=== PATIENT | male | born 1960 | race Caucasian/White ===

== ENCOUNTER → 2021-04-07 03:12 | Outpatient (CLI) | payer MEDICARE, MEDICAID, SELFPAY ==
[2021-04-07 20:44] LABS: SARS-CoV-2 RNA PCR Negative
== END ==
PROVIDERS: PCP Nurse Practitioner Adult Health; Visit Provider Nurse Practitioner Adult Health
DX: R09.81 Nasal congestion (principal); Z20.822 Contact with and (suspected) exposure to COVID-19
CPT/HCPCS: C9803; U0003; U0005

== ENCOUNTER 2021-04-13 15:54 | Emergency (ER) | payer MEDICARE, MEDICAID, SELFPAY ==
--- NOTE | ~2021-04-13 | XR_ITS ---
EXAMINATION: XR tibia fibula LT 2V INDICATION: Left leg pain TECHNIQUE: Two views of the left tibia and fibula are obtained. COMPARISON: None available FINDINGS: There is anterior soft tissue swelling overlying the proximal leg. No radiographic foreign body is identified. There is no fracture. Mild osteoarthritis is noted in the knee. IMPRESSION: 1. Soft tissue swelling without acute osseous abnormality. Reviewed, dictated and finalized at location A.
[2021-04-13 16:01] VITALS: BP 127/78; PULSE 101; RESP 18; TEMP 36.9; O2SAT 99
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
[2021-04-13] MEDS: TETANUS,DIPHTHERIA,AC PERTUSSIS ADULT (0.5 ML) BOOSTRIX IM (16:45)
== END 2021-04-13 17:50 | disposition home or self-care (01) ==
PROVIDERS: Emergency Provider Nurse Practitioner
DX: L03.116 Cellulitis of left lower limb (principal); J44.9 Chronic obstructive pulmonary disease, unspecified; I10 Essential (primary) hypertension; E11.9 Type 2 diabetes mellitus without complications; F17.210 Nicotine dependence, cigarettes, uncomplicated; Z79.82 Long term (current) use of aspirin; Z79.84 Long term (current) use of oral hypoglycemic drugs; Z23 Encounter for immunization; V18.0XXA Pedal cycle driver injured in noncollision transport accident in nontraffic accident, initial encounter
CPT/HCPCS: 73590; 90471; 90715; 99213; G0463

== ENCOUNTER 2021-04-16 11:40 | Inpatient (IN) | payer MEDICARE, MEDICAID, SELFPAY ==
[2021-04-16 11:41] VITALS: BP 134/88; PULSE 87; RESP 16; TEMP 36.6; O2SAT 97
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
[2021-04-16 12:28] LABS: Basophils Percent Auto 0.2 % (0.2-1.2); Eosinophils Absolute Auto 0.3 K/mm3 (0-0.3); Eosinophils Percent Auto 3.1 % (0-4.4); Hematocrit 42.2 % (42.0-52.0); Hemoglobin 14.5 g/dL (14.0-18.0); Immature Granulocyte Absolute 0.03 K/mm3 (0.00-0.031); Immature Granulocyte Percent A 0.4 % (0-0.5); Lymphocytes Absolute Auto 1.49 K/mm3 (0.9-3.2); Lymphocytes Percent Auto 18.5 % (18.3-44.2); Mean Corpuscular HGB Conc 34.4 g/dl (32-36); Mean Corpuscular Hemoglobin 34.9 pg (26-34); Mean Corpuscular Volume 101.7 fl (80-100); Mean Platelet Volume 9.1 fl (7.4-10.4); Neutrophils Absolute Auto 5.3 K/mm3 (1.3-6.7); Neutrophils Percent Auto 65.8 % (45.5-73.1); Platelet Count Result 157 k/mm3 (150-375); Red Blood Count 4.15 M/mm3 (4.6-6.20); Red Cell Distribution Width 12.2 % (11.5-14.5); White Blood Count 8.1 K/mm3 (4.5-10.0)
[2021-04-16 12:40] LABS: Anion Gap 11 mmol/L (8-16); Blood Urea Nitrogen 8 mg/dL (9-20); CRP 1.4 mg/dL (<1.0); Calcium 9.2 mg/dL (8.4-10.2); Carbon Dioxide 23 mmol/L (22-30); Chloride 104 mmol/L (98-107); Estimated CRCL calculation 92 ml/min; Estimated Glomerular Filt Rate > 60; Glucose 121 mg/dL (65-110); Potassium 4.2 mmol/L (3.4-5.0); Sodium 138 mmol/L (137-145)
[2021-04-16 13:22] LABS: Erythrocyte Sedimentation Rate 23 mm/hr (0-20)
[2021-04-16 13:40] VITALS: BP 129/78; PULSE 80; RESP 16; O2SAT 97
[2021-04-16 15:29] VITALS: BP 132/84; PULSE 88; RESP 16; O2SAT 99
[2021-04-16 15:50] VITALS: BP 142/80; PULSE 84; RESP 18; O2SAT 99
--- NOTE | 2021-04-16 16:23 | ADMGEN ---
This patient, Juwan Harris, was admitted to Medical Room 245-. Patient/family oriented to hospital policies and general routines including ID bracelet, bed and alarms, visiting hours, pain management, procedures, bathroom and other care routines, personal items, smoking policy, room service/diet, and visiting hours. Information on how to activate the Rapid Response Team has been discussed. Patient/Family are encouraged to report perceived risks to care and to ask questions if they do not understand what they are told or what they should do.
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
[2021-04-16 16:32] VITALS: BMI 26.2
[2021-04-16 18:21] LABS: Glucose Point of Care 137 mg/dl (65-105)
[2021-04-16 21:30] LABS: Glucose Point of Care 128 mg/dl (65-105)
[2021-04-16 22:00] VITALS: BP 129/78; PULSE 72; RESP 20; TEMP 36.9; O2SAT 98
[2021-04-17] MEDS: NICOTINE (*PBKC) 4 MG GUM PO ×4 (00:29→19:58)
[2021-04-17 05:19] LABS: Basophils Percent Auto 0.3 % (0.2-1.2); Eosinophils Absolute Auto 0.3 K/mm3 (0-0.3); Eosinophils Percent Auto 4.2 % (0-4.4); Hematocrit 41.2 % (42.0-52.0); Hemoglobin 14.3 g/dL (14.0-18.0); Immature Granulocyte Absolute 0.02 K/mm3 (0.00-0.031); Immature Granulocyte Percent A 0.3 % (0-0.5); Lymphocytes Absolute Auto 1.84 K/mm3 (0.9-3.2); Lymphocytes Percent Auto 24.4 % (18.3-44.2); Mean Corpuscular HGB Conc 34.7 g/dl (32-36); Mean Corpuscular Volume 98.1 fl (80-100); Mean Platelet Volume 9.2 fl (7.4-10.4); Monocytes Absolute Auto 1.2 K/mm3 (0.1-0.6); Monocytes Percent Auto 15.9 % (2.6-8.5); Neutrophils Absolute Auto 4.1 K/mm3 (1.3-6.7); Neutrophils Percent Auto 54.9 % (45.5-73.1); Platelet Count Result 179 k/mm3 (150-375); Red Cell Distribution Width 11.8 % (11.5-14.5); White Blood Count 7.5 K/mm3 (4.5-10.0)
[2021-04-17 05:27] LABS: Hemoglobin A1C 6.1 % (<5.7)
[2021-04-17 05:30] LABS: Alanine Aminotransferase 19 U/L (4-50); Albumin Level 4.1 g/dL (3.5-5.1); Alkaline Phosphatase 57 U/L (38-126); Anion Gap 8 mmol/L (8-16); Aspartate Amino Transferase 31 U/L (17-59); Bilirubin,Total 0.4 mg/dL (0.2-1.3); Blood Urea Nitrogen 12 mg/dL (9-20); Calcium 9.2 mg/dL (8.4-10.2); Carbon Dioxide 24 mmol/L (22-30); Chloride 106 mmol/L (98-107); Estimated CRCL calculation 82 ml/min; Estimated Glomerular Filt Rate > 60; Glucose 122 mg/dL (65-110); Magnesium 2.1 mg/dL (1.6-2.3); Potassium 4.3 mmol/L (3.4-5.0); Sodium 138 mmol/L (137-145)
[2021-04-17 06:00] VITALS: BP 114/85; PULSE 70; RESP 18; TEMP 36.8; O2SAT 97
[2021-04-17 06:36] LABS: Folic Acid 12.5 ng/mL (2.76->20)
[2021-04-17] MEDS: OLMESARTAN MEDOXOMIL 20 MG TABLET 40 MG PO (07:59)
[2021-04-17] MEDS: SIMVASTATIN 20 MG TABLET 40 MG PO (07:59)
[2021-04-17] MEDS: OMEGA 3 POLYUNSAT FATTY ACIDS 1 GM CAP PO (07:59)
[2021-04-17] MEDS: TRIHEXYPHENIDYL HCL 2 MG TABLET PO (08:00)
[2021-04-17] MEDS: buPROPion HCL XL (24 HR) 150 MG TABCR PO (08:00)
[2021-04-17] MEDS: OXcarbazepine 300 MG TABLET PO ×2 (08:00→16:44)
[2021-04-17 08:51] LABS: Glucose Point of Care 112 mg/dl (65-105)
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
[2021-04-17] MEDS: ASPIRIN 81 MG ENTERIC TABLET PO (11:16)
[2021-04-17] MEDS: CYANOCOBALAMIN 1,000 MCG TABLET 1000 MCG PO (11:16)
[2021-04-17 12:19] LABS: Glucose Point of Care 150 mg/dl (65-105)
[2021-04-17 14:00] VITALS: BP 126/77; PULSE 65; RESP 18; TEMP 36.8; O2SAT 99
[2021-04-17 17:01] LABS: Glucose Point of Care 153 mg/dl (65-105)
[2021-04-17 21:00] LABS: Glucose Point of Care 127 mg/dl (65-105)
[2021-04-17 22:00] VITALS: BP 127/82; PULSE 65; RESP 20; TEMP 36.5; O2SAT 98
[2021-04-18] MEDS: ACETAMINOPHEN 325 MG TABLET 650 MG PO ×2 (00:27→06:07)
[2021-04-18 02:17] LABS: Estimated CRCL calculation 82 ml/min; Estimated Glomerular Filt Rate > 60
[2021-04-18 02:46] LABS: Vancomycin Trough 13.1 ug/mL (10.0-20.0)
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
--- NOTE | 2021-04-18 05:16 | PC.NURSE ---
0500 CALLED INTO ROOM IV EDEMATOUS, DC'D eVra GILMORE RN ATTEMPTED RESTART WITHOUT SUCCESS, PT REFUSES TO BE STUCK AGAIN
[2021-04-18 06:00] VITALS: BP 122/84; PULSE 66; RESP 21; TEMP 36.7; O2SAT 100
[2021-04-18 07:14] LABS: Glucose Point of Care 130 mg/dl (65-105)
[2021-04-18] MEDS: OLMESARTAN MEDOXOMIL 20 MG TABLET 40 MG PO (08:11)
[2021-04-18] MEDS: SIMVASTATIN 20 MG TABLET 40 MG PO (08:11)
[2021-04-18] MEDS: TRIHEXYPHENIDYL HCL 2 MG TABLET PO (08:12)
[2021-04-18] MEDS: ASPIRIN 81 MG ENTERIC TABLET PO (08:12)
[2021-04-18] MEDS: buPROPion HCL XL (24 HR) 150 MG TABCR PO (08:12)
[2021-04-18] MEDS: OXcarbazepine 300 MG TABLET PO (08:12)
[2021-04-18 08:13] VITALS: RESP 20; O2SAT 100
[2021-04-18] MEDS: CYANOCOBALAMIN 1,000 MCG TABLET 1000 MCG PO (08:13)
[2021-04-18] MEDS: OMEGA 3 POLYUNSAT FATTY ACIDS 1 GM CAP PO (08:13)
[2021-04-18] MEDS: CEPHALEXIN 500 MG CAPSULE PO ×2 (09:29→12:12)
[2021-04-18] MEDS: SACCHAROMYCES BOULARDII 250 MG CAPSULE PO (09:29)
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
[2021-04-18 11:57] LABS: Glucose Point of Care 116 mg/dl (65-105)
== END 2021-04-18 12:35 | disposition home or self-care (01) | DRG 603 ==
LOC: ANHED 13:52 → ANH2MED 15:31
PROVIDERS: Physician Assistant; Admitting Provider Internal Medicine; Emergency Provider Emergency Medicine; PCP Nurse Practitioner Adult Health; Visit Provider Internal Medicine
DX: L03.116 Cellulitis of left lower limb (principal); F20.0 Paranoid schizophrenia; S81.802A Unspecified open wound, left lower leg, initial encounter; V19.88XA Pedal cyclist (driver) (passenger) injured in other specified transport accidents, initial encounter; E11.9 Type 2 diabetes mellitus without complications; I10 Essential (primary) hypertension; J44.9 Chronic obstructive pulmonary disease, unspecified; F17.210 Nicotine dependence, cigarettes, uncomplicated; F31.9 Bipolar disorder, unspecified; E78.5 Hyperlipidemia, unspecified
CPT/HCPCS: 36415; 80048; 80053; 80202; 82565; 82607; 82746; 82948; 83036; 83735; 85025; 85652; 86140; 96365; 96366; 96367; 99285; A9270; G0378; J0743; J3370

== ENCOUNTER 2021-04-20 10:50 | Observation (INO) | payer MEDICARE, MEDICAID, SELFPAY ==
--- NOTE | ~2021-04-20 | US_ITS ---
EXAMINATION: US renal BI DATE: 04/20/2021 18:08 INDICATION: Elevated creatinine TECHNIQUE: Multiple ultrasound grayscale images of the kidneys were obtained. COMPARISON: None. FINDINGS: The right kidney measures 10.5 x 5.5 x 4.7 cm. The left kidney measures 10.6 x 4.9 x 4.9 cm. The kidn eys demonstrate normal echogenicity. There is no hydronephrosis in either kidney. No stones identifi ed. The bladder is normal. IMPRESSION: 1. Normal kidneys without hydronephrosis. Reviewed, dictated and finalized at location A.
[2021-04-20 10:52] VITALS: BP 144/117; PULSE 127; RESP 16; TEMP 36.1; O2SAT 97
[2021-04-20 11:20] VITALS: TEMP 36.8
--- NOTE | 2021-04-20 11:36 | ECG_ITS ---
Measurements Intervals [place] Rate: 101 P: 71 PA: 121 QRS: 15 QRSD: 105 T: 45 QT: 358 QTc: 465 Interpretive Statements SINUS TACHYCARDIA VENTRICULAR PREMATURE COMPLEXES POSSIBLE LEFT ATRIAL ENLARGEMENT MINIMAL Q WAVES- HIGH LATERAL LEADS ABNORMAL ECG Electronically Signed On 04-20-2021 16:04:26 CDT by Jose Hess D.O.
[2021-04-20] MEDS: LACTATED RINGERS 1,000 ML 999 ML IV CONT ×2 (11:54→15:36)
[2021-04-20 12:38] LABS: Basophils Percent Auto 0.2 % (0.2-1.2); Eosinophils Percent Auto 0.2 % (0-4.4); Hematocrit 43.7 % (42.0-52.0); Hemoglobin 14.8 g/dL (14.0-18.0); Immature Granulocyte Absolute 0.03 K/mm3 (0.00-0.031); Immature Granulocyte Percent A 0.3 % (0-0.5); Lymphocytes Absolute Auto 0.81 K/mm3 (0.9-3.2); Lymphocytes Percent Auto 9.3 % (18.3-44.2); Mean Corpuscular HGB Conc 33.9 g/dl (32-36); Mean Corpuscular Hemoglobin 34.8 pg (26-34); Mean Corpuscular Volume 102.8 fl (80-100); Neutrophils Absolute Auto 6.8 K/mm3 (1.3-6.7); Platelet Count Result 159 k/mm3 (150-375); Red Blood Count 4.25 M/mm3 (4.6-6.20); Red Cell Distribution Width 12.6 % (11.5-14.5); White Blood Count 8.7 K/mm3 (4.5-10.0)
[2021-04-20 12:59] LABS: Alanine Aminotransferase 19 U/L (4-50); Albumin Level 4.2 g/dL (3.5-5.1); Alkaline Phosphatase 62 U/L (38-126); Anion Gap 15 mmol/L (8-16); Aspartate Amino Transferase 32 U/L (17-59); Bilirubin,Total 0.3 mg/dL (0.2-1.3); Blood Urea Nitrogen 16 mg/dL (9-20); CRP 1.5 mg/dL (<1.0); Calcium 8.5 mg/dL (8.4-10.2); Carbon Dioxide 18 mmol/L (22-30); Chloride 103 mmol/L (98-107); Creatine Kinase 92 U/L (55-170); Estimated CRCL calculation 33 ml/min; Estimated Glomerular Filt Rate 32; Glucose 135 mg/dL (65-110); Potassium 4.8 mmol/L (3.4-5.0); Sodium 136 mmol/L (137-145)
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
[2021-04-20 13:05] LABS: Lactic Acid Reflex 2.3 mmol/L (0.7-2.1)
[2021-04-20 13:09] LABS: Troponin I < 0.012 ng/mL (0.000-0.034)
[2021-04-20 13:20] LABS: Erythrocyte Sedimentation Rate 14 mm/hr (0-20)
[2021-04-20 14:15] LABS: Thyroid Stimulating Hormone Reflex 0.337 uIU/mL (0.465-4.68)
[2021-04-20 15:33] LABS: Reflex Lactic Acid Yes or No Add Lactic
[2021-04-20 15:34] VITALS: BP 125/65; PULSE 97; RESP 16; O2SAT 100
--- NOTE | 2021-04-20 15:45 | PM.IMHP ---
H&P: HPI History of Present Illness Date/Time: 04/20/21 15:45 Chief Complaint: Possible allergic reaction to antibiotics. Narrative: This is a 61-year-old male with diabetes, hypertension, dyslipidemia, bipolar disorder, schizophrenia, and COPD presented to the emergency department earlier today with concerns for possible allergic reaction to antibiotics. The patient is known to myself and the hospitalist service with an admission on 04/16/2021 at which time he was admitted for left lower leg cellulitis after failing outpatient treatment with clindamycin. He was started on vancomycin and imipenem and received 2 days of IV antibiotics with improvement. On the morning of discharge (04/18/2021) his IV went bad and the patient refused to have another placed and requested to be started on oral medications instead. He was discharged on Keflex and Bactrim DS for 12 more days. He has been taking his antibiotics at home and did drink several beers last night though he was told not to with his antibiotics. When he woke this morning he was feeling shaky any thought perhaps he was having an allergic reaction and thus he came in for evaluation. He was afebrile but tachycardic on arrival to the ER. He had a normal white blood cell count however his lactic acid level was mildly elevated at 2.3 and he was found to have an acute kidney injury with a creatinine of 2.10, up from 0.80 on day of discharge. He reports normal oral intake, drinking quite a bit of water and he admits to having for 5 beers last night. He has had some loose stools as well. He does not necessarily feel dehydrated but he has been getting lightheaded when standing up. He has not noticed a decrease in urine output or change in urine color. He has not had any fever, chills, or sweats. Reports that his cellulitis continues to improve. Review of Systems Review of Systems: Twelve systems were reviewed with pertinent positives and negatives as per HPI. No fever, chills, or sweats. He has chronic sinus issues since moving back to the area that he thinks is may be related to environmental allergies. No exposure to COVID. Denies cough and shortness of breath. No history of alcohol withdrawal signs or symptoms. Except as documented, all other systems were reviewed and are negative. [facility] Past Medical History Medical History Bipolar 1 disorder Chronic obstructive pulmonary disease Depression Essential hypertension Schizophrenia, paranoid Seizures Tobacco abuse Type 2 diabetes mellitus Hemoglobin A1c was 6.1% on 04/17/2021. Surgical History Surgical History Status post left foot surgery Due to a laceration on the top of his foot as a child with repair of tendons. Family History Family History Other Diabetes mellitus Multiple family members with diabetes Social History Social History (Updated 04/21/21 @ 00:34 by Nichole Grijalva PA-C) Social History: The patient lives with his mother in [place]. He has smoked a pack of cigarettes a day for about 41 years and drinks 4 beers most nights of the week. Denies illicit substance abuse. Surrogate decision maker: Jennifer Mckenzie, mother. Code status: Full code. Meds Home Medications and Allergies Home Medications Medication Instructions Recorded Confirmed Type Januvia 100 mg PO DAILY 07/11/19 04/20/21 History metformin 1,000 mg PO DAILY 07/11/19 04/20/21 History olmesartan 40 mg PO DAILY 07/11/19 04/20/21 History simvastatin 40 mg PO DAILY 07/11/19 04/20/21 History Caplyta 42 mg PO DAILY 04/13/21 04/20/21 History Fish Oil 1 cap PO DAILY 04/13/21 04/20/21 History bupropion HCl 150 mg PO DAILY 04/13/21 04/20/21 History oxcarbazepine 300 mg PO BID 04/13/21 04/20/21 History trihexyphenidyl 2 mg PO DAILY 04/16/21 04/20/21 History Saccharomyces boulardii [Florast
[2021-04-20 15:52] LABS: Free T4 Free Thyroxine Reflex 0.88 ng/dL (0.78-2.19)
[2021-04-20 16:07] VITALS: BP 133/79; PULSE 107; RESP 18; O2SAT 100
[2021-04-20 16:30] VITALS: BP 123/65; PULSE 91; RESP 18; TEMP 37.3; O2SAT 97; BMI 26.6
--- NOTE | 2021-04-20 16:41 | ADMGEN ---
This patient, Juwan Harris, was admitted to [facility] Room 304-02. Patient/family oriented to hospital policies and general routines including ID bracelet, bed and alarms, visiting hours, pain management, procedures, bathroom and other care routines, personal items, smoking policy, room service/diet, and visiting hours. Information on how to activate the Rapid Response Team has been discussed. Patient/Family are encouraged to report perceived risks to care and to ask questions if they do not understand what they are told or what they should do.
[2021-04-20 17:08] LABS: Glucose Point of Care 93 mg/dl (65-105)
--- NOTE | 2021-04-20 17:19 | PM.CNNEP ---
Assessment and Plan Assessment and plan (1) Acute kidney injury: Code(s): N17.9 - Acute kidney failure, unspecified Status: Acute Assessment and Plan: Galina has an elevated creatinine. It was normal before. He has been drinking water and also drinking beer since he left the last hospital. He did have some diarrhea. So he may have some dehydration. The patient also was on Bactrim and the trimethoprim can interfere with creatinine secretion and so raise the creatinine without a real change in renal function. He could have worsened infection and which could lead to ATN; however, patient does not have a fever, his wound looks better according to him, and he does not have leukocytosis. So I think this is less likely. This would be too quick for interstitial nephritis. Also the patient does not have a rash or eosinophilia. At this point will get urine electrolytes and a renal sonogram. I agree with hydration. (2) Essential hypertension: Code(s): I10 - Essential (primary) hypertension Status: Chronic (3) Tobacco abuse: Code(s): Z72.0 - Tobacco use Status: Acute Assessment and Plan: I advised patient to stop. Consider patches or Chantix or seeing his primary care doctor to help. (4) Left leg cellulitis: Code(s): L03.116 - Cellulitis of left lower limb Status: Acute Assessment and Plan: The patient has cellulitis. White count is good and he has no fever. He will continue antibiotics but please not Bactrim. (5) Chronic obstructive pulmonary disease: Code(s): J44.9 - Chronic obstructive pulmonary disease, unspecified Status: Acute Assessment and Plan: The patient should stop smoking (6) Type 2 diabetes mellitus: Code(s): E11.9 - Type 2 diabetes mellitus without complications Status: Acute Assessment and Plan: He is on metformin. This is being held. He did have a high lactic acid level but repeat was normal. History of Present Illness Reason for Consult Consult date: 04/20/21 Chief Complaint Chief complaint: bry,cellulitis History of Present Illness Narrative: Juwan is a very pleasant 61-year-old gentleman who has multiple medical problems including vitamin-D deficiency, diabetes hypertension, hyperlipidemia, bipolar type 1 disorder, COPD, current smoking, schizophrenia, seizures, and depression. The patient was admitted to the hospital earlier this week with cellulitis related to a a scab/wound on his left mo. The patient received IV antibiotics for 3 days. On the day of discharge his IV went bad and another 1 was unable to be placed. Then he refused to have further tabs an asked to be switched to pills. This was done and since he was on pills he was discharged. Yesterday afternoon the patient decided to have 4 beers. He did meat pickler the oral antibiotics that he was supposed to take at home and took them. This morning he was shaky. He was worried about recurrent infection so came to the emergency room. He says that he has been shaky often on for the last year. He says that it is often after he has been drinking the night before but not always. In the ER he was evaluated found to have a creatinine of above 2 and so renal consultation was requested. The patient denies any bloody urine foamy urine kidney stones or bladder infections. No pain with urination. He does have a good flow. If he drinks a lot he does get up at night to urinate but otherwise does not. He has not been taken any nonsteroidal anti-inflammatory agents. Review of Systems Constitutional: Constitutional: Reports no additional constitutional complaints Eyes: Eyes: Reports no additional eye complaints ENT: Reports system reviewed and no additional complaints, except as documented Cardiovascular: Cardiovascular: Reports no additional cardiovascular complaints Respiratory: Respiratory: Reports no additional respiratory complaints Gastroin
[2021-04-20 17:21] LABS: Lactic Acid Reflex 1.1 mmol/L (0.7-2.1)
[2021-04-20 18:09] LABS: Total Triiodothyronine (T3) 0.99 NG/ML (0.97-1.69)
[2021-04-20] MEDS: LACTATED RINGERS 1,000 ML 125 ML IV CONT (19:35)
[2021-04-20 19:38] LABS: Creatine Kinase 115 U/L (55-170)
[2021-04-20 20:17] LABS: Add Urine Microscopic? NO; Appearance Urine Clear (Clear); Bilirubin Urine Negative (Negative); Blood Urine Negative (Negative); Color Urine Straw (Yellow); Glucose Urine UA Negative (Negative); Ketones Urine Negative (Negative); Leukocyte Esterase Ur Negative LEU/UL (Negative); Nitrate Urine Negative (Negative); Protein Urine Negative (Negative); Specific Grav Ur 1.008 (1.001-1.035); Urobilinogen Urine Negative mg/dL (<2.0)
[2021-04-20 20:22] LABS: Creatinine Urine 63.1 mg/dL; Total Protein Urine Random 15 mg/dL; Ur Ttl Prot Creatinine Ratio 0.24 mg/mg (0-0.20)
[2021-04-20 20:26] LABS: Sodium Urine Random 29 meq/L
[2021-04-20 21:59] LABS: Vancomycin Random < 5.0 ug/mL (10-20)
[2021-04-20 22:00] VITALS: BP 133/64; PULSE 88; RESP 18; TEMP 37.2; O2SAT 99
[2021-04-20] MEDS: NICOTINE (*PBKC) 4 MG GUM PO (23:08)
[2021-04-21] MEDS: LACTATED RINGERS 1,000 ML 125 ML IV CONT (03:00)
[2021-04-21 03:27] LABS: Glucose Point of Care 109 mg/dl (65-105)
[2021-04-21 06:00] VITALS: BP 131/72; PULSE 73; RESP 18; TEMP 36.2; O2SAT 97
[2021-04-21 06:46] LABS: Hematocrit 41.1 % (42.0-52.0); Hemoglobin 14.1 g/dL (14.0-18.0); Mean Corpuscular HGB Conc 34.3 g/dl (32-36); Mean Corpuscular Hemoglobin 34.8 pg (26-34); Mean Corpuscular Volume 101.5 fl (80-100); Mean Platelet Volume 9.2 fl (7.4-10.4); Platelet Count Result 144 k/mm3 (150-375); Red Blood Count 4.05 M/mm3 (4.6-6.20); Red Cell Distribution Width 12.2 % (11.5-14.5); White Blood Count 5.9 K/mm3 (4.5-10.0)
[2021-04-21 06:58] LABS: Albumin Level 3.8 g/dL (3.5-5.1); Anion Gap 6 mmol/L (8-16); Blood Urea Nitrogen 15 mg/dL (9-20); Calcium 9.2 mg/dL (8.4-10.2); Carbon Dioxide 25 mmol/L (22-30); Chloride 107 mmol/L (98-107); Estimated CRCL calculation 61 ml/min; Estimated Glomerular Filt Rate > 60; Glucose 127 mg/dL (65-110); Phosphorus 2.7 mg/dL (2.5-4.5); Potassium 4.6 mmol/L (3.4-5.0); Sodium 138 mmol/L (137-145)
[2021-04-21 07:54] LABS: Atypical Lymphocytes Present; Band Neutrophils Percent 5 % (0-6); Eosinophils Absolute Manual 0.41 K/mm3 (0.02-0.5); Eosinophils Percent Manual 7 % (0-4); Lymphocytes Absolute Manual 1.53 K/mm3 (1.1-4.5); Metamyelocytes Percent 1 %; Monocytes Percent Manual 12 % (3-9); Neutrophils Absolute Manual 3.18 K/mm3 (1.3-6.7); Neutrophils Percent Manual 49 % (46-73); Platelet Estimate Adequate (Adequate); Total Cells Counted 100
[2021-04-21 08:00] VITALS: PULSE 73; RESP 18; O2SAT 97
[2021-04-21 08:18] LABS: Glucose Point of Care 129 mg/dl (65-105)
[2021-04-21] MEDS: CEPHALEXIN 500 MG CAPSULE PO ×2 (08:20→15:21)
[2021-04-21] MEDS: ENOXAPARIN 40 MG/0.4 ML SYRINGE SUB-Q (08:21)
[2021-04-21] MEDS: TRIHEXYPHENIDYL HCL 2 MG TABLET PO (08:22)
[2021-04-21] MEDS: OXcarbazepine 300 MG TABLET PO (08:22)
[2021-04-21] MEDS: buPROPion HCL XL (24 HR) 150 MG TABCR PO (08:22)
[2021-04-21] MEDS: SACCHAROMYCES BOULARDII 250 MG CAPSULE PO (08:22)
[2021-04-21] MEDS: ASPIRIN 81 MG ENTERIC TABLET PO (08:22)
[2021-04-21] MEDS: SIMVASTATIN 20 MG TABLET 40 MG PO (08:22)
[2021-04-21] MEDS: CYANOCOBALAMIN 1,000 MCG TABLET 1000 MCG PO (08:22)
[2021-04-21] MEDS: lamoTRIgine 100 MG TABLET 200 MG PO (08:22)
[2021-04-21] MEDS: NICOTINE (*PBKC) 4 MG GUM PO (08:23)
--- NOTE | 2021-04-21 10:13 | PM.PNNEP ---
Progress Note: A&P Assessment and Plan (1) Acute kidney injury: Code(s): N17.9 - Acute kidney failure, unspecified Status: Acute Assessment and Plan: Galina has an elevated creatinine. It was normal before. Renal ultrasound is unremarkable. Urine electrolytes are non pre renal. Urinalysis is bland. CPK is normal. Most likely his elevated creatinine is due to a combination of dehydration and the Trimethoprim. He has been getting IV fluids. I will reduce the rate to 75. If he eats okay we could probably just stop this. (2) Essential hypertension: Code(s): I10 - Essential (primary) hypertension Status: Chronic Assessment and Plan: Blood pressure is under good control (3) Tobacco abuse: Code(s): Z72.0 - Tobacco use Status: Acute Assessment and Plan: I advised patient to stop. Consider patches or Chantix or seeing his primary care doctor to help. (4) Left leg cellulitis: Code(s): L03.116 - Cellulitis of left lower limb Status: Acute Assessment and Plan: The patient has cellulitis. on oral antibiotics (5) Chronic obstructive pulmonary disease: Code(s): J44.9 - Chronic obstructive pulmonary disease, unspecified Status: Acute Assessment and Plan: The patient should stop smoking (6) Type 2 diabetes mellitus: Code(s): E11.9 - Type 2 diabetes mellitus without complications Status: Acute Assessment and Plan: He is on metformin. This is being held. He did have a high lactic acid level but repeat was normal. Subjective Date/time seen: 04/21/21 10:13 Interval history: Juwan is feeling better today. He did have more diarrhea last night. We discussed his diarrhea. He says that it happens every time he drinks much beer. He has decided not to drink any more beer. Review of Systems Cardiovascular: Cardiovascular: Reports no additional cardiovascular complaints Respiratory: Respiratory: Reports no additional respiratory complaints Gastrointestinal: Gastrointestinal: Reports no additional gastrointestinal complaints Genitourinary: Genitourinary: Reports no additional male genitourinary complaints Exam Narrative: WDWN in NAD skin no rash head ncat lungs clear cor reg no rub abd BS+ nontender and soft ext no edema. Objective Data Vital Signs Vital Signs: Vital Signs - 24 hr 04/20/21 10:52 04/20/21 11:20 04/20/21 15:34 Temperature 36.1 C L 36.8 C Pulse Rate 127 H 97 Respiratory Rate 16 16 Blood Pressure 144/117 H 125/65 Pulse Oximetry 97 100 04/20/21 16:07 04/20/21 16:30 04/20/21 22:00 Temperature 37.3 C 37.2 C Pulse Rate 107 H 91 88 Respiratory Rate 18 18 18 Blood Pressure 133/79 123/65 133/64 Pulse Oximetry 100 97 99 04/21/21 06:00 Temperature 36.2 C L Pulse Rate 73 Respiratory Rate 18 Blood Pressure 131/72 Pulse Oximetry 97 Intake/Output Intake/Output: Intake & Output 04/18/21 04/19/21 04/20/21 04/21/21 23:59 23:59 23:59 23:59 Intake Total 1490 2160 Balance 1490 2160 Meds/Results Medications: Active Medications Generic Name Dose Route Start Last Admin Trade Name Freq PRN Reason Stop Dose Admin Acetaminophen 650 mg 04/20/21 13:57 Acetaminophen 325 Mg Tablet PO Q4H PRN Mild Pain (1-3) or Fever Aspirin 81 mg 04/21/21 09:00 04/21/21 08:22 Aspirin 81 Mg Enteric Tablet PO 81 mg DAILY ADELSO Administration Bupropion HCl 150 mg 04/21/21 09:00 04/21/21 08:22 Bupropion Hcl Xl (24 Hr) 150 Mg Tabcr PO 150 mg DAILY ADELSO Administration Cephalexin HCl 500 mg 04/21/21 09:00 04/21/21 08:20 Cephalexin 500 Mg Capsule PO 500 mg QID ADELSO Administration Cyanocobalamin 1,000 mcg 04/21/21 09:00 04/21/21 08:22 Cyanocobalamin 1,000 Mcg Tablet PO 1,000 mcg QAM ADELSO Administration Dextrose 12.5 gm 04/21/21 00:42 Dextrose 50% 25 Gm/50 Ml Syringe IV PUSH PRN PRN Hyp
[2021-04-21 11:16] VITALS: BMI 27.1
[2021-04-21 11:55] LABS: Glucose Point of Care 212 mg/dl (65-105)
[2021-04-21 14:58] VITALS: BP 131/79; PULSE 74; RESP 14; TEMP 37.2; O2SAT 100
[2021-04-21] MEDS: INSULIN ASPART (*BKC) 100 UNITS/ML SUB-Q (15:21)
--- NOTE | 2021-04-21 16:00 | PM.DS ---
DS: Admitting Diagnosis Discharge Date 04/21/21 Admitting Diagnosis MARLA DS: Discharge Diagnosis Discharge Diagnosis (1) Acute kidney injury: Code(s): N17.9 - Acute kidney failure, unspecified Status: Acute (2) Left leg cellulitis: Code(s): L03.116 - Cellulitis of left lower limb Status: Acute (3) Wound of left leg: Code(s): S81.802A - Unspecified open wound, left lower leg, initial encounter Status: Acute (4) Type 2 diabetes mellitus: Code(s): E11.9 - Type 2 diabetes mellitus without complications Status: Acute (5) Essential hypertension: Code(s): I10 - Essential (primary) hypertension Status: Chronic (6) Tobacco abuse: Code(s): Z72.0 - Tobacco use Status: Acute (7) Chronic obstructive pulmonary disease: Code(s): J44.9 - Chronic obstructive pulmonary disease, unspecified Status: Acute (8) Schizophrenia, paranoid: Code(s): F20.0 - Paranoid schizophrenia Status: Acute DS: Summary Hospital Course Hospital Course: DOS 04/21/21 Patient is a 61-year-old male who presented emergency room on 04/20/2021 (after being hospitalized for cellulitis and discharged 04/18/21) for shakiness and concern for allergic reaction to his antibiotics. Patient was discharged on Keflex and Bactrim a few days prior and had been taking that. The night before admission he drinks several beers and woke up not feeling well. Vitals in the ER were temperature 36.1? C, pulse 127, respiratory rate 16, blood pressure 144/117, pulse ox 97 on room air. CBC within normal limits. BMP showed MARLA with a creatinine at 2.1 and a CO2 of 18. Lactic acid mildly elevated 2.3. His wound on his right leg looked like it was healing well and had improved since his last hospitalization. Patient was started on IV fluids and admitted to the hospitalist service for MARLA. He underwent a renal ultrasound which showed normal kidneys and UA had no indication of infection. The next day his creatinine improved to 1.1 and he was feeling much better. It is unclear the etiology of his slight MARLA but it could have been due to antibiotics or alcohol use. The patient was educated about decreasing his alcohol use and eventually stopping. He also mentioned he had had diarrhea for about 6 months that he said was unchanged. He could not produce a stool sample while hospitalized. There was no concern for C diff since his white blood cell count was normal, his abdomen was nontender, and he looked nontoxic. I did recommend fiber and following up with his primary care physician for stool sample there. He agreed. As for his infection, it was healing well and I recommended he follow-up with his primary care physician to ensure that it heals okay and he was discharged on doxycycline. Overall, the patient was feeling much better the day of discharge. He was educated about the worrisome signs and symptoms to come back to emergency room for and was discharged in stable condition. Time Spent with Patient Time attestation: Total time spent providing and/or coordinating discharge services: 40 minutes Exam Narrative: General: Well developed well nourished patient in NAD HEENT: normocephalic Neck: supple Neuro: Alert and oriented x4 CV:RRR Resp:CTA Abd: Soft, non distended. No pain to palpation. Positive bowel sounds Extremities: Large scab on the right wound with mild surrounding erythema. No discharge or warmth to the area. Pulses and sensation intact Discharge Plan Discharge Attending physician on discharge: Dionicio Tang Consulting providers: Apollo Calix ; Nichole Grijalva ; Jose Hess ; Med Wood Discharging Clinician: Linh Arana Patient Disposition: Home, Self-Care Activity: as tolerated Diet: regular Discharge Instructions: -as discussed, if you continue to have diarrhea you should follow up with your primary care physician or a GI doctor for t
--- NOTE | 2021-04-21 16:53 | PC.NURSE ---
Pt unable to have a bowel movement. Nurse called and talked to the HERACLIO Melton at 1650. Linh informed nurse that is was ok for pt to discharge without having bowel movement.
[2021-04-21 17:09] LABS: Glucose Point of Care 118 mg/dl (65-105)
--- NOTE | 2021-05-03 11:05 | PC.NURSE ---
MRSA is negative
== END 2021-04-21 17:35 | disposition home or self-care (01) ==
LOC: ANHED 11:27 → ANH3MEDSUR 15:08
PROVIDERS: Internal Medicine Nephrology; Physician Assistant; Admitting Provider Internal Medicine; Emergency Provider Emergency Medicine; PCP Nurse Practitioner Adult Health; Visit Provider Internal Medicine
DX: N17.9 Acute kidney failure, unspecified (principal); L03.116 Cellulitis of left lower limb; E11.9 Type 2 diabetes mellitus without complications; I10 Essential (primary) hypertension; E78.5 Hyperlipidemia, unspecified; F20.0 Paranoid schizophrenia; F31.9 Bipolar disorder, unspecified; J44.9 Chronic obstructive pulmonary disease, unspecified; F17.290 Nicotine dependence, other tobacco product, uncomplicated; Z79.84 Long term (current) use of oral hypoglycemic drugs
CPT/HCPCS: 36415; 76775; 80053; 80069; 80202; 81003; 82550; 82570; 82948; 83605; 84156; 84300; 84439; 84443; 84480; 84484; 85025; 85652; 86140; 87040; 87045; 87081; 87427; 89055; 93005; 96360; 96361; 96372; 99285; A9270; G0378; J1650; J1815; J7120

== ENCOUNTER 2021-04-28 08:28 | Outpatient (CLI) | payer MEDICARE, MEDICAID, SELFPAY ==
[2021-04-28 09:13] LABS: Anion Gap 10 mmol/L (8-16); Blood Urea Nitrogen 11 mg/dL (9-20); Calcium 9.4 mg/dL (8.4-10.2); Carbon Dioxide 25 mmol/L (22-30); Chloride 104 mmol/L (98-107); Estimated Glomerular Filt Rate > 60; Glucose 140 mg/dL (65-110); Potassium 4.3 mmol/L (3.4-5.0); Sodium 139 mmol/L (137-145)
== END 2021-04-28 08:29 | disposition home or self-care (01) ==
LOC: ANHLAB 08:32
PROVIDERS: PCP Nurse Practitioner Adult Health; Visit Provider Physician Assistant
DX: N17.9 Acute kidney failure, unspecified (principal)
CPT/HCPCS: 36415; 80048

== ENCOUNTER 2023-09-01 12:04 | Emergency (ER) | payer MEDICARE, MEDICAID, SELFPAY ==
--- NOTE | ~2023-09-01 | XR_ITS ---
EXAMINATION: XR chest 2V DATE: 09/01/2023 13:06 INDICATION: Cough TECHNIQUE: Frontal and lateral views of the chest are obtained COMPARISON: 07/10/2019 FINDINGS: There are minimal airspace opacities of the right lung base. No pleural effusion or pneumot horax. The cardiomediastinal silhouette is normal. There is moderate thoracic spondylosis. IMPRESSION: 1. Right basilar airspace opacity, consistent with atelectasis versus pneumonia. Reviewed, dictated and finalized at location F. HYSICAL COMPUTER IMPRESSION: 1. Right basilar airspace opacity, consistent with atelectasis versus pneumonia .
--- NOTE | 2023-09-01 12:08 | ED.GENADULT ---
HPI - General Adult General Chief complaint: Upper Respiratory Infection Stated complaint: Sinus Time Seen by Provider: 09/01/23 12:07 Source: patient Mode of arrival: ambulatory Limitations: no limitations History of Present Illness HPI narrative: 63-year-old male patient presents to the [facility] with complaints of shortness of breath. Patient does have a history of COPD emphysema and is a current smoker. Patient states he has been having a cough and shortness of breath that is been ongoing for about 2-3 weeks. Patient states he was put on 2 antibiotics and some steroids and still has symptoms. Denies any fevers, body aches or chills. Denies any nausea, vomiting or diarrhea. Denies any abdominal pain. Patient states he is more short of breath on exertion. Patient states he no longer takes Advair are any of his COPD/emphysema maintenance medication. Patient states he does have a rescue albuterol inhaler at home but he has not used it since the symptoms have started. Patient Related Data Home Medications Medication Instructions Recorded Confirmed metformin 1,000 mg tablet 1,000 mg PO DAILY 07/11/19 09/01/23 olmesartan 40 mg tablet 40 mg PO DAILY 07/11/19 09/01/23 simvastatin 40 mg tablet 40 mg PO DAILY 07/11/19 09/01/23 sitagliptin phosphate 100 mg 100 mg PO DAILY 07/11/19 09/01/23 tablet (Januvia) Fish Oil 1 cap PO DAILY 04/13/21 09/01/23 bupropion HCl 150 mg 24 hr tablet, 150 mg PO DAILY 04/13/21 09/01/23 extended release lamotrigine 100 mg tablet 100 mg PO HS 04/20/21 09/01/23 lamotrigine 100 mg tablet 200 mg PO QAM 04/20/21 09/01/23 Allergies Allergy/AdvReac Type Severity Reaction Status Date / Time No Known Allergies Allergy Unknown Verified 09/01/23 12:11 Review of Systems Review of Systems: CONSTITUTIONAL: Denies fever, chills, or sweats. EYES: Denies visual changes, redness, or discharge. ENT: Denies rhinorrhea, congestion, sore throat, or otalgia. CARDIOVASCULAR: Denies chest pain, palpitations, or edema. RESPIRATORY: Positive cough, positive dyspnea. GASTROINTESTINAL: Denies abdominal pain, nausea, vomiting, or diarrhea. GENITOURINARY: Denies dysuria or hematuria. SKIN: Denies rash or itching. MUSCULOSKELETAL: Denies back pain, joint pain, or myalgia. NEUROLOGIC: Denies headache, numbness, or weakness. PSYCHIATRIC: Denies anxiety or depression. [facility] Past Medical History Medical History (Updated 09/01/23 @ 13:24 by SUNIL Jones) Bipolar 1 disorder Chronic obstructive pulmonary disease COPD (chronic obstructive pulmonary disease) Depression DM (diabetes mellitus) Essential hypertension Schizophrenia, paranoid Seizures Tobacco abuse Type 2 diabetes mellitus Hemoglobin A1c was 6.1% on 04/17/2021. Surgical History Surgical History Status post left foot surgery Due to a laceration on the top of his foot as a child with repair of tendons. Family History Family History Other Diabetes mellitus Multiple family members with diabetes Social History Social History (Updated 09/01/23 @ 12:44 by SUNIL Jones) Social History: The patient lives with his mother in [place]. He has smoked a pack of cigarettes a day for about 41 years and drinks 4 beers most nights of the week. Denies illicit substance abuse. Surrogate decision maker: Jennifer Mckenzie, mother. Code status: Full code. Smoking status: Current every day smoker Tobacco type: cigarettes Spiritual care concerns: No Comments At the time of my signature I agree with nursing past medical history, surgical, social, and family history. There is no relevant family history pertinent to the presenting complaint. Exam Narrative: GENERAL: Well-appearing, well-nourished, and in no acute distress. HEAD: Normocephalic, atraumatic. EYES: PERRLA and EOMI. ENT: Nares clear, no rhinorrhea or epis
[2023-09-01 12:21] VITALS: BP 123/84; PULSE 106; RESP 18; TEMP 36.6; O2SAT 100
--- NOTE | 2023-09-01 12:41 | ECG_ITS ---
Measurements Intervals [place] Rate: 81 P: 69 CT: 134 QRS: 22 QRSD: 119 T: 52 QT: 372 QTc: 432 Interpretive Statements SINUS RHYTHM POSSIBLE LATERAL MYOCARDIAL INFARCTION PROBABLY OLD COMPARED TO ECG 04/20/2021 11:51:35 SINUS RHYTHM NOW PRESENT Electronically Signed On 09-02-2023 11:32:32 CHEMIST WATER PURIFICATION by Rai Crews M.D.
== END 2023-09-01 13:30 | disposition home or self-care (01) ==
PROVIDERS: Emergency Provider Nurse Practitioner Family; PCP Nurse Practitioner Adult Health
DX: J44.9 Chronic obstructive pulmonary disease, unspecified (principal); J18.9 Pneumonia, unspecified organism; F17.210 Nicotine dependence, cigarettes, uncomplicated; E11.9 Type 2 diabetes mellitus without complications; Z79.84 Long term (current) use of oral hypoglycemic drugs; I10 Essential (primary) hypertension; G40.909 Epilepsy, unspecified, not intractable, without status epilepticus
CPT/HCPCS: 71046; 93005; 99213; G0463

== ENCOUNTER 2024-01-10 11:16 | Emergency (ER) | payer MEDICARE, MEDICAID, SELFPAY ==
[2024-01-10] VITALS (14 sets, daily range): BP systolic 115–166; BP diastolic 70–147; PULSE 82–108; RESP 15–29; TEMP 36.6–36.9; O2SAT 96–100
--- NOTE | ~2024-01-10 | US_ITS ---
EXAMINATION:US venous doppler LE BI INDICATION:Bilateral leg pain TECHNIQUE: Multiple grayscale, color flow and Doppler images of the right and left lower extremity de ep venous systems were obtained and reviewed. COMPARISON:No prior studies for comparison. FINDINGS: The common femoral, superficial femoral and popliteal veins demonstrate normal respiratory variation, augmentation and compressibility. Color flow is also seen within the posterior tibial, pe roneal, greater saphenous and profunda veins. IMPRESSION: 1: No lower extremity deep venous thrombosis. Reviewed, dictated and finalized at location B.
--- NOTE | ~2024-01-10 | CT_ITS ---
Non-contrast Head CT History: Mental status change Technique: Axial non-contrast imaging of the brain was performed. Dose reduction technique was used on this scan by utilizing automated exposure control and iterative reconstruction technique. The dose -length product (DLP) was 681.00 mGy-cm. Findings: There is no evidence of intracranial hemorrhage, mass lesion, or acute infarct. Brain par enchyma appears normal. The ventricles and subarachnoid spaces are normal in size. The calvarium ap pears normal. The visualized paranasal sinuses and mastoid air cells are clear. Impression: No significant abnormality seen. Reviewed, dictated and finalized at location . Impression: No significant abnormality seen.
--- NOTE | ~2024-01-10 | XR_ITS ---
Clinical Indication: Shortness of breath PA and lateral views of the chest: Comparison: 09/01/2023 Findings: Questionable minimal interstitial prominence. No focal consolidation or pleural effusion. Cardiomediastinal silhouette is within normal limits. Bones and soft tissues are unremarkable. Impression: Question of minimal interstitial prominence or groundglass opacities lung bases. Consider chronic int erstitial disease or atypical infection. Consider chest CT to further evaluate, as indicated. Reviewed, dictated and finalized at location . Impression: Question of minimal interstitial prominence or groundglass opacities lung bases . Consider chronic interstitial disease or atypical infection. Consider chest C T to further evaluate, as indicated.
--- NOTE | ~2024-01-10 | CT_ITS ---
EXAMINATION: CTA chest PE protocol DATE: 01/10/2024 14:41 INDICATION: Pulmonary embolism with lower limb pain and shortness of breath TECHNIQUE: Computed tomography (CT) pulmonary angiogram of the chest was performed with 100 mL Omnipa que-350 intravenous contrast. Additional 3D reconstructions utilizing coronal maximum intensity proje ction (MIP) were performed. Automated exposure control and iterative reconstruction technique were em ployed. The dose-length product was 325.84 mGy-cm. COMPARISON: None FINDINGS: Excellent contrast opacification of the pulmonary arteries which demonstrates no pulmonary embolism. Moderate upper lung predominant emphysema. Mild dependent atelectasis in bilateral lower lobes, right greater than left. There are couple tiny calcified nodules in the right lower lobe consistent with o ld granulomatous disease. Heart size is normal. No pericardial or pleural effusion. The vasculature i s normal in caliber with no dissection. No pathologically enlarged thoracic lymphadenopathy. Diffuse hepatic steatosis. Mild thoracic spondylosis with bridging osteophytes at multiple levels consistent with diffuse idiopathic skeletal hyperostosis (DISH). IMPRESSION: 1. No pulmonary embolism. 2. Moderate emphysema. Reviewed, dictated and finalized at location A.
--- NOTE | 2024-01-10 12:06 | ED.DIZZY ---
HPI - Dizziness General Chief Complaint: Dizziness Stated Complaint: balance issues Time Seen by Provider: 01/10/24 12:00 History of Present Illness HPI Narrative: patient is the 63-year-old male with history of diabetes, hypertension, bipolar, COPD here with dizziness. Patient states that the dizziness began on 01/07 and were present when he woke up in the morning. He states he feels unsteady on his feet and tends to fall in both directions when he tries to ambulate without assistance. He does describe a fall in the yard approximately 3 days ago while he was trying to push a wheelbarrow full of buckets of water, denies head injury. He notes that it has been very hot out he has been trying to work in the [place] and does not believe he has not been keeping up with his fluid intake. He endorses bilateral lower extremity cramping pains which are currently present now. He denies history of prior PE or DVT. He notes a chronic shortness of breath which he attributes to his COPD. He does not believe it is worse than it typically is. He denies any associated numbness or weakness in his arms or legs. Denies any chest pain, nausea, vomiting. No prior history of stroke. He does note he has had some loose stools recently, denies sick contacts, denies fever or chills. Related Data Home Medications Medication Instructions Recorded Confirmed metformin 1,000 mg tablet 1,000 mg PO DAILY 07/11/19 09/01/23 olmesartan 40 mg tablet 40 mg PO DAILY 07/11/19 09/01/23 simvastatin 40 mg tablet 40 mg PO DAILY 07/11/19 09/01/23 sitagliptin phosphate 100 mg 100 mg PO DAILY 07/11/19 09/01/23 tablet (Januvia) Fish Oil 1 cap PO DAILY 04/13/21 09/01/23 bupropion HCl 150 mg 24 hr tablet, 150 mg PO DAILY 04/13/21 09/01/23 extended release lamotrigine 100 mg tablet 100 mg PO HS 04/20/21 09/01/23 lamotrigine 100 mg tablet 200 mg PO QAM 04/20/21 09/01/23 Allergies Allergy/AdvReac Type Severity Reaction Status Date / Time No Known Allergies Allergy Unknown Verified 01/10/24 11:25 Review of Systems Review of Systems: All systems reviewed & are unremarkable except as noted in HPI and below PMFSH Past Medical History Medical History (Updated 01/10/24 @ 17:01 by Ana M Lynch MD) Bipolar 1 disorder Chronic obstructive pulmonary disease COPD (chronic obstructive pulmonary disease) Depression DM (diabetes mellitus) Essential hypertension Schizophrenia, paranoid Seizures Tobacco abuse Type 2 diabetes mellitus Hemoglobin A1c was 6.1% on 04/17/2021. Surgical History Surgical History Status post left foot surgery Due to a laceration on the top of his foot as a child with repair of tendons. Family History Family History Other Diabetes mellitus Multiple family members with diabetes Social History Social History (Updated 09/01/23 @ 12:44 by SUNIL Jones) Social History: The patient lives with his mother in [place]. He has smoked a pack of cigarettes a day for about 41 years and drinks 4 beers most nights of the week. Denies illicit substance abuse. Surrogate decision maker: Jenniferitzel Mckenzie, mother. Code status: Full code. Smoking status: Current every day smoker Tobacco type: cigarettes Spiritual care concerns: No Exam Narrative: GENERAL: Well-appearing, well-nourished, and in no acute distress. HEAD: Normocephalic, atraumatic. EYES: PERRLA and EOMI. Bilateral horizontal nystagmus present, fatigable. No rotary or vertical nystagmus present. ENT: Nares clear. Mucous membranes moist. NECK: Supple. CHEST: Clear to auscultation. No respiratory distress. HEART: Regular rate and rhythm. Normal peripheral pulses. ABDOMEN: Soft, nontender, nondistended. EXTREMITIES: Normal range of motion. No edema. SKIN: Warm, dry, no rash. NEURO: No focal deficits. Normal finger to nose. No upper or lower extremi
[2024-01-10 12:26] LABS: Influenza A QL RT-PCR Negative (Negative); Influenza B QL RT-PCR Negative (Negative); RSV RNA, RT-PCR Negative (Negative); SARS-CoV-2 RNA PCR Negative (Negative)
[2024-01-10 12:39] LABS: Basophils Percent Auto 0.1 % (0.2-1.2); Eosinophils Absolute Auto 0.1 K/mm3 (0-0.3); Eosinophils Percent Auto 1.2 % (0-4.4); Hematocrit 47.8 % (42.0-52.0); Hemoglobin 16.5 g/dL (14.0-18.0); Immature Granulocyte Absolute 0.01 K/mm3 (0.00-0.031); Immature Granulocyte Percent A 0.1 % (0-0.5); Immature Platelet Fraction Pct 4.7 % (0.9-11.2); Lymphocytes Absolute Auto 1.01 K/mm3 (0.9-3.2); Lymphocytes Percent Auto 14.7 % (18.3-44.2); Mean Corpuscular HGB Conc 34.5 g/dl (32-36); Mean Corpuscular Hemoglobin 35.3 pg (26-34); Mean Corpuscular Volume 102.4 fl (80-100); Mean Platelet Volume 9.7 fl (7.4-10.4); Monocytes Absolute Auto 0.8 K/mm3 (0.1-0.6); Monocytes Percent Auto 11.2 % (2.6-8.5); Neutrophils Percent Auto 72.7 % (45.5-73.1); Platelet Count Result 110 k/mm3 (150-375); Red Blood Count 4.67 M/mm3 (4.6-6.20); Red Cell Distribution Width 12.4 % (11.5-14.5); White Blood Count 6.9 K/mm3 (4.5-10.0)
[2024-01-10 12:51] LABS: Alanine Aminotransferase 64 U/L (6-50); Albumin Level 4.9 g/dL (3.5-5.1); Alkaline Phosphatase 56 U/L (38-126); Anion Gap 18 mmol/L (4-12); Aspartate Amino Transferase 94 U/L (17-59); Bilirubin,Total 1.3 mg/dL (0.2-1.3); Blood Urea Nitrogen 21 mg/dL (9-20); Calcium 9.7 mg/dL (8.4-10.2); Carbon Dioxide 16 mmol/L (22-30); Chloride 103 mmol/L (98-107); Estimated CRCL calculation 59 ml/min; Estimated Glomerular Filt Rate > 60; Glucose 150 mg/dL (65-110); Potassium 4.4 mmol/L (3.4-5.0); Sodium 137 mmol/L (137-145)
[2024-01-10] MEDS: MECLIZINE HCL 25 MG TABLET PO (12:56)
[2024-01-10] MEDS: LACTATED RINGERS 1,000 ML 999 ML IV CONT ×2 (12:56→14:23)
[2024-01-10 12:59] LABS: NT Pro B Type Natriuretic Pept 69 pg/mL (19.9-100); Troponin I < 0.012 ng/mL (0.000-0.034)
[2024-01-10 13:01] LABS: Prothrombin Time 13.5 Seconds (11.1-14.7)
[2024-01-10 13:02] LABS: Partial Thromboplastin Time 25.8 Seconds (22.3-36.8)
[2024-01-10 13:40] LABS: D Dimer 1.85 ug/mL (<0.48)
[2024-01-10 14:35] LABS: Ethanol < 10 mg/dL (<10)
[2024-01-10 14:37] LABS: Appearance Urine Clear (Clear); Bacteria Urine None Seen /hpf; Bilirubin Urine Negative (Negative); Blood Urine Negative (Negative); Color Urine Yellow (Yellow); Glucose Urine UA 3+ mg/dL (Negative); Ketones Urine 4+ mg/dL (Negative); Leukocyte Esterase Ur Negative LEU/UL (Negative); Nitrate Urine Negative (Negative); Non Pathogenic Casts 0-2; Protein Urine 1+ mg/dL (Negative); RBC Urine 0-2 /hpf (0-2); Squamous Epithelial Cell Urine None Seen /hpf (Few); WBC Urine 0-5 /hpf (0-3); pH Urine 5.5 (5.0-9.0)
[2024-01-10 15:09] LABS: Add Urine Microscopic? YES; Specific Grav Ur 1.036 (1.001-1.035)
--- NOTE | 2024-01-10 15:20 | ECG_ITS ---
Test Date: 2024-01-10 15:30:14 Measurements Intervals [place] Rate: 84 P: 68 MT: 136 QRS: 2 QRSD: 106 T: 44 QT: 367 QTc: 435 Interpretive Statements SINUS RHYTHM NORMAL ELECTROCARDIOGRAM No previous ECG available for comparison Electronically Signed On 01-11-2024 07:01:25 CDT by Reynaldo Montero M.D.
[2024-01-10 16:00] LABS: Troponin I < 0.012 ng/mL (0.000-0.034)
== END 2024-01-10 17:33 | disposition home or self-care (01) ==
PROVIDERS: Family Medicine; Emergency Provider Student in an Organized Health Care Education/Training Program
DX: R42 Dizziness and giddiness (principal); E86.0 Dehydration; Z20.822 Contact with and (suspected) exposure to COVID-19; E11.9 Type 2 diabetes mellitus without complications; I10 Essential (primary) hypertension; J44.9 Chronic obstructive pulmonary disease, unspecified; F31.9 Bipolar disorder, unspecified; F20.0 Paranoid schizophrenia; F17.210 Nicotine dependence, cigarettes, uncomplicated; R25.2 Cramp and spasm; R06.02 Shortness of breath; Z79.84 Long term (current) use of oral hypoglycemic drugs; Z79.899 Other long term (current) drug therapy
CPT/HCPCS: 36415; 70450; 71046; 71275; 80053; 80307; 81001; 83880; 84484; 85025; 85055; 85380; 85610; 85730; 87637; 93005; 93970; 96360; 96361; 99284; A9270; J7120; Q9967

== ENCOUNTER 2024-05-27 08:55 | Inpatient (IN) | payer MEDICARE, MEDICAID, SELFPAY ==
[2024-05-27] VITALS (10 sets, daily range): BP systolic 99–146; BP diastolic 52–91; PULSE 76–104; RESP 16–20; TEMP 36.4–36.9; O2SAT 95–98; BMI 24.7
--- NOTE | ~2024-05-27 | CT_ITS ---
EXAMINATION: CT chest abdomen pelvis w con DATE: 05/27/2024 11:28 INDICATION: Shortness of breath. Abnormal liver function tests. TECHNIQUE: Computed tomography (CT) of the chest, abdomen, and pelvis was performed without intraveno us contrast. Automated exposure control and iterative reconstruction technique were employed. The dos e-length product was 948.86 mGy-cm. COMPARISON: Chest CT 01/10/2024 FINDINGS: CHEST CT: There is mild scarring at the lung apices. There is moderate emphysema. There is chronic peripheral s eptal thickening in the lungs. There is mild atelectasis bilaterally. No pleural effusion. The heart size is normal. There are coronary artery calcifications. No pericardial effusion. There are bridging endplate osteophytes at multiple levels in the spine, consistent with diffuse idiopathic skeletal hy perostosis (DISH). There is mild thoracic spondylosis. ABDOMEN/PELVIS CT: There is diffuse hepatic steatosis. The gallbladder, spleen, pancreas, adrenal glands, and left kidne y are normal. There is a 3 mm cyst in right kidney. The prostate is mildly enlarged. There is diverti culosis of the colon without evidence of diverticulitis. The appendix is normal. There are no patholo gically enlarged lymph nodes. There is no free intraperitoneal fluid. There is calcified atherosclero sis of the aorta and many of the other arteries. There is moderate lumbar spondylosis. IMPRESSION: 1. Moderate emphysema. 2. Diffuse hepatic steatosis. Reviewed, dictated and finalized at location B.
--- NOTE | ~2024-05-27 | CT_ITS ---
EXAMINATION: CT brain wo con DATE: 05/27/2024 11:27 INDICATION: Fall. TECHNIQUE: Computed tomography (CT) of the head was performed without intravenous contrast. The mA wa s adjusted according to patient size. Iterative reconstruction technique was employed. The dose-lengt h product was 1210.67 mGy-cm. COMPARISON: Head CT 01/10/2024 FINDINGS: There is no intracranial hemorrhage, acute infarction, or abnormal intracranial mass lesion . The ventricles are normal in size. There are likely changes of ocular lens replacement surgeries. T here is mild mucosal thickening in the paranasal sinuses. The mastoid air cells are normal. IMPRESSION: 1. Normal brain. Reviewed, dictated and finalized at location B. IMPRESSION: 1. Normal brain.
--- NOTE | 2024-05-27 09:06 | ED.FALL ---
HPI - Fall General Chief Complaint: Fall Stated Complaint: glf Time Seen by Provider: 05/27/24 09:00 Focused HPI: Patient is a 64-year-old male who presents to the ER after a fall at home. He reports on Sunday he fell while walking and today he fell off the bed. Patient reports he had no loss of consciousness either time but does endorse using alcohol every day. Upon arrival to the ER patient has no complaints of pain. In February patient had a fall with positive loss consciousness. He reports he has no appetite will and is drinking a lot. GENERAL: Well-appearing, well-nourished, and in no acute distress. HEAD: Normocephalic, atraumatic. CHEST: Clear to auscultation. ?No respiratory distress. HEART: Regular rate and rhythm.? NEURO: ?Alert and oriented x3. Pt has tremors during examination. Patient screened in triage and initial orders placed.? ?Additional care and disposition to be based upon?diagnostic testing and treatment. History of Present Illness HPI Narrative: see above Related Data Home Medications Medication Instructions Recorded Confirmed olmesartan 40 mg tablet 40 mg PO DAILY 07/11/19 05/27/24 simvastatin 40 mg tablet 40 mg PO DAILY 07/11/19 05/27/24 bupropion HCl 150 mg 24 hr tablet, 150 mg PO DAILY 04/13/21 05/27/24 extended release lamotrigine 100 mg tablet 100 mg PO HS 04/20/21 09/01/23 lamotrigine 100 mg tablet 200 mg PO QAM 04/20/21 09/01/23 empagliflozin 25 mg tablet 25 mg PO DAILY 05/27/24 05/27/24 (Jardiance) metformin 500 mg tablet,extended 500 mg PO BID 05/27/24 05/27/24 release 24 hr oxcarbazepine 150 mg tablet 150 mg PO BID 05/27/24 05/27/24 semaglutide 0.25 mg or 0.5 mg (2 0.5 mg subcut WEEKLY 05/27/24 05/27/24 mg/3 mL) subcutaneous pen injector (Ozempic) Allergies Allergy/AdvReac Type Severity Reaction Status Date / Time No Known Allergies Allergy Unknown Verified 01/10/24 11:25 Review of Systems Review of Systems: All systems reviewed & are unremarkable except as noted in HPI and below PMFSH Past Medical History Medical History (Updated 05/27/24 @ 15:10 by Lance Schwartz MD) Bipolar 1 disorder Chronic obstructive pulmonary disease Depression Essential hypertension Schizophrenia, paranoid Seizures Tobacco abuse Type 2 diabetes mellitus Hemoglobin A1c was 6.1% on 04/17/2021. Surgical History Surgical History Status post left foot surgery Due to a laceration on the top of his foot as a child with repair of tendons. Family History Family History Other Diabetes mellitus Multiple family members with diabetes Social History Social History (Updated 05/27/24 @ 12:55 by Nichole Grijalva PA-C) Social History: Surrogate medical decision maker: Code status: Full code. Smoking packs per day: 1 Smoking cigarettes per day: 20.0 Years smoked: 44 Smoking pack-years: 44.00 Smoking status: Current every day smoker Tobacco type: cigarettes Alcohol intake: current Drinks per week: 112 Substance use: never Other substance usage details: a pint of liquor daily x approx 4 months Do You Feel Safe in your Home?: Yes Lack of Transportation: No Lack of Food: Never True Current Housing: I Have Housing Concerned About Future Housing: No Difficulty Paying Gas/Electric Bills: No Difficulty Paying for Meds: No Currently Unemployed: No Education: Decline to Answer Difficulty w/ Childcare or Family Care: No Spiritual care concerns: No Exam Narrative: GENERAL: Ill-appearing, well-nourished, non-toxic, in no acute distress. HEAD: Normocephalic, atraumatic. +Nystagmus. NECK: Supple. No adenopathy, no masses. RESPIRATORY: Airway patent, respirations nonlabored. Clear to auscultation bilaterally, no rales, rhonchi, wheezing. CARDIOVASCULAR: Regular rate and rhythm without murmurs, rubs, or gallops. Peripheral pulses 2+ and equal bilaterally. ABDOMINAL: Soft, nontender, nondistended, no hepatosplenomegaly. Normoactive BS. MUSCULOSKELETAL: Moves all extremities. Strength/ROM intact without gross deformities. SKIN: Warm, dry, normal color. No rashes. NEURO: A&O X3. Speech clear. Cranial nerves II-XII grossly intact. PSYCHIATRIC: Appropriate mood and affect. Normal interaction. Course Vital Signs Vital signs: Vital Signs Temperature 36.4 C 05/27/24 08:56 Pulse Rate 91 05/27/24 08:56 Respiratory Rate 16 05/27/24 08:56 Blood Pressure 139/81 05/27/24 08:56 Pulse Oximetry 98 05/27/24 08:56 Oxygen Delivery Room Air 05/27/24 08:56 Temperature 36.4 C 05/27/24 08:56 Pulse Rate 84 05/27/24 13:31 Respiratory Rate 19 05/27/24 13:31 Blood Pressure 123/84 05/27/24 13:31 Pulse Oximetry 98 05/27/24 13:31 Oxygen Delivery Room Air 05/27/24 08:56 MDM - Fall MDM Narrative Medical decision making narrative: Patient is a 64-year-old male who presents to the ER after a fall at home. He reports on Sunday he fell while walking and today he fell off the bed. Patient reports he had no loss of consciousness either time but does endorse using alcohol every day. Upon arrival to the ER patient has no complaints of pain. In February patient had a fall with positive loss consciousness. He reports he has no appetite will and is drinking a lot. Patient's magnesium is 1.4 so will replace that through the banana bag. His creatinine kinase is 243 so will give patient 1 L normal saline IV bolus. Patient's platelet counts are 78 so will continue to monitor. As hemoglobin is 13.4, hematocrit 38.3. Patient CO2 is 20, his anion gap 17 and his BUN is 21. His bilirubin is 1.7, AST 173, ALT 67. Patient's CT scan indicates Moderate emphysema and Diffuse hepatic steatosis. Will plan to admit patient due to multiple recent falls. Patient verbalizes agreement and understanding with plan. Spoke with [facility] HERACLIO, who agrees to admit patient to the IMU. Differential Diagnosis Differential diagnosis: Likely concussion without loss of consciousness and other (fall without injuries, alcohol intoxication, delirium tremens) Lab Data Attestation: I reviewed the patient's lab results. 05/27/24 09:55 05/27/24 09:55 Labs: Lab Results 05/27/24 05/27/24 Range/Units 09:48 09:55 WBC 4.5 (4.5-10.0) K/mm3 RBC 3.67 L (4.6-6.20) M/mm3 Hgb 13.4 L D (14.0-18.0) g/dL Hct 38.3 L (42.0-52.0) % MCV 104.4 H (80-100) fl MCH 36.5 H (26-34) pg MCHC 35.0 (32-36) g/dl RDW 14.2 (11.5-14.5) % Plt Count 78 L (150-375) k/mm3 MPV 10.0 (7.4-10.4) fl Immature Gran % (Auto) Not Reportable Neut % (Auto) Not Reportable Lymph % (Auto) Not Reportable Citrus % (Auto) Not Reportable Eos % (Auto) Not Reportable Baso % (Auto) Not Reportable Lymph # (Auto) Not Reportable [place] # (Auto) Not Reportable Eos # (Auto) Not Reportable Baso # (Auto) Not Reportable Abs Immat Gran (auto) Not Reportable Absolute Neuts (auto) Not Reportable Absolute Nucleated RBC Not Reportable Nucleated RBC % Not Reportable Platelet Estimate Decreased (Adequate) % Immature Plt Fraction 4.0 (0.9-11.2) % Macrocytosis 1+ (NORMAL) Schistocytes None seen PT 13.2 (11.1-14.7) Seconds INR 1.0 APTT 34.5 (22.3-36.8) Seconds Sodium 140 (137-145) mmol/L Potassium 4.1 (3.4-5.0) mmol/L Chloride 103 (98-107) mmol/L Carbon Dioxide 20 L (22-30) mmol/L Anion Gap 17 H (4-12) mmol/L BUN 21 H (9-20) mg/dL Creatinine 0.70 (0.7-1.3) mg/dL Estim Creat Clear Calc 90 ml/min Estimated GFR > 60 (59 - ) Glucose 159 H (65-110) mg/dL Calcium 9.1 (8.4-10.2) mg/dL Magnesium 1.4 L (1.6-2.3) mg/dL Total Bilirubin 1.7 H (0.2-1.3) mg/dL AST 173 H (17-59) U/L ALT 67 H (6-50) U/L Alkaline Phosphatase 79 (38-126) U/L Total Creatine Kinase 243 H (55-170) U/L Troponin I < 0.012 (0.000-0.034) ng/mL Total Protein 8.0 (6.3-8.2) g/dL Albumin 4.5 (3.5-5.1) g/dL TSH 1.180 (0.465-4.680) uIU/mL Urine Color Dark yellow (Yellow) Urine Appearance Clear (Clear) Urine pH 6.0 (5.0-9.0) Ur Specific [place] 1.020 (1.001-1.035) Urine Protein 1+ H (Negative) mg/dL Urine Glucose (UA) Trace H (Negative) mg/dL Urine Ketones 2+ H (Negative) mg/dL Ur Blood (Man) Negative (Negative) Urine Nitrate Negative (Negative) Urine Bilirubin 2+ H (Negative) Urine Urobilinogen 1.0 (<2.0) mg/dL Leukocyte Esterase Rfl Trace H (Negative) HYUN/UL Urine RBC 0-2 (0-2) /hpf Urine WBC 0-5 (0-3) /hpf Ur Squamous Epith Cells None seen (Few) /hpf Urine Bacteria None seen /hpf Urine Casts 3-5 Urine Opiates Screen Negative (Negative) Urine Methadone Screen Negative (Negative) Ur Barbiturates Screen Negative (Negative) Ur Phencyclidine Scrn Negative (Negative) Ur Amphetamine Screen Negative (Negative) U Benzodiazepines Scrn Negative (Negative) Urine Cocaine Screen Negative (Negative) U Cannabinoids Screen Negative (Negative) Ethyl Alcohol < 10 (<10) mg/dL Imaging Data Attestation: I personally reviewed and interpreted this imaging study as follows: Radiologist's impression: Impressions Head CT 05/27/24 11:28 IMPRESSION: 1. Normal brain. Chest/Abdomen/Pelvis CT 05/27/24 11:29 IMPRESSION: 1. Moderate emphysema. 2. Diffuse hepatic steatosis. Discharge Plan Discharge Clinical Impression: Frequent falls Alcohol withdrawal Qualifiers: Complication of substance-induced condition: uncomplicated Qualified Code(s): F10.930 - Alcohol use, unspecified with withdrawal, uncomplicated Patient Disposition: Still a Patient Condition: Stable
--- NOTE | 2024-05-27 09:13 | ECG_ITS ---
Test Date: 2024-05-27 09:43:15 Measurements Intervals [place] Rate: 80 P: 72 VA: 124 QRS: -2 QRSD: 116 T: 53 QT: 410 QTc: 473 Interpretive Statements SINUS RHYTHM INCOMPLETE RIGHT BUNDLE BRANCH BLOCK [90+ ms QRS DURATION, TERMINAL R IN V1/V2, 40+ ms S IN I/aVL/V4/V5/V6] Compared to ECG 01/10/2024 15:30:14 Incomplete right bundle-branch block now present Electronically Signed On 05-27-2024 09:46:32 CDT by Sierra George M.D.
[2024-05-27 10:04] LABS: Add Urine Microscopic? YES; Appearance Urine Clear (Clear); Bacteria Urine None Seen /hpf; Bilirubin Urine 2+ (Negative); Blood Urine Negative (Negative); Color Urine Dark Yellow (Yellow); Glucose Urine UA Trace mg/dL (Negative); Ketones Urine 2+ mg/dL (Negative); Leukocyte Esterase Ur Trace LEU/UL (Negative); Nitrate Urine Negative (Negative); Protein Urine 1+ mg/dL (Negative); RBC Urine 0-2 /hpf (0-2); Squamous Epithelial Cell Urine None Seen /hpf (Few); WBC Urine 0-5 /hpf (0-3)
--- NOTE | 2024-05-27 10:06 | PC.NURSE ---
Pt reports drinks daily 1/2 fifth of rum. Last drink yesterday. Family reports experience frequent falls, increasing drinking, unable to care for himself. Staff noted pt clothes soiled with feces. Family voices concerns of pt living alone, not taking meds as directed. Currently pt RX for bipolar meds.
[2024-05-27 10:10] LABS: Hematocrit 38.3 % (42.0-52.0); Hemoglobin 13.4 g/dL (14.0-18.0); Mean Corpuscular Hemoglobin 36.5 pg (26-34); Mean Corpuscular Volume 104.4 fl (80-100); Platelet Count Result 78 k/mm3 (150-375); Red Blood Count 3.67 M/mm3 (4.6-6.20); Red Cell Distribution Width 14.2 % (11.5-14.5); White Blood Count 4.5 K/mm3 (4.5-10.0)
[2024-05-27 10:17] LABS: Amphetamine Screen Urine Negative (Negative); Barbiturate Screen Urine Negative (Negative); Benzodiazepines Screen Urine Negative (Negative); Cannabinoid Screen Urine Negative (Negative); Cocaine Screen Urine Negative (Negative); Methadone Screen Urine Negative (Negative); Opiate Screen Urine Negative (Negative); Phencyclidine Screen Urine Negative (Negative)
[2024-05-27 10:18] LABS: Alanine Aminotransferase 67 U/L (6-50); Albumin Level 4.5 g/dL (3.5-5.1); Alkaline Phosphatase 79 U/L (38-126); Anion Gap 17 mmol/L (4-12); Aspartate Amino Transferase 173 U/L (17-59); Bilirubin,Total 1.7 mg/dL (0.2-1.3); Blood Urea Nitrogen 21 mg/dL (9-20); Calcium 9.1 mg/dL (8.4-10.2); Carbon Dioxide 20 mmol/L (22-30); Chloride 103 mmol/L (98-107); Creatine Kinase 243 U/L (55-170); Estimated CRCL calculation 90 ml/min; Estimated Glomerular Filt Rate > 60; Glucose 159 mg/dL (65-110); Potassium 4.1 mmol/L (3.4-5.0); Prothrombin Time 13.2 Seconds (11.1-14.7); Sodium 140 mmol/L (137-145)
[2024-05-27 10:19] LABS: Partial Thromboplastin Time 34.5 Seconds (22.3-36.8)
[2024-05-27 10:22] LABS: Magnesium 1.4 mg/dL (1.6-2.3)
[2024-05-27 10:30] LABS: Troponin I < 0.012 ng/mL (0.000-0.034)
[2024-05-27 10:36] LABS: Macrocytosis 1+ (NORMAL); Platelet Estimate Decreased (Adequate); Schistocytes None Seen
[2024-05-27] MEDS: ONDANSETRON INJ 4 MG/2 ML VIAL IV PUSH (10:37)
[2024-05-27] MEDS: LORazepam INJ (*CRX) 2 MG/ML VIAL IV PUSH ×2 (10:40→12:38)
[2024-05-27] MEDS: THIAMINE HCL INJ 100 MG, FOLIC ACID INJ 1 MG, MAGNESIUM SULFATE INJ 1 GM, MULTIVITAMINS... 125 MG IV CONT (10:54)
[2024-05-27 11:29] LABS: Ethanol < 10 mg/dL (<10)
[2024-05-27] MEDS: SODIUM CHLORIDE 0.9% IV 1,000 ML 999 ML IV CONT (11:39)
--- NOTE | 2024-05-27 12:27 | PC.NURSE ---
Magnesium ordered discontinues. Pt receiving Margnesium in Banana bag.
--- NOTE | 2024-05-27 12:50 | P.HP_ITS ---
H&P: HPI History of Present Illness Date/Time: 05/27/24 12:50 Chief Complaint: Fall. Narrative: This is a 64-year-old male with type 2 diabetes mellitus, hypertension, dyslipidemia, bipolar disorder, schizophrenia, and COPD who presented to the emergency department via EMS from home for evaluation after a fall. The patient provides the following history. This morning he slid to the ground while trying to get out of bed and was too weak to get himself up so he called 911. He goes on to say that he falls frequently, even when he uses his cane. He says that his legs have become weak over time and that his balance is very poor. Luckily he has not sustained any significant injuries in these falls. Additionally he is asking for help to try and curb his alcohol intake. He typically drinks a pt of rum a day with his last drink being sometime last evening. He currently has some anxiety and mild tremors. He denies syncope, near syncope, visual changes, focal weakness, paresthesias, hallucinations, chest pain, palpitations, shortness of breath, cough, nausea, vomiting, diarrhea, and dysuria. Of note, it does not seem as though the patient is taking his home medications consistently however he goes on to say that he has between doctors and some medications have not yet been refilled. In the ED: Vital signs were stable on arrival. Labs were significant for a hemoglobin of 13.4, MCV 104.4, platelets 76, anion gap 17, BUN 21, creatinine 0.70, magnesium 1.4, total bili I 0.7, AST 173, ALT 67, total CK 243, total protein 8.0, albumin 4.5. urinalysis was positive for 1+ protein, trace glucose, 2+ ketones, 2+ bilirubin, and trace leukocyte esterase. Urine drug screen was negative. Ethyl alcohol level was less than 10. No acute findings were noted on imaging. The patient is exhibiting signs of alcohol withdrawal and does not feel comfortable going home given frequent falls and he is being admitted in this setting. He has received lorazepam, chlordiazepoxide, and a banana bag. Review of Systems Review of Systems: 12 systems were reviewed and are negativ e except for as per HPI. [facility] Past Medical History Medical History Bipolar 1 disorder Chronic obstructive pulmonary disease Depression Essential hypertension Schizophrenia, paranoid Seizures Tobacco abuse Type 2 diabetes mellitus Hemoglobin A1c was 6.1% on 04/17/2021. Surgical History Surgical History Status post left foot surgery Due to a laceration on the top of his foot as a child with repair of tendons. Family History Family History Other Diabetes mellitus Multiple family members with diabetes Social History Social History (Updated 05/27/24 @ 22:23 by Nichole Grijalva PA-C) Social History: Surrogate medical decision maker: Esa Severino ([phone]). Code status: Full code. Smoking packs per day: 1 Smoking cigarettes per day: 20.0 Years smoked: 44 Smoking pack-years: 44.00 Smoking status: Current every day smoker Tobacco type: cigarettes Alcohol intake: current Drinks per week: 112 Substance use: never Other substance usage details: a pint of liquor daily x approx 4 months Do You Feel Safe in your Home?: Yes Lack of Transportation: No Lack of Food: Never True Current Housing: I Have Housing Concerned About Future Housing: No Difficulty Paying Gas/Electric Bills: No Difficulty Paying for Meds: No Currently Unemployed: No Education: Decline to Answer Difficulty w/ Childcare or Family Care: No Additional living arrangements comments: The patient lives in his own home. Spiritual care concerns: No Meds Home Medications and Allergies Home Medications Medication Instructions Recorded Confirmed Type olmesartan 40 mg tablet 40 mg PO DAILY 07/11/19 05/27/24 History simvastatin 40 mg tablet 40 mg PO DAILY 07/11/19 05/27/24 History bupropion HCl 150 mg 24 hr tablet, 150 mg PO DAILY 04/13/21 05/27/24 History extended release lamotrigine 100 mg tablet 100 mg PO HS 04/20/21 09/01/23 History lamotrigine 100 mg tablet 200 mg PO QAM 04/20/21 09/01/23 History albuterol sulfate 90 mcg/actuation 2 puff inhalation .Q4 hours PRN 09/01/23 05/27/24 Rx aerosol inhaler (Ventolin HFA) cough #18 grams empagliflozin 25 mg tablet 25 mg PO DAILY 05/27/24 05/27/24 History (Jardiance) metformin 500 mg tablet,extended 500 mg PO BID 05/27/24 05/27/24 History release 24 hr oxcarbazepine 150 mg tablet 150 mg PO BID 05/27/24 05/27/24 History semaglutide 0.25 mg or 0.5 mg (2 0.5 mg subcut WEEKLY 05/27/24 05/27/24 History mg/3 mL) subcutaneous pen injector (Ozempic) Allergies Allergy/AdvReac Type Severity Reaction Status Date / Time No Known Allergies Allergy Unknown Verified 01/10/24 11:25 Vital Signs Vital Signs - 24 hr 05/27/24 08:56 05/27/24 11:42 Temperature 97.6 F Pulse Rate 91 85 Respiratory Rate 16 16 Blood Pressure 139/81 120/88 Pulse Oximetry 98 95 Oxygen Delivery Room Air Exam Narrative: General: Well-developed, nontoxic-appearing male sitting up in bed. Weight: 73.9 kg. BMI: 24.8. HEENT: Normocephalic, atraumatic. PERRL, EOMI. Sclera anicteric. Moist mucous membranes. Neck: Supple. No midline vertebral tenderness. Respiratory: Lungs are clear to auscultation bilaterally. Cardiovascular: Regular rate and rhythm with S1-S2. Gastrointestinal: Abdomen is soft, nontender, and nondistended with positive bowel sounds. Skin: Warm and dry. Extremities: No cyanosis, clubbing, or edema. Radial and pedal pulses intact. Neurological: Alert and oriented. Cranial nerves 2-12 are grossly intact. Faint tremors of the hands. Decreased strength in the hips bilaterally. Mild atrophy of the thighs. No gross focal deficits to casual conversation. Psychiatric: Pleasant and cooperative with appropriate mood. Good eye contact. H&P: Results Labs Labs: Short CBC 05/27/24 Range/Units 09:55 WBC 4.5 (4.5-10.0) K/mm3 Hgb 13.4 L D (14.0-18.0) g/dL Hct 38.3 L (42.0-52.0) % Plt Count 78 L (150-375) k/mm3 BMP 05/27/24 09:55 Sodium 140 Potassium 4.1 Chloride 103 Carbon Dioxide 20 L BUN 21 H Creatinine 0.70 Glucose 159 H Calcium 9.1 Cardiac Enzymes 05/27/24 Range/Units 09:55 Total Creatine Kinase 243 H (55-170) U/L Troponin I < 0.012 (0.000-0.034) ng/mL Liver Function 05/27/24 Range/Units 09:55 Total Bilirubin 1.7 H (0.2-1.3) mg/dL AST 173 H (17-59) U/L ALT 67 H (6-50) U/L Alkaline Phosphatase 79 (38-126) U/L Albumin 4.5 (3.5-5.1) g/dL Urine 05/27/24 Range/Units 09:48 Urine Color Dark yellow (Yellow) Urine Appearance Clear (Clear) Urine pH 6.0 (5.0-9.0) Ur Specific [place] 1.020 (1.001-1.035) Urine Protein 1+ H (Negative) mg/dL Urine Glucose (UA) Trace H (Negative) mg/dL Imaging Head CT 05/27/24 11:28 IMPRESSION: 1. Normal brain. Chest/Abdomen/Pelvis CT 05/27/24 11:29 IMPRESSION: 1. Moderate emphysema. 2. Diffuse hepatic steatosis. Assessment and Plan Assessment and plan (1) Alcohol withdrawal: Code(s): F10.939 - Alcohol use, unspecified with withdrawal, unspecified Status: Acute (2) Frequent falls: Code(s): R29.6 - Repeated falls Status: Acute (3) Elevated LFTs: Code(s): R79.89 - Other specified abnormal findings of blood chemistry Status: Acute (4) Thrombocytopenia: Code(s): D69.6 - Thrombocytopenia, unspecified Status: Acute (5) Macrocytosis: Code(s): D75.89 - Other specified diseases of blood and blood-forming organs Status: Acute (6) Essential hypertension: Code(s): I10 - Essential (primary) hypertension Status: Chronic (7) Type 2 diabetes mellitus: Code(s): E11.9 - Type 2 diabetes mellitus without complications Status: Acute (8) Chronic obstructive pulmonary disease: Qualifiers: COPD type: unspecified COPD Qualified Code(s): J44.9 - Chronic obstructive pulmonary disease, unspecified Code(s): J44.9 - Chronic obstructive pulmonary disease, unspecified Status: Acute (9) Tobacco abuse: Code(s): Z72.0 - Tobacco use Status: Acute (10) Variable compliance with medication therapy: Code(s): Z91.148 - Patient's other noncompliance with medication regimen for other reason Status: Acute Plan The patient presented to the emergency department for evaluation of frequent falls as detailed in HPI. Labs, imaging, EKG, and all reports were personally reviewed. Imaging was without acute findings and he has no complaints of injury. He has not had a drink of alcohol since yesterday and is exhibiting signs of alcohol withdrawal. He is being admitted in this setting for close monitoring. Initiate CIWA protocol. Once his symptoms improved he will need PT/OT and may need rehab depending. Vital signs were reviewed and they are stable. LFTs are elevated due to ongoing alcohol use; his abdominal exam is benign. Chronic thrombocytopenia is also likely due to his alcohol abuse. Check B12 and folate given macrocytosis. Glucose is reasonable. Initiate sliding scale insulin, Accu- Cheks, and hypoglycemic protocol. No acute issues with regards to COPD. It does not seem as though he is always compliant with his home medications and we are still trying to verify what medications he is supposed to be taking. Findings and treatment plan were discussed with the patient. Questions were solicited and answered to satisfaction. The patient's medical management will be taken over by the hospitalist team in a.m. Quality VTE Prophylaxis VTE prophylaxis: mechanical ordered If No VTE Prophylaxis Answer both mechanical and pharmacologic: Reason no pharmacologic proph: medical contraindication thrombocytopenia The patient has been admitted under observation status. Hospitalist [facility] Advance Care Plan I have confirmed that the patient's Advanced Care Plan is present, code status is documented, or surrogate decision maker is listed in patient medical record.: Yes Medication Reconciliation I have utilized all available resources to obtain, update and review the patients current medications (includes all prescriptions, OTC, herbals, cannabis, and nutritional supplements).: Yes
--- NOTE | 2024-05-27 13:45 | ADMGEN ---
This patient, Juwan Harris, was admitted to IMU Room 205-02. Patient/family oriented to hospital policies and general routines including ID bracelet, bed and alarms, visiting hours, pain management, procedures, bathroom and other care routines, personal items, smoking policy, room service/diet, and visiting hours. Information on how to activate the Rapid Response Team has been discussed. Patient/Family are encouraged to report perceived risks to care and to ask questions if they do not understand what they are told or what they should do.
[2024-05-27] MEDS: chlordiazePOXIDE (*CRX) 25 MG CAPSULE PO ×2 (13:48→20:56)
[2024-05-27 17:55] LABS: Glucose Point of Care 298 mg/dl (65-105)
[2024-05-27] MEDS: INSULIN ASPART (*BKC) 100 UNITS/ML SUB-Q (18:20)
[2024-05-27 20:42] LABS: Anion Gap 7 mmol/L (4-12); Blood Urea Nitrogen 21 mg/dL (9-20); Calcium 8.5 mg/dL (8.4-10.2); Carbon Dioxide 25 mmol/L (22-30); Chloride 105 mmol/L (98-107); Estimated CRCL calculation 79 ml/min; Estimated Glomerular Filt Rate > 60; Glucose 120 mg/dL (65-110); Magnesium 1.5 mg/dL (1.6-2.3); Sodium 137 mmol/L (137-145)
[2024-05-27] MEDS: LORazepam INJ (*CRX) 2 MG/ML VIAL 1 MG IV PUSH (23:22)
[2024-05-28] VITALS (17 sets, daily range): BP systolic 106–123; BP diastolic 67–88; PULSE 73–104; RESP 20–24; TEMP 36.4–37.2; O2SAT 97–99
[2024-05-28] MEDS: MAGNESIUM SULF 2 GM/WATER 50ML 2 GM/50 ML BAG IVPB (00:55)
[2024-05-28 05:31] LABS: Hematocrit 33.5 % (42.0-52.0); Hemoglobin 11.5 g/dL (14.0-18.0); Immature Platelet Fraction Pct 6.7 % (0.9-11.2); Mean Corpuscular HGB Conc 34.3 g/dl (32-36); Mean Corpuscular Hemoglobin 35.9 pg (26-34); Mean Corpuscular Volume 104.7 fl (80-100); Mean Platelet Volume 10.7 fl (7.4-10.4); Platelet Count Result 59 k/mm3 (150-375); Red Cell Distribution Width 13.6 % (11.5-14.5); White Blood Count 3.9 K/mm3 (4.5-10.0)
[2024-05-28 05:51] LABS: Alanine Aminotransferase 65 U/L (6-50); Albumin Level 3.6 g/dL (3.5-5.1); Alkaline Phosphatase 70 U/L (38-126); Anion Gap 7 mmol/L (4-12); Aspartate Amino Transferase 173 U/L (17-59); Bilirubin,Total 1.4 mg/dL (0.2-1.3); Blood Urea Nitrogen 19 mg/dL (9-20); Calcium 8.4 mg/dL (8.4-10.2); Carbon Dioxide 26 mmol/L (22-30); Chloride 104 mmol/L (98-107); Creatine Kinase 151 U/L (55-170); Estimated CRCL calculation 102 ml/min; Estimated Glomerular Filt Rate > 60; Glucose 166 mg/dL (65-110); Magnesium 1.9 mg/dL (1.6-2.3); Potassium 3.6 mmol/L (3.4-5.0); Sodium 137 mmol/L (137-145)
[2024-05-28 05:57] LABS: Iron 108 ug/dL (49-181)
[2024-05-28 06:07] LABS: Percent Iron Saturation 47 % (20-50)
[2024-05-28 06:49] LABS: Folic Acid 10.7 ng/mL (2.76->20)
[2024-05-28 08:15] LABS: Glucose Point of Care 190 mg/dl (65-105)
[2024-05-28] MEDS: FOLIC ACID 1 MG TABLET PO (08:51)
[2024-05-28] MEDS: chlordiazePOXIDE (*CRX) 25 MG CAPSULE PO ×3 (08:51→21:20)
[2024-05-28] MEDS: THIAMINE HCL 100 MG TABLET PO (08:51)
[2024-05-28] MEDS: buPROPion HCL XL (24 HR) 150 MG TABCR PO (08:51)
[2024-05-28] MEDS: SIMVASTATIN 20 MG TABLET 40 MG PO (08:51)
[2024-05-28] MEDS: EMPAGLIFLOZIN 25 MG TABLET PO (08:51)
[2024-05-28] MEDS: OLMESARTAN MEDOXOMIL 20 MG TABLET 40 MG PO (08:52)
[2024-05-28] MEDS: OXcarbazepine 150 MG TABLET PO ×2 (08:52→17:13)
--- NOTE | 2024-05-28 10:37 | P.PNIM_ITS ---
Progress Note: A&P Assessment and Plan (1) Alcohol withdrawal: Qualifiers: Complication of substance-induced condition: uncomplicated Qualified Code(s): F10.930 - Alcohol use, unspecified with withdrawal, uncomplicated Code(s): F10.939 - Alcohol use, unspecified with withdrawal, unspecified Status: Acute Assessment and Plan: * Continue CIWA protocol * Admits to drinking about a pt of rum a day with his last drink being yesterday evening. He presented with anxiety and tremors. * Increased time in to 300 mg daily * Continue folic acid and Librium * CT of the abdomen/chest/pelvis show diffuse hepatic steatosis, moderate emphysema * Continue sitter * Keep in IMU for one more day * Continue cardiac monitoring (2) Frequent falls: Code(s): R29.6 - Repeated falls Status: Acute Assessment and Plan: * Continue fall precautions * Head CT negative * PT and OT ordered (3) Pancytopenia: Code(s): D61.818 - Other pancytopenia Status: Acute Assessment and Plan: * White blood cell count 3.9, RBC 3.20, platelet count 59 * Likely secondary to alcoholism and alcoholic cirrhosis * Continue to trend * Consider heme/Onc consult * Continue fall precautions * Sitter at bedside (4) Elevated LFTs: Code(s): R79.89 - Other specified abnormal findings of blood chemistry Status: Acute Assessment and Plan: * Likely secondary to alcoholism * AST 173, ALT 65, total bilirubin 1.4 * Will check hepatitis panel * Chest/abdomen/pelvis CT showed diffuse hepatic steatosis, moderate emphysema (5) Type 2 diabetes mellitus: Code(s): E11.9 - Type 2 diabetes mellitus without complications Status: Acute Assessment and Plan: * Blood sugars ranging 166-190 * Hgb A1C 6.1 * Accu checks AC/HS * Low-dose SSI ordered * hypoglycemic protocol in place * Diabetic diet ordered * Hold metformin and Ozempic (6) Chronic obstructive pulmonary disease: Qualifiers: COPD type: unspecified COPD Qualified Code(s): J44.9 - Chronic obstructive pulmonary disease, unspecified Code(s): J44.9 - Chronic obstructive pulmonary disease, unspecified Status: Acute Assessment and Plan: * Continue albuterol rescue inhaler as needed (7) Variable compliance with medication therapy: Code(s): Z91.148 - Patient's other noncompliance with medication regimen for other reason Status: Acute Assessment and Plan: Of note Time Spent With Patient Time with patient: Greater than 35 minutes Subjective Date/time seen: 05/28/24 10:37 Interval history: Interval history: This is a 64-year-old male who presented to the hospital on 05/27/2024 after sustaining a ground level fall. Workup in the hospital included a head CT which was negative for any acute findings. CT of the chest/abdomen/pelvis shown emphysema a and diffuse hepatic steatosis. Initial labs showed a white blood cell count of 4.5, RBC 3.67, platelet count 78, hemoglobin 13.4, magnesium 1.5, AST 173, ALT 65. Patient was given 1 g of Mag, thiamin, Ativan, IV fluids, Librium while in the ED. Subjective: Patient denies any fever, chills, headache, nausea, vomiting, diarrhea, abdominal pain,chest pain, or shortness of breath. Patient endorses dizziness and tremors. Sitter at bedside. Review of Systems Review of Systems: 12 systems were reviewed and are negativ e except for as per HPI. All systems reviewed & are unremarkable except as noted in HPI and below Constitutional: Constitutional: Reports as per HPI and Reports no additional constitutional complaints Eyes: Eyes: Reports as per HPI and Reports no additional eye complaints ENT: Reports system reviewed and no additional complaints, except as documented and Reports as per HPI Cardiovascular: Cardiovascular: Reports as per HPI and Reports no additional cardiovascular complaints Respiratory: Respiratory: Reports as per HPI and Reports no additional respiratory complaints Gastrointestinal: Gastrointestinal: Reports as per HPI and Reports no additional gastrointestinal complaints Genitourinary: Genitourinary: Reports no additional male genitourinary complaints and Reports as per HPI Musculoskeletal: Musculoskeletal: Reports no additional musculoskeletal complaints and Reports as per HPI Integumentary/Breasts: Skin/Breast: Reports system reviewed and no additional complaints, except as docu and Reports as per HPI Neurologic: Reports system reviewed and no additional complaints, except as documented and Reports as per HPI Psychiatric: Psychiatric: Reports no additional psychiatric complaints and Reports as per HPI Exam Narrative: General: In no acute distress Head: atraumatic, no encephalopathy Eyes: PERRLA, sclera clear ENT: moist mucous membranes, nasal passages clear Neck: supple, no JVD, no adenopathy, trachea midline Cardiac: Normal S1 and S2. No murmur, gallops or friction rubs, peripheral pulses intact. Respiratory: Lungs clear to auscultation, no adventitious lung sounds, currently on room air Gastrointestinal: soft, non-distended, non-tender, normoactive bowel sounds. : voiding without difficulty. Extremities: moves all extremities well, no edema Skin: clean, dry, intact. No wounds or lesions. Neuro: Alert and oriented x4, cranial nerves intact, no neuro deficits. Psych: normal mood, normal affect, interactive Objective Data Vital Signs Vital Signs: Vital Signs - 24 hr 05/27/24 11:42 05/27/24 13:31 05/27/24 13:44 Temperature Pulse Rate 85 84 Pulse Rate [Monitor] 79 Respiratory Rate 16 19 Blood Pressure 120/88 123/84 Pulse Oximetry 95 98 Oxygen Delivery 05/27/24 14:00 05/27/24 16:00 05/27/24 16:00 Temperature 98.2 F Pulse Rate 76 90 94 Pulse Rate [Monitor] Respiratory Rate 20 Blood Pressure 146/91 H Pulse Oximetry 97 Oxygen Delivery 05/27/24 18:00 05/27/24 16:00 05/27/24 19:57 Temperature 98.4 F Pulse Rate 91 102 H Pulse Rate [Monitor] 91 Respiratory Rate 20 Blood Pressure 124/74 Pulse Oximetry 96 Oxygen Delivery 05/27/24 20:00 05/27/24 20:00 05/27/24 20:00 Temperature Pulse Rate 100 Pulse Rate [Monitor] 104 H Respiratory Rate Blood Pressure Pulse Oximetry Oxygen Delivery Room Air 05/27/24 23:47 05/28/24 00:00 05/28/24 00:00 Temperature 98.2 F Pulse Rate 80 Pulse Rate [Monitor] 104 H Respiratory Rate 20 Blood Pressure 99/52 L Pulse Oximetry 97 Oxygen Delivery Room Air 05/28/24 00:00 05/28/24 03:30 05/28/24 03:30 Temperature Pulse Rate 88 Pulse Rate [Monitor] 81 Respiratory Rate Blood Pressure Pulse Oximetry Oxygen Delivery Room Air 05/28/24 04:17 05/28/24 04:00 05/28/24 07:28 Temperature 99.0 F 98.4 F Pulse Rate 73 88 75 Pulse Rate [Monitor] Respiratory Rate 20 20 Blood Pressure 123/74 107/67 Pulse Oximetry 97 97 Oxygen Delivery Intake/Output Intake/Output: Intake & Output 05/25/24 05/26/24 05/27/24 05/28/24 23:59 23:59 23:59 23:59 Intake Total 2453.2 1062 Output Total 300 200 Balance 2153.2 862 Meds/Results Medications: Active Medications Generic Name Dose Route Start Last Admin Trade Name Freq PRN Reason Stop Dose Admin Acetaminophen 650 mg 05/27/24 14:01 Acetaminophen 325 Mg Tablet PO Q6H PRN Mild Pain (1-3) or Fever Albuterol 2 puff 05/27/24 22:26 Albuterol Sulfate (*Sp) Aerosol 1 Puff INHALATION Q4HRT PRN cough Bupropion HCl 150 mg 05/28/24 09:00 05/28/24 08:51 Bupropion Hcl Xl (24 Hr) 150 Mg Tabcr PO 150 mg DAILY ADELSO Administration Chlordiazepoxide HCl 25 mg 05/27/24 14:05 05/28/24 08:51 Chlordiazepoxide (*Crx) 25 Mg Capsule PO 25 mg Q8HR ADELSO Administration Dextrose 12.5 gm 05/27/24 14:01 Dextrose 50% 25 Gm/50 Ml Syringe IV PUSH PRN PRN Hypoglycemia Protocol Empagliflozin 25 mg 05/28/24 09:00 05/28/24 08:51 Empagliflozin 25 Mg Tablet PO 25 mg DAILY ADELSO Administration Folic Acid 1 mg 05/28/24 09:00 05/28/24 08:51 Folic Acid 1 Mg Tablet PO 1 mg DAILY ADELSO Administration Glucagon 1 mg 05/27/24 14:01 Glucagon For Inj 1 Mg Vial IM PRN PRN Hypoglycemia Protocol Glucose 15 gm 05/27/24 14:01 Glucose Oral Gel 15 Gm Of Glucse In 37.5 Gm Tube PO PRN PRN Hypoglycemia Protocol Dextrose 1,000 mls @ 100 mls/hr 05/27/24 14:01 Dextrose 5% 1,000 Ml IVPB PRN PRN Hypoglycemia Protocol Insulin Aspart 2 - 5 units 05/27/24 17:00 05/28/24 08:52 Insulin Aspart (*Bkc) 100 Units/Ml SUB-Q Not Given TIDWM ADELSO Protocol Insulin Aspart 1 - 2 units 05/27/24 21:00 05/27/24 20:55 Insulin Aspart (*Bkc) 100 Units/Ml SUB-Q Not Given HS ADELSO Protocol Lorazepam 2 mg 05/27/24 14:01 Lorazepam Inj (*Crx) 2 Mg/Ml Vial IV PUSH Q2H PRN CIWA > 15 Lorazepam 1 mg 05/27/24 14:01 05/27/24 23:22 Lorazepam Inj (*Crx) 2 Mg/Ml Vial IV PUSH 1 mg Q2H PRN Administration CIWA 8-15 Olmesartan 40 mg 05/28/24 09:00 05/28/24 08:52 Olmesartan Medoxomil 20 Mg Tablet PO 40 mg QAM ADELSO Administration Ondansetron HCl 4 mg 05/27/24 10:06 05/27/24 10:37 Ondansetron Inj 4 Mg/2 Ml Vial IV PUSH 4 mg Q6H PRN Administration Nausea And Vomiting Oxcarbazepine 150 mg 05/28/24 09:00 05/28/24 08:52 Oxcarbazepine 150 Mg Tablet PO 150 mg BID ADELSO Administration Simvastatin 40 mg 05/28/24 09:00 05/28/24 08:51 Simvastatin 20 Mg Tablet PO 40 mg DAILY ADELSO Administration Thiamine HCl 100 mg 05/28/24 09:00 05/28/24 08:51 Thiamine Hcl 100 Mg Tablet PO 100 mg QAM ADELSO Administration Radiology Results: ITS Impressions Head CT 05/27/24 11:28 IMPRESSION: 1. Normal brain. Chest/Abdomen/Pelvis CT 05/27/24 11:29 IMPRESSION: 1. Moderate emphysema. 2. Diffuse hepatic steatosis. Labs Labs: Laboratory Results - last 24 hr 05/27/24 05/27/24 05/27/24 09:55 17:52 20:21 WBC RBC Hgb Hct MCV MCH MCHC RDW Plt Count MPV % Immature Plt Fraction Sodium 137 Potassium 4.0 Chloride 105 Carbon Dioxide 25 Anion Gap 7 BUN 21 H Creatinine 0.80 Estim Creat Clear Calc 79 Estimated GFR > 60 Glucose 120 H POC Capillary Glucose 298 H Calcium 8.5 Magnesium 1.5 L Iron TIBC % Saturation Ferritin Total Bilirubin AST ALT Alkaline Phosphatase Total Creatine Kinase Total Protein Albumin Vitamin B12 Folate TSH 1.180 Ethyl Alcohol < 10 05/28/24 05/28/24 04:53 07:34 WBC 3.9 L RBC 3.20 L Hgb 11.5 L Hct 33.5 L MCV 104.7 H MCH 35.9 H MCHC 34.3 RDW 13.6 Plt Count 59 L MPV 10.7 H % Immature Plt Fraction 6.7 Sodium 137 Potassium 3.6 Chloride 104 Carbon Dioxide 26 Anion Gap 7 BUN 19 Creatinine 0.60 L Estim Creat Clear Calc 102 Estimated GFR > 60 Glucose 166 H POC Capillary Glucose 190 H Calcium 8.4 Magnesium 1.9 Iron 108 TIBC 229 L % Saturation 47 Ferritin 1790.00 H Total Bilirubin 1.4 H AST 173 H ALT 65 H Alkaline Phosphatase 70 Total Creatine Kinase 151 Total Protein 7.0 Albumin 3.6 Vitamin B12 928.0 Folate 10.7 TSH Ethyl Alcohol Quality VTE Prophylaxis VTE prophylaxis: mechanical ordered
[2024-05-28 11:37] LABS: Glucose Point of Care 157 mg/dl (65-105)
[2024-05-28 12:00] LABS: Hepatitis B Surface Antigen Negative (Negative)
[2024-05-28 12:05] LABS: HAV RESULT Negative (Negative); Hepatitis B Core IgM Result Negative (Negative)
[2024-05-28 12:17] LABS: Hepatitis C Virus Antibody Negative (Negative)
[2024-05-28] MEDS: LORazepam INJ (*CRX) 2 MG/ML VIAL 1 MG IV PUSH ×3 (14:29→21:20)
[2024-05-28] MEDS: NICOTINE (*PBKC) 21 MG PATCH 1 PATCH TRANSDERM (14:30)
--- NOTE | 2024-05-28 14:54 | PCOTNOTE ---
Received OT evaluation orders. Pt just received IV ativan and is currently sleeping per RN. Unable to participate in eval this afternoon. Will continue to follow.
--- NOTE | 2024-05-28 15:50 | PC.NURSE ---
Spoke with nurse at Dr. Partha Lutz at [phone] to confirm medication list. List updated.
[2024-05-28 15:51] LABS: Glucose Point of Care 148 mg/dl (65-105)
[2024-05-28 20:11] LABS: Glucose Point of Care 179 mg/dl (65-105)
[2024-05-29] VITALS (15 sets, daily range): BP systolic 100–137; BP diastolic 67–88; PULSE 55–114; RESP 16–28; TEMP 36.6–36.8; O2SAT 98–99
[2024-05-29] MEDS: LORazepam INJ (*CRX) 2 MG/ML VIAL IV PUSH ×2 (00:14→03:58)
[2024-05-29] MEDS: chlordiazePOXIDE (*CRX) 25 MG CAPSULE PO ×3 (06:58→17:42)
[2024-05-29 07:40] LABS: Glucose Point of Care 183 mg/dl (65-105)
[2024-05-29] MEDS: EMPAGLIFLOZIN 25 MG TABLET PO (09:51)
[2024-05-29] MEDS: FOLIC ACID 1 MG TABLET PO (09:51)
[2024-05-29] MEDS: THIAMINE HCL 100 MG TABLET 300 MG PO (09:51)
[2024-05-29] MEDS: SIMVASTATIN 20 MG TABLET 40 MG PO (09:52)
[2024-05-29] MEDS: NICOTINE (*PBKC) 21 MG PATCH 1 PATCH TRANSDERM (09:52)
[2024-05-29] MEDS: OXcarbazepine 150 MG TABLET PO ×2 (09:52→17:33)
[2024-05-29] MEDS: OLMESARTAN MEDOXOMIL 20 MG TABLET 40 MG PO (09:52)
[2024-05-29] MEDS: buPROPion HCL XL (24 HR) 150 MG TABCR PO (09:52)
--- NOTE | 2024-05-29 11:33 | P.PNIM_ITS ---
Progress Note: A&P Assessment and Plan (1) Alcohol withdrawal: Qualifiers: Complication of substance-induced condition: uncomplicated Qualified Code(s): F10.930 - Alcohol use, unspecified with withdrawal, uncomplicated Code(s): F10.939 - Alcohol use, unspecified with withdrawal, unspecified Status: Acute Assessment and Plan: Admits to drinking about a pt of rum a day with his last drink being evening prior to admission. He presented with anxiety and tremors. Currently more confused * Continue CIWA protocol * Continue folic acid and Librium, change librium to q6 * CT of the abdomen/chest/pelvis show diffuse hepatic steatosis, moderate emphysema * Continue sitter * Transfer from IMU to [facility] * Continue cardiac monitoring. Sinus tachy (2) Frequent falls: Code(s): R29.6 - Repeated falls Status: Acute Assessment and Plan: * Continue fall precautions * Head CT negative * PT and OT ordered (3) Pancytopenia: Code(s): D61.818 - Other pancytopenia Status: Acute Assessment and Plan: White blood cell count 3.9, RBC 3.20, platelet count 59 * Likely secondary to alcoholism and alcoholic cirrhosis * Continue to trend * Continue fall precautions * Sitter at bedside (4) Elevated LFTs: Code(s): R79.89 - Other specified abnormal findings of blood chemistry Status: Acute Assessment and Plan: Likely secondary to alcoholism * AST 173, ALT 65, total bilirubin 1.4 * hepatitis panel * Chest/abdomen/pelvis CT showed diffuse hepatic steatosis, moderate emphysema (5) Type 2 diabetes mellitus: Code(s): E11.9 - Type 2 diabetes mellitus without complications Status: Acute Assessment and Plan: Blood sugars ranging 148-190. Hgb A1C 6.1 Home meds: metformin, Ozempic * Accu checks AC/HS * Low-dose SSI ordered * hypoglycemic protocol in place * Diabetic diet ordered * Holding home meds (6) Chronic obstructive pulmonary disease: Qualifiers: COPD type: unspecified COPD Qualified Code(s): J44.9 - Chronic obstructive pulmonary disease, unspecified Code(s): J44.9 - Chronic obstructive pulmonary disease, unspecified Status: Acute Assessment and Plan: * Continue albuterol rescue inhaler as needed (7) Variable compliance with medication therapy: Code(s): Z91.148 - Patient's other noncompliance with medication regimen for other reason Status: Acute Assessment and Plan: Likely 2/2 alcohol abuse Time Spent With Patient Time: 48 minutes Subjective Date/time seen: 05/29/24 11:33 Interval history: Tachycardic on the monitor, 1 dose of librium this morning worked with therapy with a walker, reported dizziness. More confusion today, mild Patient open to rehab after discharge Review of Systems Review of Systems: All systems reviewed & are unremarkable except as noted in HPI and below Exam Narrative: General: In no acute distress Head: atraumatic, no encephalopathy Eyes: PERRLA, sclera clear ENT: moist mucous membranes, nasal passages clear Neck: supple, no JVD, no adenopathy, trachea midline Cardiac: Normal S1 and S2. No murmur, gallops or friction rubs, peripheral pulses intact. Respiratory: Lungs clear to auscultation, no adventitious lung sounds, currently on room air Gastrointestinal: soft, non-distended, non-tender, normoactive bowel sounds. : voiding without difficulty. Extremities: moves all extremities well, no edema Skin: clean, dry, intact. No wounds or lesions. Neuro: Alert and oriented x2, cranial nerves intact, no neuro deficits. Psych: normal mood, normal affect, interactive Objective Data Vital Signs Vital Signs: Vital Signs - 24 hr 05/28/24 12:00 05/28/24 15:26 05/28/24 16:00 Temperature 98.2 F Pulse Rate 73 Pulse Rate [Monitor] 88 95 Respiratory Rate 24 H Blood Pressure 123/88 Pulse Oximetry 98 Oxygen Delivery 05/28/24 12:00 05/28/24 14:00 05/28/24 16:00 Temperature Pulse Rate 84 76 91 Pulse Rate [Monitor] Respiratory Rate Blood Pressure Pulse Oximetry Oxygen Delivery 05/28/24 18:00 05/28/24 12:00 05/28/24 16:00 Temperature Pulse Rate 80 Pulse Rate [Monitor] Respiratory Rate Blood Pressure Pulse Oximetry Oxygen Delivery Room Air Room Air 05/28/24 19:55 05/28/24 19:55 05/28/24 19:59 Temperature 97.6 F Pulse Rate 103 H 84 Pulse Rate [Monitor] 103 H Respiratory Rate Blood Pressure 123/88 106/72 Pulse Oximetry 99 Oxygen Delivery 05/28/24 20:00 05/28/24 22:00 05/29/24 00:00 Temperature Pulse Rate 84 84 71 Pulse Rate [Monitor] Respiratory Rate 24 H Blood Pressure Pulse Oximetry 99 Oxygen Delivery Room Air 05/29/24 00:00 05/29/24 00:00 05/29/24 00:00 Temperature 98.2 F Pulse Rate 71 82 Pulse Rate [Monitor] 71 Respiratory Rate 24 H 16 Blood Pressure 106/72 126/87 Pulse Oximetry 99 99 Oxygen Delivery Room Air 05/29/24 02:00 05/29/24 04:00 05/29/24 04:00 Temperature Pulse Rate 71 73 Pulse Rate [Monitor] 71 Respiratory Rate Blood Pressure 126/87 Pulse Oximetry Oxygen Delivery 05/29/24 04:00 05/29/24 04:00 05/29/24 06:00 Temperature 98 F Pulse Rate 73 71 63 Pulse Rate [Monitor] Respiratory Rate 16 18 Blood Pressure 130/80 Pulse Oximetry 99 98 Oxygen Delivery Room Air 05/29/24 07:29 05/29/24 08:00 05/29/24 10:20 Temperature 98.0 F Pulse Rate 95 Pulse Rate [Monitor] 94 Respiratory Rate 20 Blood Pressure 137/88 Pulse Oximetry 98 Oxygen Delivery Room Air 05/29/24 10:48 05/29/24 11:31 Temperature 97.8 F Pulse Rate 97 Pulse Rate [Monitor] Respiratory Rate 28 H Blood Pressure 100/73 Pulse Oximetry 99 Oxygen Delivery Room Air Intake/Output Intake/Output: Intake & Output 05/26/24 05/27/24 05/28/24 05/29/24 23:59 23:59 23:59 23:59 Intake Total 2453.2 1542 890 Output Total 901 642 8407 Balance 2153.2 1242 -1110 Meds/Results Medications: Active Medications Generic Name Dose Route Start Last Admin Trade Name Freq PRN Reason Stop Dose Admin Acetaminophen 650 mg 05/27/24 14:01 Acetaminophen 325 Mg Tablet PO Q6H PRN Mild Pain (1-3) or Fever Albuterol 2 puff 05/27/24 22:26 Albuterol Sulfate (*Sp) Aerosol 1 Puff INHALATION Q4HRT PRN cough Bupropion HCl 150 mg 05/28/24 09:00 05/29/24 09:52 Bupropion Hcl Xl (24 Hr) 150 Mg Tabcr PO 150 mg DAILY ADELSO Administration Chlordiazepoxide HCl 25 mg 05/27/24 14:05 05/29/24 06:58 Chlordiazepoxide (*Crx) 25 Mg Capsule PO 25 mg Q8HR ADELSO Administration Dextrose 12.5 gm 05/27/24 14:01 Dextrose 50% 25 Gm/50 Ml Syringe IV PUSH PRN PRN Hypoglycemia Protocol Empagliflozin 25 mg 05/28/24 09:00 05/29/24 09:51 Empagliflozin 25 Mg Tablet PO 25 mg DAILY ADELSO Administration Folic Acid 1 mg 05/28/24 09:00 05/29/24 09:51 Folic Acid 1 Mg Tablet PO 1 mg DAILY ADELSO Administration Glucagon 1 mg 05/27/24 14:01 Glucagon For Inj 1 Mg Vial IM PRN PRN Hypoglycemia Protocol Glucose 15 gm 05/27/24 14:01 Glucose Oral Gel 15 Gm Of Glucse In 37.5 Gm Tube PO PRN PRN Hypoglycemia Protocol Dextrose 1,000 mls @ 100 mls/hr 05/27/24 14:01 Dextrose 5% 1,000 Ml IVPB PRN PRN Hypoglycemia Protocol Insulin Aspart 2 - 5 units 05/27/24 17:00 05/29/24 09:45 Insulin Aspart (*Bkc) 100 Units/Ml SUB-Q Not Given TIDWM [facility] Protocol Insulin Aspart 1 - 2 units 05/27/24 21:00 05/28/24 20:59 Insulin Aspart (*Bkc) 100 Units/Ml SUB-Q Not Given HS [facility] Protocol Lorazepam 2 mg 05/27/24 14:01 05/29/24 03:58 Lorazepam Inj (*Crx) 2 Mg/Ml Vial IV PUSH 2 mg Q2H PRN Administration CIWA > 15 Lorazepam 1 mg 05/27/24 14:01 05/28/24 21:20 Lorazepam Inj (*Crx) 2 Mg/Ml Vial IV PUSH 1 mg Q2H PRN Administration CIWA 8-15 Nicotine 1 patch 05/28/24 13:45 05/29/24 09:52 Nicotine (*Pbkc) 21 Mg Patch TRANSDERM 1 patch DAILY ADELSO Administration Olmesartan 40 mg 05/28/24 09:00 05/29/24 09:52 Olmesartan Medoxomil 20 Mg Tablet PO 40 mg QAM ADELSO Administration Ondansetron HCl 4 mg 05/27/24 10:06 05/27/24 10:37 Ondansetron Inj 4 Mg/2 Ml Vial IV PUSH 4 mg Q6H PRN Administration Nausea And Vomiting Oxcarbazepine 150 mg 05/28/24 09:00 05/29/24 09:52 Oxcarbazepine 150 Mg Tablet PO 150 mg BID ADELSO Administration Simvastatin 40 mg 05/28/24 09:00 05/29/24 09:52 Simvastatin 20 Mg Tablet PO 40 mg DAILY ADELSO Administration Thiamine HCl 300 mg 05/29/24 09:00 05/29/24 09:51 Thiamine Hcl 100 Mg Tablet PO 300 mg QAM ADELSO Administration Radiology Results: ITS Impressions Head CT 05/27/24 11:28 IMPRESSION: 1. Normal brain. Chest/Abdomen/Pelvis CT 05/27/24 11:29 IMPRESSION: 1. Moderate emphysema. 2. Diffuse hepatic steatosis. Labs Labs: Laboratory Results - last 24 hr 05/28/24 05/28/24 05/28/24 04:48 11:28 15:36 POC Capillary Glucose 157 H 148 H Hepatitis A IgM Ab Negative Hep Bs Antigen Negative Hep B Core IgM Ab Negative Hepatitis C Ab Screen Negative 05/28/24 05/29/24 20:03 07:35 POC Capillary Glucose 179 H 183 H Hepatitis A IgM Ab Hep Bs Antigen Hep B Core IgM Ab Hepatitis C Ab Screen Quality VTE Prophylaxis VTE prophylaxis: mechanical ordered Hospitalist MIPS Advance Care Plan I have confirmed that the patient's Advanced Care Plan is present, code status is documented, or surrogate decision maker is listed in patient medical record.: Yes Medication Reconciliation I have utilized all available resources to obtain, update and review the patients current medications (includes all prescriptions, OTC, herbals, cannabis, and nutritional supplements).: Yes
[2024-05-29 11:44] LABS: Glucose Point of Care 165 mg/dl (65-105)
[2024-05-29 15:49] LABS: Glucose Point of Care 245 mg/dl (65-105)
[2024-05-29] MEDS: INSULIN ASPART (*BKC) 100 UNITS/ML SUB-Q (17:35)
--- NOTE | 2024-05-29 18:29 | PC.NURSE ---
Provider discontinued sitter order at the bedside at 1824. Bed alarm went off and patient out of bed by 1827. Notified Deepali and received order for sitter. Order placed.
[2024-05-29 20:41] LABS: Glucose Point of Care 132 mg/dl (65-105)
[2024-05-30] VITALS (8 sets, daily range): BP systolic 104–128; BP diastolic 72–93; PULSE 76–107; RESP 14–18; TEMP 36.1–36.5; O2SAT 94–100
[2024-05-30] MEDS: ACETAMINOPHEN 325 MG TABLET 650 MG PO (00:32)
[2024-05-30] MEDS: chlordiazePOXIDE (*CRX) 25 MG CAPSULE PO ×5 (00:32→23:52)
[2024-05-30 05:18] LABS: Basophils Percent Auto 0.7 % (0.2-1.2); Eosinophils Absolute Auto 0.2 K/mm3 (0-0.3); Eosinophils Percent Auto 4.6 % (0-4.4); Hematocrit 35.1 % (42.0-52.0); Hemoglobin 12.4 g/dL (14.0-18.0); Immature Granulocyte Absolute 0.03 K/mm3 (0.00-0.031); Immature Granulocyte Percent A 0.7 % (0-0.5); Immature Platelet Fraction Pct 9.7 % (0.9-11.2); Lymphocytes Absolute Auto 1.07 K/mm3 (0.9-3.2); Lymphocytes Percent Auto 24.4 % (18.3-44.2); Mean Corpuscular HGB Conc 35.3 g/dl (32-36); Mean Corpuscular Hemoglobin 36.9 pg (26-34); Mean Corpuscular Volume 104.5 fl (80-100); Mean Platelet Volume 11.1 fl (7.4-10.4); Monocytes Absolute Auto 0.6 K/mm3 (0.1-0.6); Monocytes Percent Auto 13.9 % (2.6-8.5); Neutrophils Absolute Auto 2.5 K/mm3 (1.3-6.7); Neutrophils Percent Auto 55.7 % (45.5-73.1); Platelet Count Result 68 k/mm3 (150-375); Red Blood Count 3.36 M/mm3 (4.6-6.20); Red Cell Distribution Width 13.5 % (11.5-14.5); White Blood Count 4.4 K/mm3 (4.5-10.0)
[2024-05-30 05:32] LABS: Alanine Aminotransferase 87 U/L (6-50); Albumin Level 3.9 g/dL (3.5-5.1); Alkaline Phosphatase 88 U/L (38-126); Anion Gap 10 mmol/L (4-12); Aspartate Amino Transferase 162 U/L (17-59); Bilirubin,Total 0.9 mg/dL (0.2-1.3); Blood Urea Nitrogen 19 mg/dL (9-20); Calcium 9.9 mg/dL (8.4-10.2); Carbon Dioxide 27 mmol/L (22-30); Chloride 99 mmol/L (98-107); Estimated CRCL calculation 102 ml/min; Estimated Glomerular Filt Rate > 60; Glucose 189 mg/dL (65-110); Potassium 3.5 mmol/L (3.4-5.0); Sodium 136 mmol/L (137-145)
[2024-05-30 08:00] LABS: Glucose Point of Care 177 mg/dl (65-105)
[2024-05-30] MEDS: EMPAGLIFLOZIN 25 MG TABLET PO (08:27)
[2024-05-30] MEDS: FOLIC ACID 1 MG TABLET PO (08:27)
[2024-05-30] MEDS: OXcarbazepine 150 MG TABLET PO ×2 (08:27→17:17)
[2024-05-30] MEDS: THIAMINE HCL 100 MG TABLET 300 MG PO (08:27)
[2024-05-30] MEDS: buPROPion HCL XL (24 HR) 150 MG TABCR PO (08:27)
[2024-05-30] MEDS: SIMVASTATIN 20 MG TABLET 40 MG PO (08:27)
[2024-05-30] MEDS: NICOTINE (*PBKC) 21 MG PATCH 1 PATCH TRANSDERM (08:27)
[2024-05-30] MEDS: OLMESARTAN MEDOXOMIL 20 MG TABLET 40 MG PO (08:27)
[2024-05-30 11:58] LABS: Glucose Point of Care 153 mg/dl (65-105)
--- NOTE | 2024-05-30 14:50 | P.PNIM_ITS ---
Progress Note: A&P Assessment and Plan (1) Alcohol withdrawal: Qualifiers: Complication of substance-induced condition: uncomplicated Qualified Code(s): F10.930 - Alcohol use, unspecified with withdrawal, uncomplicated Code(s): F10.939 - Alcohol use, unspecified with withdrawal, unspecified Status: Acute Assessment and Plan: - Admits to drinking about a pt of rum a day with his last drink being evening prior to admission. - He presented with anxiety and tremors. - Appears fairly well oriented. * Continue CIWA protocol * Continue folic acid and Librium, Librium q6 * CT of the abdomen/chest/pelvis show diffuse hepatic steatosis, moderate emphysema * Continue sitter * Transfer from IMU to [facility] * Continue cardiac monitoring. Sinus Rhythm with episodes of tachy, low 100's. (2) Frequent falls: Code(s): R29.6 - Repeated falls Status: Acute Assessment and Plan: * Likely related to above. * Continue fall precautions * Head CT negative * Continue PT and OT. (3) Pancytopenia: Code(s): D61.818 - Other pancytopenia Status: Acute Assessment and Plan: White blood cell count 3.9, RBC 3.20, platelet count 59 * Likely secondary to alcoholism and alcoholic cirrhosis * Continue to trend * Continue fall precautions * Sitter at bedside (4) Elevated LFTs: Code(s): R79.89 - Other specified abnormal findings of blood chemistry Status: Acute Assessment and Plan: Likely secondary to alcoholism * Levels appear to be baseline and slowly improving. * Acute hepatitis panel negative. * Chest/abdomen/pelvis CT showed diffuse hepatic steatosis, moderate emphysema (5) Type 2 diabetes mellitus: Code(s): E11.9 - Type 2 diabetes mellitus without complications Status: Acute Assessment and Plan: Blood sugars ranging 148-190. Hgb A1C 6.1 Home meds: metformin, Ozempic * Accu checks AC/HS * Low-dose SSI ordered * hypoglycemic protocol in place * Diabetic diet ordered * Continue to hold home meds (6) Chronic obstructive pulmonary disease: Qualifiers: COPD type: unspecified COPD Qualified Code(s): J44.9 - Chronic obstructive pulmonary disease, unspecified Code(s): J44.9 - Chronic obstructive pulmonary disease, unspecified Status: Acute Assessment and Plan: * Continue albuterol rescue inhaler as needed (7) Variable compliance with medication therapy: Code(s): Z91.148 - Patient's other noncompliance with medication regimen for other reason Status: Acute Assessment and Plan: - Appears compensated. - Bronchodilators PRN. Time Spent With Patient Time with patient: 25 - 35 minutes Subjective Date/time seen: 05/30/24 14:50 Patient working with PT in room and denies any acute distress. Interval history: Patient admitted for alcohol withdrawal symptoms and frequent falls likely related to alcohol abuse. Pt still with generalized muscle weakness and high risk for falls. We'll continue PT for now and consider Rehab placement if pt not safe for home discharge. Review of Systems Review of Systems: 12 systems were reviewed and are negativ e except for as per HPI. All systems reviewed & are unremarkable except as noted in HPI and below Exam Narrative: General: In no acute distress, working with PT. Head: atraumatic, no encephalopathy Eyes: PERRLA, sclera clear ENT: moist mucous membranes, nasal passages clear Neck: supple, no JVD, no adenopathy, trachea midline Cardiac: Normal S1 and S2. No murmur, peripheral pulses intact. Respiratory: Lungs clear to auscultation, currently on room air Gastrointestinal: soft, non-distended, non-tender, normoactive bowel sounds. : voiding without difficulty. Extremities: moves all extremities well, no edema Skin: clean, dry, intact. No wounds or lesions. Neuro: Alert and oriented x3, cranial nerves II-XII grossly intact, no neuro deficits. Psych: normal mood, normal affect, interactive Objective Data Vital Signs Vital Signs: Vital Signs - 24 hr 05/29/24 15:33 05/29/24 16:00 05/29/24 16:00 Temperature 98.1 F Pulse Rate 114 H 107 H Pulse Rate [Monitor] 109 H Respiratory Rate 16 Blood Pressure 104/67 Pulse Oximetry 99 Oxygen Delivery 05/29/24 19:46 05/29/24 19:46 05/29/24 19:48 Temperature Pulse Rate 90 90 Pulse Rate [Monitor] 87 Respiratory Rate 16 Blood Pressure 104/67 Pulse Oximetry 99 Oxygen Delivery Room Air 05/29/24 20:09 05/30/24 00:00 05/30/24 00:00 Temperature 97.8 F Pulse Rate 87 76 Pulse Rate [Monitor] 76 Respiratory Rate 16 Blood Pressure 114/80 114/80 Pulse Oximetry 98 Oxygen Delivery 05/30/24 00:46 05/30/24 04:00 05/30/24 04:00 Temperature 97.7 F Pulse Rate 82 77 Pulse Rate [Monitor] 76 Respiratory Rate 16 Blood Pressure 124/84 124/84 Pulse Oximetry 99 Oxygen Delivery 05/30/24 04:50 05/30/24 08:00 05/30/24 08:00 Temperature 97.7 F 97.4 F L Pulse Rate 81 79 Pulse Rate [Monitor] Respiratory Rate 16 16 Blood Pressure 121/78 104/72 Pulse Oximetry 94 98 Oxygen Delivery Room Air 05/30/24 08:00 05/30/24 12:00 Temperature Pulse Rate 100 107 H Pulse Rate [Monitor] Respiratory Rate Blood Pressure Pulse Oximetry Oxygen Delivery Intake/Output Intake/Output: Intake & Output 05/27/24 05/28/24 05/29/24 05/30/24 23:59 23:59 23:59 23:59 Intake Total 2453.2 1542 2164 1422 Output Total 065 177 5781 400 Balance 2153.2 1242 -1836 1022 Meds/Results Medications: Active Medications Generic Name Dose Route Start Last Admin Trade Name Freq PRN Reason Stop Dose Admin Acetaminophen 650 mg 05/27/24 14:01 05/30/24 00:32 Acetaminophen 325 Mg Tablet PO 650 mg Q6H PRN Administration Mild Pain (1-3) or Fever Albuterol 2 puff 05/27/24 22:26 Albuterol Sulfate (*Sp) Aerosol 1 Puff INHALATION Q4HRT PRN cough Bupropion HCl 150 mg 05/28/24 09:00 05/30/24 08:27 Bupropion Hcl Xl (24 Hr) 150 Mg Tabcr PO 150 mg DAILY ADELSO Administration Chlordiazepoxide HCl 25 mg 05/29/24 12:05 05/30/24 12:13 Chlordiazepoxide (*Crx) 25 Mg Capsule PO 25 mg Q6HR ADELSO Administration Dextrose 12.5 gm 05/27/24 14:01 Dextrose 50% 25 Gm/50 Ml Syringe IV PUSH PRN PRN Hypoglycemia Protocol Empagliflozin 25 mg 05/28/24 09:00 05/30/24 08:27 Empagliflozin 25 Mg Tablet PO 25 mg DAILY ADELSO Administration Folic Acid 1 mg 05/28/24 09:00 05/30/24 08:27 Folic Acid 1 Mg Tablet PO 1 mg DAILY ADELSO Administration Glucagon 1 mg 05/27/24 14:01 Glucagon For Inj 1 Mg Vial IM PRN PRN Hypoglycemia Protocol Glucose 15 gm 05/27/24 14:01 Glucose Oral Gel 15 Gm Of Glucse In 37.5 Gm Tube PO PRN PRN Hypoglycemia Protocol Dextrose 1,000 mls @ 100 mls/hr 05/27/24 14:01 Dextrose 5% 1,000 Ml IVPB PRN PRN Hypoglycemia Protocol Insulin Aspart 2 - 5 units 05/27/24 17:00 05/30/24 12:13 Insulin Aspart (*Bkc) 100 Units/Ml SUB-Q Not Given TIDWM ADELSO Protocol Insulin Aspart 1 - 2 units 05/27/24 21:00 05/29/24 21:04 Insulin Aspart (*Bkc) 100 Units/Ml SUB-Q Not Given HS ADELSO Protocol Lorazepam 2 mg 05/27/24 14:01 05/29/24 03:58 Lorazepam Inj (*Crx) 2 Mg/Ml Vial IV PUSH 2 mg Q2H PRN Administration CIWA > 15 Lorazepam 1 mg 05/27/24 14:01 05/28/24 21:20 Lorazepam Inj (*Crx) 2 Mg/Ml Vial IV PUSH 1 mg Q2H PRN Administration CIWA 8-15 Nicotine 1 patch 05/28/24 13:45 05/30/24 08:27 Nicotine (*Pbkc) 21 Mg Patch TRANSDERM 1 patch DAILY ADELSO Administration Olmesartan 40 mg 05/28/24 09:00 05/30/24 08:27 Olmesartan Medoxomil 20 Mg Tablet PO 40 mg QAM ADELSO Administration Ondansetron HCl 4 mg 05/27/24 10:06 05/27/24 10:37 Ondansetron Inj 4 Mg/2 Ml Vial IV PUSH 4 mg Q6H PRN Administration Nausea And Vomiting Oxcarbazepine 150 mg 05/28/24 09:00 05/30/24 08:27 Oxcarbazepine 150 Mg Tablet PO 150 mg BID ADELSO Administration Simvastatin 40 mg 05/28/24 09:00 05/30/24 08:27 Simvastatin 20 Mg Tablet PO 40 mg DAILY ADELSO Administration Thiamine HCl 300 mg 05/29/24 09:00 05/30/24 08:27 Thiamine Hcl 100 Mg Tablet PO 300 mg QAM ADELSO Administration Radiology Results: ITS Impressions Head CT 05/27/24 11:28 IMPRESSION: 1. Normal brain. Chest/Abdomen/Pelvis CT 05/27/24 11:29 IMPRESSION: 1. Moderate emphysema. 2. Diffuse hepatic steatosis. Labs Labs: Laboratory Results - last 24 hr 05/29/24 05/29/24 05/30/24 15:38 20:37 04:49 WBC 4.4 L RBC 3.36 L Hgb 12.4 L Hct 35.1 L MCV 104.5 H MCH 36.9 H MCHC 35.3 RDW 13.5 Plt Count 68 L MPV 11.1 H Immature Gran % (Auto) 0.7 H Neut % (Auto) 55.7 Lymph % (Auto) 24.4 Giles % (Auto) 13.9 H Eos % (Auto) 4.6 H Baso % (Auto) 0.7 Lymph # (Auto) 1.07 Giles # (Auto) 0.6 Eos # (Auto) 0.2 Baso # (Auto) 0.0 Abs Immat Gran (auto) 0.03 Absolute Neuts (auto) 2.5 Absolute Nucleated RBC 0.000 Nucleated RBC % 0.0 % Immature Plt Fraction 9.7 Sodium 136 L Potassium 3.5 Chloride 99 Carbon Dioxide 27 Anion Gap 10 BUN 19 Creatinine 0.60 L Estim Creat Clear Calc 102 Estimated GFR > 60 Glucose 189 H POC Capillary Glucose 245 H 132 H Calcium 9.9 Total Bilirubin 0.9 AST 162 H ALT 87 H Alkaline Phosphatase 88 Total Protein 7.0 Albumin 3.9 05/30/24 05/30/24 07:46 11:39 WBC RBC Hgb Hct MCV MCH MCHC RDW Plt Count MPV Immature Gran % (Auto) Neut % (Auto) Lymph % (Auto) Giles % (Auto) Eos % (Auto) Baso % (Auto) Lymph # (Auto) Giles # (Auto) Eos # (Auto) Baso # (Auto) Abs Immat Gran (auto) Absolute Neuts (auto) Absolute Nucleated RBC Nucleated RBC % % Immature Plt Fraction Sodium Potassium Chloride Carbon Dioxide Anion Gap BUN Creatinine Estim Creat Clear Calc Estimated GFR Glucose POC Capillary Glucose 177 H 153 H Calcium Total Bilirubin AST ALT Alkaline Phosphatase Total Protein Albumin Quality VTE Prophylaxis VTE prophylaxis: mechanical ordered Hospitalist MIPS Advance Care Plan I have confirmed that the patient's Advanced Care Plan is present, code status is documented, or surrogate decision maker is listed in patient medical record.: Yes Medication Reconciliation I have utilized all available resources to obtain, update and review the patients current medications (includes all prescriptions, OTC, herbals, cannabis, and nutritional supplements).: Yes
--- NOTE | 2024-05-30 16:49 | PC.NURSE ---
This patient, Juwan Harris, was transferred to [[id number] ] on 05/30/24 at 1620. Personal belongings sent with patient. Report given to [RADHA Guzman @ [phone] ]. Appropriate documentation sent with patient.
[2024-05-30 17:12] LABS: Glucose Point of Care 167 mg/dl (65-105)
--- NOTE | 2024-05-30 18:49 | PC.NURSE ---
This patient, Juwan Harris, was received from imu on 05/30/24 at 1650. Patient/family oriented to unit policies and routines
[2024-05-30 20:31] LABS: Glucose Point of Care 273 mg/dl (65-105)
[2024-05-30] MEDS: INSULIN ASPART (*BKC) 100 UNITS/ML SUB-Q (21:01)
[2024-05-31 05:45] VITALS: BP 125/85; PULSE 83; RESP 16; TEMP 36.4; O2SAT 100
[2024-05-31] MEDS: chlordiazePOXIDE (*CRX) 25 MG CAPSULE PO ×3 (06:16→17:17)
[2024-05-31 06:51] LABS: Basophils Percent Auto 0.5 % (0.2-1.2); Eosinophils Absolute Auto 0.3 K/mm3 (0-0.3); Eosinophils Percent Auto 4.7 % (0-4.4); Hematocrit 35.9 % (42.0-52.0); Hemoglobin 12.4 g/dL (14.0-18.0); Immature Granulocyte Absolute 0.03 K/mm3 (0.00-0.031); Immature Granulocyte Percent A 0.5 % (0-0.5); Immature Platelet Fraction Pct 8.2 % (0.9-11.2); Lymphocytes Percent Auto 25.1 % (18.3-44.2); Mean Corpuscular HGB Conc 34.5 g/dl (32-36); Mean Corpuscular Hemoglobin 36.9 pg (26-34); Mean Corpuscular Volume 106.8 fl (80-100); Mean Platelet Volume 10.9 fl (7.4-10.4); Monocytes Percent Auto 17.8 % (2.6-8.5); Neutrophils Absolute Auto 2.9 K/mm3 (1.3-6.7); Neutrophils Percent Auto 51.4 % (45.5-73.1); Platelet Count Result 99 k/mm3 (150-375); Red Blood Count 3.36 M/mm3 (4.6-6.20); Red Cell Distribution Width 14.2 % (11.5-14.5); White Blood Count 5.6 K/mm3 (4.5-10.0)
[2024-05-31 07:06] LABS: Alanine Aminotransferase 89 U/L (6-50); Albumin Level 3.9 g/dL (3.5-5.1); Alkaline Phosphatase 85 U/L (38-126); Anion Gap 8 mmol/L (4-12); Aspartate Amino Transferase 125 U/L (17-59); Bilirubin,Total 0.8 mg/dL (0.2-1.3); Blood Urea Nitrogen 21 mg/dL (9-20); Calcium 9.9 mg/dL (8.4-10.2); Carbon Dioxide 28 mmol/L (22-30); Chloride 100 mmol/L (98-107); Estimated CRCL calculation 70 ml/min; Estimated Glomerular Filt Rate > 60; Glucose 155 mg/dL (65-110); Potassium 3.8 mmol/L (3.4-5.0); Sodium 136 mmol/L (137-145)
[2024-05-31] MEDS: NICOTINE (*PBKC) 21 MG PATCH 1 PATCH TRANSDERM (07:47)
[2024-05-31] MEDS: EMPAGLIFLOZIN 25 MG TABLET PO (07:48)
[2024-05-31] MEDS: buPROPion HCL XL (24 HR) 150 MG TABCR PO (07:48)
[2024-05-31] MEDS: OXcarbazepine 150 MG TABLET PO ×2 (07:48→16:02)
[2024-05-31] MEDS: FOLIC ACID 1 MG TABLET PO (07:48)
[2024-05-31] MEDS: THIAMINE HCL 100 MG TABLET 300 MG PO (07:48)
[2024-05-31] MEDS: OLMESARTAN MEDOXOMIL 20 MG TABLET 40 MG PO (07:48)
[2024-05-31] MEDS: SIMVASTATIN 20 MG TABLET 40 MG PO (07:48)
[2024-05-31 07:51] LABS: Macrocytosis 1+ (NORMAL); Platelet Estimate Decreased (Adequate); Schistocytes None Seen
[2024-05-31 08:40] LABS: Glucose Point of Care 229 mg/dl (65-105)
[2024-05-31] MEDS: INSULIN ASPART (*BKC) 100 UNITS/ML SUB-Q ×2 (09:00→18:07)
[2024-05-31 12:53] LABS: Glucose Point of Care 167 mg/dl (65-105)
--- NOTE | 2024-05-31 14:28 | P.PNIM_ITS ---
Progress Note: A&P Assessment and Plan (1) Alcohol withdrawal: Qualifiers: Complication of substance-induced condition: uncomplicated Qualified Code(s): F10.930 - Alcohol use, unspecified with withdrawal, uncomplicated Code(s): F10.939 - Alcohol use, unspecified with withdrawal, unspecified Status: Acute Assessment and Plan: - Admits to drinking about a pt of rum a day with his last drink being evening prior to admission. - He presented with anxiety and tremors. - Appears fairly well oriented. * Continue CIWA protocol. * Continue folic acid and Librium, Librium q6. * CT of the abdomen/chest/pelvis show diffuse hepatic steatosis, moderate emphysema * Sitter discontinued. * HR controlled and telemetry discontinued. * Continue PT/OT. (2) Frequent falls: Code(s): R29.6 - Repeated falls Status: Acute Assessment and Plan: * Likely related to above. * Continue fall precautions * Head CT negative * Continue PT and OT as we await for placement. (3) Pancytopenia: Code(s): D61.818 - Other pancytopenia Status: Acute Assessment and Plan: White blood cell count 3.9, RBC 3.20, platelet count 59 * Likely secondary to alcoholism and alcoholic cirrhosis * Continue to trend * Continue fall precautions (4) Elevated LFTs: Code(s): R79.89 - Other specified abnormal findings of blood chemistry Status: Acute Assessment and Plan: Likely secondary to alcoholism * Levels trended down since admission. * Acute hepatitis panel negative. * Chest/abdomen/pelvis CT showed diffuse hepatic steatosis, moderate emphysema (5) Type 2 diabetes mellitus: Code(s): E11.9 - Type 2 diabetes mellitus without complications Status: Acute Assessment and Plan: Blood sugars ranging 148-190. Hgb A1C 6.1 Home meds: metformin, Ozempic * Accu checks AC/HS * Low-dose SSI ordered * hypoglycemic protocol in place * Diabetic diet ordered * Continue to hold home meds (6) Chronic obstructive pulmonary disease: Qualifiers: COPD type: unspecified COPD Qualified Code(s): J44.9 - Chronic obstructive pulmonary disease, unspecified Code(s): J44.9 - Chronic obstructive pulmonary disease, unspecified Status: Acute Assessment and Plan: * Stable. * Continue albuterol rescue inhaler as needed (7) Variable compliance with medication therapy: Code(s): Z91.148 - Patient's other noncompliance with medication regimen for other reason Status: Acute Assessment and Plan: - Admits to meds compliance. - Encouraged with compliance. Time Spent With Patient Time with patient: 15 - 25 minutes Subjective Date/time seen: 05/31/24 14:28 Patient states he feels somewhat unsteady when he ambulates. States not sure about going home alone and we'll await brother in law to help with rehab placement. Interval history: Patient admitted for alcohol withdrawal symptoms and frequent falls likely related to alcohol abuse. Pt still with generalized muscle weakness and high risk for falls. We'll continue PT for now as we await Rehab placement. Review of Systems Review of Systems: All systems reviewed & are unremarkable except as noted in HPI and below Exam Narrative: General: Calm on bedrest and in no acute distress. Head: atraumatic, no encephalopathy Eyes: PERRLA, sclera clear ENT: moist mucous membranes, nasal passages clear Neck: supple, no JVD, no adenopathy, trachea midline Cardiac: Normal S1 and S2. No murmur, peripheral pulses intact. Respiratory: Lungs clear to auscultation, currently on room air Gastrointestinal: soft, non-distended, non-tender, normoactive bowel sounds. : voiding without difficulty. Extremities: moves all extremities well, no edema Skin: clean, dry, intact. No wounds or lesions. Neuro: Alert and oriented x3, cranial nerves II-XII grossly intact, no neuro deficits. Psych: normal mood, normal affect, interactive Objective Data Vital Signs Vital Signs: Vital Signs - 24 hr 05/30/24 16:00 05/30/24 21:08 05/30/24 20:00 Temperature 97.0 F L 97.3 F L Pulse Rate 85 85 Respiratory Rate 14 18 Blood Pressure 128/93 H 121/82 Pulse Oximetry 100 99 Oxygen Delivery Room Air 05/31/24 05:45 05/31/24 08:00 Temperature 97.5 F L Pulse Rate 83 Respiratory Rate 16 Blood Pressure 125/85 Pulse Oximetry 100 Oxygen Delivery Room Air Intake/Output Intake/Output: Intake & Output 05/28/24 05/29/24 05/30/24 05/31/24 23:59 23:59 23:59 23:59 Intake Total 1542 2164 1422 1480 Output Total 300 4000 400 400 Balance 1242 -1836 1022 1080 Meds/Results Medications: Active Medications Generic Name Dose Route Start Last Admin Trade Name Freq PRN Reason Stop Dose Admin Acetaminophen 650 mg 05/27/24 14:01 05/30/24 00:32 Acetaminophen 325 Mg Tablet PO 650 mg Q6H PRN Administration Mild Pain (1-3) or Fever Albuterol 2 puff 05/27/24 22:26 Albuterol Sulfate (*Sp) Aerosol 1 Puff INHALATION Q4HRT PRN cough Bupropion HCl 150 mg 05/28/24 09:00 05/31/24 07:48 Bupropion Hcl Xl (24 Hr) 150 Mg Tabcr PO 150 mg DAILY ADELSO Administration Chlordiazepoxide HCl 25 mg 05/29/24 12:05 05/31/24 12:22 Chlordiazepoxide (*Crx) 25 Mg Capsule PO 25 mg Q6HR ADELSO Administration Dextrose 12.5 gm 05/27/24 14:01 Dextrose 50% 25 Gm/50 Ml Syringe IV PUSH PRN PRN Hypoglycemia Protocol Empagliflozin 25 mg 05/28/24 09:00 05/31/24 07:48 Empagliflozin 25 Mg Tablet PO 25 mg DAILY ADELSO Administration Folic Acid 1 mg 05/28/24 09:00 05/31/24 07:48 Folic Acid 1 Mg Tablet PO 1 mg DAILY ADELSO Administration Glucagon 1 mg 05/27/24 14:01 Glucagon For Inj 1 Mg Vial IM PRN PRN Hypoglycemia Protocol Glucose 15 gm 05/27/24 14:01 Glucose Oral Gel 15 Gm Of Glucse In 37.5 Gm Tube PO PRN PRN Hypoglycemia Protocol Dextrose 1,000 mls @ 100 mls/hr 05/27/24 14:01 Dextrose 5% 1,000 Ml IVPB PRN PRN Hypoglycemia Protocol Insulin Aspart 2 - 5 units 05/27/24 17:00 05/31/24 12:57 Insulin Aspart (*Bkc) 100 Units/Ml SUB-Q Not Given TIDWM ADELSO Protocol Insulin Aspart 1 - 2 units 05/27/24 21:00 05/30/24 21:01 Insulin Aspart (*Bkc) 100 Units/Ml SUB-Q 1 units HS ADELSO Administration Protocol Lorazepam 2 mg 05/27/24 14:01 05/29/24 03:58 Lorazepam Inj (*Crx) 2 Mg/Ml Vial IV PUSH 2 mg Q2H PRN Administration CIWA > 15 Lorazepam 1 mg 05/27/24 14:01 05/28/24 21:20 Lorazepam Inj (*Crx) 2 Mg/Ml Vial IV PUSH 1 mg Q2H PRN Administration CIWA 8-15 Melatonin 5 mg 05/31/24 21:00 Melatonin 5 Mg Tablet PO HS PRN Insomnia Nicotine 1 patch 05/28/24 13:45 05/31/24 07:47 Nicotine (*Pbkc) 21 Mg Patch TRANSDERM 1 patch DAILY ADELSO Administration Olmesartan 40 mg 05/28/24 09:00 05/31/24 07:48 Olmesartan Medoxomil 20 Mg Tablet PO 40 mg QAM ADELSO Administration Ondansetron HCl 4 mg 05/27/24 10:06 05/27/24 10:37 Ondansetron Inj 4 Mg/2 Ml Vial IV PUSH 4 mg Q6H PRN Administration Nausea And Vomiting Oxcarbazepine 150 mg 05/28/24 09:00 05/31/24 07:48 Oxcarbazepine 150 Mg Tablet PO 150 mg BID ADELSO Administration Simvastatin 40 mg 05/28/24 09:00 05/31/24 07:48 Simvastatin 20 Mg Tablet PO 40 mg DAILY ADELSO Administration Thiamine HCl 300 mg 05/29/24 09:00 05/31/24 07:48 Thiamine Hcl 100 Mg Tablet PO 300 mg QAM ADELSO Administration Radiology Results: ITS Impressions Head CT 05/27/24 11:28 IMPRESSION: 1. Normal brain. Chest/Abdomen/Pelvis CT 05/27/24 11:29 IMPRESSION: 1. Moderate emphysema. 2. Diffuse hepatic steatosis. Labs Labs: Laboratory Results - last 24 hr 05/30/24 05/30/24 05/31/24 17:09 20:06 06:03 WBC 5.6 RBC 3.36 L Hgb 12.4 L Hct 35.9 L MCV 106.8 H MCH 36.9 H MCHC 34.5 RDW 14.2 Plt Count 99 L MPV 10.9 H Immature Gran % (Auto) 0.5 Neut % (Auto) 51.4 Lymph % (Auto) 25.1 [place] % (Auto) 17.8 H Eos % (Auto) 4.7 H Baso % (Auto) 0.5 Lymph # (Auto) 1.40 [place] # (Auto) 1.0 H Eos # (Auto) 0.3 Baso # (Auto) 0.0 Abs Immat Gran (auto) 0.03 Absolute Neuts (auto) 2.9 Absolute Nucleated RBC 0.000 Nucleated RBC % 0.0 Platelet Estimate Decreased % Immature Plt Fraction 8.2 Macrocytosis 1+ Schistocytes None seen Sodium 136 L Potassium 3.8 Chloride 100 Carbon Dioxide 28 Anion Gap 8 BUN 21 H Creatinine 0.90 Estim Creat Clear Calc 70 Estimated GFR > 60 Glucose 155 H POC Capillary Glucose 167 H 273 H Calcium 9.9 Total Bilirubin 0.8 AST 125 H ALT 89 H Alkaline Phosphatase 85 Total Protein 7.0 Albumin 3.9 05/31/24 05/31/24 08:37 12:51 WBC RBC Hgb Hct MCV MCH MCHC RDW Plt Count MPV Immature Gran % (Auto) Neut % (Auto) Lymph % (Auto) [place] % (Auto) Eos % (Auto) Baso % (Auto) Lymph # (Auto) [place] # (Auto) Eos # (Auto) Baso # (Auto) Abs Immat Gran (auto) Absolute Neuts (auto) Absolute Nucleated RBC Nucleated RBC % Platelet Estimate % Immature Plt Fraction Macrocytosis Schistocytes Sodium Potassium Chloride Carbon Dioxide Anion Gap BUN Creatinine Estim Creat Clear Calc Estimated GFR Glucose POC Capillary Glucose 229 H 167 H Calcium Total Bilirubin AST ALT Alkaline Phosphatase Total Protein Albumin Quality VTE Prophylaxis VTE prophylaxis: mechanical ordered Hospitalist MIPS Advance Care Plan I have confirmed that the patient's Advanced Care Plan is present, code status is documented, or surrogate decision maker is listed in patient medical record.: Yes Medication Reconciliation I have utilized all available resources to obtain, update and review the patients current medications (includes all prescriptions, OTC, herbals, cannabis, and nutritional supplements).: Yes
[2024-05-31 15:19] VITALS: BP 119/86; PULSE 84; RESP 18; TEMP 36.5; O2SAT 100
[2024-05-31 17:50] LABS: Glucose Point of Care 202 mg/dl (65-105)
[2024-05-31 19:47] LABS: Glucose Point of Care 180 mg/dl (65-105)
[2024-05-31 20:00] VITALS: PULSE 86; RESP 22; O2SAT 98
[2024-05-31 21:44] VITALS: BP 104/71; PULSE 86; RESP 22; TEMP 36.6; O2SAT 98
[2024-06-01] MEDS: chlordiazePOXIDE (*CRX) 25 MG CAPSULE PO ×4 (00:03→17:35)
--- NOTE | 2024-06-01 01:29 | PC.NURSE ---
Daylight Savings Time For Daylight Savings Time Ending in the Fall - Clocks are moved back. For Daylight Savings Time Beginning in the Spring - Clocks are moved ahead. For [facility], the time of change occurs at 0200 hrs. Time is taken from the senior sql server dba. This entry on the patient's chart recognizes the change in time reflected during documentation. Example: 2 entries for vital signs may be charted for 0200 hrs.
[2024-06-01 06:00] VITALS: BP 111/78; PULSE 84; RESP 18; TEMP 36.6; O2SAT 100
[2024-06-01] MEDS: ACETAMINOPHEN 325 MG TABLET 650 MG PO (06:37)
[2024-06-01 07:24] LABS: Basophils Percent Auto 0.4 % (0.2-1.2); Eosinophils Absolute Auto 0.2 K/mm3 (0-0.3); Eosinophils Percent Auto 4.5 % (0-4.4); Hemoglobin 12.5 g/dL (14.0-18.0); Immature Granulocyte Absolute 0.03 K/mm3 (0.00-0.031); Immature Granulocyte Percent A 0.6 % (0-0.5); Immature Platelet Fraction Pct 6.1 % (0.9-11.2); Lymphocytes Absolute Auto 1.13 K/mm3 (0.9-3.2); Mean Corpuscular HGB Conc 33.8 g/dl (32-36); Mean Corpuscular Hemoglobin 36.5 pg (26-34); Mean Corpuscular Volume 108.2 fl (80-100); Mean Platelet Volume 10.4 fl (7.4-10.4); Monocytes Absolute Auto 1.2 K/mm3 (0.1-0.6); Monocytes Percent Auto 23.7 % (2.6-8.5); Neutrophils Absolute Auto 2.5 K/mm3 (1.3-6.7); Neutrophils Percent Auto 48.8 % (45.5-73.1); Platelet Count Result 134 k/mm3 (150-375); Red Blood Count 3.42 M/mm3 (4.6-6.20); Red Cell Distribution Width 14.7 % (11.5-14.5); White Blood Count 5.1 K/mm3 (4.5-10.0)
[2024-06-01 08:17] LABS: Glucose Point of Care 193 mg/dl (65-105)
[2024-06-01 08:24] LABS: Platelet Estimate Slightly Decreased (Adequate)
[2024-06-01 08:25] LABS: Macrocytosis 1+ (NORMAL); Schistocytes None Seen
[2024-06-01 08:32] LABS: Anion Gap 9 mmol/L (4-12); Blood Urea Nitrogen 17 mg/dL (9-20); Calcium 9.5 mg/dL (8.4-10.2); Carbon Dioxide 28 mmol/L (22-30); Chloride 100 mmol/L (98-107); Estimated CRCL calculation 70 ml/min; Estimated Glomerular Filt Rate > 60; Glucose 196 mg/dL (65-110); Potassium 3.7 mmol/L (3.4-5.0); Sodium 137 mmol/L (137-145)
[2024-06-01] MEDS: NICOTINE (*PBKC) 21 MG PATCH 1 PATCH TRANSDERM (08:32)
[2024-06-01] MEDS: THIAMINE HCL 100 MG TABLET 300 MG PO (08:33)
[2024-06-01] MEDS: FOLIC ACID 1 MG TABLET PO (08:33)
[2024-06-01] MEDS: EMPAGLIFLOZIN 25 MG TABLET PO (08:33)
[2024-06-01] MEDS: SIMVASTATIN 20 MG TABLET 40 MG PO (08:33)
[2024-06-01] MEDS: buPROPion HCL XL (24 HR) 150 MG TABCR PO (08:33)
[2024-06-01] MEDS: OLMESARTAN MEDOXOMIL 20 MG TABLET 40 MG PO (08:33)
[2024-06-01] MEDS: OXcarbazepine 150 MG TABLET PO ×2 (08:33→17:35)
[2024-06-01 12:40] LABS: Glucose Point of Care 332 mg/dl (65-105)
[2024-06-01] MEDS: INSULIN ASPART (*BKC) 100 UNITS/ML SUB-Q ×2 (12:43→21:50)
--- NOTE | 2024-06-01 13:09 | P.PNIM_ITS ---
Progress Note: A&P Assessment and Plan (1) Alcohol withdrawal: Qualifiers: Complication of substance-induced condition: uncomplicated Qualified Code(s): F10.930 - Alcohol use, unspecified with withdrawal, uncomplicated Code(s): F10.939 - Alcohol use, unspecified with withdrawal, unspecified Status: Acute Assessment and Plan: - Admits to drinking about a pt of rum a day with his last drink being evening prior to admission. - He presented with anxiety and tremors. - Appears fairly well oriented. * Continue CIWA protocol but may be off the window for withdrawals. * Continue folic acid and Librium, Librium changed to Q8 hrs. * CT of the abdomen/chest/pelvis show diffuse hepatic steatosis, moderate emphysema * Sitter discontinued. * HR controlled and telemetry discontinued. * Continue PT/OT treatment. (2) Frequent falls: Code(s): R29.6 - Repeated falls Status: Acute Assessment and Plan: * Likely related to above. * Continue fall precautions. * Head CT negative. * Continue PT and OT as we await for placement. (3) Pancytopenia: Code(s): D61.818 - Other pancytopenia Status: Acute Assessment and Plan: * Likely secondary to alcoholism and alcoholic cirrhosis * Appear baseline currently. * No further w/u needed. * Trend as needed for significant changes. (4) Elevated LFTs: Code(s): R79.89 - Other specified abnormal findings of blood chemistry Status: Acute Assessment and Plan: Likely secondary to alcoholism * Levels trended down since admission. * Acute hepatitis panel negative. * Chest/abdomen/pelvis CT showed diffuse hepatic steatosis, moderate emphysema * Currently baseline and no further w/u needed. (5) Type 2 diabetes mellitus: Code(s): E11.9 - Type 2 diabetes mellitus without complications Status: Acute Assessment and Plan: Blood sugars ranging 148-190. Hgb A1C 6.1 Home meds: metformin, Ozempic * Accu checks AC/HS * Low-dose SSI ordered * hypoglycemic protocol in place * Continue diabetic diet. * Continue to hold home meds (6) Chronic obstructive pulmonary disease: Qualifiers: COPD type: unspecified COPD Qualified Code(s): J44.9 - Chronic obstructive pulmonary disease, unspecified Code(s): J44.9 - Chronic obstructive pulmonary disease, unspecified Status: Acute Assessment and Plan: * Stable. * Continue albuterol rescue inhaler as needed (7) Variable compliance with medication therapy: Code(s): Z91.148 - Patient's other noncompliance with medication regimen for other reason Status: Acute Assessment and Plan: - Admits to meds compliance. - Encouraged with compliance. Time Spent With Patient Time with patient: 15 - 25 minutes Subjective Date/time seen: 06/01/24 13:09 Patient states he still feels weak on his legs and will have to go to rehab for conditioning before going home. Interval history: Patient admitted for alcohol withdrawal symptoms and frequent falls likely related to alcohol abuse. Pt still with generalized muscle weakness and at high risk for falls. We'll continue PT for now as we await Rehab placement. Review of Systems Review of Systems: 12 systems were reviewed and are negativ e except for as per HPI. All systems reviewed & are unremarkable except as noted in HPI and below Exam 2 Narrative: General: Calm on chair and in no acute distress. Head: atraumatic, Eyes: PERRLA, sclera clear ENT: moist mucous membranes, nasal passages clear Neck: supple, no JVD, no adenopathy, trachea midline Cardiac: Normal S1 and S2. No murmur, peripheral pulses intact. Respiratory: Lungs clear to auscultation, currently on room air Gastrointestinal: soft, non-distended, non-tender, normoactive bowel sounds. : voiding without difficulty. Extremities: moves all extremities well, no edema Skin: clean, dry, intact. No wounds or lesions. Neuro: Alert and oriented x3, cranial nerves II-XII grossly intact, no neuro deficits. Psych: normal mood, normal affect, interactive Objective Data Vital Signs Vital Signs: Vital Signs - 24 hr 05/31/24 15:19 05/31/24 21:44 05/31/24 20:00 Temperature 97.7 F 98 F Pulse Rate 84 86 86 Respiratory Rate 18 22 H 22 H Blood Pressure 119/86 104/71 Pulse Oximetry 100 98 98 Oxygen Delivery Room Air 06/01/24 06:00 06/01/24 08:00 Temperature 97.9 F Pulse Rate 84 Respiratory Rate 18 Blood Pressure 111/78 Pulse Oximetry 100 Oxygen Delivery Room Air Intake/Output Intake/Output: Intake & Output 05/29/24 05/30/24 05/31/24 06/01/24 23:59 23:59 23:59 22:59 Intake Total 2164 1422 3436 1166 Output Total 4000 400 1775 1115 Balance -1836 1022 1661 51 Meds/Results Medications: Active Medications Generic Name Dose Route Start Last Admin Trade Name Freq PRN Reason Stop Dose Admin Acetaminophen 650 mg 05/27/24 14:01 06/01/24 06:37 Acetaminophen 325 Mg Tablet PO 650 mg Q6H PRN Administration Mild Pain (1-3) or Fever Albuterol 2 puff 05/27/24 22:26 Albuterol Sulfate (*Sp) Aerosol 1 Puff INHALATION Q4HRT PRN cough Bupropion HCl 150 mg 05/28/24 09:00 06/01/24 08:33 Bupropion Hcl Xl (24 Hr) 150 Mg Tabcr PO 150 mg DAILY ADELSO Administration Chlordiazepoxide HCl 25 mg 05/29/24 12:05 06/01/24 12:24 Chlordiazepoxide (*Crx) 25 Mg Capsule PO 25 mg Q6HR ADELSO Administration Dextrose 12.5 gm 05/27/24 14:01 Dextrose 50% 25 Gm/50 Ml Syringe IV PUSH PRN PRN Hypoglycemia Protocol Empagliflozin 25 mg 05/28/24 09:00 06/01/24 08:33 Empagliflozin 25 Mg Tablet PO 25 mg DAILY ADELSO Administration Folic Acid 1 mg 05/28/24 09:00 06/01/24 08:33 Folic Acid 1 Mg Tablet PO 1 mg DAILY ADELSO Administration Glucagon 1 mg 05/27/24 14:01 Glucagon For Inj 1 Mg Vial IM PRN PRN Hypoglycemia Protocol Glucose 15 gm 05/27/24 14:01 Glucose Oral Gel 15 Gm Of Glucse In 37.5 Gm Tube PO PRN PRN Hypoglycemia Protocol Dextrose 1,000 mls @ 100 mls/hr 05/27/24 14:01 Dextrose 5% 1,000 Ml IVPB PRN PRN Hypoglycemia Protocol Insulin Aspart 2 - 5 units 05/27/24 17:00 06/01/24 12:43 Insulin Aspart (*Bkc) 100 Units/Ml SUB-Q 4 units TIDWM ADELSO Administration Protocol Insulin Aspart 1 - 2 units 05/27/24 21:00 05/31/24 20:50 Insulin Aspart (*Bkc) 100 Units/Ml SUB-Q Not Given HS ADELSO Protocol Lorazepam 2 mg 05/27/24 14:01 05/29/24 03:58 Lorazepam Inj (*Crx) 2 Mg/Ml Vial IV PUSH 2 mg Q2H PRN Administration CIWA > 15 Lorazepam 1 mg 05/27/24 14:01 05/28/24 21:20 Lorazepam Inj (*Crx) 2 Mg/Ml Vial IV PUSH 1 mg Q2H PRN Administration CIWA 8-15 Melatonin 5 mg 05/31/24 21:00 Melatonin 5 Mg Tablet PO HS PRN Insomnia Nicotine 1 patch 05/28/24 13:45 06/01/24 08:32 Nicotine (*Pbkc) 21 Mg Patch TRANSDERM 1 patch DAILY ADELSO Administration Olmesartan 40 mg 05/28/24 09:00 06/01/24 08:33 Olmesartan Medoxomil 20 Mg Tablet PO 40 mg QAM ADELSO Administration Ondansetron HCl 4 mg 05/27/24 10:06 05/27/24 10:37 Ondansetron Inj 4 Mg/2 Ml Vial IV PUSH 4 mg Q6H PRN Administration Nausea And Vomiting Oxcarbazepine 150 mg 05/28/24 09:00 06/01/24 08:33 Oxcarbazepine 150 Mg Tablet PO 150 mg BID ADELSO Administration Simvastatin 40 mg 05/28/24 09:00 06/01/24 08:33 Simvastatin 20 Mg Tablet PO 40 mg DAILY ADELSO Administration Thiamine HCl 300 mg 05/29/24 09:00 06/01/24 08:33 Thiamine Hcl 100 Mg Tablet PO 300 mg QAM ADELSO Administration Radiology Results: ITS Impressions Head CT 05/27/24 11:28 IMPRESSION: 1. Normal brain. Chest/Abdomen/Pelvis CT 05/27/24 11:29 IMPRESSION: 1. Moderate emphysema. 2. Diffuse hepatic steatosis. Labs Labs: Laboratory Results - last 24 hr 05/31/24 05/31/24 06/01/24 17:47 19:44 06:18 WBC 5.1 RBC 3.42 L Hgb 12.5 L Hct 37.0 L MCV 108.2 H MCH 36.5 H MCHC 33.8 RDW 14.7 H Plt Count 134 L MPV 10.4 Immature Gran % (Auto) 0.6 H Neut % (Auto) 48.8 Lymph % (Auto) 22.0 [place] % (Auto) 23.7 H Eos % (Auto) 4.5 H Baso % (Auto) 0.4 Lymph # (Auto) 1.13 [place] # (Auto) 1.2 H Eos # (Auto) 0.2 Baso # (Auto) 0.0 Abs Immat Gran (auto) 0.03 Absolute Neuts (auto) 2.5 Absolute Nucleated RBC 0.000 Nucleated RBC % 0.0 Platelet Estimate Slightly decreased % Immature Plt Fraction 6.1 Macrocytosis 1+ Schistocytes None seen Sodium 137 Potassium 3.7 Chloride 100 Carbon Dioxide 28 Anion Gap 9 BUN 17 Creatinine 0.90 Estim Creat Clear Calc 70 Estimated GFR > 60 Glucose 196 H POC Capillary Glucose 202 H 180 H Calcium 9.5 06/01/24 06/01/24 08:03 12:37 WBC RBC Hgb Hct MCV MCH MCHC RDW Plt Count MPV Immature Gran % (Auto) Neut % (Auto) Lymph % (Auto) [place] % (Auto) Eos % (Auto) Baso % (Auto) Lymph # (Auto) [place] # (Auto) Eos # (Auto) Baso # (Auto) Abs Immat Gran (auto) Absolute Neuts (auto) Absolute Nucleated RBC Nucleated RBC % Platelet Estimate % Immature Plt Fraction Macrocytosis Schistocytes Sodium Potassium Chloride Carbon Dioxide Anion Gap BUN Creatinine Estim Creat Clear Calc Estimated GFR Glucose POC Capillary Glucose 193 H 332 H Calcium Quality VTE Prophylaxis VTE prophylaxis: mechanical ordered Hospitalist MIPS Advance Care Plan I have confirmed that the patient's Advanced Care Plan is present, code status is documented, or surrogate decision maker is listed in patient medical record.: Yes Medication Reconciliation I have utilized all available resources to obtain, update and review the patien ts current medications (includes all prescriptions, OTC, herbals, cannabis, and nutritional supplements).: Yes
[2024-06-01 17:19] LABS: Glucose Point of Care 168 mg/dl (65-105)
[2024-06-01 17:32] VITALS: BP 104/72
[2024-06-01 21:38] LABS: Glucose Point of Care 299 mg/dl (65-105)
[2024-06-01 22:00] VITALS: BP 149/52; PULSE 83; RESP 20; TEMP 36.8; O2SAT 94
[2024-06-02] MEDS: chlordiazePOXIDE (*CRX) 25 MG CAPSULE PO ×3 (00:42→12:02)
[2024-06-02 06:00] VITALS: BP 91/60; PULSE 77; RESP 18; TEMP 36.5; O2SAT 99
[2024-06-02 06:54] LABS: Basophils Percent Auto 0.8 % (0.2-1.2); Eosinophils Absolute Auto 0.2 K/mm3 (0-0.3); Hematocrit 38.2 % (42.0-52.0); Hemoglobin 12.7 g/dL (14.0-18.0); Immature Granulocyte Absolute 0.02 K/mm3 (0.00-0.031); Immature Granulocyte Percent A 0.4 % (0-0.5); Lymphocytes Absolute Auto 1.28 K/mm3 (0.9-3.2); Lymphocytes Percent Auto 25.5 % (18.3-44.2); Mean Corpuscular HGB Conc 33.2 g/dl (32-36); Mean Corpuscular Hemoglobin 36.3 pg (26-34); Mean Corpuscular Volume 109.1 fl (80-100); Monocytes Absolute Auto 1.3 K/mm3 (0.1-0.6); Monocytes Percent Auto 26.7 % (2.6-8.5); Neutrophils Absolute Auto 2.1 K/mm3 (1.3-6.7); Neutrophils Percent Auto 42.6 % (45.5-73.1); Platelet Count Result 152 k/mm3 (150-375); Red Cell Distribution Width 14.6 % (11.5-14.5)
[2024-06-02 07:03] LABS: Anion Gap 8 mmol/L (4-12); Blood Urea Nitrogen 18 mg/dL (9-20); Calcium 9.6 mg/dL (8.4-10.2); Carbon Dioxide 27 mmol/L (22-30); Chloride 103 mmol/L (98-107); Estimated CRCL calculation 64 ml/min; Estimated Glomerular Filt Rate > 60; Glucose 165 mg/dL (65-110); Potassium 4.1 mmol/L (3.4-5.0); Sodium 138 mmol/L (137-145)
[2024-06-02 07:35] LABS: Macrocytosis 1+ (NORMAL); Platelet Estimate Adequate (Adequate); Schistocytes None Seen
[2024-06-02 07:41] LABS: Glucose Point of Care 166 mg/dl (65-105)
[2024-06-02 08:01] VITALS: BP 99/68
[2024-06-02] MEDS: buPROPion HCL XL (24 HR) 150 MG TABCR PO (08:02)
[2024-06-02] MEDS: THIAMINE HCL 100 MG TABLET 300 MG PO (08:02)
[2024-06-02] MEDS: SIMVASTATIN 20 MG TABLET 40 MG PO (08:02)
[2024-06-02] MEDS: EMPAGLIFLOZIN 25 MG TABLET PO (08:02)
[2024-06-02] MEDS: OXcarbazepine 150 MG TABLET PO ×2 (08:02→16:47)
[2024-06-02] MEDS: FOLIC ACID 1 MG TABLET PO (08:02)
[2024-06-02] MEDS: NICOTINE (*PBKC) 21 MG PATCH 1 PATCH TRANSDERM (08:02)
[2024-06-02 11:42] LABS: Glucose Point of Care 254 mg/dl (65-105)
[2024-06-02] MEDS: INSULIN ASPART (*BKC) 100 UNITS/ML SUB-Q (12:02)
[2024-06-02 14:00] VITALS: BP 101/67; PULSE 84; RESP 18; TEMP 36.4; O2SAT 98
--- NOTE | 2024-06-02 15:41 | P.DS_ITS ---
DS: Admitting Diagnosis Discharge Date 06/02/2024 Admitting Diagnosis Recurrent Falls DS: Discharge Diagnosis Discharge Diagnosis (1) Alcohol withdrawal: Qualifiers: Complication of substance-induced condition: uncomplicated Qualified Code(s): F10.930 - Alcohol use, unspecified with withdrawal, uncomplicated Code(s): F10.939 - Alcohol use, unspecified with withdrawal, unspecified Status: Acute Assessment and Plan: - Admitted to drinking about a pt of rum a day with his last drink being evening prior to admission. - He presented with anxiety and tremors. - Currently well oriented. * Treated with CIWA protocol and currently is off the window for withdrawals. * Continue folic acid, thiamine and MVI. * Librium discontinued prior to discharge. * CT of the abdomen/chest/pelvis showed diffuse hepatic steatosis, moderate emphysema * Given PT/OT treatment inpatient. (2) Frequent falls: Code(s): R29.6 - Repeated falls Status: Acute Assessment and Plan: * Likely related to above. * Maintained on fall precautions. * Head CT negative. * EKG with no ischemic changes. * Continued on PT and OT services inpatient. * Accepted at [facility] and is being transferred there for conditioning. (3) Pancytopenia: Code(s): D61.818 - Other pancytopenia Status: Acute Assessment and Plan: * Likely secondary to alcoholism and alcoholic cirrhosis * Labs appeared baseline prior to discharge. * No further w/u needed. (4) Elevated LFTs: Code(s): R79.89 - Other specified abnormal findings of blood chemistry Status: Acute Assessment and Plan: Likely secondary to alcoholism * Levels trended down since admission. * Acute hepatitis panel negative. * Chest/abdomen/pelvis CT showed diffuse hepatic steatosis, moderate emphysema * Baseline prior to discharge and no further w/u needed. (5) Type 2 diabetes mellitus: Code(s): E11.9 - Type 2 diabetes mellitus without complications Status: Acute Assessment and Plan: Blood sugars ranging 148-190 inpatient. Hgb A1C 6.1 Home meds: metformin, Ozempic * Accu checks AC/HS * Low-dose SSI ordered inpatient. * hypoglycemic protocol in place inpatient. * Maintained on diabetic diet. * Home diabetic meds held inpatient and BGL fairly well controlled. (6) Chronic obstructive pulmonary disease: Qualifiers: COPD type: unspecified COPD Qualified Code(s): J44.9 - Chronic obstructive pulmonary disease, unspecified Code(s): J44.9 - Chronic obstructive pulmonary disease, unspecified Status: Acute Assessment and Plan: * Stable inpatient. * Albuterol rescue inhaler as needed (7) Variable compliance with medication therapy: Code(s): Z91.148 - Patient's other noncompliance with medication regimen for other reason Status: Acute Assessment and Plan: - Encouraged with meds compliance at home. Plan Discharge to SNF. DS: Summary Hospital Course Reason for hospitalization: Recurrent falls Hospital Course: Patient admitted for alcohol withdrawal symptoms and frequent falls at home likely related to alcohol abuse. Pt alcohol withdrawals controlled but he was noted with generalized muscle weakness and continued high risk for falls if he was discharged home. Patient worked with PT/OT inpatient and SNF placement was recommended. Pt has been accepted at SNF and will be discharged for deconditioning. All his other medical conditions remained stable inpatient with no acute distress noted or reported prior to discharge. Time spent discussing smoking cessation with patient: more than 10 minutes Status at Discharge Functional status at discharge: uses cane/walker Overall status at discharge: patient is progressing back to baseline Time Spent with Patient Time attestation: Total time spent providing and/or coordinating discharge services: Time spent: Less than 30 minutes Exam Narrative: General: Calm on chair and in no acute distress. Head: atraumatic, Eyes: PERRLA, sclera clear ENT: moist mucous membranes, nasal passages clear Neck: supple, no JVD, no adenopathy, trachea midline Cardiac: Normal S1 and S2. No murmur, peripheral pulses intact. Respiratory: Lungs clear to auscultation, currently on room air Gastrointestinal: soft, non-distended, non-tender, normoactive bowel sounds. : voiding without difficulty. Extremities: moves all extremities well, no edema Skin: clean, dry, intact. No wounds or lesions. Neuro: Alert and oriented x3, cranial nerves II-XII grossly intact, no neuro deficits. Psych: normal mood, normal affect, interactive DS: Data Data Completed and Pending Labs on day of discharge: Labs from last 24 hours 06/02/24 06/02/24 06/02/24 11:40 07:37 06:37 WBC 5.0 RBC 3.50 L Hgb 12.7 L Hct 38.2 L MCV 109.1 H MCH 36.3 H MCHC 33.2 RDW 14.6 H Plt Count 152 MPV 10.0 Immature Gran % (Auto) 0.4 Neut % (Auto) 42.6 L Lymph % (Auto) 25.5 Camp % (Auto) 26.7 H Eos % (Auto) 4.0 Baso % (Auto) 0.8 Lymph # (Auto) 1.28 Camp # (Auto) 1.3 H Eos # (Auto) 0.2 Baso # (Auto) 0.0 Abs Immat Gran (auto) 0.02 Absolute Neuts (auto) 2.1 Absolute Nucleated RBC 0.000 Nucleated RBC % 0.0 Platelet Estimate Adequate Macrocytosis 1+ Schistocytes None seen Sodium 138 Potassium 4.1 Chloride 103 Carbon Dioxide 27 Anion Gap 8 BUN 18 Creatinine 1.00 Estim Creat Clear Calc 64 Estimated GFR > 60 Glucose 165 H POC Capillary Glucose 254 H 166 H Calcium 9.6 06/01/24 06/01/24 21:34 17:16 WBC RBC Hgb Hct MCV MCH MCHC RDW Plt Count MPV Immature Gran % (Auto) Neut % (Auto) Lymph % (Auto) Camp % (Auto) Eos % (Auto) Baso % (Auto) Lymph # (Auto) Camp # (Auto) Eos # (Auto) Baso # (Auto) Abs Immat Gran (auto) Absolute Neuts (auto) Absolute Nucleated RBC Nucleated RBC % Platelet Estimate Macrocytosis Schistocytes Sodium Potassium Chloride Carbon Dioxide Anion Gap BUN Creatinine Estim Creat Clear Calc Estimated GFR Glucose POC Capillary Glucose 299 H 168 H Calcium Discharge Plan Discharge Attending physician on discharge: Freedom Vargas Consulting providers: Catherine Landers Discharging Clinician: Shari Berg Anticipated Discharge Date/Time: 06/02/24 15:55 Patient Disposition: SNF Activity: as tolerated Diet: heart healthy and diabetic Patient Instructions: How to Stop Smoking (GEN) Patient Language: Belarusian Stand Alone Forms: General Discharge Information Follow-up/Referrals: Srinivasan Estrada DO [Primary Care Provider] - 3 Weeks Discharge Medications: New thiamine HCl (vitamin B1) [Vitamin B-1] 100 mg Tablet 300 mg PO QAM Qty: 7 0RF melatonin 5 mg Tablet 5 mg PO HS PRN (Reason: Insomnia) Qty: 10 0RF folic acid 1 mg Tablet 1 mg PO DAILY Qty: 14 0RF nicotine [Nicoderm CQ] 21 mg/24 hr Patch 24 Hour 1 patch transdermal DAILY Qty: 7 0RF multivitamin Tablet 1 tablet PO DAILY Qty: 7 0RF Continued albuterol sulfate [Ventolin HFA] 90 mcg/actuation HFA aerosol inhaler 2 puff INHALATION .Q4 hours PRN (Reason: cough) Qty: 18 0RF bupropion HCl 150 mg tablet extended release 24 hr 150 mg PO DAILY simvastatin 40 mg Tablet 40 mg PO DAILY olmesartan 40 mg Tablet 40 mg PO DAILY oxcarbazepine 150 mg tablet 150 mg PO BID metformin 500 mg tablet extended release 24 hr 500 mg PO BID Jardiance 25 mg tablet 25 mg PO DAILY Ozempic 0.25 mg or 0.5 mg (2 mg/3 mL) pen injector 0.5 mg SUBCUT WEEKLY Date of admission: 05/28/24 13:10 Primary Care Provider: Srinivasan Estrada Admitting Provider: Monet Hernandez Attending physician on admission: Gena Hodges Condition: Stable Quality VTE Prophylaxis VTE prophylaxis: mechanical ordered If No VTE Prophylaxis Answer both mechanical and pharmacologic: Reason no mechanical VTE proph: low risk/not indicated Reason no pharmacologic proph: low risk/not indicated Hospitalist MIPS Heart Failure (Exclusion) Patient has history of Heart Transplant or Left Ventricular Assistive Device?: No IF YES, STOP HERE Heart Failure (Qualifier) Patient has current or prior documentation of LVEF less than or equal to 40%, or mod/servere depressed LVSF?: No IF NO, STOP HERE If Yes, Heart Failure (Qualifier) Patient was prescribed or already taking an Angiotensin-Converting Enzyme (KATHY) Inhibitor, or Antiotensin Receptor Binta (ARB): Yes If Medications not prescribed/taking Reason patient not prescribed/taking bisoprolol, carvedilol, or sustained realease metoprolol succinate: Patient reasons: pt declined or other pt reason (No Hx of CHF or CAD)
[2024-06-02 16:50] LABS: Glucose Point of Care 171 mg/dl (65-105)
== END 2024-06-02 17:10 | DRG 897 ==
LOC: ANHED 12:46 → ANHIMU 14:30 → ANH3MEDSUR 06-02 15:57 → ANHIMU 06-04 13:07
PROVIDERS: Nurse Practitioner Acute Care; Physician Assistant; Admitting Provider Internal Medicine; Emergency Provider Registered Nurse; PCP Family Medicine; Visit Provider Nurse Practitioner Adult Health
DX: F10.239 Alcohol dependence with withdrawal, unspecified (principal); D61.818 Other pancytopenia; F20.0 Paranoid schizophrenia; F41.9 Anxiety disorder, unspecified; G25.2 Other specified forms of tremor; E11.9 Type 2 diabetes mellitus without complications; J44.9 Chronic obstructive pulmonary disease, unspecified; F31.9 Bipolar disorder, unspecified; I10 Essential (primary) hypertension; K70.30 Alcoholic cirrhosis of liver without ascites; E78.5 Hyperlipidemia, unspecified; D69.6 Thrombocytopenia, unspecified; R29.6 Repeated falls; F17.210 Nicotine dependence, cigarettes, uncomplicated; Z91.148 Patient's other noncompliance with medication regimen for other reason
CPT/HCPCS: 36415; 70450; 71260; 74177; 80048; 80053; 80074; 80307; 81001; 82077; 82550; 82607; 82728; 82746; 82948; 83540; 83550; 83735; 84443; 84484; 85025; 85027; 85055; 85610; 85730; 93005; 96361; 96365; 96366; 96367; 96375; 96376; 97110; 97116; 97161; 97165; 97530; 97535; 99285; A9270; G0378; J1815; J2060; J2405; J3411; J3475; J7030; Q9967

== ENCOUNTER 2024-06-02 18:15 | Inpatient (IN) | payer MEDICARE, MEDICAID, SELFPAY ==
--- OUTSIDE RECORDS SUMMARY | 2024-06-02 18:22 | XMS_ITS ---
Author Name Unknown Organization [facility] As [employer] Address [address] [facility] [address] [place] [address] Care Team Providers Care Elevator Constructor Name Role Phone BelenNicole Unavailable [phone] Migration, Provider Unavailable Unavailable REASON FOR VISIT EMR-Adarsh Social History Sex Assigned At : Social History Observation Description Sex Assigned At Male Encounters Encounter Location Date Provider Diagnosis [facility] [employer] [facility] [address] [facility] [address] [address] 12/15/2023 Provider Migration Plan Of Treatment Next Appt Details Provider Name:Nicole Glover, 06/16/2024 01:45:00 PM, [address], [facility] [address], [place], [address], Progress Notes * KATERIN TIWARIDOB: 0 (64 yo M)Acc No.[id number]:12/15/2023 Subjective: * Chief Complaints: * ???EMR-Adarsh * Medical History:? * Surgical History:? * Hospitalization/Major Diagno stic Procedure:? * Medications:? Objective: * Vitals:? * Physical Examination:? Assessment: Plan: * Treatment: * Procedure Codes:? * true * Date:? Generated for Marino huffman/Evon/eTransmitting on:?06/02/2024 06:22 PM DIGESTER
--- OUTSIDE RECORDS SUMMARY | 2024-06-02 18:23 | XMS_ITS | Patient Health Record ---
Author Name Unknown Organization [facility] As [employer] Address [address] [place] [address] Care Team Providers Care Marketing Liaison Name Role Phone Nicole Glover Unavailable [phone] CharelsLisseth villalobos Unavailable [phone] Migration, Provider Unavailable Unavailable Reason For Referral No Information Medications Medication SIG (Take, Route, Frequency, Duration) Notes Start Date End Date Status ARIPiprazole 10 MG TAKE 1 TABLET BY MOUTH EVERY DAY for 90 NEED TO SCHEDULE APPT FOR FURTHER REFILLS Active OXcarbazepine 150 MG 1 tablet Oral Twice a day for 90 days please schedule appt Active ProAir HFA 108 (90 Base) MCG/ACT Inhalation 07/13/2023 Active OneTouch Delica Plus [id number] 07/13/2023 Active Jardiance 25 MG Oral 07/13/2023 Act thao Multi Vitamin *Pick strength-form from [facility] for eRX* 07/13/2023 Active methylPREDNISolone 4 MG Oral 07/13/2023 Active OneTouch Verio In Vitro 07/13/2023 Acti ve Olmesartan Medoxomil 40 MG Oral 07/13/2023 Active VARENICLINE 0.5 MG (11)-1 MG (42) TABLETS IN A DOSE PACK *Reorder from [facility] for eRx and Interaction Alerts* 07/13/2023 Active Simvastatin 40 MG Oral 07/13/2023 A ctive Amoxicillin-Pot Clavulanate 875-125 MG Oral 07/13/2023 Activ e ONETOUCH VERIO FLEX MISCELLANEOUS *Reorder fro [facility] for eRx and Interaction Alerts* 07/13/2023 Active metFORMIN HCl ER 500 MG Oral 07/13/2023 Active Azithromycin 250 MG Oral 07/13/2023 Active Doxycycline Hyclate 100 MG Oral 07/13/2023 Active Ozempic (0.25 or 0.5 MG/DOSE) 2 MG/3ML Subcutaneous *Pick strength-form from [employer] for eRX* 07/13/2023 Active Ozempic (1 MG/DOSE) 4 MG/3ML Subcutaneous *[facility]* 07/13/2023 Active buPROPion HCl ER (XL) 150 MG Oral 07/13/2023 Active Immunizations Vaccine Route Administration Date Status Comme nts Influenza virus vaccine, quadrivalent (IIV4), split virus, 0.25 mL dosage Unknown 04/27/2015 Administered Influenza virus vaccine, quadrivalent (IIV4), split virus, 0.25 mL dosage Unknown 04/29/2017 Administered Influenza virus vaccine, quadrivalent (IIV4), split virus, 0.25 mL dosage Unknown 05/12/2019 Administered Influenza virus vaccine, quadrivalent (IIV4), split virus, 0.25 mL dosage Unknown 05/18/2019 Administered Influenza, injectable, MDCK, preservative free Unknown 05/09/2019 Administered Influenza, seasonal, injecta ble, preservative free, 3 yrs and above Unknown 05/20/2012 Administered Influenza, seasonal, injecta ble, preservative free, 3 yrs and above Unknown 04/24/2014 Administered Influenza, seasonal, injecta ble, preservative free, 3 yrs and above Unknown 04/16/2017 Administered Danny Covid-19 Vaccine Unknown 10/04/2020 Administere d Moderna Covid-19 Vaccine 1st dose Unknown 06/02/2021 Ad ministered Moderna Covid-19 Vaccine 1st dose Unknown 11/17/2021 Ad ministered Novel [id number], preservative free Unknown 04/24/2016 Administered Novel [id number], preservative free Unknown 04/18/2018 Administered Novel [id number], preservative free Unknown 04/17/2020 Administered Pneumococcal polysaccharide PPV23 Unknown 05/20/2012 Ad ministered Pneumococcal polysaccharide PPV23 Unknown 11/18/2018 Ad ministered Social History Sex Assigned At : Social History Observation Description Sex Assigned At Male Vital Signs Height-cm 172.72 cm 07/13/2023 Height 68.00 in 07/13/2023 Encounters Encounter Location Date Provider Diagnosis [facility] [address] [place] [address] 07/02/2023 Lisseth Gonzales [facility], [facility] [address] [place] [address] 07/13/2023 Lisseth Gonzales Primary insomnia F51 .01 ; Schizoaffective disorder, bipolar type F25.0 ; Generalized anxiety disorder F41.1 and Type 2 diabetes mellitus without complications E11.9 [facility], [facility] [address] [place] [address] 10/05/2023 [facility] [address] [place] [address] 10/12/2023 [facility] [address] [place] [address] 10/15/2023 [facility], [facility] [address] [place] [address] 07/12/2023 Provider Migration [facility], [facility] [address] [place] [address] 08/24/2023 Provider Migration [facility], [facility] [address] [place] [address] 08/26/2023 Provider Migration [facility], [facility] [address] [place] [address] 08/27/2023 Provider Migration [facility], [facility] [address] [place] [address] 08/29/2023 Provider Migration [facility], [facility] [address] [place] [address] 10/31/2023 Provider Migration [facility], [facility] [address] [place] [address] 12/15/2023 Provider Migration [facility], [facility] [address] [place] [address] 12/16/2023 Provider Migration Assessments Encounter Date Diagnosis (ICD Code) Assessment Notes Treat ment Notes Treatment Clinical Notes 07/13/2023 Type 2 diabetes mellitus without complications (ICD-10 - E11.9) 07/13/2023 Schizoaffective disorder, bipolar type (ICD-10 - F25.0) 07/13/2023 Generalized anxiety disorder (ICD-10 - F41.1) 07/13/2023 Primary insomnia (ICD-10 - F51.01) Plan Of Treatment Next Appt Details Provider Name:Nicole Glover, 06/16/2024 01:45:00 PM, [facility] [facility] [address], [facility] [address], [place], [address], Insurance Providers Payer Name Payer Address Payer Phone Subscriber Number Group Number Insured Name Patient Relationship to Insured Coverage Start Date Coverage End Date Medicare-I l Medicare [address] [place] [address] [id number] KATERIN TIWARI Self - patient is the insured Medicaid-I l Medicaid [address] [address] [place] [address] [id number] KATERIN TIWARI Self - patient is the insured Medical (General) History Surgical History Surgery Date(Month/Year) Xcapsl ctrc rmvl cplx wo ecp (22003) 09/2020
--- OUTSIDE RECORDS SUMMARY | 2024-06-02 18:23 | XMS_ITS ---
Author Name Unknown Organization [facility] As [employer] Address [address] [facility] [address] [facility] [email or web address] [address] [place] [address] Care Team Providers Care Latex Spooler Name Role Phone BelenNicole Unavailable [phone] Migration, Provider Unavailable Unavailable REASON FOR VISIT TelEnc Social History Sex Assigned At : Social History Observation Description Sex Assigned At Male Encounters Encounter Location Date Provider Diagnosis [facility] [employer] [facility] [address] [facility] [address] [address] 10/31/2023 Provider Migration Plan Of Treatment Next Appt Details Provider Name:Nicole Glover, 06/16/2024 01:45:00 PM, [address], [facility] [[email or web address] [address], [place], [address], Progress Notes * TE KATERINDOB: 0 (64 yo M)Acc No.[id number]:10/31/2023 Subjective: * Chief Complaints: * ???TelEnc * Medical History:? * Surgical History:? * Hospitalization/Major Diagno stic Procedure:? * Medications:? Objective: * Vitals:? * Physical Examination:? Assessment: Plan: * Treatment: * Procedure Codes:? * true * Date:? Generated for Marino huffman/Evon/eTransmsadny on:?06/02/2024 06:22 PM STEERER
[2024-06-02 19:04] VITALS: BMI 25.4
--- NOTE | 2024-06-02 19:09 | ADMGEN ---
This patient, Juwan Harris, was admitted to 2nd Floor Room 210-1. Patient/family oriented to hospital policies and general routines including ID bracelet, bed and alarms, visiting hours, pain management, procedures, bathroom and other care routines, personal items, smoking policy, room service/diet, and visiting hours. Information on how to activate the Rapid Response Team has been discussed. Patient/Family are encouraged to report perceived risks to care and to ask questions if they do not understand what they are told or what they should do.
[2024-06-02 20:00] VITALS: O2SAT 98
[2024-06-02] MEDS: MELATONIN 5 MG TABLET PO (20:32)
[2024-06-02] MEDS: ACETAMINOPHEN 325 MG TABLET 650 MG PO (20:33)
[2024-06-02] MEDS: OXcarbazepine 150 MG TABLET PO (20:34)
[2024-06-02 20:38] LABS: Glucose Point of Care 311 mg/dl (65-105)
[2024-06-03] VITALS: BP 110/63; PULSE 86; RESP 17; TEMP 36.4; O2SAT 98
[2024-06-03 07:51] LABS: Glucose Point of Care 156 mg/dl (65-105)
[2024-06-03 08:00] VITALS: BP 119/60; PULSE 80; RESP 18; TEMP 36.4; O2SAT 96
[2024-06-03] MEDS: SIMVASTATIN 10 MG TABLET 40 MG PO (08:23)
[2024-06-03] MEDS: OLMESARTAN MEDOXOMIL 20 MG TABLET 40 MG PO (08:23)
[2024-06-03] MEDS: OXcarbazepine 150 MG TABLET PO ×2 (08:24→20:25)
[2024-06-03] MEDS: THIAMINE HCL 100 MG TABLET 300 MG PO (08:24)
[2024-06-03] MEDS: buPROPion HCL XL (24 HR) 150 MG TABCR PO (08:25)
[2024-06-03] MEDS: FOLIC ACID 1 MG TABLET PO (08:25)
[2024-06-03] MEDS: EMPAGLIFLOZIN 25 MG TABLET PO (08:25)
[2024-06-03] MEDS: NICOTINE (*PBKC) 21 MG PATCH 1 PATCH TRANSDERM (08:26)
[2024-06-03 11:36] LABS: Glucose Point of Care 212 mg/dl (65-105)
[2024-06-03] MEDS: INSULIN HUMAN LISPRO (*BKC) 1,000 UNITS/10 ML VIAL SUB-Q (11:46)
--- NOTE | 2024-06-03 11:52 | P.HP_ITS ---
H&P: HPI History of Present Illness Date/Time: 06/03/24 11:52 Chief Complaint: Weakness, Rehab PMFSH Past Medical History Medical History Bipolar 1 disorder Chronic obstructive pulmonary disease Depression Essential hypertension Schizophrenia, paranoid Seizures Tobacco abuse Type 2 diabetes mellitus Hemoglobin A1c was 6.1% on 04/17/2021. Surgical History Surgical History Status post left foot surgery Due to a laceration on the top of his foot as a child with repair of tendons. Family History Family History Other Diabetes mellitus Multiple family members with diabetes Social History Social History Social History: Surrogate medical decision maker: Esa Severino ([phone]). Code status: Full code. Smoking packs per day: 1 Smoking cigarettes per day: 20.0 Years smoked: 20 Smoking pack-years: 20.00 Smoking status: Former smoker Tobacco type: cigarettes Second hand tobacco smoke exposure: Yes Smoking end date: 05/27/24 Alcohol intake: former Drinks per week: 112 Substance use: never Substance use type: does not use Other substance usage details: a pint of liquor daily x approx 4 months Do You Feel Safe in your Home?: Yes Lack of Transportation: No Lack of Food: Never True Current Housing: I Have Housing Concerned About Future Housing: No Difficulty Paying Gas/Electric Bills: No Difficulty Paying for Meds: No Currently Unemployed: No Education: High School Diploma/GED Difficulty w/ Childcare or Family Care: No Additional living arrangements comments: The patient lives in his own home. Spiritual care concerns: No Meds Home Medications and Allergies Home Medications Medication Instructions Recorded Confirmed Type olmesartan 40 mg tablet 40 mg PO DAILY 07/11/19 06/02/24 History simvastatin 40 mg tablet 40 mg PO DAILY 07/11/19 06/02/24 History bupropion HCl 150 mg 24 hr tablet, 150 mg PO DAILY 04/13/21 06/02/24 History extended release albuterol sulfate 90 mcg/actuation 2 puff inhalation .Q4 hours PRN 09/01/23 06/02/24 Rx aerosol inhaler (Ventolin HFA) cough #18 grams empagliflozin 25 mg tablet 25 mg PO DAILY 05/27/24 06/02/24 History (Jardiance) metformin 500 mg tablet,extended 500 mg PO BID 05/27/24 06/02/24 History release 24 hr oxcarbazepine 150 mg tablet 150 mg PO BID 05/27/24 06/02/24 History semaglutide 0.25 mg or 0.5 mg (2 0.5 mg subcut WEEKLY 05/27/24 06/02/24 History mg/3 mL) subcutaneous pen injector (Ozempic) folic acid 1 mg tablet 1 mg PO DAILY #14 tabs 06/02/24 06/02/24 Rx melatonin 5 mg tablet 5 mg PO HS PRN Insomnia #10 tabs 06/02/24 06/02/24 Rx multivitamin 1 tablet PO DAILY #7 tabs 06/02/24 06/02/24 Rx nicotine 21 mg/24 hr daily 1 patch transdermal DAILY #7 ea 06/02/24 06/02/24 Rx transdermal patch (Nicoderm CQ) thiamine HCl (vitamin B1) 100 mg 300 mg PO QAM #7 tabs 06/02/24 06/02/24 Rx tablet (Vitamin B-1) Allergies Allergy/AdvReac Type Severity Reaction Status Date / Time No Known Allergies Allergy Unknown Verified 01/10/24 11:25 Vital Signs Vital Signs - 24 hr 06/02/24 20:00 06/03/24 00:00 06/03/24 08:00 Temperature 97.5 F L 97.5 F L Pulse Rate 86 80 Respiratory Rate 17 18 Blood Pressure 110/63 119/60 Pulse Oximetry 98 98 96 Oxygen Delivery Room Air Room Air Room Air Exam Narrative: General: Calm on chair and in no acute distress. Head: atraumatic, Eyes: PERRLA, sclera clear ENT: moist mucous membranes, nasal passages clear Neck: supple, no JVD, no adenopathy, trachea midline Cardiac: Normal S1 and S2. No murmur, peripheral pulses intact. Respiratory: Lungs clear to auscultation, currently on room air Gastrointestinal: soft, non-distended, non-tender, normoactive bowel sounds. : voiding without difficulty. Extremities: moves all extremities well, no edema Skin: clean, dry, intact. No wounds or lesions. Neuro: Alert and oriented x3, cranial nerves II-XII grossly intact, no neuro deficits. Psych: normal mood, normal affect, interactive Assessment and Plan Assessment and plan (1) Alcohol withdrawal: Qualifiers: Complication of substance-induced condition: uncomplicated Qualified Code(s): F10.930 - Alcohol use, unspecified with withdrawal, uncomplicated Code(s): F10.939 - Alcohol use, unspecified with withdrawal, unspecified Status: Acute Assessment and Plan: - Admitted to drinking about a pint of rum a day with his last drink being 05/26 - He presented with anxiety and tremors. since somewhat resolved - Currently well oriented. * Continue folic acid, thiamine and MVI. * CT of the abdomen/chest/pelvis showed diffuse hepatic steatosis, moderate emphysema * Given PT/OT treatm (2) DM (diabetes mellitus): Code(s): E11.9 - Type 2 diabetes mellitus without complications Status: Acute Assessment and Plan: * Monitor blood sugars * treat sliding scale (3) COPD (chronic obstructive pulmonary disease): Code(s): J44.9 - Chronic obstructive pulmonary disease, unspecified Status: Acute Assessment and Plan: * Stable * Albuterol PRN (4) Cellulitis and abscess of leg: Code(s): L03.119 - Cellulitis of unspecified part of limb; L02.419 - Cutaneous abscess of limb, unspecified Status: Acute Assessment and Plan: * monitor no s/s resolved montior skin (5) Essential hypertension: Code(s): I10 - Essential (primary) hypertension Status: Chronic Assessment and Plan: * Stable * continue home medication * adjust as needed (6) Schizophrenia, paranoid: Code(s): F20.0 - Paranoid schizophrenia Status: Acute Assessment and Plan: * continue home medication Plan : R29.6 - Repeated falls Status: Acute Assessment and Plan: * Likely related to above. * Maintained on fall precautions. * Head CT negative. * EKG with no ischemic changes. * Continued on PT and OT services inpatient.
[2024-06-03 16:00] VITALS: BP 102/75; PULSE 81; RESP 18; TEMP 36.7; O2SAT 99
[2024-06-03 16:57] LABS: Glucose Point of Care 200 mg/dl (65-105)
[2024-06-03 20:00] VITALS: PULSE 81; RESP 18; O2SAT 99
[2024-06-03] MEDS: ACETAMINOPHEN 325 MG TABLET 650 MG PO (20:25)
[2024-06-03] MEDS: MELATONIN 5 MG TABLET PO (20:25)
--- NOTE | 2024-06-03 20:29 | PC.NURSE ---
Ambulated patient 2x around hallway, gait steady, slight limp noted to RLE.
[2024-06-03 20:31] LABS: Glucose Point of Care 254 mg/dl (65-105)
[2024-06-04] VITALS: BP 114/77; PULSE 90; RESP 18; TEMP 36.8; O2SAT 99
[2024-06-04 07:53] LABS: Glucose Point of Care 252 mg/dl (65-105)
[2024-06-04 08:00] VITALS: BP 120/78; PULSE 85; RESP 14; TEMP 36.8; O2SAT 99
[2024-06-04] MEDS: NICOTINE (*PBKC) 21 MG PATCH 1 PATCH TRANSDERM (09:18)
[2024-06-04] MEDS: OXcarbazepine 150 MG TABLET PO ×2 (09:19→20:02)
[2024-06-04] MEDS: OLMESARTAN MEDOXOMIL 20 MG TABLET 40 MG PO (09:21)
[2024-06-04] MEDS: FOLIC ACID 1 MG TABLET PO (09:21)
[2024-06-04] MEDS: THIAMINE HCL 100 MG TABLET 300 MG PO (09:22)
[2024-06-04] MEDS: SIMVASTATIN 10 MG TABLET 40 MG PO (09:23)
[2024-06-04] MEDS: EMPAGLIFLOZIN 25 MG TABLET PO (09:23)
[2024-06-04] MEDS: buPROPion HCL XL (24 HR) 150 MG TABCR PO (09:23)
[2024-06-04] MEDS: INSULIN HUMAN LISPRO (*BKC) 1,000 UNITS/10 ML VIAL SUB-Q (09:28)
[2024-06-04 12:13] LABS: Glucose Point of Care 145 mg/dl (65-105)
[2024-06-04 15:53] LABS: Glucose Point of Care 157 mg/dl (65-105)
[2024-06-04 16:00] VITALS: BP 114/73; PULSE 79; RESP 18; TEMP 36.7; O2SAT 100
[2024-06-04] MEDS: ACETAMINOPHEN 325 MG TABLET 650 MG PO (16:27)
[2024-06-04 20:01] LABS: Glucose Point of Care 250 mg/dl (65-105)
[2024-06-05] VITALS: BP 105/60; PULSE 86; RESP 17; TEMP 36.5; O2SAT 99
[2024-06-05 08:00] VITALS: BP 90/64; PULSE 93; RESP 14; TEMP 36.6; O2SAT 99
[2024-06-05 08:12] LABS: Glucose Point of Care 185 mg/dl (65-105)
[2024-06-05] MEDS: NICOTINE (*PBKC) 21 MG PATCH 1 PATCH TRANSDERM (09:05)
[2024-06-05] MEDS: THIAMINE HCL 100 MG TABLET 300 MG PO (09:06)
[2024-06-05] MEDS: FOLIC ACID 1 MG TABLET PO (09:07)
[2024-06-05] MEDS: EMPAGLIFLOZIN 25 MG TABLET PO (09:07)
[2024-06-05] MEDS: SIMVASTATIN 10 MG TABLET 40 MG PO (09:07)
[2024-06-05] MEDS: buPROPion HCL XL (24 HR) 150 MG TABCR PO (09:07)
[2024-06-05] MEDS: OXcarbazepine 150 MG TABLET PO ×2 (09:08→20:53)
[2024-06-05 12:02] LABS: Glucose Point of Care 265 mg/dl (65-105)
[2024-06-05] MEDS: INSULIN HUMAN LISPRO (*BKC) 1,000 UNITS/10 ML VIAL SUB-Q (13:30)
[2024-06-05 16:00] VITALS: BP 102/72; PULSE 99; RESP 17; TEMP 36.2; O2SAT 100
[2024-06-05 17:12] LABS: Glucose Point of Care 179 mg/dl (65-105)
[2024-06-05] MEDS: MELATONIN 5 MG TABLET PO (20:53)
[2024-06-05] MEDS: ACETAMINOPHEN 325 MG TABLET 650 MG PO (20:53)
[2024-06-06] VITALS: BP 118/74; PULSE 88; RESP 16; TEMP 36.6; O2SAT 97
[2024-06-06 02:16] LABS: Glucose Point of Care 299 mg/dl (65-105)
[2024-06-06 08:00] VITALS: BP 95/65; PULSE 87; RESP 16; TEMP 36.6; O2SAT 97
[2024-06-06] MEDS: SIMVASTATIN 10 MG TABLET 40 MG PO (09:59)
[2024-06-06] MEDS: NICOTINE (*PBKC) 21 MG PATCH 1 PATCH TRANSDERM (09:59)
[2024-06-06] MEDS: OXcarbazepine 150 MG TABLET PO ×2 (09:59→20:40)
[2024-06-06] MEDS: MULTIVITAMINS THERAPEUTIC TAB (*BKC) 1 TABLET PO (09:59)
[2024-06-06] MEDS: THIAMINE HCL 100 MG TABLET 300 MG PO (10:00)
[2024-06-06] MEDS: EMPAGLIFLOZIN 25 MG TABLET PO (10:00)
[2024-06-06] MEDS: buPROPion HCL XL (24 HR) 150 MG TABCR PO (10:00)
[2024-06-06] MEDS: FOLIC ACID 1 MG TABLET PO (10:00)
[2024-06-06] MEDS: INSULIN HUMAN LISPRO (*BKC) 1,000 UNITS/10 ML VIAL SUB-Q ×2 (12:01→16:46)
[2024-06-06 12:06] LABS: Glucose Point of Care 200 mg/dl (65-105)
[2024-06-06 12:06] LABS: Glucose Point of Care 365 mg/dl (65-105)
[2024-06-06 16:00] VITALS: BP 108/78; PULSE 86; RESP 17; TEMP 36.9; O2SAT 98
[2024-06-06 16:46] LABS: Glucose Point of Care 265 mg/dl (65-105)
[2024-06-06 20:00] VITALS: PULSE 100; RESP 18; O2SAT 99
[2024-06-06 20:25] LABS: Glucose Point of Care 306 mg/dl (65-105)
[2024-06-06 23:31] VITALS: BP 116/81; PULSE 100; RESP 18; TEMP 36.6; O2SAT 99
[2024-06-07] MEDS: MELATONIN 5 MG TABLET PO ×2 (00:34→20:30)
--- NOTE | 2024-06-07 00:35 | PC.NURSE ---
Pt restless and wanting another glass of water. Pt informed this is the last glass of water tonight because this is the 3rd glass he has drank tonight. Pt had BS reading of 309 at HS and has continued to eat food he has from home at his bedside and snacks throughout evening. Pt informed no more diet pepsi tonight and this is the last glass of water until morning. Pt educated on Blood sugars being high and foods that he is eating causing worsening issues. Pt states he is unable to sleep and wanting something for sleep. Pt given Melatonin as per HS order.
[2024-06-07 08:00] VITALS: BP 107/75; PULSE 84; RESP 20; TEMP 36.8; O2SAT 97
[2024-06-07 08:05] LABS: Glucose Point of Care 280 mg/dl (65-105)
[2024-06-07] MEDS: INSULIN HUMAN LISPRO (*BKC) 1,000 UNITS/10 ML VIAL SUB-Q ×2 (08:38→12:13)
[2024-06-07] MEDS: NICOTINE (*PBKC) 21 MG PATCH 1 PATCH TRANSDERM (08:47)
[2024-06-07] MEDS: SIMVASTATIN 10 MG TABLET 40 MG PO (08:50)
[2024-06-07] MEDS: THIAMINE HCL 100 MG TABLET 300 MG PO (08:51)
[2024-06-07] MEDS: FOLIC ACID 1 MG TABLET PO (08:52)
[2024-06-07] MEDS: EMPAGLIFLOZIN 25 MG TABLET PO (08:53)
[2024-06-07] MEDS: MULTIVITAMINS THERAPEUTIC TAB (*BKC) 1 TABLET PO (08:53)
[2024-06-07] MEDS: OXcarbazepine 150 MG TABLET PO ×2 (08:53→20:30)
[2024-06-07] MEDS: buPROPion HCL XL (24 HR) 150 MG TABCR PO (08:54)
[2024-06-07 11:39] LABS: Glucose Point of Care 240 mg/dl (65-105)
[2024-06-07 15:55] VITALS: BP 134/60; PULSE 97; RESP 18; TEMP 36.1; O2SAT 94
[2024-06-07 17:02] LABS: Glucose Point of Care 166 mg/dl (65-105)
[2024-06-07] MEDS: ACETAMINOPHEN 325 MG TABLET 650 MG PO (20:30)
[2024-06-07 20:31] LABS: Glucose Point of Care 283 mg/dl (65-105)
[2024-06-08] VITALS: BP 135/80; PULSE 89; RESP 16; TEMP 36.6; O2SAT 97
[2024-06-08 07:30] LABS: Glucose Point of Care 175 mg/dl (65-105)
[2024-06-08 07:35] VITALS: BP 120/84; PULSE 84; RESP 20; TEMP 36.4; O2SAT 98
[2024-06-08 08:00] VITALS: PULSE 84; RESP 20; O2SAT 98
[2024-06-08] MEDS: SIMVASTATIN 10 MG TABLET 40 MG PO (08:53)
[2024-06-08] MEDS: THIAMINE HCL 100 MG TABLET 300 MG PO (08:53)
[2024-06-08] MEDS: MULTIVITAMINS THERAPEUTIC TAB (*BKC) 1 TABLET PO (08:53)
[2024-06-08] MEDS: buPROPion HCL XL (24 HR) 150 MG TABCR PO (08:54)
[2024-06-08] MEDS: FOLIC ACID 1 MG TABLET PO (08:54)
[2024-06-08] MEDS: OXcarbazepine 150 MG TABLET PO ×2 (08:54→20:14)
[2024-06-08] MEDS: EMPAGLIFLOZIN 25 MG TABLET PO (08:54)
[2024-06-08] MEDS: NICOTINE (*PBKC) 21 MG PATCH 1 PATCH TRANSDERM (08:55)
[2024-06-08 11:28] LABS: Glucose Point of Care 220 mg/dl (65-105)
[2024-06-08] MEDS: INSULIN HUMAN LISPRO (*BKC) 1,000 UNITS/10 ML VIAL SUB-Q (11:34)
[2024-06-08 15:47] VITALS: BP 124/83; PULSE 80; RESP 18; TEMP 36.6; O2SAT 98
[2024-06-08 16:32] LABS: Glucose Point of Care 177 mg/dl (65-105)
[2024-06-08] MEDS: ACETAMINOPHEN 325 MG TABLET 650 MG PO (20:13)
[2024-06-08] MEDS: MELATONIN 5 MG TABLET PO (20:14)
[2024-06-08 20:18] LABS: Glucose Point of Care 184 mg/dl (65-105)
[2024-06-09] VITALS: BP 129/82; PULSE 83; RESP 16; TEMP 36.7; O2SAT 98
[2024-06-09 08:00] VITALS: BP 122/74; PULSE 78; RESP 20; TEMP 36.8; O2SAT 96
[2024-06-09 08:04] LABS: Glucose Point of Care 183 mg/dl (65-105)
[2024-06-09] MEDS: NICOTINE (*PBKC) 21 MG PATCH 1 PATCH TRANSDERM (09:15)
[2024-06-09] MEDS: OXcarbazepine 150 MG TABLET PO ×2 (09:15→20:54)
[2024-06-09] MEDS: EMPAGLIFLOZIN 25 MG TABLET PO (09:16)
[2024-06-09] MEDS: MULTIVITAMINS THERAPEUTIC TAB (*BKC) 1 TABLET PO (09:16)
[2024-06-09] MEDS: THIAMINE HCL 100 MG TABLET 300 MG PO (09:16)
[2024-06-09] MEDS: buPROPion HCL XL (24 HR) 150 MG TABCR PO (09:16)
[2024-06-09] MEDS: FOLIC ACID 1 MG TABLET PO (09:16)
[2024-06-09] MEDS: SIMVASTATIN 10 MG TABLET 40 MG PO (09:16)
--- NOTE | 2024-06-09 11:13 | P.PNCROSS_ITS ---
Event Note Event Note Event Note: patient continued to have soft blood pressures systolics in the 90s and 80s w ill continue to hold BP medication as well as torsemide and resume as BP tolerates plan to DC his amlodipine due to bilateral lower leg swelling will start losartan if needed
[2024-06-09 12:16] LABS: Glucose Point of Care 196 mg/dl (65-105)
[2024-06-09 16:00] VITALS: BP 113/86; PULSE 106; RESP 20; TEMP 36.6; O2SAT 97
[2024-06-09 17:20] LABS: Glucose Point of Care 150 mg/dl (65-105)
[2024-06-09] MEDS: MELATONIN 5 MG TABLET PO (20:54)
[2024-06-09 21:06] LABS: Glucose Point of Care 199 mg/dl (65-105)
[2024-06-10] VITALS: BP 118/81; PULSE 90; RESP 16; TEMP 36.7; O2SAT 96
[2024-06-10 06:54] LABS: Hematocrit 41.4 % (40.0-54.0); Hemoglobin 14.3 g/dL (14.0-18.0); Mean Corpuscular HGB Conc 34.5 g/dL (32-36); Mean Corpuscular Hemoglobin 36.7 pg (27.0-31.0); Mean Corpuscular Volume 106.2 fL (78.0-102.0); Platelet Count Result 237 K/mm3 (150-420); Red Cell Distribution Width 13.5 % (11.6-14.4); White Blood Count 7.4 K/mm3 (4.8-10.8)
[2024-06-10 07:10] LABS: Alanine Aminotransferase 62 U/L (16-63); Albumin Level 3.2 g/dL (3.4-5.0); Alkaline Phosphatase 81 U/L (46-116); Anion Gap 10 mmol/L (4-12); Aspartate Amino Transferase 46 U/L (15-37); Bilirubin,Total 0.5 mg/dL (0.00-1.00); Blood Urea Nitrogen 18 mg/dL (7-18); Calcium 9.2 mg/dL (8.5-10.1); Carbon Dioxide 28 mmol/L (21-32); Chloride 104 mmol/L (98-108); Estimated CRCL calculation 59 ml/min; Estimated Glomerular Filt Rate > 60; Glucose 170 mg/dL (70-99); Osmolality Calculated 299 mOsm/kg (285-295); Potassium 4.4 mmol/L (3.5-5.1); Sodium 142 mmol/L (136-145); Total Protein 7.1 g/dL (6.4-8.2)
[2024-06-10 07:50] VITALS: BP 124/74; PULSE 97; RESP 16; TEMP 36.6; O2SAT 98
[2024-06-10 08:18] LABS: Glucose Point of Care 296 mg/dl (65-105)
--- NOTE | 2024-06-10 09:05 | P.DS_ITS ---
DS: Admitting Diagnosis Discharge Date 06/10/2024 Admitting Diagnosis Generalized weakness and rehab in secondary to alcohol withdrawal DS: Discharge Diagnosis Discharge Diagnosis (1) Alcohol withdrawal: Qualifiers: Complication of substance-induced condition: uncomplicated Qualified Code(s): F10.930 - Alcohol use, unspecified with withdrawal, uncomplicated Code(s): F10.939 - Alcohol use, unspecified with withdrawal, unspecified Status: Acute (2) DM (diabetes mellitus): Code(s): E11.9 - Type 2 diabetes mellitus without complications Status: Acute (3) COPD (chronic obstructive pulmonary disease): Code(s): J44.9 - Chronic obstructive pulmonary disease, unspecified Status: Acute (4) Cellulitis and abscess of leg: Code(s): L03.119 - Cellulitis of unspecified part of limb; L02.419 - Cutaneous abscess of limb, unspecified Status: Acute (5) Essential hypertension: Code(s): I10 - Essential (primary) hypertension Status: Chronic (6) Schizophrenia, paranoid: Code(s): F20.0 - Paranoid schizophrenia Status: Acute Plan Disposition: Discharged home plans for outpatient rehab DS: Summary Hospital Course Reason for hospitalization: Generalized weakness and rehab secondary to deconditioned state from alcohol withdrawal Hospital Course: Patient had been admitted to statin swing bed for continued rehabilitation after a hospitalization at [facility] secondary to generalized weakness, falls and alcohol withdrawal. Was determined patient was in a deconditioned state and needed further history rehab following detoxification from alcohol at [facility]. Is is is patient had no further symptoms of alcohol withdrawal during admission continue to improve with physical and occupational therapy issues and was ambulating on own as well as perform his own ADLs. Patient reports he have set up outpatient rehab for his alcoholism she was discharged home on assessment day of discharge patient in no acute distress with no complaints. Status at Discharge Functional status at discharge: independent ambulation Overall status at discharge: patient is back to baseline Time Spent with Patient Time attestation: Total time spent providing and/or coordinating discharge services: Exam Narrative: General: Calm on chair and in no acute distress. Head: atraumatic, Eyes: PERRLA, sclera clear ENT: moist mucous membranes, nasal passages clear Neck: supple, no JVD, no adenopathy, trachea midline Cardiac: Normal S1 and S2. No murmur, peripheral pulses intact. Respiratory: Lungs clear to auscultation, currently on room air Gastrointestinal: soft, non-distended, non-tender, normoactive bowel sounds. : voiding without difficulty. Extremities: moves all extremities well, no edema Skin: clean, dry, intact. No wounds or lesions. Neuro: Alert and oriented x3, cranial nerves II-XII grossly intact, no neuro deficits. Psych: normal mood, normal affect, interactive DS: Data Data Completed and Pending Labs on day of discharge: Labs from last 24 hours 06/10/24 06/10/24 06/09/24 08:16 06:51 21:00 WBC 7.4 RBC 3.90 L Hgb 14.3 Hct 41.4 MCV 106.2 H MCH 36.7 H MCHC 34.5 RDW 13.5 Plt Count 237 MPV 9.0 Sodium 142 Potassium 4.4 Chloride 104 Carbon Dioxide 28 Anion Gap 10 BUN 18 Creatinine 1.08 Estim Creat Clear Calc 59 Estimated GFR > 60 Glucose 170 H POC Capillary Glucose 296 H 199 H Calculated Osmolality 299 H Calcium 9.2 Total Bilirubin 0.5 AST 46 H ALT 62 Alkaline Phosphatase 81 Total Protein 7.1 Albumin 3.2 L 06/09/24 06/09/24 17:12 12:08 WBC RBC Hgb Hct MCV MCH MCHC RDW Plt Count MPV Sodium Potassium Chloride Carbon Dioxide Anion Gap BUN Creatinine Estim Creat Clear Calc Estimated GFR Glucose POC Capillary Glucose 150 H 196 H Calculated Osmolality Calcium Total Bilirubin AST ALT Alkaline Phosphatase Total Protein Albumin Discharge Plan Discharge Attending physician on discharge: Dionicio Tang Consulting providers: Nelda,Tripp Discharging Clinician: Kera Maddox Anticipated Discharge Date/Time: 06/10/24 08:06 Patient Disposition: Home, Self-Care Activity: may shower, unlimited and as tolerated Diet: diabetic Discharge Instructions: You are being discharged home after participating in rehab services for a deconditioned state at this time I encourage continued activity as tolerated at home and strength training. I encouraged continued alcohol cessation and seeking AA classes for continue support. I have prescribed a multivitamin, folic acid and Thiamine daily. You do have a history of diabetes and I have resumed your Metformin and Jardiance for blood sugar control continue to monitor blood sugars at home and with a diabetic diet. Information regarding diet has been attached to your discharge instructions. Please follow-up with primary care physician in 2-4 weeks How can you care for yourself at home? ? Keep track of any new symptoms or changes in your symptoms. ? Rest until you feel better. ? Be safe with medicines. Take your medicines exactly as prescribed. Call your doctor if you think you are having a problem with your medicine. ? Do not drive after taking a prescription pain medicine. ? Ensure to follow-up with primary care physician as indicated and provide updated medication list provided to you at discharge. When should you call for help? Call 911 anytime you think you may need emergency care. For example, call if: ? You passed out (lost consciousness). Call your doctor now or seek immediate medical care if: ? You have new symptoms like fever, difficulty breathing, Chest pain, vomiting, or rash. ? You have new or different pain. ? You are confused and are having trouble thinking clearly. ? Your symptoms are getting worse. Watch closely for changes in your health, and be sure to contact your doctor if: ? You do not get better as expected. Patient Instructions: Antibiotic Form, Nicotine (Absorbed through the skin), How to Stop Smoking (DC), Fall Prevention for Older Adults (DC), Type 2 Diabetes in the Older Adult (DC), Diabetes and Exercise (DC) Stand Alone Forms: General Discharge Information Follow-up/Referrals: Nelda,MD Tripp [Primary Care Provider] - 2 weeks Discharge Medications: Continued multivitamin Tablet 1 tablet PO DAILY Qty: 30 0RF oxcarbazepine 150 mg tablet 150 mg PO BID Qty: 60 0RF thiamine HCl (vitamin B1) [Vitamin B-1] 100 mg Tablet 300 mg PO QAM Qty: 30 0RF nicotine [Nicoderm CQ] 21 mg/24 hr Patch 24 Hour 1 patch transdermal DAILY Qty: 30 0RF folic acid 1 mg Tablet 1 mg PO DAILY Qty: 30 0RF metformin 500 mg tablet extended release 24 hr 500 mg PO BID Qty: 60 0RF bupropion HCl 150 mg tablet extended release 24 hr 150 mg PO DAILY Qty: 30 0RF Jardiance 25 mg tablet 25 mg PO DAILY Qty: 30 0RF albuterol sulfate [Ventolin HFA] 90 mcg/actuation HFA aerosol inhaler 2 puff INHALATION .Q4 hours PRN (Reason: cough) Qty: 18 0RF Ozempic 0.25 mg or 0.5 mg (2 mg/3 mL) pen injector 0.5 mg SUBCUT WEEKLY Rx Instructions: On Sundays melatonin 5 mg Tablet 5 mg PO HS PRN (Reason: Insomnia) Qty: 10 0RF simvastatin 40 mg Tablet 40 mg PO DAILY Qty: 30 0RF Discontinued olmesartan 40 mg Tablet 40 mg PO DAILY Date of admission: 06/02/24 18:15 Primary Care Provider: Nelda,Tripp Admitting Provider: Dionicio Tang Attending physician on admission: Kera Maddox Condition: Stable Hospitalist MIPS Heart Failure (Exclusion) Patient has history of Heart Transplant or Left Ventricular Assistive Device?: No IF YES, STOP HERE Heart Failure (Qualifier) Patient has current or prior documentation of LVEF less than or equal to 40%, or mod/servere depressed LVSF?: No IF NO, STOP HERE
[2024-06-10] MEDS: OXcarbazepine 150 MG TABLET PO (09:42)
[2024-06-10] MEDS: INSULIN HUMAN LISPRO (*BKC) 1,000 UNITS/10 ML VIAL SUB-Q (09:42)
[2024-06-10] MEDS: SIMVASTATIN 10 MG TABLET 40 MG PO (09:42)
[2024-06-10] MEDS: MULTIVITAMINS THERAPEUTIC TAB (*BKC) 1 TABLET PO (09:43)
[2024-06-10] MEDS: NICOTINE (*PBKC) 21 MG PATCH 1 PATCH TRANSDERM (09:43)
[2024-06-10] MEDS: buPROPion HCL XL (24 HR) 150 MG TABCR PO (09:43)
[2024-06-10] MEDS: EMPAGLIFLOZIN 25 MG TABLET PO (09:43)
[2024-06-10] MEDS: FOLIC ACID 1 MG TABLET PO (09:43)
[2024-06-10] MEDS: THIAMINE HCL 100 MG TABLET 300 MG PO (09:43)
[2024-06-10 11:47] LABS: Glucose Point of Care 140 mg/dl (65-105)
--- NOTE | 2024-06-10 16:20 | PC.NURSE ---
Patient discharging home. All discharge instructions and education reviewed with patient and his sister. Both parties state understanding. All belongings gathered together and sent home with patient. Patient denies any needs or questions at discharge. Patient left floor ambulatory accompanied by sister. No IV site at time of discharge.
== END 2024-06-10 16:20 | disposition home or self-care (01) | DRG 948 ==
PROVIDERS: Admitting Provider Internal Medicine; PCP Internal Medicine; Visit Provider Nurse Practitioner Family
DX: R53.1 Weakness (principal); F10.939 Alcohol use, unspecified with withdrawal, unspecified; F31.89 Other bipolar disorder; F20.0 Paranoid schizophrenia; I10 Essential (primary) hypertension; J44.9 Chronic obstructive pulmonary disease, unspecified; E11.9 Type 2 diabetes mellitus without complications; Z87.891 Personal history of nicotine dependence
CPT/HCPCS: 36415; 80053; 82948; 85027; 97110; 97161; 97165; 97530; 97535; A9270; J1815

== ENCOUNTER 2024-07-05 04:22 | Emergency (ER) | payer MEDICARE, MEDICAID, SELFPAY ==
[2024-07-05 04:34] VITALS: BP 116/89; PULSE 91; RESP 16; TEMP 36.4; O2SAT 98
[2024-07-05 07:27] VITALS: BP 147/93; PULSE 85; RESP 16; O2SAT 95
--- NOTE | 2024-07-05 07:36 | ED_ITS ---
HPI - Alcohol General Chief Complaint: Alcohol Stated Complaint: shaking- alcohol withdrawal Time Seen by Provider: 07/05/24 07:12 Source: patient Mode of arrival: ambulatory Limitations: no limitations History of Present Illness HPI narrative: Patient (last name keegan Swann ) present with concern for alcohol withdrawal. He is due to start an outpatient alcohol rehab program through [facility] on Sunday 07/08 at 1pm (has a business card with number and extension and details) because he has been drinking heavily recently and wants to stop. He knows he is not supposed to be drinking alcohol when he takes his schizophrenia medications. Denies having any cravings for alcohol, doesn't really know why he drinks. He has been drinking a pint to a pint and a half daily. Last drink was 07/04/24 and his withdrawal symptoms like shakiness/tremors are making it hard for him to eat or sleep and he is tired and hungry. Denies any other drugs. He had a period of sobriety for 1 year previously. Patient complains of some nausea. He is also feeling tremulous and states that he did have some sweating on his head. He feels a little bit anxious/nervous and slightly agitated. He denies any tactile or auditory or visual disturbances. Denies any headache/fullness in his head. He does note he symptoms with some burning in his feet. Related Data Home Medications Medication Instructions Recorded Confirmed semaglutide 0.25 mg or 0.5 mg (2 0.5 mg subcut WEEKLY 05/27/24 06/02/24 mg/3 mL) subcutaneous pen injector (Ozempic) Allergies Allergy/AdvReac Type Severity Reaction Status Date / Time No Known Allergies Allergy Unknown Verified 01/10/24 11:25 [facility] Past Medical History Medical History Bipolar 1 disorder Chronic obstructive pulmonary disease Depression Essential hypertension Schizophrenia, paranoid Seizures Tobacco abuse Type 2 diabetes mellitus Hemoglobin A1c was 6.1% on 04/17/2021. Surgical History Surgical History Status post left foot surgery Due to a laceration on the top of his foot as a child with repair of tendons. Family History Family History Other Diabetes mellitus Multiple family members with diabetes Social History Social History Social History: Surrogate medical decision maker: Esa Severino ([phone]). Code status: Full code. Smoking packs per day: 1 Smoking cigarettes per day: 20.0 Years smoked: 20 Smoking pack-years: 20.00 Smoking status: Former smoker Tobacco type: cigarettes Second hand tobacco smoke exposure: Yes Smoking end date: 05/27/24 Alcohol intake: former Drinks per week: 112 Substance use: never Substance use type: does not use Other substance usage details: a pint to a pint and a half of liquor daily Last use: 07/04/24 Do You Feel Safe in your Home?: Yes Lack of Transportation: No Lack of Food: Never True Current Housing: I Have Housing Concerned About Future Housing: No Difficulty Paying Gas/Electric Bills: No Difficulty Paying for Meds: No Currently Unemployed: No Education: High School Diploma/GED Difficulty w/ Childcare or Family Care: No Additional living arrangements comments: The patient lives in his own home. Spiritual care concerns: No Exam Narrative: GENERAL: Well-appearing, well-nourished, and in no acute distress. HEAD: Normocephalic, atraumatic. EYES: Non injected, non icteric ENT: Nares clear, no rhinorrhea or epistaxis. NECK: Supple. CHEST: Speaking in full sentences. No respiratory distress. HEART: Regular rate and rhythm. . ABDOMEN: Soft, nondistended. EXTREMITIES: Normal range of motion. No lower extremity edema. SKIN: Warm, dry although palms are slightly moist. Brow was not sweaty. He does have a small dry rash with whitish scab overlying left lower extremity but with no surrounding erythema or induration or purulent discharge. NEURO: No focal deficits. Alert and oriented x3; knows the day of the week. Has difficulty doing serial additions, twice gets answer incorrect. Patient is slightly tremulous at rest but more appreciable with his arms extended and finger spread apart. PSYCH: Normal mood and affect. Good eye contact. Does not appear to be responding to internal stimuli. Course Vital Signs Vital signs: Vital Signs Temperature 97.5 F L 07/05/24 04:34 Pulse Rate 91 07/05/24 04:34 Respiratory Rate 16 07/05/24 04:34 Blood Pressure 116/89 07/05/24 04:34 Pulse Oximetry 98 07/05/24 04:34 Oxygen Delivery Room Air 07/05/24 04:34 Temperature 98.2 F 07/05/24 12:16 Pulse Rate 103 H 07/05/24 12:16 Respiratory Rate 22 H 07/05/24 12:16 Blood Pressure 141/88 H 07/05/24 12:16 Pulse Oximetry 99 07/05/24 12:16 Oxygen Delivery Room Air 07/05/24 04:34 MDM - Alcohol MDM Narrative Medical decision making narrative: Patient presents with concern for alcohol withdrawal. Drinks 1 - 1.5 pints daily, last drink 07/04/24. Due to start outpatient rehab on 07/08/24. In the emergency department they are afebrile with vital signs within normal limits. Patient's CIWA score is 12 points (3 for nausea/vomiting, 5 for degree of tremor, 1 for moist palm, 1 for mildly anxious, 1 for somewhat more activity than normal/agitation, 1 for can not do serial additions). Will give patient thiamine, folate, multivitamin and start with 25 mg of chlordiazepoxide. He has hyperglycemia without anion gap or acidosis. His LFTs are elevated. They have previously been elevated although higher today. Partial pseudo hyponatremia as his sodium does correct to 135mEq/L in the setting of hyper glycemia, though still present. Macrocytic anemia and thrombocytopenia. Many of these abnormalities have been previously seen as stated. He has hypomagnesemia at 1.0 and this will be repleted with 2mg. Lipase slightly elevated but otherwise asymptomatic. Patient is reassessed approximately 10:45 a.m.. His symptoms are improving although he does continued appear slightly tremulous. Will give another dose of Librium 25mg. Prescription for alcohol withdrawal tapered dose provided. Attempted to review [place] prescription monitoring program but it does not load x2 attempts. Patient has an appointment to start outpatient alcohol abuse rehabilitation program on 07/08/2024 through [facility]. I had attempted to call them via various extensions/routes but was unable to reach anyone. Patient discharged in stable condition but given ED return precautions. He is also given Rx for mag nesium but , given this can cause diarrhea, also provided a list of magnesium rich foods he can consider eating to help supplement. Differential Diagnosis Differential diagnosis: Likely alcohol withdrawal delirium, hypomagnesemia, alcohol ketoacidosis, alcohol withdrawal syndrome and alcohol withdrawal seizure Lab Data 07/05/24 08:00 07/05/24 08:00 Labs: Lab Results 07/05/24 Range/Units 08:00 WBC 4.6 (4.5-10.0) K/mm3 RBC 3.32 L (4.6-6.20) M/mm3 Hgb 12.1 L (14.0-18.0) g/dL Hct 35.0 L (42.0-52.0) % MCV 105.4 H (80-100) fl MCH 36.4 H (26-34) pg MCHC 34.6 (32-36) g/dl RDW 12.7 (11.5-14.5) % Plt Count 75 L D (150-375) k/mm3 MPV 9.6 (7.4-10.4) fl Immature Gran % (Auto) 0.2 (0-0.5) % Neut % (Auto) 56.7 (45.5-73.1) % Lymph % (Auto) 30.8 (18.3-44.2) % Carlisle % (Auto) 9.7 H (2.6-8.5) % Eos % (Auto) 2.4 (0-4.4) % Baso % (Auto) 0.2 (0.2-1.2) % Lymph # (Auto) 1.43 (0.9-3.2) K/mm3 Carlisle # (Auto) 0.5 (0.1-0.6) K/mm3 Eos # (Auto) 0.1 (0-0.3) K/mm3 Baso # (Auto) 0.0 (0.0-0.1) K/mm3 Abs Immat Gran (auto) 0.01 (0.00-0.031) K/mm3 Absolute Neuts (auto) 2.6 (1.3-6.7) K/mm3 Absolute Nucleated RBC 0.000 (0.0-0.012) K/mm3 Nucleated RBC % 0.0 (0.0-0.2) % Platelet Estimate Decreased (Adequate) % Immature Plt Fraction 7.0 (0.9-11.2) % Schistocytes None seen PT 13.4 (11.1-14.7) Seconds INR 1.0 APTT 26.2 (22.3-36.8) Seconds Sodium 133 L (137-145) mmol/L Potassium 3.8 (3.4-5.0) mmol/L Chloride 100 (98-107) mmol/L Carbon Dioxide 28 (22-30) mmol/L Anion Gap 5 (4-12) mmol/L BUN 13 D (9-20) mg/dL Creatinine 0.60 L (0.7-1.3) mg/dL Estim Creat Clear Calc 102 ml/min Estimated GFR > 60 (59 - ) Glucose 200 H (65-110) mg/dL Calcium 9.1 (8.4-10.2) mg/dL Magnesium 1.0 L (1.6-2.3) mg/dL Total Bilirubin 0.9 (0.2-1.3) mg/dL AST 244 H (17-59) U/L ALT 77 H (6-50) U/L Alkaline Phosphatase 63 (38-126) U/L Total Protein 7.0 (6.3-8.2) g/dL Albumin 4.1 (3.5-5.1) g/dL Lipase 502 H (23-300) U/L Discharge Plan Discharge Clinical Impression: Alcohol withdrawal, Hyperglycemia, Transaminitis, Hyponatremia, Anemia, macrocytic, Thrombocytopenia, Hypomagnesemia, Elevated lipase Patient Disposition: Home, Self-Care Condition: Stable Instructions: Antibiotic Form, Hyponatremia (ED), Alcohol Withdrawal (ED), Hypomagnesemia (ED), Nondiabetic Hyperglycemia (ED), Anemia (ED), Thrombocytopenia (ED), Transaminitis (ED) Additional Instructions: Congratulations on making steps to attempt to quit alcohol. Please keep the already scheduled intake appointment for your 1st day of outpatient treatment/rehab on 07/08/24. In the interim, you can use the prescribed medication to help with withdrawal symptoms. Your magnesium level was low. I am prescribing magnesium supplementation however, Given magnesium supplementation can sometimes cause diarrhea, can consider food sources to replete. Examples include salmon, tofu, luisa seeds, bananas, black beans, spinach, cashews/cashew butter, oats, peanuts, potatoes with skins on, brown rice, soy milk, quinoa, kidney beans, whole wheat bread, avocado, raisins, pumpkin seeds, beet greens, dried prunes, white beans, almonds, chickpeas, etc. Follow-up with her primary care physician. If you do not have one the name of doctors listed below. Return to the emergency department with any new or worsening symptoms. Prescriptions: New chlordiazepoxide HCl 25 mg capsule See Rx Instructions .ROUTE .COMPLEX PRN (Reason: alcohol withdrawal) Qty: 20 0RF Rx Instructions: 50mg of chlordiazepoxide (i.e. 2 tabs) every 8 hours for two days, then decrease to 25mg (1 tablet) every 8 hours for another two days followed by 25mg PRN as needed magnesium 200 mg tablet 200 mg PO DAILY Qty: 5 0RF No Action multivitamin Tablet 1 tablet PO DAILY Qty: 30 0RF oxcarbazepine 150 mg tablet 150 mg PO BID Qty: 60 0RF thiamine HCl (vitamin B1) [Vitamin B-1] 100 mg Tablet 300 mg PO QAM Qty: 30 0RF simvastatin 40 mg Tablet 40 mg PO DAILY Qty: 30 0RF nicotine [Nicoderm CQ] 21 mg/24 hr Patch 24 Hour 1 patch transdermal DAILY Qty: 30 0RF folic acid 1 mg Tablet 1 mg PO DAILY Qty: 30 0RF metformin 500 mg tablet extended release 24 hr 500 mg PO BID Qty: 60 0RF bupropion HCl 150 mg tablet extended release 24 hr 150 mg PO DAILY Qty: 30 0RF Jardiance 25 mg tablet 25 mg PO DAILY Qty: 30 0RF albuterol sulfate [Ventolin HFA] 90 mcg/actuation HFA aerosol inhaler 2 puff INHALATION .Q4 hours PRN (Reason: cough) Qty: 18 0RF Ozempic 0.25 mg or 0.5 mg (2 mg/3 mL) pen injector 0.5 mg SUBCUT WEEKLY Rx Instructions: On Sundays melatonin 5 mg Tablet 5 mg PO HS PRN (Reason: Insomnia) Qty: 10 0RF Follow-up/Referrals: Nelda,MD Tripp [Primary Care Provider] - Srinivasan Estrada DO [Physician] - (Internal medicine) Stand Alone Forms: Work/School Release IP Time of Disposition: 11:21
[2024-07-05 08:07] LABS: Basophils Percent Auto 0.2 % (0.2-1.2); Eosinophils Absolute Auto 0.1 K/mm3 (0-0.3); Eosinophils Percent Auto 2.4 % (0-4.4); Hemoglobin 12.1 g/dL (14.0-18.0); Immature Granulocyte Absolute 0.01 K/mm3 (0.00-0.031); Immature Granulocyte Percent A 0.2 % (0-0.5); Lymphocytes Absolute Auto 1.43 K/mm3 (0.9-3.2); Lymphocytes Percent Auto 30.8 % (18.3-44.2); Mean Corpuscular HGB Conc 34.6 g/dl (32-36); Mean Corpuscular Hemoglobin 36.4 pg (26-34); Mean Corpuscular Volume 105.4 fl (80-100); Mean Platelet Volume 9.6 fl (7.4-10.4); Monocytes Absolute Auto 0.5 K/mm3 (0.1-0.6); Monocytes Percent Auto 9.7 % (2.6-8.5); Neutrophils Absolute Auto 2.6 K/mm3 (1.3-6.7); Neutrophils Percent Auto 56.7 % (45.5-73.1); Platelet Count Result 75 k/mm3 (150-375); Red Blood Count 3.32 M/mm3 (4.6-6.20); Red Cell Distribution Width 12.7 % (11.5-14.5); White Blood Count 4.6 K/mm3 (4.5-10.0)
[2024-07-05 08:15] LABS: Alanine Aminotransferase 77 U/L (6-50); Albumin Level 4.1 g/dL (3.5-5.1); Alkaline Phosphatase 63 U/L (38-126); Anion Gap 5 mmol/L (4-12); Aspartate Amino Transferase 244 U/L (17-59); Bilirubin,Total 0.9 mg/dL (0.2-1.3); Blood Urea Nitrogen 13 mg/dL (9-20); Calcium 9.1 mg/dL (8.4-10.2); Carbon Dioxide 28 mmol/L (22-30); Chloride 100 mmol/L (98-107); Estimated CRCL calculation 102 ml/min; Estimated Glomerular Filt Rate > 60; Glucose 200 mg/dL (65-110); Potassium 3.8 mmol/L (3.4-5.0); Sodium 133 mmol/L (137-145)
[2024-07-05] MEDS: MAGNESIUM SULF 2 GM/WATER 50ML 2 GM/50 ML BAG IVPB (08:29)
[2024-07-05 08:35] LABS: Platelet Estimate Decreased (Adequate); Schistocytes None Seen
[2024-07-05 08:36] LABS: Lipase 502 U/L (23-300)
[2024-07-05 08:39] LABS: Prothrombin Time 13.4 Seconds (11.1-14.7)
[2024-07-05 08:40] LABS: Partial Thromboplastin Time 26.2 Seconds (22.3-36.8)
[2024-07-05] MEDS: THIAMINE HCL 200 MG/2 ML VIAL 100 MG IV PUSH (08:49)
[2024-07-05] MEDS: THERAPEUTIC MULTIVITAMINS/MINERALS TAB (*BKC) 1 TABLET PO (08:49)
[2024-07-05] MEDS: chlordiazePOXIDE (*CRX) 25 MG CAPSULE PO ×2 (08:49→11:09)
[2024-07-05] MEDS: FOLIC ACID 1 MG TABLET PO (08:49)
[2024-07-05 08:53] VITALS: BP 136/85; PULSE 89; RESP 20; O2SAT 98
[2024-07-05 11:12] VITALS: BP 131/99; PULSE 106; RESP 25; O2SAT 99
[2024-07-05 12:16] VITALS: BP 141/88; PULSE 103; RESP 22; TEMP 36.8; O2SAT 99
== END 2024-07-05 12:13 | disposition home or self-care (01) ==
PROVIDERS: Emergency Provider Student in an Organized Health Care Education/Training Program; PCP Internal Medicine
DX: F10.239 Alcohol dependence with withdrawal, unspecified (principal); E11.65 Type 2 diabetes mellitus with hyperglycemia; R74.01 Elevation of levels of liver transaminase levels; E87.1 Hypo-osmolality and hyponatremia; D53.9 Nutritional anemia, unspecified; D69.6 Thrombocytopenia, unspecified; E83.42 Hypomagnesemia; R74.8 Abnormal levels of other serum enzymes; J44.9 Chronic obstructive pulmonary disease, unspecified; I10 Essential (primary) hypertension; F31.9 Bipolar disorder, unspecified; F20.0 Paranoid schizophrenia; Z87.891 Personal history of nicotine dependence; Z79.84 Long term (current) use of oral hypoglycemic drugs; Z79.899 Other long term (current) drug therapy; Z79.85 Long-term (current) use of injectable non-insulin antidiabetic drugs; Y90.0 Blood alcohol level of less than 20 mg/100 ml
CPT/HCPCS: 36415; 80053; 83690; 83735; 85025; 85055; 85610; 85730; 96365; 96366; 96375; 99284; A9270; J3411; J3475

== ENCOUNTER 2024-10-16 09:09 | Emergency (ER) | payer MEDICARE, SELFPAY ==
--- NOTE | ~2024-10-16 | XR_ITS ---
XR chest 2V Ordering provider: Jacy Shah APRN History: 64 years Male with . congestion . Comparison: January 10, 2024 FINDINGS: MEDIASTINUM: The cardiac silhouette is not enlarged. LUNGS: No infiltrates, effusions or pneumothorax. OTHER: No free air under the diaphragm. Degenerative changes of the spine. IMPRESSION: No acute cardiopulmonary pathology. Reviewed, dictated and finalized at location A.
[2024-10-16 09:15] VITALS: BP 146/134; PULSE 95; RESP 20; TEMP 36.2; O2SAT 97
--- NOTE | 2024-10-16 09:20 | ED.SKABFB ---
HPI - Skin/Abscess/Foreign Bdy General Chief complaint: Upper Respiratory Infection Stated complaint: Congestion Time Seen by Provider: 10/16/24 09:20 Source: patient, RN notes reviewed and old records reviewed Mode of arrival: ambulatory Limitations: no limitations History of Present Illness HPI narrative: Patient presents with complaints of intermittent night sweats for 5 months. He reports associated congested cough without any shortness of breath. States that sometimes cough is productive of white sputum. He is currently taking Augmentin for a cat bite to the nose, states he is almost finished. There are no visible carey on the nose. He initially came in today with concerns of flu, but is agreeable to foregoing flu and COVID testing given that his presenting symptoms have been present for 5 months. He is not any obvious distress Related Data Home Medications ?Medication ?Instructions ?Recorded ?Confirmed ?Last Taken ?Type semaglutide 0.25 mg or 0.5 mg (2 0.5 mg subcut WEEKLY 05/27/24 06/02/24 Unknown History mg/3 mL) subcutaneous pen injector (Ozempic) sulfamethoxazole 800 tablet 10/16/24 Unknown History mg-trimethoprim 160 mg tablet Allergies Allergy/AdvReac Type Severity Reaction Status Date / Time No Known Allergies Allergy Unknown Verified 10/16/24 09:33 Review of Systems Review of Systems: All systems reviewed & are unremarkable except as noted in HPI and below Constitutional: Constitutional: Reports no additional constitutional complaints, Reports chills and Reports excessive sweating ENT: Reports system reviewed and no additional complaints, except as documented Cardiovascular: Cardiovascular: Reports no additional cardiovascular complaints Respiratory: Respiratory: Reports no additional respiratory complaints, Reports change in phlegm color, Reports chest congestion and Reports cough Gastrointestinal: Gastrointestinal: Reports no additional gastrointestinal complaints [facility] Past Medical History Medical History Tobacco abuse Chronic obstructive pulmonary disease Type 2 diabetes mellitus Hemoglobin A1c was 6.1% on 04/17/2021. Essential hypertension Depression Seizures Schizophrenia, paranoid Bipolar 1 disorder Surgical History Surgical History Status post left foot surgery Due to a laceration on the top of his foot as a child with repair of tendons. Family History Family History Other Diabetes mellitus Multiple family members with diabetes Social History Social History Social History: Surrogate medical decision maker: Esa Powelllung ([phone]). Code status: Full code. Smoking packs per day: 1 Smoking cigarettes per day: 20.0 Years smoked: 20 Smoking pack-years: 20.00 Smoking status: Former smoker Tobacco type: cigarettes Second hand tobacco smoke exposure: Yes Smoking end date: 05/27/24 Alcohol intake: former Drinks per week: 112 Substance use: never Substance use type: does not use Other substance usage details: a pint to a pint and a half of liquor daily Last use: 07/04/24 Do You Feel Safe in your Home?: Yes Lack of Transportation: No Lack of Food: Never True Current Housing: I Have Housing Concerned About Future Housing: No Difficulty Paying Gas/Electric Bills: No Difficulty Paying for Meds: No Currently Unemployed: No Education: High School Diploma/GED Difficulty w/ Childcare or Family Care: No Additional living arrangements comments: The patient lives in his own home. Spiritual care concerns: No Comments At the time of my signature, I reviewed and agree with the nursing past medical, surgical, social, and family history. There is no relevant family history pertinent to the patient complaint. Exam Const: General: cooperative, no acute distress, alert and awake Orientation/consciousness: oriented to person, oriented to place and oriented to time HENMT: Head: normal to inspection Mouth: Yes moist mucous membranes Resp: Effort & Inspection: normal respiratory effort and able to speak in complete sentences Auscultation: clear to auscultation bilaterally, no crackles, no rales, no rhonchi, no wheezes and diminished lung sounds bilateral Cardio: Palpation: normal PMI Rate: regular rate Rhythm: regular rhythm Heart sounds: S1 normal heart sound present and S2 normal heart sound present Neuro: General: oriented to person, oriented to place and oriented to time Cranial nerves: Yes CN's II-XII intact bilaterally Psych: Appearance: grossly normal Thought process: Normal thought process present Insight: Good insight present (Psych) Judgement: Good judgement present (Psych) Course Course Level of Care: Express Care Visit Vital Signs Vital signs: Vital Signs Temperature 97.2 F L 10/16/24 09:15 Pulse Rate 95 10/16/24 09:15 Respiratory Rate 20 10/16/24 09:15 Blood Pressure 146/134 H 10/16/24 09:15 Pulse Oximetry 97 10/16/24 09:15 Oxygen Delivery Room Air 10/16/24 09:15 Temperature 97.2 F L 10/16/24 09:15 Pulse Rate 95 10/16/24 09:15 Respiratory Rate 20 10/16/24 09:15 Blood Pressure 146/134 H 10/16/24 09:15 Pulse Oximetry 97 10/16/24 09:15 Oxygen Delivery Room Air 10/16/24 09:15 Reviewed MDM - Skin/Abscess/Foreign Bdy MDM Narrative Medical decision making narrative: Chest x-ray without acute findings. Patient not in any obvious distress. He does admit that he continues to smoke and does have COPD. Treat and COPD exacerbation with bronchodilator and steroid burst. Patient has PCP appointment on October 20. He is advised to keep this. Emergency department for new or worse symptoms Differential Diagnosis Differential diagnosis: Likely other (COPD exacerbation, pneumonia) Medical Records Attestation: I reviewed the patient's medical records. Imaging Data Attestation: I personally reviewed and interpreted this imaging study as follows: My impression: no acute findings Radiologist's impression: [place] [id number] [place] [id number] XRay Report Signed Patient: Juwan Harris : 1960 MR#: [id number] Age: 64 Acct:[id number] Loc: [facility] ADM Date: 10/16/24Attending Dr: Ordering Physician: Jacy Shah FNP Date of Service: 10/16/24 Procedure(s): XR chest 2V Accession Number(s): [id number] cc: Jacy Shah FNP; Naren Mcbride MD~ XR chest 2V Ordering provider: Jacy Shah APRN History: 64 years Male with . congestion . Comparison: January 10, 2024 FINDINGS: MEDIASTINUM: The cardiac silhouette is not enlarged. LUNGS: No infiltrates, effusions or pneumothorax. OTHER: No free air under the diaphragm. Degenerative changes of the spine. IMPRESSION: No acute cardiopulmonary pathology. Reviewed, dictated and finalized at location A. Please be advised this is a medical document. It is intended for [id number] communication. It is written in medical language and may contain unfamiliar abbreviations or verbiage. Medical documents are intended to carry relevant information, facts as evident, and the clinical opinion of the practitioner at the time of the encounter. This report may have been done utilizing a voice recognition system. Attempts have been made to correct errors. However, there may be uncorrected grammatical, spelling, and recognition errors present. The file time of this note does not necessarily represent the time of service. Dictated By: Jenaro Hay MD 10/16/24 0949 Signed By: <Electronically signed by Jenaro Hay MD in OV> Discharge Plan Discharge Clinical Impression: COPD (chronic obstructive pulmonary disease) Qualifiers: COPD type: unspecified COPD Qualified Code(s): J44.9 - Chronic obstructive pulmonary disease, unspecified Patient Disposition: Home, Self-Care Condition: Stable Instructions: Antibiotic Form, COPD (Chronic Obstructive Pulmonary Disease) (ED) Additional Instructions: Take medication as prescribed. Follow up with primary care provider as scheduled. Emergency department for new or worse symptoms. Monitor blood glucose levels closely, as prednisone can cause them to elevate. Patient Language: Japanese Prescriptions: New prednisone 50 mg tablet 50 mg PO DAILY Qty: 5 0RF albuterol sulfate [Ventolin HFA] 90 mcg/actuation HFA aerosol inhaler 2 puff inhalation QID PRN (Reason: shortness of breath or wheezing) Qty: 8.5 0RF No Action multivitamin Tablet 1 tablet PO DAILY Qty: 30 0RF oxcarbazepine 150 mg tablet 150 mg PO BID Qty: 60 0RF thiamine HCl (vitamin B1) [Vitamin B-1] 100 mg Tablet 300 mg PO QAM Qty: 30 0RF simvastatin 40 mg Tablet 40 mg PO DAILY Qty: 30 0RF nicotine [Nicoderm CQ] 21 mg/24 hr Patch 24 Hour 1 patch transdermal DAILY Qty: 30 0RF folic acid 1 mg Tablet 1 mg PO DAILY Qty: 30 0RF metformin 500 mg tablet extended release 24 hr 500 mg PO BID Qty: 60 0RF bupropion HCl 150 mg tablet extended release 24 hr 150 mg PO DAILY Qty: 30 0RF Jardiance 25 mg tablet 25 mg PO DAILY Qty: 30 0RF albuterol sulfate [Ventolin HFA] 90 mcg/actuation HFA aerosol inhaler 2 puff INHALATION .Q4 hours PRN (Reason: cough) Qty: 18 0RF sulfamethoxazole-trimethoprim 800-160 mg tablet Ozempic 0.25 mg or 0.5 mg (2 mg/3 mL) pen injector 0.5 mg SUBCUT WEEKLY Rx Instructions: On Sundays melatonin 5 mg Tablet 5 mg PO HS PRN (Reason: Insomnia) Qty: 10 0RF chlordiazepoxide HCl 25 mg capsule See Rx Instructions .ROUTE .COMPLEX PRN (Reason: alcohol withdrawal) Qty: 20 0RF Rx Instructions: 50mg of chlordiazepoxide (i.e. 2 tabs) every 8 hours for two days, then decrease to 25mg (1 tablet) every 8 hours for another two days followed by 25mg PRN as needed magnesium 200 mg tablet 200 mg PO DAILY Qty: 5 0RF Follow-up/Referrals: Naren Mcbride MD [Primary Care Provider] - 3 Days Stand Alone Forms: Work/School Release IP Time of Disposition: 10:03
[2024-10-16 09:40] VITALS: PULSE 95; RESP 20; O2SAT 97
[2024-10-16 10:18] VITALS: BP 100/65
== END 2024-10-16 10:20 | disposition home or self-care (01) ==
PROVIDERS: Emergency Provider Nurse Practitioner Family; PCP Family Medicine Adolescent Medicine
DX: J44.9 Chronic obstructive pulmonary disease, unspecified (principal); E11.9 Type 2 diabetes mellitus without complications; I10 Essential (primary) hypertension; F20.9 Schizophrenia, unspecified; Z87.891 Personal history of nicotine dependence
CPT/HCPCS: 71046; 99213; G0463

== ENCOUNTER 2025-01-20 13:29 | Outpatient (RCR) | payer MEDICARE, MEDICAID, SELFPAY ==
[2025-01-20 13:35] VITALS: BMI 26.7
--- NOTE | 2025-01-20 15:37 | PCDIET ---
MNT Consult completed. See Nurse/Allied health -> Nutrition ([id number])
== END 2025-04-06 12:27 | disposition home or self-care (01) ==
LOC: ANHDMC 13:29
PROVIDERS: PCP Nurse Practitioner Family; Visit Provider Family Medicine
DX: E11.9 Type 2 diabetes mellitus without complications (principal); Z71.3 Dietary counseling and surveillance
CPT/HCPCS: 97802

== ENCOUNTER 2025-04-12 17:32 | Emergency (ER) | payer MEDICARE, MEDICAID, SELFPAY ==
--- NOTE | ~2025-04-12 | XR_ITS ---
EXAMINATION: XR chest 2V, 04/12/2025 17:57 CDT HISTORY: cough, rales lower lung salazar smoker hx emphysema COMPARISON: No comparisons available. Technique: 2 views obtained. Findings: The lungs are clear, no effusion. No pneumothorax. Heart is normal size. Mediastinal and hilar contours are within normal limits. Bony thorax no acute abnormality. Impression: No acute cardiopulmonary abnormality. Reviewed, dictated and finalized at location A. Impression: No acute cardiopulmonary abnormality.
[2025-04-12 17:44] VITALS: BP 103/60; PULSE 91; RESP 18; TEMP 37.1; O2SAT 97
--- NOTE | 2025-04-12 17:49 | ED.URI ---
HPI - URI/Sore Throat General Chief Complaint: Upper Respiratory Infection Stated Complaint: Sinus Time Seen by Provider: 04/12/25 17:50 Source: patient History of Present Illness HPI Narrative: 65 yo M presents with c/o congestion, cough, fatigue clammy, nauseated for 2 to 3 days. Concerned he has covid or pneumonia. No SOB or CP. Not taking any [id number] medications to treat symptoms. No sick contacts. All systems reviewed and negative except as noted. Related Data Home Medications ?Medication ?Instructions ?Recorded ?Confirmed ?Last Taken ?Type folic acid 1 mg tablet 1 mg PO DAILY 10/28/24 03/03/25 Unknown History Held on 01/13/25. Instructions: Home Medication placed on hold at Doctor's office olmesartan 40 mg tablet 40 mg PO DAILY 10/28/24 03/03/25 Unknown History thiamine HCl (vitamin B1) 100 mg 100 mg PO DAILY 10/28/24 03/03/25 Unknown History tablet cholecalciferol (vitamin D3) 25 25 mcg PO DAILY 11/18/24 03/03/25 Unknown History mcg (1,000 unit) tablet (Vitamin D3) omega-3 fatty acids-fish oil 360 1 cap PO DAILY 11/18/24 03/03/25 Unknown History mg-1,200 mg capsule (Fish Oil) ramelteon 8 mg tablet (Rozerem) 8 mg PO QHS 03/03/25 Unknown History semaglutide 0.25 mg or 0.5 mg (2 0.5 mg subcut WEEKLY 03/03/25 Unknown History mg/3 mL) subcutaneous pen injector (Ozempic) atorvastatin 40 mg tablet mg 04/12/25 Unknown History Allergies Allergy/AdvReac Type Severity Reaction Status Date / Time empagliflozin (From AdvReac Intermediate Nausea Verified 04/12/25 17:34 Jardiance) [facility] Past Medical History Medical History Tobacco use disorder Type 2 diabetes mellitus Hemoglobin A1c was 6.1% on 04/17/2021. Essential hypertension Depression Seizures Schizophrenia, paranoid Bipolar 1 disorder Surgical History Surgical History Status post left foot surgery Due to a laceration on the top of his foot as a child with repair of tendons. Family History Family History Other Diabetes mellitus Multiple family members with diabetes Social History Social History Social History: Surrogate medical decision maker: Esa Severino ([phone]). Code status: Full code. Smoking packs per day: 1 Smoking cigarettes per day: 20.0 Years smoked: 20 Smoking pack-years: 20.00 Smoking status: Current every day smoker Tobacco type: cigarettes Second hand tobacco smoke exposure: Yes Alcohol intake: current Drinks per week: 14 Substance use: never Substance use type: does not use Do You Feel Safe in your Home?: Yes Lack of Transportation: No Lack of Food: Never True Current Housing: I Have Housing Concerned About Future Housing: No Difficulty Paying Gas/Electric Bills: No Difficulty Paying for Meds: No Currently Unemployed: No Education: High School Diploma/GED Difficulty w/ Childcare or Family Care: No Living arrangements: alone Additional living arrangements comments: The patient lives in his own home. Spiritual care concerns: No Comments At time of signature, agree with nursing past medical, surgical, social and family history. There is no relevant family history pertinent to the presenting complaint. Exam Narrative: GENERAL: This is a well-nourished, well-developed patient, in no apparent distress. HEAD: normocephalic, atraumatic. EYES: PERRL. Sclera clear/white. Vision is grossly intact. EARS: External ears normal, auditory canals clear and without drainage, TMs normal without perforation. Hearing grossly intact. NOSE: External nose normal with Clear nasal drainage THROAT: Mucous membranes moist, posterior pharynx clear. NECK: Neck supple, non-tender without lymphadenopathy, masses or thyromegaly. CARDIOVASCULAR: Regular rate and rhythm without murmurs, gallops, or rubs. RESPIRATORY: rales And rhonchi to bilateral lower lung salazar. Breath sounds equal bilaterally. No wheezes SKIN: warm, Dry, intact with no suspicious lesions or rash, good texture and turgor. NEURO: awake, alert, and oriented to person, place and time. There were no obvious focal neurologic abnormalities. EXTREMITIES: No joint tenderness, effusion, or edema noted. Course Course Level of Care: Express Care Visit Vital Signs Vital signs: Vital Signs Temperature 37.1 C 04/12/25 17:44 Pulse Rate 91 04/12/25 17:44 Respiratory Rate 18 04/12/25 17:44 Blood Pressure 103/60 04/12/25 17:44 Pulse Oximetry 97 04/12/25 17:44 Oxygen Delivery Room Air 04/12/25 17:44 Temperature 37.1 C 04/12/25 17:44 Pulse Rate 91 04/12/25 17:44 Respiratory Rate 18 04/12/25 17:44 Blood Pressure 103/60 04/12/25 17:44 Pulse Oximetry 97 04/12/25 17:44 Oxygen Delivery Room Air 04/12/25 17:44 reviewed MDM - URI/Sore Throat MDM Narrative Medical decision making narrative: chest x-ray negative for pneumonia. Discussed results with patient. Recommend [id number] medications to treat viral symptoms. Patient is well-appearing, nontoxic. Differential Diagnosis Differential diagnosis: Likely upper respiratory infection, sinusitis, viral infection, bronchitis and influenza Lab Data Labs: Lab Results 04/12/25 Range/Units 17:43 POC Influenza A Ag Negative (Negative) POC Influenza B Ag Negative (Negative) POC SARS CoV-2 Ag Negative (Negative) Discharge Plan Discharge Clinical Impression: Viral upper respiratory tract infection with cough Patient Disposition: Home Condition: Stable Instructions: Upper Respiratory Infection (ED) Additional Instructions: your COVID and influenza test was negative today. Your chest x-ray was negative for pneumonia. Your symptoms are viral and may last 10-14 days. Take prednisone as prescribed. Purchase [id number] Mucinex DM and take as directed on packaging. Drink at least 64 oz water a day. See your primary care physician if symptoms are not improving. Patient Language: Kyrgyz Prescriptions: New prednisone 20 mg tablet 40 mg PO DAILY 5 Days Qty: 10 0RF No Action simvastatin 40 mg Tablet 40 mg PO DAILY Qty: 30 0RF metformin 500 mg tablet extended release 24 hr 500 mg PO BID Qty: 60 0RF atorvastatin 40 mg tablet albuterol sulfate [Ventolin HFA] 90 mcg/actuation HFA aerosol inhaler 2 puff INHALATION .Q4 hours PRN (Reason: cough) Qty: 18 0RF omega-3 fatty acids-fish oil [Fish Oil] 360-1,200 mg capsule 1 cap PO DAILY cholecalciferol (vitamin D3) [Vitamin D3] 25 mcg (1,000 unit) tablet 25 mcg PO DAILY folic acid 1 mg tablet 1 mg PO DAILY thiamine HCl (vitamin B1) 100 mg tablet 100 mg PO DAILY olmesartan 40 mg tablet 40 mg PO DAILY oxcarbazepine 150 mg tablet 150 mg PO BID 90 Days Qty: 180 1RF Ozempic 0.25 mg or 0.5 mg (2 mg/3 mL) pen injector 0.5 mg subcut WEEKLY Rx Instructions: for 4 weeks ramelteon [Rozerem] 8 mg tablet 8 mg PO QHS varenicline tartrate 0.5 mg (11)- 1 mg (42) tablets,dose pack See Rx Instructions PO PER PKG DIR Qty: 53 0RF Rx Instructions: PO PER PKG DIR trazodone 50 mg tablet 50 mg PO QHS PRN (Reason: insomnia) Qty: 90 0RF Follow-up/Referrals: Shannon Montelongo APRN [Primary Care Provider, Family Practice] Time of Disposition: 18:23
[2025-04-12 18:03] LABS: EDCOVIDSCREEN Negative (Negative); EDINFLUASCREEN Negative (Negative); EDINFLUBSCREEN Negative (Negative)
== END 2025-04-12 18:30 | disposition home or self-care (01) ==
PROVIDERS: Emergency Provider Nurse Practitioner Family; PCP Nurse Practitioner Family
DX: J06.9 Acute upper respiratory infection, unspecified (principal); R05.9 Cough, unspecified; Z20.822 Contact with and (suspected) exposure to COVID-19; F17.210 Nicotine dependence, cigarettes, uncomplicated; E11.9 Type 2 diabetes mellitus without complications; Z79.84 Long term (current) use of oral hypoglycemic drugs; Z79.85 Long-term (current) use of injectable non-insulin antidiabetic drugs; I10 Essential (primary) hypertension; G40.909 Epilepsy, unspecified, not intractable, without status epilepticus; F31.9 Bipolar disorder, unspecified
CPT/HCPCS: 71046; 87426; 87804; 99213; G0463

== ENCOUNTER 2025-06-18 08:09 | Observation (INO) | payer MEDICARE, MEDICAID, SELFPAY ==
--- OUTSIDE RECORDS SUMMARY | 2025-02-26 09:20 | XMS_ITS ---
Author Organization [facility] Address [address] [place] [address] Care Team Providers Care Pictures Editor Name Role Phone Karissa Mejia Unavailable [phone] Results Component Value Reference Range Flag Notes CBC + AutoDiff 5 Reviewed date:2025 09:12:23 AM Interpretation: Performing Lab: Notes/Report: WBC 5.10 3.53-9.52 10*3/ul RBC 4.00 4.33-5.72 10*6/ul L HGB 14.26 12.55-16.99 g/dL HCT 44.3 38.3-49.3 % MCV 110.7 78.3-95.5 fL H MCH 35.7 25.9-33.2 pg H MCHC 32.2 33-35.3 g/dL L RDW 14.0 12.9-15.9 % RDW-SD 56.0 38.9-48.3 fL H PLATELETS 96.3 146.5-351.5 10^3/uL L MPV 8.21 7.42-10.65 fL LYMPHOCYTES % 25.98 20.23-43.53 % LYMPHOCYTES # 1.32 1.15-3.13 10^3/uL MONOCYTES % 10.85 5.23-13.22 % MONOCYTES # 0.55 0.25-1.06 10^3/uL EOSINOPHILS % 2.08 0.84-7.67 % EOSINOPHILS # 0.11 0.04-0.42 10^3/uL BASOPHILS % 0.26 0.11-0.53 % BASOPHILS # 0.01 0.01-0.04 10^3/uL NEUTROPHILS % 60.83 40.62-70.51 % NEUTROPHILS # 3.10 1.85-5.94 10^3/uL COMP. METABOLIC Reviewed date:2025 11:58:58 AM Interpretation: Performing Lab: Notes/Report: SODIUM 139 135-146 mmol/L POTASSIUM 3.7 3.5-5.3 mmol/L CHLORIDE 102 98-110 mmol/L CO2 28 20-32 mmol/L BUN 8 7-25 mg/dL CALCIUM 8.8 8.6-10.3 mg/dL CREATININE 0.84 0.70-1.35 mg/dL GLUCOSE 232 65-139 mg/dL H ALK PHOSPHATASE 82 35-144 IU/L ALT 60 9-46 IU/L H AST 77 10-35 IU/L H TOTAL BILIRUBIN 0.8 0.2-1.2 mg/dL ALBUMIN 3.8 3.6-5.1 g/dL TOTAL PROTEIN 6.3 6.1-8.1 g/dL eGFR 96.8 >60 mL/min BUN/CREA RATIO 9.5 9-28 Ratio GLOBULIN 2.50 2.0-5.0 g/dL A/G RATIO 1.5 1.1-2.5 Ratio LIPID PANEL Reviewed date:2025 09:12:12 AM Interpretation: Performing Lab: Notes/Report: CHOLESTEROL 132 0-200 mg/dL LDL Direct 69.0 0-100 mg/dL TRIGLYCERIDES 134 0-150 mg/dL HDL CHOLESTEROL 52 40 mg/dL CHOL/HDL RATIO 2.54 TSH Reviewed date:2025 09:12:05 AM Interpretation: Performing Lab: Notes/Report: TSH 1.407 0.40-4.50 mIU/L A1c% Reviewed date:2025 09:11:58 AM Interpretation: Performing Lab: Notes/Report: HEMOGLOBIN A1c % 7.57 4.5-6.3 % H T4, FREE Reviewed date:2025 09:11:49 AM Interpretation: Performing Lab: Notes/Report: T4, FREE 0.74 0.8-1.8 ng/dL L REASON FOR VISIT LAB DRAW Medications Medication SIG (Take, Route, Frequency, Duration) Notes Start Date End Date Status metFORMIN HCl ER 500 MG Tablet Extended Release 24 Hour 1 tablet with meals Orally twice daily; Duration: 90 days 02/26/2025 Active Ramelteon 8 MG Tablet 1 tablet at bedtim e as needed Orally Once a day; Duration: 30 days 02/26/2025 Active Atorvastatin Calcium 40 MG Tablet 1 tablet Orally Once a day; Duration: 90 days 02/26/2025 Active Ozempic (0.25 or 0.5 MG/DOSE) 2 MG/3ML Solution Pen-injector 0.5 mg Subcutaneous once a week; Duration: 90 days 02/26/2025 Active Olmesartan Medoxomil 20 MG Tablet 1 tablet Orally Once a day at bedtime; Duration: 90 days 02/26/2025 Active Olmesartan Medoxomil 40 MG Tablet 1 tablet Orally Once a day A ctive traZODone HCl 50 MG Tablet 1 tablet at b edtime as needed Orally Once a day Active metFORMIN HCl 500 MG Tablet 1 tablet with a meal Orally twice a day Active Simvastatin 40 MG Tablet 1 tablet in the evening Orally Once a day Active Ozempic (0.25 or 0.5 MG/DOSE) 2 MG/3ML Solution Pen-injector inject 0.25 mg once weekly x 4 weeks then increase to 0.5 mg weekly Subcutaneous once a week; Duration: 90 days 01/16/2025 Active Vitamin D3 Active Forest 3 Fish Oil Act thao Albuterol Sulfate 108 (90 Base) MCG/ACT Aerosol Powder Breath Activated 1 puff as needed Inhalation every 4 hrs Active Vitamin B-1 100 MG Tablet 1 tablet Orally Once a day Active Problems Problem Type SNOMED Code ICD Code Onset Dates Problem Status W/U Status Risk Notes Problem Mixed hyperlipidemia (600045170) Mixed hyperlipidemia (E78.2) Active confirmed Encounters Encounter Location Date Provider Diagnosis Dr. Haresh Hancock [facility] [address] [place] [address] 02/26/2025 Karissa Mejia Mixed hyperlipidemia E78.2 ; Fatigue R53.83 and Abnormal glucose R73.09 Assessments Encounter Date Diagnosis (ICD Code) Assessment Notes Treatment Notes Treatment Clinical Notes Section Notes 02/26/2025 Mixed hyperlipidemia (ICD-10 - E78.2) 02/26/2025 Fatigue (ICD-10 - R53.83) 02/26/2025 Abnormal glucose (ICD-10 - R73.09) Plan Of Treatment Next Appt Details Provider Name:Karissa Mejia, 01:40:00 PM, [id number] [place] [address], [phone], Provider Name:Karissa Mejia, 02:00:00 PM, [address] [facility], [place], [address], Progress Notes * Juwan TIWARIDOB: 0 (65 yo M)Acc No.[id number]:02/26/2025 Patient: Juwan Espinoza Provider: Tim Mejia MD :1960 A ge:64 Y S ex:Male Date:02/26/2025 Address:[address] [place] [address] Subjective: * Chief Complaints: * L AB DRAW * Medications: T akingVitamin D3 Albuterol Sulfate 108 (90 Base) MCG/ACT Aerosol Powder Breath Activated 1 puff as needed Inhalation every 4 hrs Forest 3 Fish Oil Vitamin B-1 100 MG Tablet 1 tablet Orally Once a day Olmesartan Medoxomil 40 MG Tablet 1 tablet Orally Once a day traZODone HCl 50 MG Tablet 1 tablet at bedtime as needed Orally Once a day Simvastatin 40 MG Tablet 1 tablet in the evening Orally Once a day metFORMIN HCl 500 MG Tablet 1 tablet with a meal Orally twice a day Ozempic (0.25 or 0.5 MG/DOSE) 2 MG/3ML Solution Pen-injector inject 0.25 mg once weekly x 4 weeks then increase to 0.5 mg weekly Subcutaneous once a week Olmesartan Medoxomil 20 MG Tablet 1 tablet Orally Once a day at bedtime Ramelteon 8 MG Tablet 1 tablet at bedtime as needed Orally Once a day metFORMIN HCl ER 500 MG Tablet Extended Release 24 Hour 1 tablet with meals Orally twice daily Ozempic (0.25 or 0.5 MG/DOSE) 2 MG/3ML Solution Pen-injector 0.5 mg Subcutaneous once a week Atorvastatin Calcium 40 MG Tablet 1 tablet Orally Once a day Taking Vitamin D3 Taking Albuterol Sulfate 108 (90 Base) MCG/ACT Aerosol Powder Breath Activated 1 puff as needed Inhalation every 4 hrs Taking Forest 3 Fish Oil Taking Vitamin B-1 100 MG Tablet 1 tablet Orally Once a day Taking Olmesartan Medoxomil 40 MG Tablet 1 tablet Orally Once a day Taking traZODone HCl 50 MG Tablet 1 tablet at bedtime as needed Orally Once a day Taking Simvastatin 40 MG Tablet 1 tablet in the evening Orally Once a day Taking metFORMIN HCl 500 MG Tablet 1 tablet with a meal Orally twice a day Taking Ozempic (0.25 or 0.5 MG/DOSE) 2 MG/3ML Solution Pen-injector inject 0.25 mg once weekly x 4 weeks then increase to 0.5 mg weekly Subcutaneous once a week Taking Olmesartan Medoxomil 20 MG Tablet 1 tablet Orally Once a day at bedtime Taking Ramelteon 8 MG Tablet 1 tablet at bedtime as needed Orally Once a day Taking metFORMIN HCl ER 500 MG Tablet Extended Release 24 Hour 1 tablet with meals Orally twice daily Taking Ozempic (0.25 or 0.5 MG/DOSE) 2 MG/3ML Solution Pen-injector 0.5 mg Subcutaneous once a week Taking Atorvastatin Calcium 40 MG Tablet 1 tablet Orally Once a day Assessment: * Assessment: 1. M ixed hyperlipidemia - E78.2 (Primary) 2 . F atigue - R53.83 3 . A bnormal glucose - R73.09 Plan: * Treatment: Value Reference Range C HOLESTEROL 132 0-200 - mg/dL * L DL Direct 69.0 0-100 - mg/dL * T RIGLYCERIDES 134 0-150 - mg/dL * H DL CHOLESTEROL 52 40 - mg/dL * C HOL/HDL RATIO 2.54 - Ratio * RobertoKarissa 02/27/2025 08:16 :11 PM CDT >can we please let patient know his liver enzymes are a little high and his thyroid hormone is low and this is likely from potential underlying liver disease; has he ever had a liver ultrasound or liver imaging? if not please get liver ultrasound and use elevated liver enzymes as the iCD10 code and we will need a repeat CMP, CBC, lipid panel, a1c, TSH, FT4 completed 2 weeks prior to return visit in May and use E11.65, E78.5, E06.3 and R53.8 as codes thank you so much 2.?Fatigue?LAB: CBC + AutoDiff 5 (Collection Date & Time - 02/26/2025 01:58 PM)* Value Reference Range W BC 5.10 3.53-9.52 - 10*3/ul * R BC 4.00 L 4.33-5.72 - 10*6/ul * H GB 14.26 12.55-16.99 - g/dL * H CT 44.3 38.3-49.3 - % * M CV 110.7 H 78.3-95.5 - fL * M CH 35.7 H 25.9-33.2 - pg * M CHC 32.2 L 33-35.3 - g/dL * R DW 14.0 12.9-15.9 - % * R DW-SD 56.0 H 38.9-48.3 - fL * P LATELETS 96.3 L 146.5-351.5 - 10^3/u L * M PV 8.21 7.42-10.65 - fL * L YMPHOCYTES % 25.98 20.23-43.53 - % * L YMPHOCYTES # 1.32 1.15-3.13 - 10^3/uL * M ONOCYTES % 10.85 5.23-13.22 - % * M ONOCYTES # 0.55 0.25-1.06 - 10^3/uL * E OSINOPHILS % 2.08 0.84-7.67 - % * E OSINOPHILS # 0.11 0.04-0.42 - 10^3/uL * B ASOPHILS % 0.26 0.11-0.53 - % * B ASOPHILS # 0.01 0.01-0.04 - 10^3/uL * N EUTROPHILS % 60.83 40.62-70.51 - % * N EUTROPHILS # 3.10 1.85-5.94 - 10^3/uL * Karissa Mejia 02/27/2025 08:16 :11 PM CDT >can we please let patient know his liver enzymes are a little high and his thyroid hormone is low and this is likely from potential underlying liver disease; has he ever had a liver ultrasound or liver imaging? if not please get liver ultrasound and use elevated liver enzymes as the iCD10 code and we will need a repeat CMP, CBC, lipid panel, a1c, TSH, FT4 completed 2 weeks prior to return visit in May and use E11.65, E78.5, E06.3 and R53.8 as codes thank you so much ?LAB: COMP. METABOLIC (Collection Date & Time - 02/26/2025 01:58 PM)* Value Reference Range S ODIUM 139 135-146 - mmol/L * P OTASSIUM 3.7 3.5-5.3 - mmol/L * C HLORIDE 102 98-110 - mmol/L * C O2 28 20-32 - mmol/L * B UN 8 7-25 - mg/dL * C ALCIUM 8.8 8.6-10.3 - mg/dL * C REATININE 0.84 0.70-1.35 - mg/dL * G LUCOSE 232 H 65-139 - mg/dL * A LK PHOSPHATASE 82 35-144 - IU/L * A LT 60 H 9-46 - IU/L * A ST 77 H 10-35 - IU/L * T OTAL BILIRUBIN 0.8 0.2-1.2 - mg/dL * A LBUMIN 3.8 3.6-5.1 - g/dL * T OTAL PROTEIN 6.3 6.1-8.1 - g/dL * Karissa Mejia 02/27/2025 08:16 :11 PM CDT >can we please let patient know his liver enzymes are a little high and his thyroid hormone is low and this is likely from potential underlying liver disease; has he ever had a liver ultrasound or liver imaging? if not please get liver ultrasound and use elevated liver enzymes as the iCD10 code and we will need a repeat CMP, CBC, lipid panel, a1c, TSH, FT4 completed 2 weeks prior to return visit in May and use E11.65, E78.5, E06.3 and R53.8 as codes thank you so muchLarisa Prado 2025 11:50:15 AM CDT >patient will get the liver ultrasound done at [facility]. i will send the order to them. ?LAB: T4, FREE (Collection Date & Time - 02/26/2025 01:58 PM)* Value Reference Range T 4, FREE 0.74 L 0.8-1.8 - ng/dL * Karissa Mejia 02/27/2025 08:16 :11 PM CDT >can we please let patient know his liver enzymes are a little high and his thyroid hormone is low and this is likely from potential underlying liver disease; has he ever had a liver ultrasound or liver imaging? if not please get liver ultrasound and use elevated liver enzymes as the iCD10 code and we will need a repeat CMP, CBC, lipid panel, a1c, TSH, FT4 completed 2 weeks prior to return visit in May and use E11.65, E78.5, E06.3 and R53.8 as codes thank you so much ?LAB: TSH (Collection Date & Time - 02/26/2025 01:58 PM)* Value Reference Range T SH 1.407 0.40-4.50 - mIU/L * Karissa Mejia 02/27/2025 08:16 :11 PM CDT >can we please let patient know his liver enzymes are a little high and his thyroid hormone is low and this is likely from potential underlying liver disease; has he ever had a liver ultrasound or liver imaging? if not please get liver ultrasound and use elevated liver enzymes as the iCD10 code and we will need a repeat CMP, CBC, lipid panel, a1c, TSH, FT4 completed 2 weeks prior to return visit in May and use E11.65, E78.5, E06.3 and R53.8 as codes thank you so much 3.?Abnormal glucose?LAB: A1c% (Collection Date & Time - 02/26/2025 01:58 PM)* Value Reference Range H EMOGLOBIN A1c % 7.57 H 4.5-6.3 - % * Karissa Mejia 02/27/2025 08:16 :11 PM CDT >can we please let patient know his liver enzymes are a little high and his thyroid hormone is low and this is likely from potential underlying liver disease; has he ever had a liver ultrasound or liver imaging? if not please get liver ultrasound and use elevated liver enzymes as the iCD10 code and we will need a repeat CMP, CBC, lipid panel, a1c, TSH, FT4 completed 2 weeks prior to return visit in May and use E11.65, E78.5, E06.3 and R53.8 as codes thank you so much * Procedure Codes: 8 4439 ASSAY OF FREE [id number] ASSAY OF FREE [id number] COMPLETE CBC W/AUTO DIFF [id number] COMPREHEN METABOLIC [id number] LIPID [id number] ASSAY THYROID STIM [id number] GLYCATED HEMOGLOBIN [id number] VENIPUNCT, ROUTINE* Billing Information: * Procedure Codes: 33059 ASSAY OF FREE THYROXINE. 97572 ASSAY OF FREE THYROXINE. 77621 COMPLETE CBC W/AUTO DIFF WBC. 51200 COMPREHEN METABOLIC PANEL. 29024 LIPID PANEL. 20948 ASSAY THYROID STIM HORMONE. 82654 GLYCATED HEMOGLOBIN TEST. 64434 VENIPUNCT, ROUTINE*. * Electronic signature of Jarred Mejia MD on 06/18/2025 at 10:44 AM ASSISTANT FOREMAN Sign off status: Pending * Provider: Tim Mejia MD Date: 0 02/26/2025 Generated for Marino huffman/Evon/eTransmitting on: 1 08/18/2024 10:44 AM ASSISTANT FOREMAN
[2025-06-18] VITALS (26 sets, daily range): BP systolic 88–105; BP diastolic 59–69; PULSE 77–108; RESP 14–28; TEMP 36.2–36.6; O2SAT 92–100; BMI 26.0
--- NOTE | ~2025-06-18 | US_ITS ---
US abdomen limited Indication: abnml lfts, nvd Comparison: None Technique: Lay-scale and color Doppler images were obtained. Findings: LIVER: Moderate increased echogenicity of the liver. . GALLBLADDER/BILIARY: Unremarkable.No cholelithiais, wall thickening or pericholecystic fluid. No biliary dilatation. CBD 2 mm. [place] sign negative. PANCREAS: Pancreas limited by bowel gas. Right Kidney: The right kidney was not imaged. Impression: 1. Moderate hepatic steatosis versus hepatocellular disease Reviewed, dictated and finalized at location P. [facility] Impression: 1. Moderate hepatic steatosis versus hepatocellular disease
--- NOTE | ~2025-06-18 | CT_ITS ---
EXAM/PROCEDURE: CT abdomen pelvis w con HISTORY: n/v, abnl lfts COMPARISON: May [id number] TECHNIQUE: Contrast-enhanced CT of the abdomen and pelvis performed FINDINGS: Fibrosing appearing changes in the lung bases similar to the previous exam. 4 mm pleural-based nodule on the left side image 23 series 4. 7 mm groundglass subpleural nodule similar area image 10 series 4, left lung base. These are not clearly present on the previous exam. Heart size normal. In the abdomen and pelvis, several loops of borderline distended small bowel with mild wall thickening present in the left hemiabdomen. Normal size appendix and aorta. The gallbladder is contracted but no gross CT evidence of acute cholecystitis seen. Pancreas liver spleen stomach and adrenals appear stable. Tiny cysts in the kidneys. No hydroureteronephrosis. No obstructing ureteral stones or urinary bladder stones. Urinary bladder is contracted but no obvious abnormality seen. Scattered diverticular disease with no gross acute diverticulitis. No bulky mesenteric or retroperitoneal lymphadenopathy or masses seen. Degenerative changes throughout the lumbar spine and moderate to severe degenerative changes in the hips right worse than left. IMPRESSION: 1. No acute surgical abnormality identified. Fluid-filled loops of borderline distended small bowel with mild wall thickening suggestive of inflammatory or infectious enteritis. 2. Other chronic findings as above. Note possible new lung nodules in the left lung base. Correlate with follow-up nonemergent chest CT. Reviewed, dictated and finalized at location A. TH MAKER IMPRESSION: 1. No acute surgical abnormality identified. Fluid-filled loops of borderline d istended small bowel with mild wall thickening suggestive of inflammatory or in fectious enteritis. 2. Other chronic findings as above. Note possible new lung nodules in the left lung base. Correlate with follow-up nonemergent chest CT.
--- NOTE | ~2025-06-18 | XR_ITS ---
EXAMINATION: XR chest 2V DATE: 06/18/2025 12:29 INDICATION: COPD TECHNIQUE: Frontal and lateral views of the chest were obtained. COMPARISON: April 12, 2025 FINDINGS: Emphysematous changes throughout the mid and upper lung salazar. No focal consolidation effusion or definite lymphadenopathy. Heart size normal. No pneumothorax or subphrenic free air seen. IMPRESSION: 1. No focal acute process. Advanced emphysematous appearing changes in the upper lungs noted. Reviewed, dictated and finalized at location A. [employer] IMPRESSION: 1. No focal acute process. Advanced emphysematous appearing changes in the uppe r lungs noted.
[2025-06-18 08:32] LABS: Hematocrit 42.6 % (42.0-52.0); Hemoglobin 14.7 g/dL (14.0-18.0); Immature Granulocyte Percent A 0.4 % (0-0.5); Immature Platelet Fraction Pct 7.0 % (0.9-11.2); Lymphocytes Absolute Auto 1.41 K/mm3 (0.9-3.2); Mean Corpuscular HGB Conc 34.5 g/dl (32-36); Mean Corpuscular Hemoglobin 35.6 pg (26-34); Mean Corpuscular Volume 103.1 fl (80-100); Nucleated Red Blood Cells Absolute Auto 0.000 K/mm3 (0.0-0.012); Nucleated Red Blood Cells Perc 0.0 % (0.0-0.2); Platelet Count Result 98 k/mm3 (150-375); Red Blood Count 4.13 M/mm3 (4.6-6.20); White Blood Count 7.9 K/mm3 (4.5-10.0)
[2025-06-18 08:41] LABS: Alanine Aminotransferase 117 U/L (6-50); Albumin Level 3.9 g/dL (3.5-5.1); Alkaline Phosphatase 122 U/L (38-126); Anion Gap 14 mmol/L (4-12); Aspartate Amino Transferase 223 U/L (17-59); Bilirubin,Total 3.8 mg/dL (0.2-1.3); Blood Urea Nitrogen 37 mg/dL (9-20); Calcium 9.2 mg/dL (8.4-10.2); Carbon Dioxide 19 mmol/L (22-30); Chloride 97 mmol/L (98-107); Estimated CRCL calculation 47 ml/min; Estimated Glomerular Filt Rate 53; Glucose 302 mg/dL (65-110); Lipase 457 U/L (23-300); Potassium 4.3 mmol/L (3.4-5.0); Sodium 130 mmol/L (137-145); Total Protein 7.7 g/dL (6.3-8.2)
[2025-06-18 08:51] LABS: Add Urine Microscopic? YES; Appearance Urine Clear (Clear); Need Manual Microscopic Reviewed
[2025-06-18] MEDS: FAMOTIDINE 20 MG/2 ML VIAL IV PUSH (09:38)
[2025-06-18] MEDS: ONDANSETRON INJ 4 MG/2 ML VIAL IV PUSH (09:38)
[2025-06-18] MEDS: SODIUM CHLORIDE 0.9% IV 1,000 ML 999 ML IV CONT ×2 (09:38→09:57)
[2025-06-18 09:40] LABS: Fractional Inspired Oxygen 21 %; HCO3 VBG 20.7 mEq/l (24.0-30.0); PCO2 VBG 33.8 mmHg (42.0-48.0); PO2 VBG 41.0 mmHg (35.0-45.0)
--- NOTE | 2025-06-18 09:40 | PC.NURSE ---
COVID/Flu/RSV swab sent to lab.
[2025-06-18 09:42] LABS: pH VBG 7.404 (7.300-7.400)
--- NOTE | 2025-06-18 09:45 | ED.NAVMDI ---
HPI - Nausea/Vomiting/Diarrhea General Chief complaint: Nausea/Vomiting/Diarrhea Stated complaint: flu like symptoms Time Seen by Provider: 06/18/25 09:02 Source: patient Mode of arrival: ambulatory Limitations: no limitations History of Present Illness HPI Narrative: Patient is a 65 y/o male, with PMH of DM, who presents to the ED with c/o vomiting, diarrhea. Patient reports having intermittent symptoms over the past 1 month. States symptoms have become worse over the past 1 week. He has not been able to keep down any food or drink over the past 4 days. Complains of persistent nausea, vomiting, diarrhea. Denies hematemesis, rectal bleeding, melena. States he has been unable to keep down his metformin and his blood sugar has been elevated. States he feels very weak and dehydrated. Reports having upset stomach, but denies significant abdominal pain. Reports mild cough/congestion. Denies fevers. Denies sick contacts. Related Data Home Medications ?Medication ?Instructions ?Recorded ?Confirmed ?Last Taken ?Type omega-3 fatty acids-fish oil 360 1 cap PO DAILY 11/18/24 06/18/25 06/16/25 08:00 History mg-1,200 mg capsule (Fish Oil) 1 cap semaglutide 0.25 mg or 0.5 mg (2 0.5 mg subcut WEEKLY 03/03/25 06/18/25 06/14/25 08:00 History mg/3 mL) subcutaneous pen injector 0.5 mg (Ozempic) atorvastatin 40 mg tablet 40 mg PO DAILY 06/18/25 06/18/25 06/16/25 08:00 History 40 mg Allergies Allergy/AdvReac Type Severity Reaction Status Date / Time empagliflozin (From AdvReac Intermediate Nausea Verified 06/18/25 13:50 Jardiance) Review of Systems Review of Systems: All systems reviewed & are unremarkable except as noted in HPI. All systems reviewed & are unremarkable except as noted in HPI and below PMFSH Past Medical History Medical History Tobacco use disorder Type 2 diabetes mellitus Hemoglobin A1c was 6.1% on 04/17/2021. Essential hypertension Depression Seizures Schizophrenia, paranoid Bipolar 1 disorder Surgical History Surgical History Status post left foot surgery Due to a laceration on the top of his foot as a child with repair of tendons. Family History Family History Other Diabetes mellitus Multiple family members with diabetes Social History Social History Social History: Surrogate medical decision maker: Esa Severino ([phone]). Code status: Full code. Smoking packs per day: 1 Smoking cigarettes per day: 20.0 Years smoked: 20 Smoking pack-years: 20.00 Smoking status: Current every day smoker Tobacco type: cigarettes Second hand tobacco smoke exposure: Yes Alcohol intake: former Drinks per week: 14 Substance use: never Substance use type: does not use Do You Feel Safe in your Home?: Yes Lack of Transportation: No Lack of Food: Never True Current Housing: I Have Housing Concerned About Future Housing: No Difficulty Paying Gas/Electric Bills: No Difficulty Paying for Meds: No Currently Unemployed: No Education: Grade School Difficulty w/ Childcare or Family Care: No Living arrangements: alone Additional living arrangements comments: The patient lives in his own home. Spiritual care concerns: No Exam Narrative: GENERAL: Mildly ill appearing, well-nourished, non-toxic, in no acute distress. HEAD: Normocephalic, atraumatic. RESPIRATORY: Airway patent, respirations nonlabored. Clear to auscultation bilaterally, no rales, rhonchi, wheezing. CARDIOVASCULAR: Borderline tachycardic with regular rhythm without murmurs, rubs, or gallops. ABDOMINAL: Soft, no significant focal tenderness, nondistended. Normoactive BS. MUSCULOSKELETAL: Moves all extremities. No gross deformities. SKIN: Warm, dry, normal color. NEURO: A&O X3. Speech clear. Cranial nerves II-XII grossly intact. Steady gait. No ataxic movements. PSYCHIATRIC: Appropriate mood and affect. Normal interaction. Course Vital Signs Vital signs: Vital Signs Temperature 36.4 C 06/18/25 08:13 Pulse Rate 108 H 06/18/25 08:13 Respiratory Rate 25 H 06/18/25 08:13 Blood Pressure 105/69 06/18/25 08:13 Pulse Oximetry 97 06/18/25 08:13 Oxygen Delivery Room Air 06/18/25 08:13 Temperature 36.2 C L 06/18/25 14:00 Pulse Rate 105 H 06/18/25 14:00 Respiratory Rate 18 06/18/25 14:00 Blood Pressure 98/63 L 06/18/25 14:00 Pulse Oximetry 97 06/18/25 14:00 Oxygen Delivery Room Air 06/18/25 14:57 MDM - Nausea/Vomiting/Diarrhea MDM Narrative Medical decision making narrative: Patient presented to ED with nausea, vomiting, diarrhea, unable to keep down food or drink for the past 4 days. Also reporting some URI sx's. Patient tachycardic, tachypneic, borderline hypotensive upon arrival. Afebrile here. Cbc without leukocytosis or anemia. Platelets are low at 98. This does appear consistent with previous records. CMP with evidence of dehydration. Fluids initiated. Sodium 130, bicarb 19. Anion gap of 14. Slight MARLA with creatinine of 1.35. Baseline per records around 0.6-0.9. BG 302. I am more suspicious for anion gap being related to acute dehydration versus DKA. VBG was obtained and no evidence of acidosis. Mild abnormalities of liver enzymes are noted. Total bili 3.8. AST 223. ALT 119. Lipase mildly elevated to 457. This appears new per previous records. No significant RUQ tenderness on exam. Patietn denies previous hx of pancreatitis, gallbladder/liver issues. Viral swabs negative. UA orange, unable to be fully analyze, no distinct signs of infection. CT of the abdomen/pelvis was obtained and showing enteritis of likely inflammatory/infectious etiology. No other surgical findings. This does fit with clinical picture. No abnormalities noted of gallbladder pancreas. Right upper quadrant ultrasound obtained and showing hepatitic steatosis vs hepatocellular disease. No cholelithiasis or common bile duct dilation Patient's blood pressure has been somewhat borderline here, has had several readings in the upper 80s, 90s systolic. He does seem to be responding to fluids. Most recent blood pressure 103/69. Given profound dehydration and prolonged nature of symptoms, borderline vital signs, will admit for further evaluation continued IV hydration, GI evaluation. Discussed case with [place] ESPINOZA hospitalist, accepted patient for admission. Patient is in agreement with plan and admission. Maintenance fluids ordered. Discussed case with Dr. Melendrez, GI, will consult and see patient. Medical Records Attestation: I reviewed the patient's medical records. Lab Data Attestation: I reviewed the patient's lab results. 06/18/25 08:25 06/18/25 08:25 Labs: Lab Results 06/18/25 06/18/25 06/18/25 Range/Units 08:25 08:26 09:36 WBC 7.9 (4.5-10.0) K/mm3 RBC 4.13 L (4.6-6.20) M/mm3 Hgb 14.7 (14.0-18.0) g/dL Hct 42.6 (42.0-52.0) % MCV 103.1 H (80-100) fl MCH 35.6 H (26-34) pg MCHC 34.5 (32-36) g/dl RDW 13.9 (11.5-14.5) % Plt Count 98 L (150-375) k/mm3 MPV 11.0 H (7.4-10.4) fl Immature Gran % (Auto) 0.4 (0-0.5) % Neut % (Auto) 66.5 (45.5-73.1) % Lymph % (Auto) 17.8 L (18.3-44.2) % Gonzales % (Auto) 13.9 H (2.6-8.5) % Eos % (Auto) 1.1 (0-4.4) % Baso % (Auto) 0.3 (0.2-1.2) % Lymph # (Auto) 1.41 (0.9-3.2) K/mm3 Gonzales # (Auto) 1.1 H (0.1-0.6) K/mm3 Eos # (Auto) 0.1 (0-0.3) K/mm3 Baso # (Auto) 0.0 (0.0-0.1) K/mm3 Abs Immat Gran (auto) 0.03 (0.00-0.031) K/mm3 Absolute Neuts (auto) 5.3 (1.3-6.7) K/mm3 Absolute Nucleated RBC 0.000 (0.0-0.012) K/mm3 Nucleated RBC % 0.0 (0.0-0.2) % % Immature Plt Fraction 7.0 (0.9-11.2) % Sodium 130 L (137-145) mmol/L Potassium 4.3 (3.4-5.0) mmol/L Chloride 97 L (98-107) mmol/L Carbon Dioxide 19 L (22-30) mmol/L Anion Gap 14 H (4-12) mmol/L BUN 37 H D (9-20) mg/dL Creatinine 1.35 H (0.7-1.3) mg/dL Estim Creat Clear Calc 47 ml/min Estimated GFR 53 L (59 - ) Glucose 302 H (65-110) mg/dL Calcium 9.2 (8.4-10.2) mg/dL Total Bilirubin 3.8 H (0.2-1.3) mg/dL AST 223 H (17-59) U/L ALT 117 H (6-50) U/L Alkaline Phosphatase 122 (38-126) U/L Total Protein 7.7 (6.3-8.2) g/dL Albumin 3.9 (3.5-5.1) g/dL Lipase 457 H (23-300) U/L Urine Color Florence H (Yellow) Urine Appearance Clear (Clear) Urine pH 5.0 (5.0-9.0) Ur Specific Boaz TNP Urine Protein TNP Urine Glucose (UA) TNP Urine Ketones TNP Ur Blood (Man) TNP Urine Nitrate TNP Urine Bilirubin TNP Urine Urobilinogen TNP Add Ur Microanalysis Reviewed Leukocyte Esterase Rfl TNP Urine RBC 0-2 (0-2) /hpf Urine WBC 0-5 (0-3) /hpf Ur Squamous Epith Cells None seen (Few) /hpf Urine Bacteria None seen /hpf Urine Casts 11-20 Hyaline Casts Present (None) /lpf Urine Mucus Present /lpf Influenza A (RT-PCR) Negative (Negative) Influenza B (RT-PCR) Negative (Negative) RSV (RT-PCR) Negative (Negative) SARS-CoV-2 RNA (RT-PCR) Negative (Negative) ABG Data ABG results: 06/18/25 09:36 VBG pH 7.404 H* VBG pCO2 33.8 L VBG pO2 41.0 VBG HCO3 20.7 L O2 Delivery Device Room air O2 Liters/Min Not Reportable FiO2 21 Attestation: I personally reviewed and interpreted this ABG as follows: Imaging Data Attestation: I personally reviewed and interpreted this imaging study as follows: Radiologist's impression: ITS Impressions Abdomen/Pelvis CT 06/18/25 09:35 IMPRESSION: 1. No acute surgical abnormality identified. Fluid-filled loops of borderline distended small bowel with mild wall thickening suggestive of inflammatory or infectious enteritis. 2. Other chronic findings as above. Note possible new lung nodules in the left lung base. Correlate with follow-up nonemergent chest CT. Abdomen Ultrasound 06/18/25 10:41 Impression: 1. Moderate hepatic steatosis versus hepatocellular disease Discharge Plan Discharge Clinical Impression: Enteritis, Dehydration, Transaminitis, Hyperbilirubinemia, MARLA (acute kidney injury) Nausea and vomiting Qualifiers: Vomiting type: unspecified Qualified Code(s): R11.2 - Nausea with vomiting, unspecified Patient Disposition: Still a Patient Condition: Stable
[2025-06-18 10:20] LABS: Influenza A QL RT-PCR Negative (Negative); Influenza B QL RT-PCR Negative (Negative); RSV RNA, RT-PCR Negative (Negative); SARS-CoV-2 RNA PCR Negative (Negative)
--- OUTSIDE RECORDS SUMMARY | 2025-06-18 10:44 | XMS_ITS | Data Portability ---
Author Organization [employer], [facility] Address [address] [address] Assessment No assessment recorded. Plan of Treatment Reminders Order Date Submit Date Provider Last Modified By Organization Details Last Modified Time Details Appointments None record ed. Lab None record ed. Referral None record ed. Procedures None record ed. Surgeries None record ed. Imaging None record ed. Medication Orders None record ed. Patient TargetsNo targets recorded. Patient InstructionsNo instructions recorded. Reason for Referral None Reported. Problems No Known Problems Medical Equipment None Reported. Allergies No known drug allergies Medications Name Sig Start Date Stop Date Status Note LastModified by Organization Details LastModified Time vitamin b-12 1000mcg tablet, s TAKE 1 TABLET BY MOUTH EVERY MORNING 12/21 completed Not Available Not Available Not Available oxcarbazepi ne 150 mg tablet TAKE 1 TABLET BY MOUTH TWICE A DAY active Not Available Not Available No t Available doxycycline hyclate 100 mg capsule TAKE 1 CAPSULE BY MOUTH EVERY 12 HOURS FOR 2 DAYS 12/21 completed Not Available Not Available Not Available clindamycin HCl 300 mg capsule TAKE 1 CAPSULE BY MOUTH EVERY 6 HOURS FOR 10 DAYS 12/21 completed Not Available Not Available Not Available hydrocodone 5 mg-acetamin ophen 325 mg tablet TAKE 1-2 TABLETS BY MOUTH EVERY 4-6 HOURS NEEDED FOR PAIN. MAX OF 8 TABS IN 24 HOURS 12/21 completed Not Available Not Available Not Available oxcarbazepi ne 300 mg tablet TAKE 1 TABLET BY MOUTH TWICE A DAY 12/21 completed Not Available Not Available Not Available sulfamethox azole 800 mg-trimetho prim 160 mg tablet TAKE 1 TABLET BY MOUTH EVERY 12 HOURS FOR 12 DAYS 12/21 completed Not Available Not Available Not Available aspirin 81 mg tablet,quentin yed release TAKE 1 TABLET BY MOUTH EVERY DAY 12/21 completed Not Available Not Available Not Available simvastatin 40 mg tablet TAKE 1 TABLET BY MOUTH EVERYDAY AT BEDTIME active Not Available Not Available No t Available trazodone 100 mg tablet TAKE 2 TABLETS BY MOUTH EVERYDAY AT BEDTIME 12/21 completed Not Available Not Available Not Available doxycycline monohydrate 100 mg capsule TAKE 1 CAPSULE BY MOUTH TWICE A DAY FOR 10 DAYS 12/21 completed Not Available Not Available Not Available cephalexin 500 mg capsule TAKE 1 CAPSULE BY MOUTH FOUR TIMES A DAY FOR 12 DAYS 12/21 completed Not Available Not Available Not Available mirtazapine 30 mg tablet TAKE 1 TABLET BY MOUTH EVERYDAY AT BEDTIME 12/21 completed Not Available Not Available Not Available metformin 1,000 mg tablet TAKE 1 TABLET BY MOUTH EVERY DAY active Not Available Not Available No t Available ibuprofen 600 mg tablet TAKE 1 TABLET BY MOUTH EVERY 6 HOURS NEEDED FOR PAIN 12/21 completed Not Available Not Available Not Available trihexyphen idyl 2 mg tablet TAKE 1 TABLET BY MOUTH EVERY DAY 12/21 completed Not Available Not Available Not Available lamotrigine 100 mg tablet TAKE 2 TABLETS BY MOUTH EVERY DAY IN THE MORNING AND TAKE 1 TABLET AT BEDTIME 12/21 completed Not Available Not Available Not Available olmesartan 40 mg tablet TAKE 1 TABLET BY MOUTH EVERY DAY active Not Available Not Available No t Available aripiprazol e 10 mg tablet TAKE 1 TABLET BY MOUTH EVERY DAY active Not Available Not Available No t Available aripiprazol e 5 mg tablet TAKE 1 TABLET BY MOUTH EVERY DAY IN THE EVENING FOR 30 DAYS active Not Available Not Available No t Available bupropion HCl XL 150 mg 24 hr tablet, extended release TAKE 1 TABLET BY MOUTH EVERY DAY IN THE MORNING active Not Available Not Available No t Available Januvia 100 mg tablet TAKE 1 TABLET BY MOUTH EVERY DAY active Not Available Not Available No t Available FreeStyle Lite Strips USE TO TEST ONCE A DAY DIRECTED active Not Available Not Available No t Available Caplyta 42 mg capsule TAKE 1 CAPSULE BY MOUTH EVERY DAY active Not Available Not Available No t Available Vitals Date Recorded Body height Body mass index (BMI) Body weight Heart rate Systolic And Diastolic Provider Name and Address Organization Details Last Updated DateTime 12/21/2021 172.72 cm 29.6 kg/m2 92001.51 g 92 /min 119/71 mm[Hg] Elieser Rainey [facility] [employer] [facility] [employer] [facility], [facility] 12/21/2021 10:48:14 Social History None recorded. Functional Status None recorded. Mental Status None recorded. Family History Nothing Reported. Medical History Condition Response Coronary Artery Disease N HIV or AIDS N Other Cancer N Gout N Kidney Stones N Hyperthyroidism N Breast Cancer N Head Trauma/Injury N Hernia N Lung Cancer N Hypothyroidism N Lung Disease N Depression N COPD N Blood Clots N Pacemaker N Parkinson's N Anxiety Disorder N Arthritis Y Alcohol / Substance Abuse N Kidney Cancer N Cancer N Stroke N Melanoma N Neck Injury N Leg or Foot Ulcers N High Cholesterol N Skin Cancer N Liver Disease N Rheumatoid Arthritis N Headaches N Fibromyalgia N Concussion N Kidney Disease N Heart Problems N Chronic use of Pain Medication N Prostate Cancer N Migraines N Thyroid Problems N Alzheimers N Autoimmune Disorder N Anemia N Multiple Sclerosis N Tendon Tear N Ulcers N Heart Attack ([place]) N Osteopenia N Diabetes Y Bleeding Disorder N Seizures/Epilepsy N Cardiac Stent N Tuberculosis N A-FIB N Lymphoma N Urinary Tract Infection N Back Problems N Diverticulitis N Asthma N Lupus N Peripheral Vascular Disease N Sleep Disorder N GERD/Reflux N Hepatitis N Aneurysm N Thyroid Cancer N Heart Disease N Pulmonary Embolism N Hypertension Y Osteoporosis N Past Encounters Encounter ID Performer Location Encounter Start Date Encounter Closed Date Diagnosis/Indication Diagnosis SNOMED-CT Code Diagnosis ICD10 Code Diagnosis IMO Codes Diagnosis Note [id number] Jayesh Epps MD [facility] [address] [place] [address] 12/21/2021 10:30:28 12/21/2021 12:47:17 Health Concerns Section Related Observation LastModified by Organization Detai ls LastModified Time None Recorded Concern Status LastModified by Organization Details LastModified Time None Recorded Advance Directives Directive None Recorded Payers Insurance Date Sequence Insurance Name Policy Number Policy Umanzor Covered Member ID Umanzor Member ID Guarantor Name 12/22/2021 1 MEDICARE B-[place]: WPS Juwan Harris [id number] Juwan Harris
--- OUTSIDE RECORDS SUMMARY | 2025-06-18 10:44 | XMS_ITS | Patient Health Record ---
Author Organization [facility] Address [address] [place], [place] [address] Care Team Providers Care Reliner Name Role Phone Karissa Mejia Unavailable [phone] Allergies No Known Allergies Results Component Value Reference Range Flag Notes .COMPREHENSIVE METABOLIC SANDS EL (11638) [facility] Reviewed date:06/08/2025 12:11:18 PM Interpretation: Performing Lab:[place], [facility]-[id number] Junaid Valentine, [id number] NatividadOphelia Tavarez MD Notes/Report: FASTING:UNKNOWN FASTING: UNKNOWN GLUCOSE 351 65-99 mg/dL H Fasting reference interval For someone without known diabetes, a glucose value >125 mg/dL indicates that they may have diabetes and this should be confirmed with a follow-up test. UREA NITROGEN (BUN) 9 7-25 mg/dL N CREATININE 0.91 0.70-1.35 mg/dL N EGFR 94 > OR = 60 mL/min/1.73m2 N BUN/CREATININE RATIO SEE NOTE: 6-22 (calc) reference range. Not Reported: BUN and Creatinine are within SODIUM 132 135-146 mmol/L L POTASSIUM 3.8 3.5-5.3 mmol/L N CHLORIDE 95 98-110 mmol/L L CARBON DIOXIDE 24 20-32 mmol/L N CALCIUM 8.9 8.6-10.3 mg/dL N PROTEIN, TOTAL 6.6 6.1-8.1 g/dL N ALBUMIN 3.7 3.6-5.1 g/dL N GLOBULIN 2.9 1.9-3.7 g/dL (calc) N ALBUMIN/GLOBULIN RATIO 1.3 1.0-2.5 (calc) N BILIRUBIN, TOTAL 1.1 0.2-1.2 mg/dL N ALKALINE PHOSPHATASE 110 35-144 U/L N AST 74 10-35 U/L H ALT 47 9-46 U/L H MAGNESIUM (622) Reviewed date:06/08/2025 08:54:09 AM Interpretation: Performing Lab:[facility]-[id number] Junaid Valentine, [id number] Jasbir Tavarez MD Notes/Report: FASTING:UNKNOWN FASTING: UNKNOWN MAGNESIUM 1.3 1.5-2.5 mg/dL L .LIPID PANEL, STANDARD (7600 ) Reviewed date:06/08/2025 08:54:15 AM Interpretation: Performing Lab:[facility]-[id number] Junaid Valentine, [id number] Jasbir Tavarez MD Notes/Report: FASTING:UNKNOWN FASTING: UNKNOWN CHOLESTEROL, TOTAL 149 <200 mg/dL N HDL CHOLESTEROL 34 > OR = 40 mg/dL L TRIGLYCERIDES 325 <150 mg/dL H If a non-fasting specimen was collected, consider repeat triglyceride testing on a fasting specimen if clinically indicated. Salo et al. J. of Clin. Lipidol. 2015;9:129-169. LDL-CHOLESTEROL 76 N Reference range: <100 Desirable range <100 mg/dL for primary prevention; <70 mg/dL for patients with CHD or diabetic patients better accuracy than the Friedewald equation in the estimation of LDL-C. Jaiden SS et al. SANG. 2013;310(19): 9235-3544 (http://education.[employer]/faq/YFC933) with > or = 2 CHD risk factors. LDL-C is now calculated using the Jaiden-Leyva calculation, which is a validated novel method providing CHOL/HDLC RATIO 4.4 <5.0 (calc) N NON HDL CHOLESTEROL 115 <130 mg/dL (calc) N factor, treating to a non-HDL-C goal of <100 mg/dL (LDL-C of <70 mg/dL) is considered a therapeutic option. For patients with diabetes plus 1 major ASCVD risk .CBC (INCLUDES DIFF/PLT) (63 99) Reviewed date:06/08/2025 08:54:03 AM Interpretation: Performing Lab:[facility]-[id number] Junaid Valentine, [id number] Jasbir Tavarez MD Notes/Report: FASTING:UNKNOWN FASTING: UNKNOWN WHITE BLOOD CELL COUNT 6.6 3.8-10.8 Thousand/uL N RED BLOOD CELL COUNT 3.82 4.20-5.80 Million/uL L HEMOGLOBIN 13.7 13.2-17.1 g/dL N HEMATOCRIT 43.2 38.5-50.0 % N MCV 113.1 80.0-100.0 fL H MCH 35.9 27.0-33.0 pg H MCHC 31.7 32.0-36.0 g/dL L For adults, a slight decrease in the calculated MCHC value (in the range of 30 to 32 g/dL) is most likely not clinically significant; however, it should be interpreted with caution in correlation with other red cell parameters and the patient's clinical condition. RDW 13.4 11.0-15.0 % N PLATELET COUNT 93 140-400 Thousand/uL L MPV 11.0 7.5-12.5 fL N ABSOLUTE NEUTROPHILS 4264 2746-4318 cells/uL N ABSOLUTE LYMPHOCYTES 2336 423-6781 cells/uL N ABSOLUTE MONOCYTES 541 200-950 cells/uL N ABSOLUTE EOSINOPHILS 92 15-500 cells/uL N ABSOLUTE BASOPHILS 20 0-200 cells/uL N NEUTROPHILS 64.6 N LYMPHOCYTES 25.5 N MONOCYTES 8.2 N EOSINOPHILS 1.4 N BASOPHILS 0.3 N .HEMOGLOBIN A1c (496) Reviewed date:06/08/2025 08:53:33 AM Interpretation: Performing Lab:[place], [facility]-[id number] [facility], [id number] Jasbir Tavarez MD Notes/Report: FASTING:UNKNOWN FASTING: UNKNOWN HEMOGLOBIN A1c 8.5 <5.7 % H test. For someone with known diabetes, a value <7% indicates that their diabetes is well controlled and a value greater than or equal to 7% indicates suboptimal control. A1c targets should be individualized based on duration of diabetes, age, comorbid conditions, and other considerations. Currently, no consensus exists regarding use of hemoglobin A1c for diagnosis of diabetes for children. For someone without known diabetes, a hemoglobin A1c value of 6.5% or greater indicates that they may have diabetes and this should be confirmed with a follow-up INSULIN (561) Reviewed date:06/08/2025 08:53:56 AM Interpretation: Performing Lab:[place], [facility]-[id number] Junaid Valentine, [id number] Jasbir Tavarez MD Notes/Report: FASTING:UNKNOWN FASTING: UNKNOWN INSULIN 27.4 H Reference Range < or = 18.4 Risk: Optimal < or = 18.4 Moderate NA High >18.4 Adult cardiovascular event risk category cut points (optimal, moderate, high) are based on Insulin Reference Interval studies performed at [facility] in 2021. T4, FREE (866) Reviewed date:06/08/2025 08:53:50 AM Interpretation: Performing Lab:[facility]-[id number] Valentine, [id number] Jasbir Tavarez MD Notes/Report: FASTING:UNKNOWN FASTING: UNKNOWN T4, FREE 1.2 0.8-1.8 ng/dL N TSH (899) Reviewed date:06/08/2025 08:53:45 AM Interpretation: Performing Lab:[facility] Desiree-Sarthak Valentine, [id number] Jasbir Tavarez MD Notes/Report: FASTING:UNKNOWN FASTING: UNKNOWN TSH 1.09 0.40-4.50 mIU/L N T3, FREE (39972) Reviewed date:06/08/2025 08:53:39 AM Interpretation: Performing Lab:[facility]-[id number] Valentine, [id number] Jasbir Tavarez MD Notes/Report: FASTING:UNKNOWN FASTING: UNKNOWN T3, FREE 2.9 2.3-4.2 pg/mL N CBC + AutoDiff 5 Reviewed date:2025 09:12:23 [...] CHOLESTEROL 52 40 mg/dL CHOL/HDL RATIO 2.54 T4, FREE Reviewed date:2025 09:11:49 AM Interpretation: Performing Lab: Notes/Report: T4, FREE 0.74 0.8-1.8 ng/dL L TSH Reviewed date:2025 09:12:05 AM Interpretation: Performing Lab: Notes/Report: TSH 1.407 0.40-4.50 mIU/L A1c% Reviewed date:2025 09:11:58 AM Interpretation: Performing Lab: Notes/Report: HEMOGLOBIN A1c % 7.57 4.5-6.3 % H CORTISOL, TOTAL (367) Reviewed date:03/11/2025 12:41:38 PM Interpretation: Performing Lab:[facility]-[id number] Junaid Valentine, [id number] Jasbir Tavarez MD Notes/Report: NON-FASTING; NON-FASTING FASTING:YES FASTING: YES CORTISOL, TOTAL 3.4 N Reference Range: For 8 a.m.(7-9 a.m.) Specimen: 4.0-22.0 Reference Range: For 4 p.m.(3-5 p.m.) Specimen: 3.0-17.0 * Please interpret above results accordingly * DEXAMETHASONE (28050) Reviewed date:03/19/2025 08:51:54 PM Interpretation: Performing Lab:[facility],[address] [facility] Mechelle Hernandez MD,PhD,MAYA Notes/Report: NON-FASTING; NON-FASTING FASTING:YES FASTING: YES DEXAMETHASONE 483 Reference Ranges for Dexamethasone: Baseline: Less than 20 ng/dL 1 mg dexamethasone overnight: 180-550 ng/dL (8:00-10:00 AM) This test was developed and its analytical performance characteristics have been determined by [facility]. It has not been cleared or approved by the FDA. This assay has been validated pursuant to the CLIA regulations and is used for clinical purposes. Reason For Referral No Information Medications Medication SIG (Take, Route, Frequency, Duration) Notes Start Date End Date Status Ozempic (0.25 or 0.5 MG/DOSE) 2 MG/3ML Solution Pen-injector inject 0.25 mg once weekly x 4 weeks then increase to 0.5 mg weekly Subcutaneous once a week; Duration: 90 days 01/16/2025 Active traZODone HCl 50 MG Tablet 1 tablet at bedtime as needed Orally Once a day once in a while Active Olmesartan Medoxomil 40 MG Tablet 1 tablet Orally Once a day Active Vitamin B-1 100 MG Tablet 1 tablet Orally Once a day Active Lunesta 1 MG Tablet 1 tablet immediately before bedtime Orally Once a day; Duration: 30 days please send alternatives, I do not know what these are TY 03/01/2025 Active Ozempic (0.25 or 0.5 MG/DOSE) 2 MG/3ML Solution Pen-injector 0.5 mg Subcutaneous once a week; Duration: 90 days 06/01/2025 Active metFORMIN HCl ER 500 MG Tablet Extended Release 24 Hour 1 tablet with meals Orally twice daily; Duration: 90 days 02/26/2025 Active [place] 3 Fish Oil Act thao Albuterol Sulfate 108 (90 Base) MCG/ACT Aerosol Powder Breath Activated 1 puff as needed Inhalation every 4 hrs Active Vitamin D3 Active Social History Section Notes: tobacco: yes, 40 years alcohol: yes, 40 years, 5 days a week, beer caffeine: yes, 1 cup, 2-3 days a week tobacco: yes, 40 years alcohol: yes, 40 years, 5 days a week, beer caffeine: yes, 1 cup, 2-3 days a week Problems Problem Type SNOMED Code ICD Code Onset Dates Problem Status W/U Status Risk Notes Problem Autoimmune thyroiditis (20057156) Autoimmune thyroiditis (E06.3) Active confirmed Problem Mixed hyperlipidemia (852281449) Mixed hyperlipidemia (E78.2) Active confirmed Problem Insomnia (043939811) Insomnia due to medical condition (G47.01) Active confirmed Problem Dyslipidemia (872131288) Dyslipidemia (E78.5) Active confirmed Problem Hyperglycemia due to type 2 diabetes mellitus (010782174287109) Type 2 diabetes mellitus with hyperglycemia, without long-term current use of insulin (E11.65) Active confirmed Problem Primary hypertension (05088544) Primary hypertension (I10) Active confirmed Vital Signs Heart Rate 107 /min 06/01/2025 Height-cm 175.26 cm 06/01/2025 Oximetry 95 % 06/01/2025 Blood pressure diastolic 86 mm Hg 06/01/2025 Weight-kg 79.47 kg 06/01/2025 Height 69 in 06/01/2025 Blood pressure systolic 131 mm Hg 06/01/2025 Weight 175.2 lbs 06/01/2025 BMI 25.87 kg/m2 06/01/2025 Encounters Encounter Location Date Provider Diagnosis Dr. Haresh Hancock [facility] [address] [place] [address] 02/26/2025 Karissa Mejia Mixed hyperlipidemia E78.2 ; Fatigue R53.83 and Abnormal glucose R73.[address] Mejia [address] [place] [phone] 01/16/2025 Karissa Mejia Type 2 diabetes clarice itus with hyperglycemia, without long-term current use of insulin E11.65 ; Dyslipidemia E78.5 ; Weight gain R63.5 ; Primary hypertension I10 ; Other fatigue R53.83 and Dietary counseling and surveillance Z71.[address] Mejia [address] [place] [phone] 02/26/2025 Karissa Mejia Type 2 diabetes clarice itus with hyperglycemia, without long-term current use of insulin E11.65 ; Dyslipidemia E78.5 ; Primary hypertension I10 ; Dietary counseling and surveillance Z71.3 and Insomnia due to medical condition G47.[address] Mejia [address] [place] [phone] 06/01/2025 Karissa Mejia Type 2 diabetes clarice itus with hyperglycemia, without long-term current use of insulin E11.65 ; Mixed hyperlipidemia E78.2 ; Primary hypertension I10 and Dietary counseling and surveillance Z71.[address] Mejia [address] [place] [phone] 01/14/2025 Karissa Mejia [facility] [address] [place] [phone] 01/27/2025 Karissa Mejia [address] [phone] 2025 Karissa Mejia Elevated liver enzym es R74.[address] Mejia [address] [place] [address] 03/04/[address] Mejia [address] [place] [phone] 06/01/2025 Karissa Mejia Assessments Encounter Date Diagnosis (ICD Code) Assessment Notes Treatment Notes Treatment Clinical Notes Section Notes 01/16/2025 Dyslipidemia (ICD-10 - E78.5) 01/16/2025 Type 2 diabetes mellitus with hyperglycemia, without long-term current use of insulin (ICD-10 - E11.65) 02/26/2025 Dyslipidemia (ICD-10 - E78.5) 02/26/2025 Type 2 diabetes mellitus with hyperglycemia, without long-term current use of insulin (ICD-10 - E11.65) 02/26/2025 Mixed hyperlipidemia (ICD-10 - E78.2) 2025 Elevated liver enzymes (ICD-10 - R74.8) 06/01/2025 Type 2 diabetes mellitus with hyperglycemia, without long-term current use of insulin (ICD-10 - E11.65) 06/01/2025 Mixed hyperlipidemia (ICD-10 - E78.2) 02/26/2025 Fatigue (ICD-10 - R53.83) 02/26/2025 Primary hypertension (ICD-10 - I10) 01/16/2025 Weight gain (ICD-10 - R63.5) 01/16/2025 Primary hypertension (ICD-10 - I10) 02/26/2025 Dietary counseling and surveillance (ICD-10 - Z71.3) Spent 15 minutes preventative counseling patient on dietary recommendations and changes in setting of hyperglycemia- need to restrict refined sugars and processed foods and incorporate up to 150 minutes of moderate level activity weekly. 02/26/2025 Abnormal glucose (ICD-10 - R73.09) 06/01/2025 Primary hypertension (ICD-10 - I10) 06/01/2025 Dietary counseling and surveillance (ICD-10 - Z71.3) Spent 15 minutes preventative counseling patient on dietary recommendations and changes in setting of hyperglycemia- need to restrict refined sugars and processed foods and incorporate up to 150 minutes of moderate level activity weekly. 01/16/2025 Other fatigue (ICD-10 - R53.83) 02/26/2025 Insomnia due to medical condition (ICD-10 - G47.01) 01/16/2025 Dietary counseling and surveillance (ICD-10 - Z71.3) Spent 15 minutes preventative counseling patient on dietary recommendations and changes in setting of hyperglycemia- need to restrict refined sugars and processed foods and incorporate up to 150 minutes of moderate level activity weekly. 01/16/2025 Other Assessment and Plan: 1. Diabetes Mellitus, Type 2- Initiate Ozempic (semaglutide) subcutaneous injection: - Start at 0.25 mg once weekly for 4 weeks, then increase to 0.5 mg once weekly - Instruct patient to inject with food: inject, eat a little, then finish the meal - Inform patient that each pen lasts 4-6 shots- Continue current metformin regimen (dosage and frequency not specified)- Educate patient on proper Ozempic administration and potential side effects- Encourage patient to monitor blood glucose levels regularly- Follow up in 6 weeks to assess response to new medication regimen- Target A1c goal of 7% or lower- Advise patient to report any adverse effects or if unable to tolerate Ozempic 2. Recent Heat Stroke and Seizure- Advise patient to avoid strenuous outdoor activities in hot weather- Recommend follow-up with primary care provider or neurologist for ongoing management of post-heat stroke symptoms and seizure evaluation 3. Diabetic Retinopathy- Emphasize the importance of glycemic control in preventing progression of diabetic retinopathy- Recommend follow-up with supervisor cell room for ongoing monitoring and management of diabetic retinopathy 4. Dyspnea on Exertion- Advise patient to report any worsening of symptoms or new chest pain- Consider referral to cardiology or pulmonology for further evaluation if symptoms persist or worsen Spent 45 minutes preparing to see the patient (ex review of tests/chart), obtaining and / or reviewing separately obtained history, performing a medically appropriate examination and/or evaluation, counseling and educating the patient/family/car egiver, ordering medications, tests, or procedures, referring and communicating with other health acute care physician, documenting clinical information in the electronic or other health record, independently interpreting results and communicating results to the patient/family/car egiver and care coordinating patient plan. Patient alert and oriented x 4 and aware of discussion noted above and in agreeance to plan in management of uncontrolled type 2 DM, dyslipidemia, weight gain, fatigue. 02/26/2025 Rodolfo Echeverria, a male patient with a history of diabetes, hypertension, and hyperlipidemia, presents for follow-up with concerns about high blood pressure, sleep disturbances, and diabetic retinopathy. Type 2 Diabetes MellitusAssessment : Patient is currently on Ozempic and metformin for glycemic control. He reports no side effects from Ozempic, which was prescribed last month. The patient mentions blurred vision, which he attributes to diabetes. He also reports that his blood vessels are starting to bleed in one of his eyes, indicating possible progression of diabetic retinopathy. An updated A1C is needed to assess current glycemic control.Plan:- Continue Ozempic 0.5 mg subcutaneously weekly- Continue metformin extended-release (dosage not specified) twice daily with meals- Order A1C test- Recommend follow-up with retinal specialist for diabetic retinopathy management- Educate patient on the importance of regular eye exams for diabetic retinopathy monitoring HypertensionAssess ment: Patient reports high blood pressure readings recently. He was previously on olmesartan, which was discontinued by another provider due to fluctuating blood pressure levels. The patient expresses concern about the management of his hypertension.Plan: - Prescribe olmesartan 20 mg PO daily, to be taken at bedtime- Instruct patient to monitor blood pressure at home, preferably at bedtime- Educate patient on the rationale for nighttime dosing to potentially reduce daytime dizziness- Follow up to assess efficacy and tolerability of the new dosing regimen InsomniaAssessment : Patient reports difficulty maintaining sleep, with frequent awakenings throughout the night. He previously tried trazodone but experienced undesirable side effects. [id number] melatonin was effective initially but lost efficacy over time.Plan:- Prescribe ramelteon 8 mg PO at bedtime for 30 days- Educate patient on sleep hygiene measures- Advise against alcohol use for sleep, as mentioned by the patient- Follow up to assess efficacy and tolerability of ramelteon HyperlipidemiaAsse ssment: Patient is currently on atorvastatin for cholesterol management. He denies significant muscle aches or cramps, which are potential side effects of statin therapy.Plan:- Continue atorvastatin (dosage not specified)- Order lipid panel to assess current cholesterol levels Night SweatsAssessment: Patient reports occasional episodes of night sweats, describing waking up freezing cold, soaking wet about a month ago. This could be related to various conditions, including hormonal imbalances or blood sugar fluctuations.Plan: - Order cortisol test to evaluate for potential endocrine disorders- Monitor for any correlation with blood sugar levels Spent 25 minutes preparing to see the patient (ex review of tests/chart), obtaining and / or reviewing separately obtained history, performing a medically appropriate examination and/or evaluation, counseling and educating the patient/family/car egiver, ordering medications, tests, or procedures, referring and communicating with other health acute care physician, documenting clinical information in the electronic or other health record, independently interpreting results and communicating results to the patient/family/car egiver and care coordinating patient plan. Patient alert and oriented x 4 and aware of discussion noted above and in agreeance to plan in management of type 2 DM, dyslipidemia, hypertension, insomnia and need to rule out hypercortisolism. 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 Diabetes mellitusAssessment : Patient has been off Ozempic for at least one month due to prescription pickup delay at pharmacy. Current blood glucose levels around 180 mg/dL, not reaching 200s. Patient reports occasional dizziness and lightheadedness. Still taking metformin. A1c needs to be checked as it has not been done recently since last visit in December.Plan:- Refill Ozempic prescription- Order A1c- Continue metformin Elevated cortisolAssessment : Patient has elevated cortisol levels but does not present with typical Cushingoid appearance. Patient has history of significant weight loss of nearly 200 pounds with medication changes and appears to have normal weight currently. Blood work including cortisol testing has not been repeated since Ruthie visit.Plan:- Order blood work and await liver u/s as this may be high from liver condition, need imaging Liver abnormalityAssessm ent: Patient completed liver ultrasound [facility] but results have not been received. Patient obtained CD of results for neurosurgeon consultation but office lacks CD reader capability.Plan:- Await ultrasound results- If ultrasound shows liver abnormalities, will order more specialized liver tests HypertensionAssess ment: Blood pressure appears improved on current regimen with olmesartan.Plan:- Continue olmesartan DyslipidemiaAssess ment: Patient reports having remaining supply of statin medication, likely atorvastatin which was prescribed as alternative to simvastatin due to superior efficacy.Plan:- Continue atorvastatin Sleep disturbanceAssessm ent: Patient reports fragmented sleep pattern with 4-hour sleep periods followed by awakening and return to sleep. Uses trazodone intermittently for sleep but reports variable effectiveness and side effects. History of sleep apnea but reports this is resolved.Plan:- Continue trazodone as needed for sleep Spent 25 minutes preparing to see the patient (ex review of tests/chart), obtaining and / or reviewing separately obtained history, performing a medically appropriate examination and/or evaluation, counseling and educating the patient/family/car egiver, ordering medications, tests, or procedures, referring and communicating with other health acute care physician, documenting clinical information in the electronic or other health record, independently interpreting results and communicating results to the patient/family/car egiver and care coordinating patient plan. Patient alert and oriented x 4 and aware of discussion noted above and in agreeance to plan in management of type 2 DM, mixed dyslipidemia, hypertension. Plan Of Treatment Pending Test Test Name Order Date US ABDOMEN COMPLETE 2025 Next Appt Details Provider Name:Karissa Mejia, 01:40:00 PM, [address] [place] [address], [phone], Provider Name:Karissa Mejia, 02:00:00 PM, [address] [place] [address], [phone], Insurance Providers Payer Name Payer Address Payer Phone Subscriber Number Group Number Insured Name Patient Relationship to Insured Coverage Start Date Coverage End Date [facility] Medicare part B [address] [address] [place] [address] [id number] Juwan Harris Self - patient is the insured Medical (General) History Medical History History ICD Code Diabetes Surgical History Surgery Date(Month/Year) left foot surgery left collar bone Hospitalization History Reason Date(Month/Year) heat stroke 2024
--- OUTSIDE RECORDS SUMMARY | 2025-06-18 10:44 | XMS_ITS | Patient Health Record ---
Author Organization [facility] [employer] Address [address] [place] [address] Care Team Providers Care Table Saw Operator Name Role Phone Leslie Morel Unavailable [phone] Annetta Harrisonanna Unavailable [phone] Reason For Referral No Information Medications Medication SIG (Take, Route, Frequency, Duration) Notes Start Date End Date Status ARIPiprazole 10 MG Tablet TAKE 1 TABLET BY MOUTH EVERY DAY; Duration: 90 NEED TO SCHEDULE APPT FOR FURTHER REFILLS Active ProAir HFA 108 (90 Base) MCG/ACT Aerosol Solution Inhalation 07/13/2023 Act thao OneTouch Delica Plus [id number] Miscellaneous 07/13/2023 Acti ve Jardiance 25 MG Tablet Oral 07/13/2023 Active Multi Vitamin *Pick strength-form from [facility] for eRX* 07/13/2023 Active methylPREDNISolone 4 MG Tablet Therapy Pack Oral 07/13/2023 Active OneTouch Verio Strip In Vitro 07/13/2023 Active Olmesartan Medoxomil 40 MG Tablet Oral 07/13/2023 Active VARENICLINE 0.5 MG (11)-1 MG (42) TABLETS IN A DOSE PACK *Reorder from [facility] for eRx and Interaction Alerts* 07/13/2023 Active Simvastatin 40 MG Tablet Oral 07/13/2023 Active Amoxicillin-Pot Clavulanate 875-125 MG Tablet Oral 07/13/2023 Active ONETOUCH VERIO FLEX EACH MISCELLANEOUS *Reorde r from [facility] for eRx and Interaction Alerts* 07/13/2023 Active OXcarbazepine 150 MG Tablet 1 tablet Orally Twice a day; Duration: 14 days MAKE APPOINTMENT FOR ANY FURTHER REFILLS third attempt Active metFORMIN HCl ER 500 MG Tablet Extended Release 24 Hour Oral 07/13/2023 Active Azithromycin 250 MG Tablet Oral 07/13/2023 Active Doxycycline Hyclate 100 MG Capsule Oral 07/13/2023 Active Ozempic (0.25 or 0.5 MG/DOSE) 2 MG/3ML Solution Pen-injector Subcutaneous *Pick strength-form from [facility] for eRX* 07/13/2023 Active Ozempic (1 MG/DOSE) 4 MG/3ML Solution Pen-injector Subcutaneous *Pick strength-form from [facility] for eRX* 07/13/2023 Active buPROPion HCl ER (XL) 150 MG Tablet Extended Release 24 Hour Oral 07/13/2023 Active Immunizations Vaccine Route Administration [...] 1st dose Unknown 11/17/2021 Ad ministered Novel [id number], preservative free Unknown 04/24/2016 Administered Novel [id number], preservative free Unknown 04/18/2018 Administered Novel Erqsehbov-[id number], preservative free Unknown 04/17/2020 Administered Pneumococcal polysaccharide PPV23 Unknown 05/20/2012 Ad ministered Pneumococcal polysaccharide PPV23 Unknown 11/18/2018 Ad ministered Social History Sex Assigned At : Social History Observation Description Sex Assigned At Male Social History Additional Details Category Social Info Options Details Migrated Social History Migrated Social History Alcohol Intake: Moderate 07/13/2023,Tobacco Years: Current every day smoker 12/10/2019,Smoking Status: 30 07/13/2023 Encounters Encounter Location Date Provider Diagnosis [address] [facility] [address] [place] [address] 10/16/2024 Nicole [place] [id number] [facility] [address] [facility] [address] [place] [address] 10/15/[address] [facility] [address] [place] [address] 11/11/2024 Leslie Morel Plan Of Treatment No Information Insurance Providers Payer Name Payer Address Payer Phone Subscriber Number Group Number Insured Name Patient Relationship to Insured Coverage Start Date Coverage End Date Medicare-I l Medicare [address] [place] [address] [id number] KATERIN TIWARI Self - patient is the insured Medicaid-I l Medicaid [address] [address] [place] [address] [id number] KATERIN TIWARI Self - patient is the insured Medical (General) History Surgical History Surgery Date(Month/Year) Xcapsl ctrc rmvl cplx wo ecp ([id number]) 09/2020
--- OUTSIDE RECORDS SUMMARY | 2025-06-18 10:45 | XMS_ITS | Data Portability ---
Author Organization [place] [facility] [employer], Main Office Address [address] [place] [address] Care Team Providers Care Company Manager Name Role Phone STEVEN HIGGINS Primary Care Provider [phone] STEVEN HIGGINS Referring Provider [phone] [facility] Automation Controls Expert ARELIS AYALA Psychiatrist SHAYLA FAUST Waist Cutter BELINDA DE LOS SANTOS Metal Riveting Machine Operator GAURI KEANE Primary Care Provider [phone] Assessment Encounter Date Assessment Date Assessment LastModified by Organization Details LastModified Time 08/12/2024 08/12/2024 04/09/2023: A1C 6.7 PSA 0.84 MCV 101.5 07/05/2024: [place] [facility] Gluc 200, AST/ALT 244/77 H/H 12.1/35.0, MCV 105.4, PLT 75 [email or web address] Not available 08/12/2024 18:02:43 08/26/2024 08/26/2024 04/09/2023: A1C 6.7 PSA 0.84 MCV 101.5 07/05/2024: [place] [facility] Gluc 200, AST/ALT 244/77 H/H 12.1/35.0, MCV 105.4, PLT 75 08/14/2024: PSA 0.97 A1C 7.1 MCV 107.3, PLT 145 TG 176 Gluc 168 Urine micro alb 20.4 VIT D 22.7 45 minutes spent with the patient, labs reviewed, call placed for [facility] and chart updated and multiple BP checks done [email or web address] Not available 08/28/2024 09:17:06 09/04/2024 09/04/2024 Assessment: Nicotine smoke: 1 ppd 1984-present = 40 pack years Mild COPD (+) homogeneous VY 1:80 Mild pulmonary fibrosis 5 mm LLL nodule (+) right to left extracardiac shunt Plan: The following were reviewed and explained to the patient: Lab data 01/24/22 homogeneous VY 1:80, multiple environmental allergies Chest CT 11/30/21 bilateral progressive pulmonary fibrosis since 11/18/[address] 03/10/22 peripheral lower lobe predominant, R>L fibrosis, 5 mm LLL nodule Chest CT 12/15/22 peripheral lower lobe predominant, R>L fibrosis, 5 mm LLL nodule, increased GGO Chest CT 07/21/24 emphysema and right lung base fibrosis with peripheral reticulation PFT 02/09/22 FEV1 3.05 L (93%), BD -210 mL = -7%, TLC 6.54 L (104%), RV 1.53 L (67%), DLCO 65%, DLCO/VA 80% PFT 09/04/24 FEV1 2.93 L (90%), BD 30 mL = 1%, TLC 6.26 L (98%), RV 1.70 L (72%), DLCO 70%, DLCO/VA 71% Bubble echocardiogram 03/30/22 EF 62%, (+) right to left extracardiac shunt Dr. Rene Amaro note 03/10/22 order HRCT, echo with bubble study, start Anoro ellipta in addition to albuterol Dr. Rene Amaro note 01/25/23 ff up in 9 months Nicotine cessation counseling provided. [place] for quitting nicotine include getting ready, getting support and encouragement, learning new skills and behaviors and being prepared to handle slips. Tips for dealing with cravings provided. Prevention of subsequent illnesses from nicotine addiction discussed. Comorbidities include but are not limited to hypertension, cerebrovascular disease, coronary heart disease, congestive heart failure, hyperlipidemia, COPD/asthma, peptic ulcer disease, esophagitis/gastri tis, and osteoporosis. Therapy options offered include: Quitting by total abstinence Receiving nicotine replacement therapy Undergoing hypnosis Filling a bupropion or varenicline prescription Enrolling in Quit For Life program Registering at [email or web address] Making a call to 9-722-LPBS-NOW ( ). A strong, clear, personalized message was given to the patient to quit smoking. The patient was urged to set a quit date. We discussed patient's barriers to quitting and I will be of assistance when patient is ready to quit. I encouraged patient to inform friends and family of plans to quit with a request for support. I encouraged the patient to remove all cigarettes from the environment. We reviewed any previous quit attempts and lessons learned from them. I encouraged total abstinence from smoking and advised the patient that drinking alcohol and/or associating with other smokers are associated with failure or relapse. Patient can enroll in [facility]'s smoking cessation class through Mary Ann Ballard RN at . Enrollment is free and classes are held every sunday of the month from 1:30 pm to 2:30 pm at the conference room next to the cafeteria on the ground floor. He has tried 4 mg nicotine gums x 1/2 year in 2018 with decreased cravings. Patient will be referred to Dr. Rene Amaro , , FAX at [facility] ([facility]) for follow up regarding pulmonary fibrosis, if agreeable. High resolution chest CT and complete PFT one week before return. General information on COPD was covered. COPD affects breathing. Self-care skills such as not smoking, using medications as prescribed, oxygen therapy, and knowing when to contact the healthcare provider are covered. Diaphragmatic breathing and pursed lip breathing are explained and demonstrated. Positive lifestyle changes are introduced. Following these self-care skills will help in the management of COPD so the patient can stay out of the hospital. Continue Albuterol HFA 1 puff every 4 hours as needed. Patient declined maintenance inhaler. He never started on the Anoro Ellipta prescribed at [facility]. The patient does not know how to accurately administer the inhaler. Today, the patient was shown how to take this medication. The proper technique for delivering this medication was instructed. The patient expressed a clear understanding and demonstrated back how to use this medication. Without the proper technique, the patient will not reap the benefits of this medication as the contents will not reach the lower airways as intended to be. Adherence to therapy is advocated. Nonadherence may lead to treatment failure, further progression of the condition, and other complications. Hospitals admissions are often the result of individuals not taking prescription medications accurately. Alternatively, greater adherence to medication regimens have shown to lower rates of hospitalization and decrease total medical costs in patients with chronic medical conditions. Advocated influenza vaccination annually and pneumonia vaccination MAURILIO. Advocated weight loss through diet and exercise. Patient's ideal body weight according to height and gender is up to 165 lbs. Encouraged patient to adjust caloric intake to maintain/achieve ideal body weight, emphasizing on fruits, vegetables, whole grains, and fat-free or low-fat products. These include lean meats, poultry, fish, beans, eggs, and nuts and foods that are low in saturated fats, trans-fats, cholesterol, salt (sodium), and glycemic index. Stressed the importance of regular exercise up to the patient's capacity limits. In this case, we recommend 20 min daily walking, 2 days a week of resistance training. Patient to monitor BP daily and bring records to PCP for further management. Follow-up: 1 year, August [email or web address] Not available 09/04/2024 14:11:17 Plan of Treatment Reminders Order Date Submit Date Provider Last Modified By Organization Details Last Modified Time Details Appointments None recorded. Lab vitamin B12 + folate, serum or blood 2024 025 [email or web address] 6 [facility] (Lab), [address] [place], [address], 5 14:45:21 lipid panel, serum 2024 025 [email or web address] 6 [facility] (Lab), [address] [place], [address], 5 14:45:20 CBC w/ auto diff 2024 025 [email or web address] 6 [facility] (Lab), [address] [place], [address], 5 14:45:21 TSH, serum or plasma [email or web address] [place] [address] (Lab), [address] [place], [address], 5 14:45:21 CMP, serum or plasma [address] (Lab), [address] [place], [address], 5 14:45:21 vitamin D, 25-hydroxy, total, serum [address] (Lab), [address] [place], [address], 5 08:38:06 glycohemogl obin, total, blood [address] (Lab), [address] [place], [address], 5 14:45:21 microalbumi n, urine [address] (Lab), [address] [place], [address], 5 14:45:21 vitamin B12 + folate, serum or blood [address] (Lab), [address] [place], [address], 5 17:59:32 lipid panel, serum 2024 025 [facility] (Lab), [address] [place], [address], 5 11:35:20 CBC w/ auto diff 2024 025 [facility] (Lab), [address] [place], [address], 5 12:48:44 TSH, serum or plasma 2024 025 [facility] (Lab), [address] [place], [address], 5 11:55:38 CMP, serum or plasma 2024 025 [facility] (Lab), [address] [place], [address], 5 11:35:24 PSA, total, serum or plasma 2024 025 [facility] (Lab), [address] [place], [address], 5 11:55:57 vitamin D, 25-hydroxy, total, serum [email or web address] [place] [address] (Lab), [address] [place], [address], 5 11:30:00 glycohemogl obin, total, blood 2024 025 [facility] (Lab), [address] [place], [address], 5 13:59:16 microalbumi n, urine 2024 025 [facility] (Lab), [address] [place], [address], 5 12:25:03 Referral facility service manager referral 2024 025 [email or web address] 42 Miguelangel Camarena MD, [address] [place] [address], DORON Gonzalez, [address], 5 09:03:[address] referral - Please call patient to schedule an appointment . Thank you. 2024 025 [email or web address] Shayla Faust MD, [address] [place], [address], 14:24:35 psychiatris t referral - Please call patient to schedule. Thank you. 2024 025 [email or web address] 6 Susan Evans Pmhnp, [address] [place] [address] [address], [address], 11:56:53 networking administrator referral - Please call patient to schedule. Thank you. 2024 025 [email or web address] Belinda De Los Santos DPM, [address] [place] [address], [facility] [address], [address], 14:29:30 endocrinolo gy referral - Please call patient to schedule an appointment . Thank you. 2024 025 [email or web address] 6 Leroy Sheffield MD, [address], [place], [address], 09:43:12 cardiologis t referral - Please call patient to schedule an appointment . Thank you. 2024 025 [email or web address] 6 [place], [address] [address] , [address], [address], 17:48:[address] referral - Please call patient to schedule. 2024 025 [email or web address] Shayla Faust MD, [address] [place] [address], [address], 17:54:28 psychiatris t referral - Please call patient to schedule. 2024 025 [email or web address] Susan Evans Pmhnp, [address] [place] [address] [address], [place], [address], 17:57:57 networking administrator referral - Please call patient to schedule. 2024 025 [email or web address] Belinda De Los Santos DPM, [address] [place] [address], [address], [place], [address], 5 17:57:09 endocrinolo gy referral 2024 025 [email or web address] Leroy Sheffield MD, [address], [place], [address], 17:57:56 cardiologis t referral 2024 025 [place], [address], [address], [place], [address], 5 17:54:29 Procedures None recorded. Surgeries None recorded. Imaging CT, chest, w/o contrast - Please call patient to schedule. Note from provider: HIGH RESOLUTIOJN FOR ILD/PULM FIBROSIS 2024 026 [email or web address] Not available 5 14:01:01 Medication Orders mupirocin 2 % topical ointment 2024 025 [facility]/Pharmacy #2510, [address] [place], [address], 5 16:39:10 Bactrim DS 800 mg-160 mg tablet 2024 025 [facility], [address] [place], [address], 5 15:53:20 albuterol sulfate HFA 90 mcg/actuati on aerosol inhaler 2024 025 [facility]/Pharmacy #2510, [address] [place], [address], 5 20:16:13 cholecalcif chhaya (vitamin D3) 1,250 mcg (50,000 unit) capsule [email or web address]/Pharmacy #2510, [address] [place], [address], 5 15:52:32 folic acid 1 mg tablet [address]/Pharmacy #2510, [address] [place], [address], 5 15:52:48 thiamine HCl (vitamin B1) 100 mg tablet [address]/Pharmacy #2510, [address] [place] [address], [address], 5 15:53:26 bupropion HCl XL 150 mg 24 hr tablet, extended release [address]/Pharmacy #2510, [address] [place], [address], 5 15:52:16 bupropion HCl XL 150 mg 24 hr tablet, extended release [address]/Pharmacy #2510, [address] [place] [address], [address], 5 15:52:16 Patient TargetsNo targets recorded. Patient Instructions Encounter Date Encounter Id Patient Instructions Last Modified By Organization Details Last Modified Time 08/12/2024 [id number] diabetic eye exam* [email or web address] Not avail able 02/09/2025 08:12:22 08/26/2024 [id number] diabetic eye exam* [email or web address] Not avai lable 02/23/2025 08:43:43 09/04/2024 [id number] complete PFT w/ post bronchodilator spirometry* [email or web address] Not available 09/04/2024 14:01:01 10/14/2024 [id number] Prescribed Bactr im for antimicrobial coverage. He will have a sinus CT completed. Audiogram and tympanogram to be completed. we will follow up on these results become available. He will see Dr. Camarena due to a nonhealing small left tympanic membrane perforation for a surgical consultation. [email or web address] Not available 10/14/2024 16:03:06 Reason for Referral Metal Riveting Machine Operator Referral for Type 2 diabetes mellitus without complication Please call patient to schedule. Referring Physician: Tripp L[facility], Encounter Date: 08/12/2024 Waist Cutter Referral for I nterstitial lung disease Please call patient to schedule. Referring Physician: Tripp Lutz [facility], Encounter Date: 08/12/2024 Automation Controls Expert Referral for Co ronary arteriosclerosis Referring Physician: Tripp Lutz [facility], Encounter Date: 08/12/2024 Endocrinology Referral for T ype 2 diabetes mellitus without complication Referring Physician: Tripp Lutz [facility], Encounter Date: 08/12/2024 Psychiatrist Referral for Sc hizophrenia Please call patient to schedule. Referring Physician: Tripp Lutz [facility], Encounter Date: 08/12/2024 Metal Riveting Machine Operator Referral for Type 2 diabetes mellitus without complication Please call patient to schedule. Thank you. Referring Physician: Tripp Lutz [facility], Encounter Date: 08/26/2024 Waist Cutter Referral for I nterstitial lung disease Please call patient to schedule an appointment. Thank you. Referring Physician: Catarino Santos Medicine, Encounter Date: 08/26/2024 Automation Controls Expert Referral for Co ronary arteriosclerosis Please call patient to schedule an appointment. Thank you. Referring Physician: Tripp Lutz [facility], Encounter Date: 08/26/2024 Endocrinology Referral for T ype 2 diabetes mellitus without complication Please call patient to schedule an appointment. Thank you. Referring Physician: Catarino Santos Medicine, Encounter Date: 08/26/2024 Psychiatrist Referral for Sc hizophrenia Please call patient to schedule. Thank you. Referring Physician: Tripp Lutz [facility], Encounter Date: 08/26/2024 Corporate Secretary Referral for Perfo ration of left tympanic membrane Referring Physician: Linh Cheung, Otolaryngology, Encounter Date: 10/14/2024 Results Created Date Observation Date Name Description Value Unit Range Abnormal Flag Note LastModifiedBy Organization Detail LastModifiedTime 07/17/20 24 03/20/2022 CT, chest , w/o contr ast No observ ation record ed. BARCODE Not Available 2023 19:29:01 07/17/20 24 12/15/2022 CT, angio gram, chest , w/wo contr ast No observ ation record ed. [facility]CODE Not Available 2023 19:29:01 07/21/20 24 07/21/2024 CT, chest , w/o contr ast No observ ation record ed. [address] [place], [address], 07/21/2024 14:26:52 09/01/19 25 08/29/2024 SPECT , gated blood pool scan, stres s, w/ wall motio n + eject ion fract ion No observ ation record ed. [address] [facility] [address], [place], [address], 09/03/2024 19:26:53 09/05/19 25 09/04/2024 compl ete PFT w/ post [facility] hodil ator [facility] * No observ ation record ed. [facility] ([facility]) [address] [place], [address], 09/05/2024 12:43:56 Result Notes None recorded. Problems Name Problem SNOMED Code Status Onset Date Resolution Date Notes Provider Name and Address Organization Details Recorded Time Pain in lower limb 75976509 Completed Not Available [facility] 3 04:54:45 Tobacco user 263129691 Completed Not Available [facility] 3 04:54:45 Prostatis m 19394140 Completed Not Available [facility] 3 04:54:45 Injury of knee 170309272 Completed Not Available [facility] 3 04:54:46 Submandib ular lymphaden opathy 402541779 Completed Not Available [facility] 3 04:54:46 Knee joint effusion 622609999 Completed Not Available [facility] 3 04:54:46 Ankle pain 274228259 Completed Not Available [facility] 3 04:54:46 Headache 18099155 Completed Not Available [facility] 3 04:54:46 Low back pain 656130230 Completed Not Available [facility] 3 04:54:46 Shoulder joint painful on movement 310473365 Completed Not Available [facility] 3 04:54:46 Disorder of prostate 62988228 Completed Not Available [facility] 3 04:54:47 Transient memory loss Completed Not Available [facility] 3 04:54:47 Prostate mass 733121953 Completed Not Available [facility] 3 04:54:47 Type 2 diabetes mellitus without complicat ion 407786735 Active Not Available [facility] 3 04:54:47 Sprain of shoulder 6697017 Completed Not Available [facility] 3 04:54:47 Dehydrati on 60608311 Completed Not Available [facility] 3 04:54:47 Blood in urine 41319577 Completed Not Available [facility] 3 04:54:48 Acute pharyngit is 945472564 Completed Not Available [facility] 3 04:54:48 Prostate specific antigen above reference range 103548364 Completed Not Available [facility] 3 04:54:48 Dizziness 452272731 Completed Not Available [facility] 3 04:54:48 Nausea 722826057 Completed Not Available [facility] 3 04:54:49 Seasonal allergy 954549884 Active Not Available [facility] 3 04:54:49 Pain of shoulder region 26603164 Completed Not Available [facility] 3 04:54:49 Foot pain 88304505 Completed Not Available [facility] 3 04:54:49 Pain of hip region 48890884 Completed Not Available [facility] 3 04:54:49 Cough 01060601 Completed Not Available [facility] 3 04:54:49 Hyperlipi demia 80049076 Active Not Available [facility] 3 04:54:50 Acid reflux 127872977 Active Not Available [facility] 3 04:54:50 Diabetes mellitus 98912635 Completed Not Available [facility] 3 04:54:50 Pain of elbow region 83968996 Completed Not Available [facility] 3 04:54:51 Posterior rhinorrhe a 68198124 Completed Not Available [facility] 3 04:54:51 Epigastri c pain 96375523 Completed Not Available [facility] 3 04:54:51 Neck pain 50874131 Completed Not Available [facility] 3 04:54:51 Hyperuric emia 94793118 Active 2019 Not Available [facility] 3 04:54:48 Paranoid schizophr enia 88265725 Active 2020 Not Available [facility] 3 04:54:50 Fibrosis of lung 95598049 Active 2021 Not Available [facility] 3 04:54:50 Osteoarth ritis of hip 131093646 Active 2021 Not Available [facility] 3 04:54:46 Essential hypertens ion 42944576 Active 2022 Karissa Mejia MD [address], [address], [place], [address] , [employer] 3 14:53:00 Nicotine dependenc e 93027214 Active 2022 NABOR Odell [address], [address], [place], [address] , [employer] 3 11:45:12 Bipolar disorder 04065212 Active 2022 NABOR Odell [address], [address], [place], [address] , [employer] 3 11:45:34 Macrocyto sis 163406916 Active 2023 Tripp rich MD [address], [address], [place], [address] , [facility] 4 12:19:13 Coronary arteriosc lerosis 35765683 Active 2023 Tripp rich MD [address], [address], [place], [address] , [facility] 4 12:33:03 Hypothyro idism 33555120 Active 2023 Ruchi Granados RMAmbrose null, [facility] 4 11:29:21 Alcohol dependenc e 62339068 Active 2023 Tripp rich MD [address], [address], [place], [address] , [facility] 4 16:08:35 Vitamin D deficienc y 26091827 Active 2023 Tripp rich MD [address], [address], [place], [address] , [facility] 4 16:30:06 Mild chronic obstructi ve pulmonary disease 671477410 Active 2023 Shayla Faust MD [address], [address], [place], [address] , [facility] 4 15:22:22 Proteinur ia 19704105 Active 2023 Gonzalez Rodriguez LPN null, [facility] 4 09:37:55 Liver enzymes level above reference range 923164547 Active 2023 Gonzalez Rodriguez LPN null, [facility] 4 09:39:03 Pain of bilateral hip joints 45364352418 937484 Active 2024 Tripp rich MD [address], [address], [place], [address] , [place] [facility] 5 17:56:45 Interstit ial lung disease 689478991 Active 2024 Tripp rich MD [address] [facility], [facility] [address], [place], [address] , [place] [facility] 5 17:56:45 Cigarette smoker 79231256 Active 2024 Tripp rich MD [address] [facility], [address] [address], [place], [address] , [facility] 5 17:56:45 Chronic sinusitis 81478840 Active 2024 Linh Edgar RN null, [place] [facility] 5 15:40:28 Sensorine ural hearing loss 93573129 Active 2024 Linh Edgar RN null, [place] [facility] 5 15:40:33 Perforati on of left tympanic membrane 83415684817 09257 Active 2024 Linh Edgar RN null, [place] [facility] 5 15:40:46 Superfici al injury of nose with infection 98566004 Active 2024 SUNIL Davenport [address] [facility], [address] [address], [place], [address] , [facility] 5 15:44:55 Deviated nasal septum 434929867 Active 2024 SUNIL Davenport [address] [facility], [address] [address], [place], [address] , [facility] 5 15:46:24 Acute folliculi tis 025660695 Active [address] MD [address] [facility], [address] [address], [place], [address] , [facility] 5 16:38:51 Notes:Medical History: Chron ic ischemic brain Bipolar disorder/Paranoid schizophrenia Left hearing loss Bilateral tinnitus Bilateral nasal fractures Rhinitis to multiple environmental allergens with postnasal drip IgE 162 IU/mL Eosinophils 440/uL Alpha-1 antitrypsin PiMM 154 mg% Nicotine dependence Mild COPD Homogeneous VY 1:80 Pulmonary fibrosis 5 mm LLL nodule R>L extracardiac shunt, no AVM EF 57% Obesity Hypertension Mixed hyperlipidemia T2DM with microalbuminuria CAD LO Alcoholism Hyperuricemia Macrocytic anemia Thrombocytopenia Vit D deficiency Bilateral hip OA Procedure History: Colonoscopies 2010, 2016 Bilateral cataract extraction with IOL 2018 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 Procedures Surgical History Date Name Laterality Status Provider Name and Address Organization Details Recorded Time 4 Medicare Wellness CPT Code, subsequent cancelled Gonzalez Rodriguez LPN [facility] 01/07/2024 18:21:42 3 Medicare Wellness CPT Code, subsequent completed VALENTIN OdellP-C [address] [facility], [facility] [address], [place], [address], [facility] 11/30/2022 12:15:16 Orthopedic Surgery completed Not Available [facility] 09/27/2022 04:44:18 Prostate completed Not Available [facility] 04:44:18 Imaging Results None recorded. Procedure Notes None recorded. Medical Equipment None Reported. Allergies No known drug allergies Medications Name Sig Start Date Stop Date Status Note LastModified by Organization Details LastModified Time amoxicill in 500 mg capsule TK 1 C PO Q 8 HOURS active Not Available Not Available No t Available atorvasta tin 40 mg tablet TAKE 1 TABLET BY MOUTH EVERY DAY 03/26 completed Not Available Not Available Not Available oxcarbaze pine 150 mg tablet 150 MG ORALLY TWICE A DAY FOR 90 DAYS 03/26 completed Not Available Not Available Not Available prednison e 10 mg tablet 09/03 completed Not Available Not Available Not Available doxycycli ne hyclate 100 mg capsule TAKE 1 CAPSULE BY MOUTH TWICE A DAY FOR 10 DAYS 10/01 completed Not Available Not Available Not Available cefuroxim e axetil 250 mg tablet active Not Available Not Available Not Available clindamyc in HCl 300 mg capsule TAKE 1 CAPSULE BY MOUTH EVERY 6 HOURS FOR 10 DAYS 05/04 completed Not Available Not Available Not Available trazodone 50 mg tablet TAKE 1 TABLET BY MOUTH EVERY DAY AT BEDTIME NEEDED FOR SLEEP 03/26 completed Not Available Not Available Not Available azithromy christina 250 mg tablet TAKE 2 TABLETS BY MOUTH TODAY, THEN TAKE 1 TABLET DAILY FOR 4 DAYS DIRECTED 10/01 completed Not Available Not Available Not Available lidocaine 5 % topical cream Apply cream bid to left lower leg x 7 days 01/04 completed Not Available Not Available Not Available Lidocaine Viscous 2 % mucosal solution TAKE 5 ML BY MOUTH Q 4 TO 6 HOURS NEEDED FOR 15 DAYS 06/12 completed Not Available Not Available Not Available ofloxacin 0.3 % eye drops 02/07 completed Not Available Not Available Not Available hydrocodo ne 5 mg-acetam inophen 325 mg tablet TAKE 1 2 TABLETS BY MOUTH EVERY 4 6 HOURS NEEDED FOR PAIN. MAX OF 8 TABS IN 24 HOURS 04/06 completed Not Available Not Available Not Available meloxicam 15 mg tablet TAKE 1 TABLET BY MOUTH EVERY MORNING FOR 30 DAYS(MONIK E WITH FOOD) active Not Available Not Available No t Available FreeStyle Lancets 28 gauge TK ONE TIME DAILY UTD active Not Available Not Available No t Available phenazopy ridine 200 mg tablet TK 1 T PO TID 02/17 completed Not Available Not Available Not Available lisinopri l 20 mg tablet active Not Available Not Available Not Available thiamine HCl (vitamin B1) 100 mg tablet Take 1 tablet every day by oral route for 90 days. 03/26 completed Not Available Not Available Not Available oxcarbaze pine 300 mg tablet TAKE 1 TABLET BY MOUTH TWICE A DAY 01/04 completed Not Available Not Available Not Available allopurin ol 100 mg tablet Take 1 tablet every day by oral route for 90 days. 09/30 completed Not Available Not Available Not Available ciproflox acin 500 mg tablet Take 1 tablet(s ) every 12 hours by oral route starting one day before the prostate biopsy. active Not Available Not Available No t Available sulfameth oxazole 800 mg-trimet hoprim 160 mg tablet TAKE 1 TABLET BY MOUTH EVERY 12 HOURS FOR 10 DAYS 03/26 completed Not Available Not Available Not Available hydrocodo ne 10 mg-acetam inophen 325 mg tablet TK 1 TO 2 TABLETS PO Q 6 HOURS PRN P 02/17 completed Not Available Not Available Not Available aspirin 81 mg tablet,de layed release TAKE 1 TABLET BY MOUTH EVERY DAY 01/04 completed Not Available Not Available Not Available quetiapin e 100 mg tablet active Not Available Not Available Not Available triamcino lone acetonide 0.1 % topical cream APPLY THIN COAT TO AFFECTED AREA TWICE A DAY 01/04 completed Not Available Not Available Not Available simvastat in 40 mg tablet TAKE 1 TABLET BY MOUTH EVERYDAY AT BEDTIME active Not Available Not Available No t Available ketorolac 0.5 % eye drops 02/07 completed Not Available Not Available Not Available Tessalon Perles 100 mg capsule Take 1 capsule every 4-6 hours by oral route as directed for 15 days. 01/28 completed Not Available Not Available Not Available amoxicill in 875 mg tablet active Not Available Not Available Not Available prednisol one acetate 1 % eye drops,mila pension 04/06 completed Not Available Not Available Not Available chlordiaz epoxide 25 mg capsule Take 1 capsule 3 times a day by oral route. 03/26 completed Not Available Not Available Not Available trazodone 100 mg tablet TAKE 2 TABLETS BY MOUTH EVERYDAY AT BEDTIME 04/06 completed Not Available Not Available Not Available dexametha sone 1 mg tablet 1 TABLET ORALLY ONCE AT 10 PM FOR A 8 AM LAB DRAW 03/26 completed Not Available Not Available Not Available doxycycli ne monohydra te 100 mg capsule Take 1 capsule twice a day by oral route for 10 days. active Not Available Not Available No t Available cephalexi n 500 mg capsule TAKE 1 CAPSULE BY MOUTH FOUR TIMES A DAY FOR 12 DAYS 05/04 completed Not Available Not Available Not Available pantopraz ole 40 mg tablet,de layed release TK 1 T PO QD 02/17 completed Not Available Not Available Not Available mirtazapi ne 30 mg tablet TAKE 1 TABLET BY MOUTH EVERYDAY AT BEDTIME 04/06 completed Not Available Not Available Not Available metformin 1,000 mg tablet TAKE 1 TABLET BY MOUTH EVERY DAY 10/24 completed Not Available Not Available Not Available misoprost ol 200 mcg tablet take 1 PO BID with diclofen ac active Not Available Not Available No t Available prednison e 50 mg tablet TAKE 1 TABLET BY MOUTH DAILY 03/26 completed Not Available Not Available Not Available nicotine 21 mg/24 hr daily transderm al patch Apply 1 patch every day by transder mal route. active Not Available Not Available No t Available trihexyph enidyl 5 mg tablet TAKE 1 TABLET BY MOUTH TWICE A DAY 04/06 completed Not Available Not Available Not Available omeprazol e 20 mg capsule,d elayed release 1 PO DAILY active knee pain Not Available Not Available Not Available irbesarta n 75 mg tablet TK 1 T PO QD 07/09 completed Not Available Not Available Not Available diclofena c sodium 75 mg tablet,de layed release Take 1 tablet twice a day by oral route. active Not Available Not Available No t Available folic acid 1 mg tablet Take 1 tablet every day by oral route for 90 days. 03/26 completed Not Available Not Available Not Available monteluka st 10 mg tablet Take 1 tablet every day by oral route in the evening for 90 days. active Not Available Not Available No t Available Baby Aspirin 81 mg chewable tablet Chew 1 tablet every day by oral route. 09/30 completed Not Available Not Available Not Available mupirocin 2 % topical ointment APPLY A SMALL AMOUNT TO AFFECTED AREA 3 TIMES A DAY active Not Available Not Available No t Available irbesarta n 150 mg tablet Take 1 tablet every day by oral route for 90 days. 04/28 completed Not Available Not Available Not Available lorazepam 1 mg tablet TK 1 TO 2 TS PO HS 02/17 completed Not Available Not Available Not Available ibuprofen 600 mg tablet TAKE 1 TABLET BY MOUTH EVERY 6 HOURS NEEDED FOR PAIN 02/07 completed Not Available Not Available Not Available levofloxa christina 500 mg tablet TK 1 T PO QD 12/24 completed Not Available Not Available Not Available methylpre dnisolone 4 mg tablets in a dose pack TAKE 6 TABLETS ON DAY 1 DIRECTED ON PACKAGE AND DECREASE BY 1 TAB EACH DAY FOR A TOTAL OF 6 DAYS 10/01 completed Not Available Not Available Not Available albuterol sulfate HFA 90 mcg/actua tion aerosol inhaler INHALE 1 PUFF EVERY 4 HOURS NEEDED active Not Available Not Available No t Available SSD 1 % topical cream APPLY A 1/16 INCH (1.5 MM) THICK LAYER TO ENTIRE BURN AREA BY TOPICALR OUTE 2 TIMES PER DAY ON LEFT LOWER LEG 09/03 completed Not Available Not Available Not Available trihexyph enidyl 2 mg tablet TAKE 1 TABLET BY MOUTH EVERY DAY 01/04 completed Not Available Not Available Not Available perphenaz ine 8 mg tablet active Not Available Not Available Not Available cefdinir 300 mg capsule 01/11 completed Not Available Not Available Not Available fluticaso ne propionat e 50 mcg/actua tion nasal spray,mila pension SHAKE LQ AND U 2 SPRAYS IEN QD 11/18 completed Not Available Not Available Not Available metformin ER 500 mg tablet,ex tended release 24 hr TAKE 1 TABLET BY MOUTH TWICE A DAY WITH MEALS active Not Available Not Available No t Available doxycycli ne hyclate 100 mg tablet 09/03 completed Not Available Not Available Not Available lamotrigi ne 100 mg tablet TAKE 1 TABLET BY MOUTH EVERY MORNING AND THEN 1 TABLET BY MOUTH AT BEDTIME 04/06 completed Not Available Not Available Not Available amoxicill in 875 mg-potass ium clavulana te 125 mg tablet TAKE 1 TABLET BY MOUTH EVERY 12 HOURS FOR 7 DAYS 08/06 completed Not Available Not Available Not Available olmesarta n 20 mg tablet TAKE 1 TABLET BY MOUTH EVERYDAY AT BEDTIME active Not Available Not Available No t Available olmesarta n 40 mg tablet TAKE 1 TABLET BY MOUTH EVERY DAY 03/26 completed Not Available Not Available Not Available aripipraz ole 10 mg tablet TAKE 1 TABLET BY MOUTH EVERY DAY 07/17 completed Not Available Not Available Not Available cyclobenz aprine 5 mg tablet TK 1 T PO HS active Not Available Not Available No t Available aripipraz ole 5 mg tablet 01/24 completed Not Available Not Available Not Available bupropion HCl XL 150 mg 24 hr tablet, extended release TAKE 1 TABLET BY MOUTH EVERY DAY IN THE MORNING 03/26 completed Not Available Not Available Not Available eszopiclo ne 1 mg tablet TAKE 1 TABLET BY MOUTH EVERY DAY IMMEDIAT DARNELL BEFORE BEDTIME 03/26 completed Not Available Not Available Not Available aspirin 09/30 completed 81 mg daily Not Available Not Available Not Available Fish Oil 01/23 completed Not Available Not Available Not Available FreeStyle Lancets test 3 times daily quanity 100 02/24 completed called into pharmacy 12-03-13 Not Available Not Available Not Available multivita min 08/29 completed Not Available Not Available Not Available varenicli ne tartrate 0.5 mg (11)-1 mg (42) tablets in a dose pack TAKE PER PACKAGE DIRECTIO NS 03/26 completed Not Available Not Available Not Available Januvia 100 mg tablet TAKE 1 TABLET BY MOUTH EVERY DAY 10/24 completed Not Available Not Available Not Available Fish Oil 1,000 mg capsule 1 CAP. 2 TIMES DAILY 02/24 completed Not Available Not Available Not Available Symbicort 160 mcg-4.5 mcg/actua tion HFA aerosol inhaler Inhale 2 puffs twice a day by inhalati on route. active Not Available Not Available No t Available FreeStyle Lite Meter kit FPD 02/24 completed Not Available Not Available Not Available cholecalc iferol (vitamin D3) 1,250 mcg (50,000 unit) capsule Take 1 capsule every week by oral route for 90 days. 03/26 completed Not Available Not Available Not Available Rapaflo 8 mg capsule Take 1 capsule every day by oral route for 14 days. 06/12 completed Sample Qty: 14. Not Available Not Available Not Available Latuda 40 mg tablet TK 1 T PO QHS active Not Available Not Available No t Available Latuda 80 mg tablet TK 1 T PO QD active Not Available Not Available No t Available OneTouch Verio test strips USE TO TAKE BLOOD GLUCOSE ONCE DAILY active Not Available Not Available No t Available Latuda 60 mg tablet TK 1 T PO QD active Not Available Not Available No t Available Anoro Ellipta 62.5 mcg-25 mcg/actua tion powder for inhalatio n INHALE 1 (ONE) PUFF BY MOUTH ONCE DAILY. REASONS: CHRONIC OBSTRUCT NAI LUNG DISEASE 11/30 completed Not Available Not Available Not Available Fluvirin 45 mcg (15 mcg x 3)/0.5 mL intramusc ular suspensio n INJECT 0.5 ML INTRAMUS CULARLY DIRECTED . active Not Available Not Available No t Available Jardiance 25 mg tablet TAKE 1 TABLET BY MOUTH EVERY DAY IN THE MORNING 08/12 completed Not Available Not Available Not Available Fluarix Quad (PF) 60 mcg (15 mcg x 4)/0.5 mL IM syringe active Not Available Not Available Not Available OneTouch Verio Flex Meter USE DIRECTED . OK TO SUBSTITU TE METER STRIPS AND LANCETS PER INSURANC E COVERAGE 07/07 completed Not Available Not Available Not Available Flulaval Quad 60 mcg (15 mcg x 4)/0.5 mL IM suspensio n ADM 0.5ML IM UTD active Not Available Not Available No t Available Fluvirin 45 mcg (15 mcg x 3)/0.5 mL intramusc ular suspensio n ADM 0.5ML IM UTD 09/11 completed Not Available Not Available Not Available Ozempic 0.25 mg or 0.5 mg (2 mg/1.5 mL) subcutane ous pen injector INJECT 0.5 MG EVERY WEEK BY SUBCUTAN EOUS ROUTE AT DINNER FOR 90 DAYS. 03/26 completed Not Available Not Available Not Available OneTouch Delica Plus Lancet 33 gauge USE TO TEST BLOOD GLUCOSE ONCE DAILY 08/29 completed Not Available Not Available Not Available Flucelvax Quad (PF) 60 mcg (15 mcg x 4)/0.5 mL IM syringe ADM 0.5ML IM UTD 06/30 completed Not Available Not Available Not Available Caplyta 42 mg capsule TAKE 1 CAPSULE BY MOUTH EVERY DAY 11/23 completed Not Available Not Available Not Available Afluria Qd (36 mos up)(PF)60 mcg (15 mcg x4)/0.5 mL IM syringe ADM 0.5ML IM UTD 09/30 completed Not Available Not Available Not Available Ozempic 1 mg/dose (4 mg/3 mL) subcutane ous pen injector Inject 1 mg every week by subcutan eous route at dinner for 90 days. 06/14 completed Not Available Not Available Not Available Ozempic 0.25 mg or 0.5 mg (2 mg/3 mL) subcutane ous pen injector INJECT 0.25 MG ONCE WEEKLY X 4 WEEKS THEN INCREASE TO 0.5 MG WEEKLY SUBCUTAN EOUS ONCE A WEEK active Not Available Not Available No t Available Vitals Date Recorded Body height Body mass index (BMI) Body weight Body temperature Heart rate Systolic And Diastolic Provider Name and Address Organization Details Last Updated DateTime 172.72 cm 25.8 kg/m2 83005.7 g 97.2 [degF] 84 /min 110/62 mm[Hg] RuchiKIRA Childress [facility] [employer] [facility] 17:49:11 Date Recorded Body height Body mass index (BMI) Body weight Heart rate Respiratory rate Oxygen saturation Heart rate Systolic And Diastolic Systolic And Diastolic Provider Name and Address Organization Details Last Updated DateTime 5 172.72 cm 26.5 kg/m2 51801.0 7 g 96 /min 16 /min 96 % 103 /min 106/68 mm[Hg] 106/60 mm[Hg] Bonnie Laron [facility] [employer] 5 16:17:03 Date Recorded Heart rate Respiratory rate Provider N norman and Address Organization Details Last Updated DateTime 09/04/2024 83 /min 15 /min Shayla Faust MD [address] [place] [address], [place], [address], [facility] [employer] 09/04/2024 14:04:58 Date Recorded Body height Body mass index (BMI) Body weight Body temperature Heart rate Oxygen saturation Systolic And Diastolic Provider Name and Address Organization Details Last Updated DateTime 172.72 cm 26.5 kg/m2 59411.0 7 g 98.4 [degF] 83 /min 96 % 110/64 mm[Hg] Denise Lewis MA [facility] [employer] [facility] 13:35:58 Date Recorded Body height Body mass index (BMI) Body weight Body temperature Provider Name and Address Organization Details Last Updated DateTime 10/14/2024 172.72 cm 27.1 kg/m2 34231.44 g 98.1 [degF] Linh Edgar RN [facility] [employer] 10/14/2024 15:23:29 Date Recorded Body height Body mass index (BMI) Body weight Body temperature Provider Name and Address Organization Details Last Updated DateTime 03/26/2025 172.72 cm 25.8 kg/m2 31400.7 g 97.6 [degF] Linh Edgar RN [facility] [employer] 03/26/2025 15:49:42 Social History Question Answer Notes LastModified by Organizat ion Details LastModified Time Tobacco Smoking Status Current Every Day Smoker Not Available [facility] 09/27/2022 04:41:46 What Is Your Level Of Caffeine Consumption? Moderate [id number] Information not available 09/27/2022 How Much Tobacco Do You Chew? None [id number] Information not available 09/27/2022 In The 14 Days Before Symptom Onset, Have You Had Close Contact With A Laboratory-confi rmed COVID-19 While That Case Was Ill? No [id number] Information not available 09/27/2022 In The 14 Days Before Symptom Onset, Have You Had Close Contact With A Person Who Is Under Investigation For COVID-19 While That Person Was Ill? No [id number] Information not available 09/27/2022 What Type Of Diet Are You Following? REGULAR [id number] Information not available 09/27/2022 Which Illicit Or Recreational Drugs Have You Used? None [id number] Information not available 09/27/2022 What Is The Highest Grade Or Level Of School You Have Completed Or The Highest Degree You Have Received? [id number] Information not available 11/30/2022 Do You Have An Electrostatic Air Filter? No Information not available 07/17/2024 Have There Been Any Changes To Your Family Or Social Situation? No Information not available 11/30/2022 What Is The Fluoride Status Of Your Home? Unknown Information not available 11/30/2022 Are There Any Guns Present In Your Home? Yes Information not available 11/30/2022 Do You Have A Humidifier? No Information not available 07/17/2024 Do You Use Insect Repellent Routinely? No Information not available 11/30/2022 Where Do You Live? SingleLevelHouse Information not available 11/30/2022 Do You Have Moisture Problems In Your Home? No Information not available 07/17/2024 What Was The Date Of Your Most Recent Tobacco Screening? 09/04/2024 [email or web address] Information not available 09/04/2024 Have You Ever Been Counseled For Unhealthy Alcohol Use? No [id number] Information not available 09/27/2022 Do You Have Any Pets? Yes Information not available 11/30/2022 What Is Your Relationship Status? [id number] Information not available 09/27/2022 Do You Use Your Seat Belt Or Car Seat Routinely? Yes Information not available 07/17/2024 Do You Have Smoke And Carbon Monoxide Detectors In Your Home? Yes Information not available 11/30/2022 At What Age Did You Start Smoking Tobacco? 13 [id number] Information not available 09/27/2022 Are You Passively Exposed To Smoke? Yes Information not available 11/30/2022 Are There Any Smokers In Your House? No Information not available 11/30/2022 How Much Tobacco Do You Smoke? 1 PPD Information not available 11/30/2022 Do You Use Sunscreen Routinely? No Information not available 11/30/2022 Has Tobacco Cessation Counseling Been Provided? No [id number] Information not available 09/27/2022 Have You Recently Traveled Abroad? No [id number] Information not available 09/27/2022 Do You Have Any Dietary Restrictions? No [id number] Information not available 09/27/2022 Sex: Male Functional Status Question Answer Note LastModified by Organizat ion Details LastModified Time Do you use any illicit or recreational drugs? No [id number] Information not available 09/27/2022 Do you or have you ever used any other forms of tobacco or nicotine? No [id number] Information not available 09/27/2022 What is your level of alcohol consumption? Heavy 3/4 pint of Captsamra Aquino rum every day--stopp ed 2-3 beers per day [email or web address] Information not available 08/12/2024 Do you or have you ever used smokeless tobacco? Never used smokeless tobacco [id number] Information not available 09/27/2022 Are you currently employed? No RETIRED Information not available 11/30/2022 Have you been exposed to chemicals or toxins? Not that aware of Information not available 07/17/2024 Do you or have you ever used e-cigarettes or vape? Never used electronic cigarettes [id number] Information not available 09/27/2022 What is your exercise level? Occasional [id number] Information not available 09/27/2022 Mental Status Question Answer Note LastModified by Organization D etails LastModified Time Do you feel stressed (tense, restless, nervous, or anxious, or unable to sleep at night)? [id number] Information not available 07/17/2024 Family History Relationship Description Onset Age of this Age Resolved Age Notes LastModified by Organization Details LastModified Time Maternal Grandmother Heart disease [id number] Not available 09/27/2022 04:44:24 Father Dementia [id number] Not available 09/27/2022 04:44:24 Father Arthritis [id number] Not available 09/27/2022 04:44:24 Mother Family history of malignant neoplasm [email or web address] Not available 2022 10:17:26 Notes:DM NO ENT Medical History Condition Response BLINDNESS N KIDNEY STONES N MRSA N CARPAL TUNNEL SYNDROME N LUNG DISEASE/DISORDER Y HISTORY OF DRUG ABUSE N COPD Y RADIATION / CHEMOTHERAPY N SPORTS INJURY N ANKLE PAIN N BLOOD DISEASES N SCHIZOPHRENIA N SHINGLES N BOWEL PROBLEMS N SHOULDER PAIN N DEPRESSION (INCLUDING POST ) N STROKE/TIA N ULCERS N KNEE PAIN N BENIGN PROSTATIC HYPERPLASIA N OBESITY N GERD/NAUSEA N ANEURYSM N URINARY/BLADDER/KIDNEY PROBLEMS N CORONARY ARTERY DISEASE (CAD) N ADDICTION CONCERNS N USE OF BLOOD THINNERS N SKIN PROBLEMS N EMPHYSEMA N MUSCLE,JOINT OR BONE PROBLEMS N DVT N STOMACH ULCERS N BLOOD CLOTS N USE OF NSAIDS N CONCUSSION OR SPINAL TRAUMA N NEUROPATHY N AIDS/HIV N FRACTURES N ELBOW PAIN N HYPERTENSION N TOURETTE'S N ANXIETY DISORDER N Metal allergy N BLOOD TRANSFUSION N ANEMIA/BLOOD DISORDER N BIPOLAR DISORDER N BRONCHITIS N OSTEOARTHRITIS N TUBERCULOSIS N FOOT PROBLEM N HEART VALVE DISORDERS N ALLERGIES/HAYFEVER N SOFT TISSUE INJURY N INFECTIOUS DISEASE N HEART ARRHYTHMIA N INSOMNIA N RHEUMATOID ARTHRITIS N HIGH CHOLESTEROL / HYPERLIPIDEMIA Y EDEMA N CHRONIC PAIN SYNDROME N CAROTID BLOCKAGE N BACK / NECK PROBLEMS N HAVE YOU BEEN HOSPITALIZED OR SEEN IN [facility] IN THE PAST YEAR ? N BURSITIS N HERNIATED DISC N DIALYSIS N FIBROMYALGIA N OSTEOPOROSIS N ARTHRITIS N NO SIGNIFICANT PAST MEDICAL HISTORY N PERIPHERAL NEUROPATHY N DIABETES, TYPE Y HEARTBURN / REFLUX N HEPATITIS / LIVER DISEASE N GOUT N SLEEP DISORDER N ALZHEIMER'S DISEASE N HERPES N SEIZURES/EPILEPSY N HEADACHES/MIGRAINES N VASCULAR DISEASE N HIP PAIN N Blood Disorder N DIZZINESS N HEAD TRAUMA OR INJURY N HEART DISEASE/HEART PROBLEMS N MULTIPLE SCLEROSIS N CARDIAC ARRHYTHMIA N CANCER: SPECIFY N ANESTHESIA COMPLICATIONS N ATRIAL FIBRILLATION N AUTOIMMUNE DISEASE N Immunizations Vaccine Type Date Status Note Provider Nam e and Address Organization Details Recorded Time Tdap 1 completed Ruchi Granados RMA null, [employer] 10/02/2023 11:54:47 RSV, recombinant, protein subunit RSVpreF, adjuvant reconstituted, 0.5 mL, PF 4 completed Ruchi Graandos RMA null, [employer] [facility] [employer] 10/02/2023 11:55:10 Influenza, MDCK, quadrivalent, PF 4 completed Ruchi Granados RMA donald, [employer] 10/02/2023 11:55:58 COVID-19, mRNA, LNP-S, PF, 100 mcg/0.5mL dose or 50 mcg/0.25mL dose 1 completed Not Available [facility] 09/27/2022 05:07:30 COVID-19 vaccine, vector-nr, [id number], PF, 0.5 mL 1 completed Not Available [facility] 09/27/2022 05:07:30 Influenza, split virus, trivalent, preservative 5 completed Not Available [facility] 09/27/2022 05:07:30 Influenza, split virus, quadrivalent, preservative 1 completed Not Available [facility] 09/27/2022 05:07:31 Influenza, split virus, quadrivalent, preservative 0 completed Not Available [facility] 09/27/2022 05:07:31 Influenza, split virus, quadrivalent, preservative 9 completed Not Available [facility] 09/27/2022 05:07:31 Influenza, split virus, quadrivalent, preservative 8 completed Not Available [facility] 09/27/2022 05:07:31 Influenza, split virus, quadrivalent, preservative 7 completed Not Available [facility] 09/27/2022 05:07:31 Influenza, split virus, trivalent, preservative 6 completed Not Available [facility] 09/27/2022 05:07:31 Influenza, split virus, trivalent, PF 4 completed Not Available [facility] 09/27/2022 05:07:31 pneumococcal polysaccharide PPV23 2 completed Not Available [facility] 09/27/2022 05:07:31 Influenza, split virus, trivalent, preservative 2 completed Not Available [facility] 09/27/2022 05:07:31 pneumococcal polysaccharide PPV23 9 completed Not Available [facility] 09/27/2022 05:07:31 Influenza, split virus, quadrivalent, PF 8 completed Not Available [facility] 09/27/2022 05:07:31 Past Encounters Encounter ID Performer Location Encounter Start Date Encounter Closed Date Diagnosis/Indication Diagnosis SNOMED-CT Code Diagnosis ICD10 Code Diagnosis IMO Codes Diagnosis Note [id number] S[facility] [place] [address] 09/30/2020 00:00:00 09/30/2020 14:49:15 [id number] S_Histor ic_Gateway [facility] [place] [facility] [place] [address] 10/14/2020 00:00:00 10/14/2020 11:38:44 [id number] S_Histor ic_Gateway [facility] [place] [address] 11/23/2020 00:00:00 11/23/2020 15:04:19 [id number] Robyn Leone MD [facility] [place] [facility] [place] [address] [address] 02/07/2021 00:00:00 02/07/2021 14:57:56 [id number] Robyn Leone MD [facility] Family Practice [place] [address] [place] [address] y , [place] [address] 04/06/2021 00:00:00 04/06/2021 10:58:08 [id number] Robyn Leone MD [facility] Family Practice [place] [address] [place] [address] y , [place] [address] 05/04/2021 00:00:00 05/04/2021 12:05:57 [id number] Robyn Leone MD [facility] Family [facility] [place] [address] [place] [address] [place] [address] 05/11/2021 00:00:00 05/11/2021 21:40:31 [id number] Robyn Leone MD [facility] [place] [facility] Univers y , [place] [address] 05/25/2021 00:00:00 05/25/2021 16:33:08 [id number] Robyn Leone MD [facility] [place] [address] [place] [address] [place] [address] 2 06/27/2021 00:00:00 06/27/2021 16:08:40 [id number] S_Histor ic_Gateway [facility] [address] [place] [address] 06/28/2021 00:00:00 06/28/2021 15:50:58 [id number] Robyn Leone MD [facility] Family [facility] [place] [address] [place] [address] [place] [address] 11/22/2021 00:00:00 11/23/2021 09:02:02 [id number] Apollo Knutson MD [facility] Ortho [place]a [place] [address] [place] [address] 01/04/2022 00:00:00 01/15/2022 21:46:26 [id number] Shayla Faust MD [facility] [address] 01/24/2022 00:00:00 01/24/2022 11:14:42 [id number] Shayla Faust MD [facility]_[address] [address] 02/13/2022 00:00:00 02/13/2022 10:31:01 [id number] Robyn Leone MD S_[facility] Family Practice Toni nuvia [address] [facility], [facility] [place] [address] 06/07/2022 00:00:00 06/07/2022 10:21:56 [id number] Karissa Mejia MD [facility] [place] [address] [place] [address] 08/22/2022 00:00:00 08/22/2022 15:16:40 [id number] Karissa Mejia MD [facility] [place] [address] [place] [address] 10/26/2022 14:26:02 10/26/2022 15:23:14 Uncontrolled type 2 diabetes mellitus 114759003 E11.65 A1C of 8.7% down from 9%- continue on metformin ER 500 mg twice daily with meals. Continue on jardiance and ozempic 0.5 mg once weekly. Discussed carb counting and how to read food labels. Recommende d patient to utilize the diabetesfo [employer] from the ADA website to help with food preparatio n as this presents ideal carb content per meal so this will make carb counting much easier for patient. Recommende d he incorporat e natural insulin surveillance inspector s such as pears, apples, cinnamon, troy and sweet potatoes to help mobilize his endogenous insulin. Recommende d up to 150 minutes of moderate level activity/e xercise weekly. Send for new glucose meter as meter is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
--- OUTSIDE RECORDS SUMMARY | 2025-06-18 10:45 | XMS_ITS | Clinical Summary ---
Author Organization [facility] Facility Address [address] [place] [address] Care Team Providers Care Desk Monitor Name Role Phone Tripp Lutz MD Primary Care Provider [phone] Social History Tobacco Use Types Packs/Day Years Used Date Smoking Tobacco: Never Assessed Sex and Gender Information Value Date Recorded Sex Assigned at Not on file Legal Sex Male 11:32 AM EST Gender Identity Not on file Sexual Orientation Not on file Plan of Treatment Health Maintenance Due Date Last Done Comments Colorectal Cancer Screening: Annual FOBT 2009 Colorectal Cancer Screening: Colonoscopy 2009 Colorectal Cancer Screening: Sigmoidoscopy 2009 Pneumococcal Vaccine: 50+ Years (2 of 2 - PCV) 11/19/2019 11/18/2018, 05/20/2012 Diabetes: Hemoglobin A1C 09/24/2024 Diabetes: Ophthalmology Exam 09/24/2024 Diabetes: Pedal Pulse Checked 09/24/2024 Diabetes: Sensory Foot Exam 09/24/2024 Diabetes: Visual Foot Exam 09/24/2024 Influenza Vaccine (#1) 2025 , 05/18/2020, 05/12/2019, Additional history exists Pneumococcal Vaccine: Peds (0 to 5 Years) and At-Risk Patients (6 to 49 Years) Discontinued 11/18/2018, 05/20/2012 Hepatitis B Vaccine Aged Out No longe r eligible based on patient's age to complete this topic Insurance Medicare Medicaid [place] Care Teams Desk Monitor Relationship Specialty Start Date End Date Tripp Lutz MD [address] [facility], [address] [place] [address] PCP - General Internal Medicine 08/01/24
--- OUTSIDE RECORDS SUMMARY | 2025-06-18 10:45 | XMS_ITS | Continuity of Care Document ---
Author Organization [place] - [facility] Alex Kim Address [address] [place] [address] Care Team Providers Care Tyre Retreader Name Role Phone VEYUMIKO MELISSA Primary Care Provider EVMELISSA CALDERON Referring Provider [phone] [facility] Natural Gas Technician [phone] ARELIS BURROUGHS Psychiatrist SHAYLA FAUST Regulatory Services Consultant BELINDA DE [facility] GAURI KEANE Primary Care Provider [phone] Assessment No assessment recorded. Plan of Treatment Reminders Order Date Submit Date Provider Last Modified By Organization Details Last Modified Time Details Appointments None recorded. Lab None recorded. Referral None recorded. Procedures None recorded. Surgeries None recorded. Imaging None recorded. Medication Orders mupirocin 2 % topical ointment 2024 025 [facility][id number], [address] [place], [address], 5 16:39:10 Patient TargetsNo targets recorded. Patient InstructionsNo instructions recorded. Reason for Referral None Reported. Problems Name Problem SNOMED Code Status Onset Date Resolution Date Notes Provider Name and Address Organization Details Recorded Time Pain in lower limb 83361130 Completed Not Available [facility] 3 04:54:45 Tobacco user 968297117 Completed Not Available [facility] 3 04:54:45 Prostatis m 92346731 Completed Not Available [facility] 3 04:54:45 Injury of knee 496247934 Completed Not Available [facility] 3 04:54:46 Submandib ular lymphaden opathy 583231017 Completed Not Available [facility] 3 04:54:46 Knee joint effusion 667091974 Completed Not Available [facility] 3 04:54:46 Ankle pain 221021729 Completed Not Available [facility] 3 04:54:46 Headache 04387386 Completed Not Available [facility] 3 04:54:46 Low back pain 538189457 Completed Not Available [facility] 3 04:54:46 Shoulder joint painful on movement 089745821 Completed Not Available [facility] 3 04:54:46 Disorder of prostate 14856409 Completed Not Available [facility] 3 04:54:47 Transient memory loss Completed Not Available [facility] 3 04:54:47 Prostate mass 214765436 Completed Not Available [facility] 3 04:54:47 Type 2 diabetes mellitus without complicat ion 264681296 Active Not Available [facility] 3 04:54:47 Sprain of shoulder 4403642 Completed Not Available [facility] 3 04:54:47 Dehydrati on 85121221 Completed Not Available [facility] 3 04:54:47 Blood in urine 29189568 Completed Not Available [facility] 3 04:54:48 Acute pharyngit is 151149654 Completed Not Available [facility] 3 04:54:48 Prostate specific antigen above reference range 064151514 Completed Not Available [facility] 3 04:54:48 Dizziness 443807170 Completed Not Available [facility] 3 04:54:48 Nausea 588290652 Completed Not Available [facility] 3 04:54:49 Seasonal allergy 537679429 Active Not Available [facility] 3 04:54:49 Pain of shoulder region 97377249 Completed Not Available [facility] 3 04:54:49 Foot pain 84094275 Completed Not Available [facility] 3 04:54:49 Pain of hip region 26950680 Completed Not Available [facility] 3 04:54:49 Cough 26950956 Completed Not Available [facility] 3 04:54:49 Hyperlipi demia 80162457 Active Not Available [facility] 3 04:54:50 Acid reflux 724293095 Active Not Available [facility] 3 04:54:50 Diabetes mellitus 97415185 Completed Not Available [facility] 3 04:54:50 Pain of elbow region 28781386 Completed Not Available [facility] 3 04:54:51 Posterior rhinorrhe a 74585853 Completed Not Available [facility] 3 04:54:51 Epigastri c pain 41309311 Completed Not Available [facility] 3 04:54:51 Neck pain 46093602 Completed Not Available [facility] 3 04:54:51 Hyperuric emia 54600703 Active 2019 Not Available [facility] 3 04:54:48 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 Not Available [facility] 3 04:54:50 Fibrosis of lung 72960474 Active 2021 Not Available [facility] 3 04:54:50 Osteoarth ritis of hip 739012703 Active 2021 Not Available [facility] 3 04:54:46 Essential hypertens ion 38470119 Active 2022 Karissa Mejia MD [address], [address] [place] [address], [place], [address] , [facility] [employer] [facility] 3 14:53:00 Nicotine dependenc e 90264143 Active 2022 NABOR Odell [address], [place] [place] [address], [place], [address] , [facility] [employer] [facility] 3 11:45:12 Bipolar disorder 70324452 Active 2022 NABOR Odell [address], [address], [address] , [facility] [place] [facility] 3 11:45:34 Macrocyto sis 175716608 Active 2023 Tripp rich MD [address] [facility], [facility] [address], [place], [address] , [facility] 4 12:19:13 Coronary arteriosc lerosis 02625640 Active 2023 Tripp rich MD [address], [address], [place], [address] , [facility] 4 12:33:03 Hypothyro idism 94628543 Active 2023 KIRA Dye null, [place] [facility] 4 11:29:21 Alcohol dependenc e 74444498 Active 2023 Tirpp rich MD [address] [facility], [facility] [address], [place], [address] , [facility] 4 16:08:35 Vitamin D deficienc y 13481069 Active 2023 Tripp rich MD [address] [facility], [facility] [address], [place], [address] , [facility] 4 16:30:06 Mild chronic obstructi ve pulmonary disease 115577950 Active 2023 Shayla Faust MD [address] [facility], [facility] [address], [place], [address] , [facility] 4 15:22:22 Proteinur ia 99982617 Active 2023 Gonzalez Rodriguez LPN null, [facility] 4 09:37:55 Liver enzymes level above reference range 183317780 Active 2023 Gonzalez Rodriguez LPN null, [facility] 4 09:39:03 Pain of bilateral hip joints 63668170863 747840 Active 2024 Tripp rich MD [address], [address], [place], [address] , [place] [facility] [place] [facility] 5 17:56:45 Interstit ial lung disease 100157666 Active 2024 Tripp rich MD [address], [address], [place], [address] , [place] [facility] [place] [facility] 5 17:56:45 Cigarette smoker 91617240 Active 2024 Tripp rich MD [address], [address], [place], [address] , [place] [facility] [place] [facility] 5 17:56:45 Chronic sinusitis 37780285 Active 2024 Linh Edgar RN null, [place] [facility] [place] [facility] 5 15:40:28 Sensorine ural hearing loss 75752200 Active 2024 Linh Edgar RN null, [place] [facility] [place] [facility] 5 15:40:33 Perforati on of left tympanic membrane 16101744354 41200 Active 2024 Linh Edgar RN null, [place] [facility] [place] [facility] 5 15:40:46 Superfici al injury of nose with infection 03852959 Active 2024 SUNIL Davenport [address], [address], [place], [address] , [facility] [place] [facility] 5 15:44:55 Deviated nasal septum 695003737 Active 2024 SUNIL Davenport [address], [address], [place], [address] , [facility] [place] [facility] 5 15:46:24 Acute folliculi tis 247396250 Active [address] MD [address], [address], [place], [address] , [place] [facility] [place] [facility] 5 16:38:51 Notes:Medical History: Chron ic ischemic [...] Bilateral hip OA Procedure History: Colonoscopies 2010, 2017 Bilateral cataract extraction with IOL 2018 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 Procedures Surgical History Date Name Laterality Status Provider Name and Address Organization Details Recorded Time 4 Medicare Wellness CPT Code, subsequent cancelled Gonzalez Rodriguez LPN [facility] 01/07/2024 18:21:42 3 Medicare Wellness CPT Code, subsequent completed Melissa Rodriguez, INSTALLATION MANAGER-C [address] [facility], [address], [place], [address], [employer] 11/30/2022 12:15:16 Orthopedic Surgery completed Not Available [facility] 09/27/2022 04:44:18 Prostate completed Not Available [facility] 04:44:18 Imaging Results None recorded. Procedure Notes [...] Not Available Not Available Not Available aspirin 08/21/ 2019 03/04 /2021 completed 81 mg daily Not Available Not [...] BY MOUTH ONCE DAILY. REASONS: CHRONIC OBSTRUCT NIA LUNG DISEASE 11/30 completed Not Available Not [...] Updated DateTime 03/26/2025 172.72 cm 25.8 kg/m2 47776.7 g 97.6 [degF] Linh Edgar RN [place] [employer] [facility] 03/26/2025 15:49:42 Social History Question Answer Notes LastModified by Organizat ion Details LastModified Time Tobacco Smoking Status Current Every Day Smoker Not Available [facility] 09/27/2022 04:41:46 What Is Your Level Of Caffeine Consumption? Moderate [id number].[id number] Information not available 09/27/2022 How Much Tobacco Do You Chew? None MIGRATION.01675 [id number] Information not available 09/27/2022 In The 14 Days Before Symptom Onset, Have You Had Close Contact With A Laboratory-confi rmed COVID-19 While That Case Was Ill? No MIGRATION.77661 07111 Information not available 09/27/2022 In The 14 Days Before Symptom Onset, Have You Had Close Contact With A Person Who Is Under Investigation For COVID-19 While That Person Was Ill? No MIGRATION.48879 [id number] Information not available 09/27/2022 What Type Of Diet Are You Following? REGULAR MIGRATION.54400 38673 Information not available 09/27/2022 Which Illicit Or Recreational Drugs Have You Used? None MIGRATION.22290 10112 Information not available 09/27/2022 What Is The Highest Grade Or Level Of School You Have Completed Or The Highest Degree You Have Received? [id number] Information not available 11/30/2022 Do You Have [...] Been Counseled For Unhealthy Alcohol Use? No MIGRATION.19106 78118 Information not available 09/27/2022 Do You Have Any Pets? Yes Information not available 11/30/2022 What Is Your Relationship Status? MIGRATION.37436 86566 Information not available 09/27/2022 Do You Use Your Seat Belt Or Car Seat Routinely? Yes Information not available 07/17/2024 Do You Have Smoke And Carbon Monoxide Detectors In Your Home? Yes Information not available 11/30/2022 At What Age Did You Start Smoking Tobacco? 13 MIGRATION.50092 32009 Information not available 09/27/2022 Are You Passively Exposed To Smoke? Yes Information not available 11/30/2022 Are There Any Smokers In Your House? No Information not available 11/30/2022 How Much Tobacco Do You Smoke? 1 PPD Information not available 11/30/2022 Do You Use Sunscreen Routinely? No Information not available 11/30/2022 Has Tobacco Cessation Counseling Been Provided? No MIGRATION.81068 64996 Information not available 09/27/2022 Have You Recently Traveled Abroad? No MIGRATION.51565 70231 Information not available 09/27/2022 Do You Have Any Dietary Restrictions? No MIGRATION.18150 20516 Information not available 09/27/2022 Sex: Male Functional Status Question Answer Note LastModified by Organizat ion Details LastModified Time Do you use any illicit or recreational drugs? No MIGRATION.20891 02416 Information not available 09/27/2022 Do you or have you ever used any other forms of tobacco or nicotine? No MIGRATION.35805 04154 Information not available 09/27/2022 What is your level of alcohol consumption? Heavy 3/4 pint of [place] colvin every day--stopp ed 2-3 beers per day [email or web address] Information not available 08/12/2024 Do you or have you ever used smokeless tobacco? Never used smokeless tobacco MIGRATION.96011 66459 Information not available 09/27/2022 Are you currently employed? No RETIRED [email or web address] Information not available 11/30/2022 Have you been exposed to chemicals or toxins? Not that aware of Information not available 07/17/2024 Do you or have you ever used e-cigarettes or vape? Never used electronic cigarettes MIGRATION.05966 97757 Information not available 09/27/2022 What is your exercise level? Occasional MIGRATION.12559 61824 Information not available 09/27/2022 Mental Status Question Answer Note LastModified by Organization D etails LastModified Time Do you feel stressed (tense, restless, nervous, or anxious, or unable to sleep at night)? [id number] Information not available 07/17/2024 Family History Relationship Description Onset Age of this Age Resolved Age Notes LastModified by Organization Details LastModified Time Maternal Grandmother Heart disease MIGRATION.986 [id number] Not available 09/27/2022 04:44:24 Father Dementia MIGRATION.744 [id number] Not available 09/27/2022 04:44:24 Father Arthritis MIGRATION.819 [id number] Not available 09/27/2022 04:44:24 Mother Family history of malignant neoplasm [email or web address] Not available 2022 10:17:26 Notes:DM NO ENT Medical History Condition Response BLINDNESS N KIDNEY STONES N MRSA N CARPAL TUNNEL SYNDROME N LUNG DISEASE/DISORDER Y HISTORY OF DRUG ABUSE N COPD Y RADIATION / CHEMOTHERAPY N SPORTS INJURY N ANKLE PAIN N BLOOD DISEASES N SCHIZOPHRENIA N SHINGLES N SHOULDER PAIN N DEPRESSION (INCLUDING POST ) N BOWEL PROBLEMS N STROKE/TIA N KNEE PAIN N ULCERS N BENIGN PROSTATIC HYPERPLASIA N OBESITY N GERD/NAUSEA N ANEURYSM N URINARY/BLADDER/KIDNEY PROBLEMS N CORONARY ARTERY DISEASE (CAD) N ADDICTION CONCERNS N USE OF BLOOD THINNERS N SKIN PROBLEMS N EMPHYSEMA N MUSCLE,JOINT OR BONE PROBLEMS N DVT N STOMACH ULCERS N BLOOD CLOTS N USE OF NSAIDS N CONCUSSION OR SPINAL TRAUMA N NEUROPATHY N AIDS/HIV N FRACTURES N HYPERTENSION N ELBOW PAIN N TOURETTE'S N Metal allergy N ANXIETY DISORDER N BLOOD TRANSFUSION N ANEMIA/BLOOD DISORDER N BIPOLAR DISORDER N BRONCHITIS N OSTEOARTHRITIS N TUBERCULOSIS N FOOT PROBLEM N HEART VALVE DISORDERS N ALLERGIES/HAYFEVER N SOFT TISSUE INJURY N INFECTIOUS DISEASE N HEART ARRHYTHMIA N INSOMNIA N HIGH CHOLESTEROL / HYPERLIPIDEMIA Y RHEUMATOID ARTHRITIS N EDEMA N CHRONIC PAIN SYNDROME N CAROTID BLOCKAGE N BACK / NECK PROBLEMS N HAVE YOU BEEN HOSPITALIZED OR SEEN IN [facility] IN THE PAST YEAR ? N BURSITIS N HERNIATED DISC N DIALYSIS N FIBROMYALGIA N OSTEOPOROSIS N ARTHRITIS N NO SIGNIFICANT PAST MEDICAL HISTORY N PERIPHERAL NEUROPATHY N DIABETES, TYPE Y HEARTBURN / REFLUX N HEPATITIS / LIVER DISEASE N GOUT N ALZHEIMER'S DISEASE N SLEEP DISORDER N HERPES N HEADACHES/MIGRAINES N SEIZURES/EPILEPSY N VASCULAR DISEASE N Blood Disorder N HIP PAIN N DIZZINESS N HEAD TRAUMA OR INJURY N HEART DISEASE/HEART PROBLEMS N MULTIPLE SCLEROSIS N CARDIAC ARRHYTHMIA N CANCER: SPECIFY N ANESTHESIA COMPLICATIONS N ATRIAL FIBRILLATION N AUTOIMMUNE DISEASE N Immunizations Vaccine Type Date Status Note Provider Nam e and Address Organization Details Recorded Time Td 1 completed KIRA Dye, [employer] [facility] [employer] [employer] 10/02/2023 11:54:47 RSV, recombinant, protein subunit RSVpreF, adjuvant reconstituted, 0.5 mL, PF 4 completed KIRA Dye, [employer] [facility] [employer] 10/02/2023 11:55:10 Influenza, MDCK, quadrivalent, PF 4 completed KIRA Dye, [employer] [facility] [employer] 10/02/2023 11:55:58 COVID-19, mRNA, LNP-S, PF, 100 mcg/0.5mL dose or 50 mcg/0.25mL dose 1 completed Not Available [facility] 09/27/2022 05:07:30 COVID-19 vaccine, vector-nr, rS-Ad26, PF, 0.5 mL 1 completed Not Available [facility] 09/27/2022 05:07:30 Influenza, split virus, trivalent, preservative 5 completed Not Available [facility] 09/27/2022 05:07:30 Influenza, split virus, quadrivalent, preservative 1 completed Not Available [facility] 09/27/2022 05:07:31 Influenza, split virus, quadrivalent, preservative 0 completed Not Available [employer] 09/27/2022 05:07:31 Influenza, split virus, quadrivalent, preservative 9 completed Not Available [facility] 09/27/2022 05:07:31 Influenza, split virus, quadrivalent, preservative 8 completed Not Available [facility] 09/27/2022 05:07:31 Influenza, split virus, quadrivalent, preservative 7 completed Not Available [facility] 09/27/2022 05:07:31 Influenza, split virus, trivalent, preservative 6 completed Not Available [facility] 09/27/2022 05:07:31 Influenza, split virus, trivalent, PF 4 completed Not Available [facility] 09/27/2022 05:07:31 pneumococcal polysaccharide PPV23 2 completed Not Available [facility] 09/27/2022 05:07:31 Influenza, split virus, trivalent, preservative 2 completed Not Available [facility] 09/27/2022 05:07:31 pneumococcal polysaccharide PPV23 9 completed Not Available [facility] 09/27/2022 05:07:31 Influenza, split virus, quadrivalent, PF 8 completed Not Available [facility] 09/27/2022 05:07:31 Past Encounters Encounter ID Performer Location Encounter Start Date Encounter Closed Date Diagnosis/Indication Diagnosis SNOMED-CT Code Diagnosis ICD10 Code Diagnosis IMO Codes Diagnosis Note [id number] Kendell Way MD [facility] Alex Kim [address] [place] [address] 03/26/2025 15:41:40 03/27/2025 09:29:37 Acute folliculitis 411433329 L73.9 [id number] Health Concerns Section Related Observation LastModified by Organization Detai ls LastModified Time None Recorded Concern Status LastModified by Organization Details LastModified Time None Recorded Payers Encounter Date Sequence Insurance Name Policy Number Policy Umanzor Covered Member ID Umanzor Member ID Guarantor Name 03/26/2025 1 [place] Juwan Harris [id number] Juwan Fordbryan 03/26/2025 2 [place]COND[place] WHEN MEDICARE OR MEDICARE REPLACEMENT PRIMARY) Juwan Harris [id number] Juwan Alarcon Steven Notes Date Note Type Note Provider Name and Address Organization Details Recorded Time 03/26/2025 text/html this patient reports he still has a nasal soreness after a cat scratch injury. He tried Bactrim which was unhelpful. Kendell Way MD [address] [place] [address], [address] [address], [place], [address], [facility] [place] [facility] 03/26/2025 16:39:29
--- NOTE | 2025-06-18 12:34 | WPCEDHO ---
ED Hand Off Checklist All vitals saved:y IV Site documented:y All med administrations documented:y Triage Note Triage Note pt to ED w/ complaints of N/V/D 06/18/25 08:13 chills and weakness for the past month. states his symptoms come and go. denies any pain. states his BS is high because he has not been able to keep his metformin down. Allergies empagliflozin (From Jardiance) Adverse Reaction (Intermediate, Verified 06/11/25 14:21) Nausea swallowing difficulty Family History (Last Reviewed 06/18/25 @ 09:47 by Linh Wang PA-C) Other Diabetes mellitus Administered/Completed Medications Discontinued Medications Famotidine (Famotidine 20 Mg/2 Ml Vial) 20 mg IV PUSH ONCE STA Stop: 06/18/25 09:20 Last Admin: 06/18/25 09:38 Dose: 20 mg Documented By: JANET Sodium Chloride (Normal Saline Iv) 1,000 mls @ 999 mls/hr IV CONT .Q1H1M STA Stop: 06/18/25 10:19 Last Infusion: 06/18/25 11:34 Dose: Infused Documented By: CMTim Admin: 06/18/25 09:38 Dose: 999 mls/hr Documented By: JANET Sodium Chloride (Normal Saline Iv) 1,000 mls @ 999 mls/hr IV CONT .Q1H1M STA Stop: 06/18/25 10:46 Last Infusion: 06/18/25 12:33 Dose: Infused Documented By: CMTim Admin: 06/18/25 09:57 Dose: 999 mls/hr Documented By: NOMAN Ondansetron HCl (Ondansetron Inj 4 Mg/2 Ml Vial) 4 mg IV PUSH ONCE STA Stop: 06/18/25 09:20 Last Admin: 06/18/25 09:38 Dose: 4 mg Documented By: JANET Notes 06/18/25 09:40 Nurse Note by Di Chun/Flu/RSV swab sent to lab. Initialized on 06/18/25 09:40 - END OF NOTE Interventions/Assessments IV / Saline Lock, Insert Start: 06/18/25 08:16 Freq: STAT Status: Active Protocol: Document 06/18/25 08:22 [facility] (Rec: 06/18/25 08:22 [facility] [id number]) IV Assessment Peripheral Access Right Antecubital IV Catheter Access Initiated IV Insertion Date 06/18/25 IV Insertion Time 08:22 Catheter Gauge 20 IV Insertion 1 Attempts IV Site Assessment WNL IV Care and WNL Maintenance PA: Gastrointestinal Assessment Start: 06/18/25 08:09 Freq: Status: Active Protocol: Document 06/18/25 08:22 [facility] (Rec: 06/18/25 08:22 [facility] [id number]) GI Assessment Gastrointestinal Diarrhea,Nausea,Vomiting Symptoms Description Flat Pattern Diarrhea Last Vital Signs Temperature 97.6 F 06/18/25 08:13 Pulse Rate 89 06/18/25 12:16 Respiratory Rate 20 06/18/25 12:16 Pulse Oximetry 100 06/18/25 12:16 Blood Pressure 103/69 06/18/25 12:15 Blood Pressure Mean 80 06/18/25 12:15 Blood Pressure Position Sitting 06/18/25 09:41 Oxygen Delivery Room Air 06/18/25 08:13 Weight 78.9 kg 06/18/25 08:13 Last Result - Abnormals Only RBC 4.13 M/mm3 (4.6-6.20) L 06/18/25 08:25 MCV 103.1 fl (80-100) H 06/18/25 08:25 MCH 35.6 pg (26-34) H 06/18/25 08:25 Plt Count 98 k/mm3 (150-375) L 06/18/25 08:25 MPV 11.0 fl (7.4-10.4) H 06/18/25 08:25 Lymph % (Auto) 17.8 % (18.3-44.2) L 06/18/25 08:25 [place] % (Auto) 13.9 % (2.6-8.5) H 06/18/25 08:25 [place] # (Auto) 1.1 K/mm3 (0.1-0.6) H 06/18/25 08:25 VBG pH 7.404 (7.300-7.400) H* 06/18/25 09:36 VBG pCO2 33.8 mmHg (42.0-48.0) L 06/18/25 09:36 VBG HCO3 20.7 mEq/l (24.0-30.0) L 06/18/25 09:36 Sodium 130 mmol/L (137-145) L 06/18/25 08:25 Chloride 97 mmol/L (98-107) L 06/18/25 08:25 Carbon Dioxide 19 mmol/L (22-30) L 06/18/25 08:25 Anion Gap 14 mmol/L (4-12) H 06/18/25 08:25 BUN 37 mg/dL (9-20) H D 06/18/25 08:25 Creatinine 1.35 mg/dL (0.7-1.3) H 06/18/25 08:25 Estimated GFR 53 (59-) L 06/18/25 08:25 Glucose 302 mg/dL (65-110) H 06/18/25 08:25 Total Bilirubin 3.8 mg/dL (0.2-1.3) H 06/18/25 08:25 AST 223 U/L (17-59) H 06/18/25 08:25 ALT 117 U/L (6-50) H 06/18/25 08:25 Lipase 457 U/L (23-300) H 06/18/25 08:25 Urine Color [place] (Yellow) H 06/18/25 08:26 Most Recent Suicide Severity Rating Suicide Severity Rating NO RISK INDICATED 06/18/25 08:13
--- NOTE | 2025-06-18 13:28 | PM.IMHP ---
H&P: HPI History of Present Illness Date/Time: 06/18/25 13:28 Chief Complaint: Nausea, vomiting, diarrhea, chills Narrative: 65-year-old male with a past medical history of DM 2, tobacco abuse, HTN, paranoid schizophrenia, ETOH abuse presents to the emergency department on 06/18/2025 with complaints of vomiting and diarrhea. Patient states that these symptoms have been intermittent over the past month but worsened over the past 4 days to the point that he is unable to keep anything p.o. down. Patient endorses mild abdominal discomfort. He states his diarrhea isn't watery but describes it more as ?canned dog food? appearing. Denies any hematemesis, melena. Patient states he does have an intermittent cough but denies any fevers. He feels weak and dehydrated. Initial vital signs 105/69, HR 108, respirations 25, afebrile and 97% on room air Chemistry consistent with dehydration. Sodium 130, bicarb 19, anion gap 14, creatinine 1.35, glucose 302. VBG with no acidosis. Liver functions with total bilirubin 3.8, AST 223, ALT 117. Lipase 457. UA urine unable to be fully tested due to it CT orange color. No outward signs of infection or complaints. Viral panel negative. Chest x-ray shows no acute process but advanced emphysematous appearing changes in the upper lungs. Abdomen pelvis CT reads fluid-filled loops of borderline distended small bowel with mild wall thickening suggestive of inflammatory or infectious enteritis. Possible new lung nodules in left lung base. Right upper quadrant ultrasound reads hepatic stenosis versus hepatocellular disease. Review of Systems Review of Systems: All systems reviewed & are unremarkable except as noted in HPI and below PMFSH Past Medical History Medical History Tobacco use disorder Type 2 diabetes mellitus Hemoglobin A1c was 6.1% on 04/17/2021. Essential hypertension Depression Seizures Schizophrenia, paranoid Bipolar 1 disorder Surgical History Surgical History Status post left foot surgery Due to a laceration on the top of his foot as a child with repair of tendons. Family History Family History Other Diabetes mellitus Multiple family members with diabetes Social History Social History Social History: Surrogate medical decision maker: Esa Severino ([phone]). Code status: Full code. Smoking packs per day: 1 Smoking cigarettes per day: 20.0 Years smoked: 20 Smoking pack-years: 20.00 Smoking status: Current every day smoker Tobacco type: cigarettes Second hand tobacco smoke exposure: Yes Alcohol intake: former Drinks per week: 14 Substance use: never Substance use type: does not use Do You Feel Safe in your Home?: Yes Lack of Transportation: No Lack of Food: Never True Current Housing: I Have Housing Concerned About Future Housing: No Difficulty Paying Gas/Electric Bills: No Difficulty Paying for Meds: No Currently Unemployed: No Education: Grade School Difficulty w/ Childcare or Family Care: No Living arrangements: alone Additional living arrangements comments: The patient lives in his own home. Spiritual care concerns: No Meds Home Medications and Allergies Home Medications ?Medication ?Instructions ?Recorded ?Confirmed ?Type metformin 500 mg tablet,extended 500 mg PO BID #60 tabs 06/10/24 06/18/25 Rx release 24 hr omega-3 fatty acids-fish oil 360 1 cap PO DAILY 11/18/24 06/18/25 History mg-1,200 mg capsule (Fish Oil) albuterol sulfate 90 mcg/actuation 2 puff inhalation .Q4 hours PRN 01/13/25 06/18/25 Rx aerosol inhaler (Ventolin HFA) cough #18 grams semaglutide 0.25 mg or 0.5 mg (2 0.5 mg subcut WEEKLY 03/03/25 06/18/25 History mg/3 mL) subcutaneous pen injector (Ozempic) olmesartan 40 mg tablet 40 mg PO DAILY #90 tabs 06/11/25 06/18/25 Rx varenicline tartrate 1 mg tablet 1 mg PO BID #60 tabs 06/11/25 06/18/25 Rx (Chantix) atorvastatin 40 mg tablet 40 mg PO DAILY 06/18/25 06/18/25 History Allergies Allergy/AdvReac Type Severity Reaction Status Date / Time empagliflozin (From AdvReac Intermediate Nausea Verified 06/18/25 13:50 Jardiance) Vital Signs Vital Signs - 24 hr 06/18/25 08:13 06/18/25 08:29 06/18/25 08:30 Temperature 97.6 F Pulse Rate 108 H 97 99 Respiratory Rate 25 H 24 H 22 H Blood Pressure 105/69 100/67 Pulse Oximetry 97 95 95 Oxygen Delivery Room Air 06/18/25 08:31 06/18/25 08:45 06/18/25 08:46 Temperature Pulse Rate 99 92 92 Respiratory Rate 27 H 22 H 21 H Blood Pressure 90/63 L Pulse Oximetry 94 94 94 Oxygen Delivery 06/18/25 09:41 06/18/25 10:10 06/18/25 10:15 Temperature Pulse Rate 104 H 77 79 Respiratory Rate 18 19 19 Blood Pressure 89/69 L 88/64 L Pulse Oximetry 96 95 92 Oxygen Delivery 06/18/25 10:16 06/18/25 10:30 06/18/25 10:31 Temperature Pulse Rate 89 85 84 Respiratory Rate 16 21 H 28 H Blood Pressure 96/59 L Pulse Oximetry 95 95 94 Oxygen Delivery 06/18/25 10:49 06/18/25 11:00 06/18/25 11:01 Temperature Pulse Rate 83 83 82 Respiratory Rate 17 16 14 Blood Pressure 88/64 L Pulse Oximetry 92 97 96 Oxygen Delivery 06/18/25 11:26 06/18/25 11:30 06/18/25 11:31 Temperature Pulse Rate 94 82 92 Respiratory Rate 19 19 22 H Blood Pressure 91/65 L Pulse Oximetry 95 94 95 Oxygen Delivery 06/18/25 11:32 06/18/25 11:52 06/18/25 12:00 Temperature Pulse Rate 87 90 78 Respiratory Rate 19 15 18 Blood Pressure 103/69 Pulse Oximetry 95 98 99 Oxygen Delivery 06/18/25 12:01 06/18/25 12:15 06/18/25 12:16 Temperature Pulse Rate 86 78 89 Respiratory Rate 20 22 H 20 Blood Pressure 103/69 Pulse Oximetry 97 98 100 Oxygen Delivery Exam Narrative: GENERAL: non-toxic appearing, in no acute distress. HEAD: Normocephalic, atraumatic. EYES: PERRLA. Conjunctivae clear. NOSE: Normal no drainage. THROAT: Pharynx clear, no exudate. NECK: Trachea midline. No adenopathy, no masses. RESPIRATORY: Airway patent, respirations nonlabored. CTA. CARDIOVASCULAR: Regular rate and rhythm GASTROINTESTINAL: Abdomen is soft and nontender. Bowel sounds normal in all quadrants. GENITOURINARY: Defer MUSCULOSKELETAL: Moves all extremities. No gross deformities. Trace edema to bilateral lower extremities SKIN: Warm, dry, normal color. NEURO: A&O X4. Speech clear PSYCHIATRIC: Normal interaction H&P: Results Labs Labs: Short CBC 06/18/25 Range/Units 08:25 WBC 7.9 (4.5-10.0) K/mm3 Hgb 14.7 (14.0-18.0) g/dL Hct 42.6 (42.0-52.0) % Plt Count 98 L (150-375) k/mm3 BMP 06/18/25 08:25 Sodium 130 L Potassium 4.3 Chloride 97 L Carbon Dioxide 19 L BUN 37 H D Creatinine 1.35 H Glucose 302 H Calcium 9.2 Liver Function 06/18/25 Range/Units 08:25 Total Bilirubin 3.8 H (0.2-1.3) mg/dL AST 223 H (17-59) U/L ALT 117 H (6-50) U/L Alkaline Phosphatase 122 (38-126) U/L Albumin 3.9 (3.5-5.1) g/dL Urine 06/18/25 Range/Units 08:26 Urine Color [place] H (Yellow) Urine Appearance Clear (Clear) Urine pH 5.0 (5.0-9.0) Ur Specific [place] TNP Urine Protein TNP Urine Glucose (UA) TNP Assessment and Plan Assessment and plan (1) Nausea and vomiting: Qualifiers: Vomiting type: unspecified Qualified Code(s): R11.2 - Nausea with vomiting, unspecified Code(s): R11.2 - Nausea with vomiting, unspecified Status: Acute Assessment and Plan: Nausea vomiting diarrhea over the past month but worsened over the past 4 days to the point that he is unable to keep anything p.o. down. Up to 6 loose bowel movements per day. Abdomen pelvis CT reads fluid-filled loops of borderline distended small bowel with mild wall thickening suggestive of inflammatory or infectious enteritis. -GI consult -stool culture and WBC -consider starting p.o. antibiotics based on stool results (2) Hypotension: Qualifiers: Hypotension type: hypotension due to hypovolemia Qualified Code(s): E86.1 - Hypovolemia Code(s): I95.9 - Hypotension, unspecified Status: Acute Assessment and Plan: Borderline blood pressure since admit. Initial BP 105/69. Likely due to hypovolemia with past 4 days of vomiting and frequent loose stool. -1 L NS bolus -NS at 125 started 06/18 -check orthostatics (3) COPD (chronic obstructive pulmonary disease): Qualifiers: COPD type: unspecified COPD Qualified Code(s): J44.9 - Chronic obstructive pulmonary disease, unspecified Code(s): J44.9 - Chronic obstructive pulmonary disease, unspecified Status: Chronic Assessment and Plan: Chest x-ray shows no acute process but advanced emphysematous appearing changes in the upper lungs. Denies shortness of breath. Uses albuterol inhaler p.r.n. -DuoNeb p.r.n. (4) Alcohol abuse: Code(s): F10.10 - Alcohol abuse, uncomplicated Status: Chronic Assessment and Plan: Patient was admitted in June 2024 for alcohol withdrawal and went to rehabilitation. He continues to drink. Right upper quadrant ultrasound reads hepatic stenosis versus hepatocellular disease. - daily ETOH use: At least 3 beers daily - CIWA protocol in place - Librium prn seizure precautions neurochecks Q4H - IV fluids NS at 125 started on 06/18 - antiemetics PRN -thiamine and folic acid daily (5) Type 2 diabetes mellitus: Qualifiers: Diabetes mellitus complication status: without complication Diabetes mellitus half-way insulin use: without half-way use Qualified Code(s): E11.9 - Type 2 diabetes mellitus without complications Code(s): E11.9 - Type 2 diabetes mellitus without complications Status: Chronic Assessment and Plan: - hypoglycemia protocol - POC blood glucose ACHS - home medication: Metformin, Ozempic - correct regimen ordered: Low-dose sliding scale (6) Schizophrenia, paranoid: Code(s): F20.0 - Paranoid schizophrenia Status: Chronic Assessment and Plan: Denies current symptoms. Not on maintenance drugs. Plan Diet: Consistent carb GI prophylaxis: NA DVT prophylaxis: SCDs lines/drains: PIV Fluids: 1 L NS bolus. NS at 125 started on 06/18 Code status: Full
--- NOTE | 2025-06-18 13:36 | ADMGEN ---
This patient, Juwan Harris, was admitted to Medical Room 341-01. Patient/family oriented to hospital policies and general routines including ID bracelet, bed and alarms, visiting hours, pain management, procedures, bathroom and other care routines, personal items, smoking policy, room service/diet, and visiting hours. Information on how to activate the Rapid Response Team has been discussed. Patient/Family are encouraged to report perceived risks to care and to ask questions if they do not understand what they are told or what they should do.
[2025-06-18] MEDS: SODIUM CHLORIDE 0.9% IV 1,000 ML 125 ML IV CONT (14:36)
--- NOTE | 2025-06-18 16:53 | WPDGICN ---
Assessment and Plan Assessment and plan (1) Alcoholic hepatitis: Code(s): K70.10 - Alcoholic hepatitis without ascites Status: Acute Assessment and Plan: This patient presents with an acute clinical picture of diarrhea and exacerbated nausea, which could be compatible with gastroenteritis. However, given the chronic, recurrent nature of his alcohol use disorder, his prior nonspecific GI symptoms and nausea are highly suggestive of a relationship to his underlying alcohol use. Specifically, his transaminase pattern, with an AST/ALT 2:1 ratio suggestive of alcoholic hepatitis, and a high MCV, combined with profound synthetic dysfunction (markedly low albumin of 2.2 and hyperbilirubinemia), raises concern for moderate to severe underlying liver injury. His calculated MELD score is 14. This does not meet the threshold for immediate treatment with corticosteroids at this time. Therefore, the immediate plan is to compensate his hemodynamic status (due to the diarrhea and hypotension) and to investigate the acute diarrhea by studying the stools for common pathogens. Pending results, we will consider initiating oral antibiotics. GI Consult Note Consult date/time: 06/18/25 16:53 Reason for consult: Elevated transaminases HPI: Juwan Harris is a 65 year old male with a history of schizophrenia not under medical treatment and significant alcohol abuse history. He was admitted in june last year for an episode of alcohol withdrawal and subsequently underwent rehabilitation. He continues to drink, averaging 3-4 beers per day, occasionally consuming a complete six-pack, especially on weekends. For the past month, he has experienced anorexia and nausea. Over the last week, this has been complicated by frequent, watery diarrhea (Stokes type 6), averaging six episodes per day, associated with abdominal discomfort. On admission, his vitals were a borderline blood pressure of 105/69 and a heart rate of 108 per minute. Laboratory data today included a WBC 7.9, hemoglobin 14.7, hematocrit 42.6, platelet 98, MCV 103.1, INR 1.0, sodium 130, potassium 4.3, creatinine 1.35, BUN 37, glucose 302, total bilirubin 3.8, AST 223, ALT 117, and albumin 2.2. Imaging studies showed a steatotic liver disease but no splenomegaly or suggestion of overt portal hypertension. Review of Systems Review of Systems: All systems reviewed & are unremarkable except as noted in HPI and below PMFSH Past Medical History Medical History Tobacco use disorder Type 2 diabetes mellitus Hemoglobin A1c was 6.1% on 04/17/2021. Essential hypertension Depression Seizures Schizophrenia, paranoid Bipolar 1 disorder Surgical History Surgical History Status post left foot surgery Due to a laceration on the top of his foot as a child with repair of tendons. Family History Family History Other Diabetes mellitus Multiple family members with diabetes Social History Social History Social History: Surrogate medical decision maker: Esa Severino ([phone]). Code status: Full code. Smoking packs per day: 1 Smoking cigarettes per day: 20.0 Years smoked: 20 Smoking pack-years: 20.00 Smoking status: Current every day smoker Tobacco type: cigarettes Second hand tobacco smoke exposure: Yes Alcohol intake: former Drinks per week: 14 Substance use: never Substance use type: does not use Do You Feel Safe in your Home?: Yes Lack of Transportation: No Lack of Food: Never True Current Housing: I Have Housing Concerned About Future Housing: No Difficulty Paying Gas/Electric Bills: No Difficulty Paying for Meds: No Currently Unemployed: No Education: Grade School Difficulty w/ Childcare or Family Care: No Living arrangements: alone Additional living arrangements comments: The patient lives in his own home. Spiritual care concerns: No Meds Home Medications and Allergies Home Medications ?Medication ?Instructions ?Recorded ?Confirmed ?Type metformin 500 mg tablet,extended 500 mg PO BID #60 tabs 06/10/24 06/18/25 Rx release 24 hr omega-3 fatty acids-fish oil 360 1 cap PO DAILY 11/18/24 06/18/25 History mg-1,200 mg capsule (Fish Oil) albuterol sulfate 90 mcg/actuation 2 puff inhalation .Q4 hours PRN 01/13/25 06/18/25 Rx aerosol inhaler (Ventolin HFA) cough #18 grams semaglutide 0.25 mg or 0.5 mg (2 0.5 mg subcut WEEKLY 03/03/25 06/18/25 History mg/3 mL) subcutaneous pen injector (Ozempic) olmesartan 40 mg tablet 40 mg PO DAILY #90 tabs 06/11/25 06/18/25 Rx varenicline tartrate 1 mg tablet 1 mg PO BID #60 tabs 06/11/25 06/18/25 Rx (Chantix) atorvastatin 40 mg tablet 40 mg PO DAILY 06/18/25 06/18/25 History Allergies Allergy/AdvReac Type Severity Reaction Status Date / Time empagliflozin (From AdvReac Intermediate Nausea Verified 06/18/25 13:50 Jardiance) Vital Signs Vital Signs - 24 hr 06/18/25 08:13 06/18/25 08:29 06/18/25 08:30 Temperature 97.6 F Pulse Rate 108 H 97 99 Respiratory Rate 25 H 24 H 22 H Blood Pressure 105/69 100/67 Pulse Oximetry 97 95 95 Oxygen Delivery Room Air 06/18/25 08:31 06/18/25 08:45 06/18/25 08:46 Temperature Pulse Rate 99 92 92 Respiratory Rate 27 H 22 H 21 H Blood Pressure 90/63 L Pulse Oximetry 94 94 94 Oxygen Delivery 06/18/25 09:41 06/18/25 10:10 06/18/25 10:15 Temperature Pulse Rate 104 H 77 79 Respiratory Rate 18 19 19 Blood Pressure 89/69 L 88/64 L Pulse Oximetry 96 95 92 Oxygen Delivery 06/18/25 10:16 06/18/25 10:30 06/18/25 10:31 Temperature Pulse Rate 89 85 84 Respiratory Rate 16 21 H 28 H Blood Pressure 96/59 L Pulse Oximetry 95 95 94 Oxygen Delivery 06/18/25 10:49 06/18/25 11:00 06/18/25 11:01 Temperature Pulse Rate 83 83 82 Respiratory Rate 17 16 14 Blood Pressure 88/64 L Pulse Oximetry 92 97 96 Oxygen Delivery 06/18/25 11:26 06/18/25 11:30 06/18/25 11:31 Temperature Pulse Rate 94 82 92 Respiratory Rate 19 19 22 H Blood Pressure 91/65 L Pulse Oximetry 95 94 95 Oxygen Delivery 06/18/25 11:32 06/18/25 11:52 06/18/25 12:00 Temperature Pulse Rate 87 90 78 Respiratory Rate 19 15 18 Blood Pressure 103/69 Pulse Oximetry 95 98 99 Oxygen Delivery 06/18/25 12:01 06/18/25 12:15 06/18/25 12:16 Temperature Pulse Rate 86 78 89 Respiratory Rate 20 22 H 20 Blood Pressure 103/69 Pulse Oximetry 97 98 100 Oxygen Delivery 06/18/25 14:00 06/18/25 14:57 Temperature 97.2 F L Pulse Rate 105 H Respiratory Rate 18 Blood Pressure 98/63 L Pulse Oximetry 97 Oxygen Delivery Room Air Exam Narrative: GENERAL: Mildly ill appearing, well-nourished, non-toxic, in no acute distress. mildly icteric sclerae HEAD: Normocephalic, atraumatic. RESPIRATORY: Airway patent, respirations nonlabored. Clear to auscultation bilaterally, no rales, rhonchi, wheezing. CARDIOVASCULAR: Borderline tachycardic with regular rhythm without murmurs, rubs, or gallops. ABDOMINAL: Soft, no significant focal tenderness, nondistended. Normoactive BS. Hepatomegaly, R lobe palpable at 3 cm below right costal margin, no shifting dullness MUSCULOSKELETAL: Moves all extremities. No gross deformities. No edema SKIN: Warm, dry, normal color. NEURO: A&O X3. Speech clear. Cranial nerves II-XII grossly intact. Steady gait. No ataxic movements. PSYCHIATRIC: Appropriate mood and affect. Normal interaction. Results Labs 06/19/25 05:16 06/19/25 05:16 Labs: Short CBC 06/18/25 Range/Units 08:25 WBC 7.9 (4.5-10.0) K/mm3 Hgb 14.7 (14.0-18.0) g/dL Hct 42.6 (42.0-52.0) % Plt Count 98 L (150-375) k/mm3 [facility] 06/18/25 08:25 Sodium 130 L Potassium 4.3 Chloride 97 L Carbon Dioxide 19 L BUN 37 H D Creatinine 1.35 H Glucose 302 H Calcium 9.2 Liver Function 06/18/25 Range/Units 08:25 Total Bilirubin 3.8 H (0.2-1.3) mg/dL AST 223 H (17-59) U/L ALT 117 H (6-50) U/L Alkaline Phosphatase 122 (38-126) U/L Albumin 3.9 (3.5-5.1) g/dL Urine 11/20/25 Range/Units 08:26 Urine Color [place] H (Yellow) Urine Appearance Clear (Clear) Urine pH 5.0 (5.0-9.0) Ur Specific [place] TNP Urine Protein TNP Urine Glucose (UA) TNP
[2025-06-18] MEDS: INSULIN ASPART (*BKC) 100 UNITS/ML SUB-Q (17:54)
[2025-06-18] MEDS: VARENICLINE 1 MG TABLET PO (17:54)
[2025-06-18] MEDS: MELATONIN 5 MG TABLET PO (21:45)
[2025-06-19] MEDS: SODIUM CHLORIDE 0.9% IV 1,000 ML 125 ML IV CONT (00:01)
[2025-06-19 05:29] VITALS: BP 100/76; PULSE 76; TEMP 36.6; O2SAT 98
[2025-06-19 05:49] LABS: Hematocrit 40.0 % (42.0-52.0); Hemoglobin 12.9 g/dL (14.0-18.0); Immature Granulocyte Percent A 0.5 % (0-0.5); Immature Platelet Fraction Pct 8.6 % (0.9-11.2); Lymphocytes Absolute Auto 1.89 K/mm3 (0.9-3.2); Mean Corpuscular HGB Conc 32.3 g/dl (32-36); Mean Corpuscular Hemoglobin 35.2 pg (26-34); Mean Corpuscular Volume 109.3 fl (80-100); Nucleated Red Blood Cells Absolute Auto 0.000 K/mm3 (0.0-0.012); Nucleated Red Blood Cells Perc 0.0 % (0.0-0.2); Platelet Count Result 75 k/mm3 (150-375); Red Blood Count 3.66 M/mm3 (4.6-6.20); White Blood Count 6.6 K/mm3 (4.5-10.0)
[2025-06-19 06:11] LABS: Anion Gap 8 mmol/L (4-12); Blood Urea Nitrogen 22 mg/dL (9-20); Calcium 9.0 mg/dL (8.4-10.2); Carbon Dioxide 24 mmol/L (22-30); Chloride 102 mmol/L (98-107); Estimated CRCL calculation 58 ml/min; Estimated Glomerular Filt Rate > 60; Glucose 198 mg/dL (65-110); Potassium 4.1 mmol/L (3.4-5.0); Sodium 134 mmol/L (137-145)
[2025-06-19 06:19] LABS: Hypochromasia 1+; Macrocytosis 1+ (NORMAL); Target Cells Occasional
[2025-06-19 06:20] LABS: Schistocytes None Seen; Tear Drop Cells Occasional
--- NOTE | 2025-06-19 07:23 | WPDGIPROGNO ---
Progress Note: A&P Assessment and Plan (1) Alcoholic hepatitis: Code(s): K70.10 - Alcoholic hepatitis without ascites Status: Acute Assessment and Plan: The patient's underlying diagnosis is chronic alcohol use disorder, supported by abnormal liver function tests, and mild alcohol-related hepatitis; he does not meet criteria for corticosteroid therapy. The acute issue of persistent diarrhea is subsiding. He will be discharged on oral antibiotics pending final stool culture results. A lengthy conversation was conducted with the patient emphasizing the critical importance of complete and sustained alcohol abstinence and the significant risk of clinical decompensation and associated with continued use. To support abstinence, he will be initiated on baclofen 10 mg three t.i.d. for the reduction of alcohol cravings. Follow-up should be arranged in our clinic in 2 weeks. (2) Nausea and vomiting: Qualifiers: Vomiting type: unspecified Qualified Code(s): R11.2 - Nausea with vomiting, unspecified Code(s): R11.2 - Nausea with vomiting, unspecified Status: Acute Plan - start Baclofen 10 mg tiD - Send pt home on Cipro 500 mg biD (or Levofloxacin 750 mg qD) for 5 days. -Arrange for GI appt in 2 weeks Subjective Date/time seen: 06/19/25 07:23 Interval history: The patient feels stronger and had only 1 semi loose bowel movements. No abdominal pain, no hemodynamic instability. Objective Data Vital Signs Vital Signs: Vital Signs - 24 hr 06/18/25 08:13 06/18/25 08:29 06/18/25 08:30 Temperature 97.6 F Pulse Rate 108 H 97 99 Respiratory Rate 25 H 24 H 22 H Blood Pressure 105/69 100/67 Pulse Oximetry 97 95 95 Oxygen Delivery Room Air 06/18/25 08:31 06/18/25 08:45 06/18/25 08:46 Temperature Pulse Rate 99 92 92 Respiratory Rate 27 H 22 H 21 H Blood Pressure 90/63 L Pulse Oximetry 94 94 94 Oxygen Delivery 06/18/25 09:41 06/18/25 10:10 06/18/25 10:15 Temperature Pulse Rate 104 H 77 79 Respiratory Rate 18 19 19 Blood Pressure 89/69 L 88/64 L Pulse Oximetry 96 95 92 Oxygen Delivery 06/18/25 10:16 06/18/25 10:30 06/18/25 10:31 Temperature Pulse Rate 89 85 84 Respiratory Rate 16 21 H 28 H Blood Pressure 96/59 L Pulse Oximetry 95 95 94 Oxygen Delivery 06/18/25 10:49 06/18/25 11:00 06/18/25 11:01 Temperature Pulse Rate 83 83 82 Respiratory Rate 17 16 14 Blood Pressure 88/64 L Pulse Oximetry 92 97 96 Oxygen Delivery 06/18/25 11:26 06/18/25 11:30 06/18/25 11:31 Temperature Pulse Rate 94 82 92 Respiratory Rate 19 19 22 H Blood Pressure 91/65 L Pulse Oximetry 95 94 95 Oxygen Delivery 06/18/25 11:32 06/18/25 11:52 06/18/25 12:00 Temperature Pulse Rate 87 90 78 Respiratory Rate 19 15 18 Blood Pressure 103/69 Pulse Oximetry 95 98 99 Oxygen Delivery 06/18/25 12:01 06/18/25 12:15 06/18/25 12:16 Temperature Pulse Rate 86 78 89 Respiratory Rate 20 22 H 20 Blood Pressure 103/69 Pulse Oximetry 97 98 100 Oxygen Delivery 06/18/25 14:00 06/18/25 14:57 06/18/25 20:00 Temperature 97.2 F L Pulse Rate 105 H Respiratory Rate 18 Blood Pressure 98/63 L Pulse Oximetry 97 Oxygen Delivery Room Air Room Air 06/18/25 21:11 06/19/25 05:29 Temperature 97.9 F 97.9 F Pulse Rate 81 76 Respiratory Rate 20 Blood Pressure 104/67 100/76 Pulse Oximetry 100 98 Oxygen Delivery Intake/Output Intake/Output: Intake & Output 06/16/25 06/17/25 06/18/25 06/19/25 23:59 23:59 23:59 23:59 Intake Total 3240 450 Balance 3240 450 Meds/Results Medications: Active Medications Generic Name Dose Route Start Last Admin Trade Name Freq PRN Reason Stop Dose Admin Acetaminophen 650 mg 06/18/25 12:12 Acetaminophen 325 Mg Tablet PO Q4H PRN Mild Pain (1-3) or Fever Albuterol/Ipratropium 3 ml 06/18/25 15:26 Ipratropium 0.5 Mg/Albuterol Sulfate 2.5 Mg (Base) Ampul.Neb 3 Ml INHALATION Q6HRT PRN Shortness Of Breath Or Wheezing Baclofen 10 mg 06/19/25 14:00 Baclofen 10 Mg Tablet PO Q8HR ADELSO Chlordiazepoxide HCl 25 mg 06/18/25 21:46 Chlordiazepoxide (*Crx) 25 Mg Capsule PO Q6H PRN Withdrawal Dextrose 12.5 gm 06/18/25 12:12 Dextrose 50% 25 Gm/50 Ml Syringe IV PUSH PRN PRN Hypoglycemia Protocol Folic Acid 1 mg 06/19/25 09:00 Folic Acid 1 Mg Tablet PO DAILY ADELSO Glucagon 1 mg 06/18/25 12:12 Glucagon For Inj 1 Mg Vial IM PRN PRN Hypoglycemia Protocol Glucose 15 gm 06/18/25 12:12 Glucose Oral Gel 15 Gm Of Glucse In 37.5 Gm Tube PO PRN PRN Hypoglycemia Protocol Sodium Chloride 1,000 mls @ 125 mls/hr 06/18/25 12:15 06/19/25 00:01 Normal Saline Iv IV CONT 125 mls/hr .Q8H ADELSO Administration Dextrose 1,000 mls @ 100 mls/hr 06/18/25 12:12 Dextrose 5% 1,000 Ml IVPB PRN PRN Hypoglycemia Protocol Insulin Aspart 2 - 5 units 06/18/25 17:00 06/18/25 17:54 Insulin Aspart (*Bkc) 100 Units/Ml SUB-Q 3 units TIDWM ADELSO Administration Protocol Melatonin 5 mg 06/18/25 21:30 06/18/25 21:45 Melatonin 5 Mg Tablet PO 5 mg HS ADELSO Administration Ondansetron HCl 4 mg 06/18/25 12:12 Ondansetron Inj 4 Mg/2 Ml Vial IV PUSH Q4H PRN Nausea Thiamine HCl 100 mg 06/19/25 09:00 Thiamine Hcl 100 Mg Tablet PO DAILY ADELSO Varenicline 1 mg 06/18/25 17:00 06/18/25 17:54 Varenicline 1 Mg Tablet PO 1 mg BID ADELSO Administration Radiology Results: ITS Impressions Abdomen/Pelvis CT 06/18/25 09:35 IMPRESSION: 1. No acute surgical abnormality identified. Fluid-filled loops of borderline distended small bowel with mild wall thickening suggestive of inflammatory or infectious enteritis. 2. Other chronic findings as above. Note possible new lung nodules in the left lung base. Correlate with follow-up nonemergent chest CT. Abdomen Ultrasound 06/18/25 10:41 Impression: 1. Moderate hepatic steatosis versus hepatocellular disease Chest X-Ray 06/18/25 12:32 IMPRESSION: 1. No focal acute process. Advanced emphysematous appearing changes in the upper lungs noted. Labs Labs: Laboratory Results - last 24 hr 06/18/25 06/18/25 06/18/25 08:25 08:26 09:36 WBC 7.9 RBC 4.13 L Hgb 14.7 Hct 42.6 MCV 103.1 H MCH 35.6 H MCHC 34.5 RDW 13.9 Plt Count 98 L MPV 11.0 H Immature Gran % (Auto) 0.4 Neut % (Auto) 66.5 Lymph % (Auto) 17.8 L [place] % (Auto) 13.9 H Eos % (Auto) 1.1 Baso % (Auto) 0.3 Lymph # (Auto) 1.41 [place] # (Auto) 1.1 H Eos # (Auto) 0.1 Baso # (Auto) 0.0 Abs Immat Gran (auto) 0.03 Absolute Neuts (auto) 5.3 Absolute Nucleated RBC 0.000 Band Neutrophils % Nucleated RBC % 0.0 Platelet Estimate % Immature Plt Fraction 7.0 Hypochromasia Macrocytosis Target Cells Tear Drop Cells Schistocytes VBG pH 7.404 H* VBG pCO2 33.8 L VBG pO2 41.0 VBG HCO3 20.7 L O2 Delivery Device Room air O2 Liters/Min Not Reportable FiO2 21 Sodium 130 L Potassium 4.3 Chloride 97 L Carbon Dioxide 19 L Anion Gap 14 H BUN 37 H D Creatinine 1.35 H Estim Creat Clear Calc 47 Estimated GFR 53 L Glucose 302 H POC Capillary Glucose Calcium 9.2 Total Bilirubin 3.8 H AST 223 H ALT 117 H Alkaline Phosphatase 122 Total Protein 7.7 Albumin 3.9 Lipase 457 H Urine Color [place] H Urine Appearance Clear Urine pH 5.0 Ur Specific [place] TNP Urine Protein TNP Urine Glucose (UA) TNP Urine Ketones TNP Ur Blood (Man) TNP Urine Nitrate TNP Urine Bilirubin TNP Urine Urobilinogen TNP Add Ur Microanalysis Reviewed Leukocyte Esterase Rfl TNP Urine RBC 0-2 Urine WBC 0-5 Ur Squamous Epith Cells None seen Urine Bacteria None seen Urine Casts 11-20 Hyaline Casts Present Urine Mucus Present Influenza A (RT-PCR) Negative Influenza B (RT-PCR) Negative RSV (RT-PCR) Negative SARS-CoV-2 RNA (RT-PCR) Negative 06/18/25 06/18/25 06/19/25 16:33 20:41 05:16 WBC 6.6 RBC 3.66 L Hgb 12.9 L Hct 40.0 L MCV 109.3 H D MCH 35.2 H MCHC 32.3 RDW 13.7 Plt Count 75 L MPV 10.8 H Immature Gran % (Auto) 0.5 Neut % (Auto) 55.4 Lymph % (Auto) 28.6 [place] % (Auto) 12.6 H Eos % (Auto) 2.7 Baso % (Auto) 0.2 Lymph # (Auto) 1.89 [place] # (Auto) 0.8 H Eos # (Auto) 0.2 Baso # (Auto) 0.0 Abs Immat Gran (auto) 0.03 Absolute Neuts (auto) 3.7 Absolute Nucleated RBC 0.000 Band Neutrophils % Not Reportable Nucleated RBC % 0.0 Platelet Estimate Decreased % Immature Plt Fraction 8.6 Hypochromasia 1+ Macrocytosis 1+ Target Cells Occasional Tear Drop Cells Occasional Schistocytes None seen VBG pH VBG pCO2 VBG pO2 VBG HCO3 O2 Delivery Device O2 Liters/Min FiO2 Sodium 134 L Potassium 4.1 Chloride 102 Carbon Dioxide 24 Anion Gap 8 BUN 22 H D Creatinine 1.10 Estim Creat Clear Calc 58 Estimated GFR > 60 Glucose 198 H POC Capillary Glucose 290 H 172 H Calcium 9.0 Total Bilirubin AST ALT Alkaline Phosphatase Total Protein Albumin Lipase Urine Color Urine Appearance Urine pH Ur Specific [place] Urine Protein Urine Glucose (UA) Urine Ketones Ur Blood (Man) Urine Nitrate Urine Bilirubin Urine Urobilinogen Add Ur Microanalysis Leukocyte Esterase Rfl Urine RBC Urine WBC Ur Squamous Epith Cells Urine Bacteria Urine Casts Hyaline Casts Urine Mucus Influenza A (RT-PCR) Influenza B (RT-PCR) RSV (RT-PCR) SARS-CoV-2 RNA (RT-PCR)
--- NOTE | 2025-06-19 09:24 | P.PNIM_ITS ---
Progress Note: A&P Assessment and Plan (1) Nausea and vomiting: Qualifiers: Vomiting type: unspecified Qualified Code(s): R11.2 - Nausea with vomiting, unspecified Code(s): R11.2 - Nausea with vomiting, unspecified Status: Acute Assessment and Plan: Gastroenteritis versus alcohol abuse Nausea vomiting diarrhea over the past month but worsened over the past 4 days to the point that he is unable to keep anything p.o. down. Up to 6 loose bowel movements per day. Abdomen pelvis CT reads fluid-filled loops of borderline distended small bowel with mild wall thickening suggestive of inflammatory or infectious enteritis. -GI consult -stool culture pending -consider starting p.o. antibiotics based on stool results (2) Hypotension: Qualifiers: Hypotension type: hypotension due to hypovolemia Qualified Code(s): E86.1 - Hypovolemia Code(s): I95.9 - Hypotension, unspecified Status: Acute Assessment and Plan: Borderline blood pressure since admit. Initial BP 105/69. Likely due to hypovolemia with past 4 days of vomiting and frequent loose stool. -2 L NS bolus in ED -NS at 125 continue -check orthostatics (3) COPD (chronic obstructive pulmonary disease): Qualifiers: COPD type: unspecified COPD Qualified Code(s): J44.9 - Chronic obstructive pulmonary disease, unspecified Code(s): J44.9 - Chronic obstructive pulmonary disease, unspecified Status: Chronic Assessment and Plan: Chest x-ray shows no acute process but advanced emphysematous appearing changes in the upper lungs. Denies shortness of breath. Uses albuterol inhaler p.r.n. -DuoNeb p.r.n. (4) Alcohol abuse: Code(s): F10.10 - Alcohol abuse, uncomplicated Status: Chronic Assessment and Plan: Meld 14 Patient was admitted in June 2024 for alcohol withdrawal and went to rehabilitation. He continues to drink. Right upper quadrant ultrasound reads hepatic stenosis versus hepatocellular disease. - daily ETOH use: At least 3 beers daily - CIWA protocol in place - Librium prn seizure precautions neurochecks Q4H - IV fluids NS at 125 started on 06/18 - antiemetics PRN -thiamine and folic acid daily (5) Type 2 diabetes mellitus: Qualifiers: Diabetes mellitus complication status: without complication Diabetes mellitus prison insulin use: without prison use Qualified Code(s): E11.9 - Type 2 diabetes mellitus without complications Code(s): E11.9 - Type 2 diabetes mellitus without complications Status: Chronic Assessment and Plan: - hypoglycemia protocol - POC blood glucose ACHS Holding Metformin, Ozempic - correct regimen ordered: Low-dose sliding scale (6) Schizophrenia, paranoid: Code(s): F20.0 - Paranoid schizophrenia Status: Chronic Assessment and Plan: Denies current symptoms. Not on maintenance drugs. Plan Diet: Consistent carb GI prophylaxis: NA DVT prophylaxis: SCDs lines/drains: PIV Fluids: 1 L NS bolus. NS at 125 started on 06/18 Code status: Full Subjective Date/time seen: 06/19/25 09:24 Interval history: 65-year-old male with a past medical history of DM 2, tobacco abuse, HTN, paranoid schizophrenia, ETOH abuse presents to the emergency department on 06/18/2025 with complaints of vomiting and diarrhea CT reads fluid-filled loops of borderline distended small bowel with mild wall thickening suggestive of inflammatory or infectious enteritis, Possible new lung nodules in left lung base. Right upper quadrant ultrasound reads hepatic stenosis versus hepatocellular disease. MELD score is 14 Review of Systems Review of Systems: 12 systems were reviewed and are negativ e except for as per HPI. Exam Narrative: General: well appearing, appears stated age. HEENT: normocephalic, atraumatic. Mucous membranes moist. EOMI, PERRLA, bilateral sclera anicteric, no conjunctival injection. Neck supple without JVD, lymphadenopathy, or bruit. Respiratory: clear bilaterally. No rales/rhonic/wheezes. Cardiovascular: Regular rate and rhythm, normal S1-S2. No murmurs, rubs, or clicks. PMI is nondisplaced, capillary refill less than 3 second. Abdomen: Soft, round, no pulsatile masses, nondistended and nontender. No rebound, no guarding. Bowel sounds present to all four quadrants. No high pitch or tinkling sounds, resonant to percussion. Extremities: No cyanosis, clubbing, or edema present. Pulses are palpable 2/2. Active ROM to all four extremities. Neuro: Alert and orientated x 4. PERRLA. Cranial nerves 2-12 intact without focal deficit. Skin: Warm, dry, and intact, without rash, erythema, or lesion. Psych: pleasant, cooperative, normal speech, normal affect, no hallucinations, no dysarthia Objective Data Vital Signs Vital Signs: Vital Signs - 24 hr 06/18/25 09:41 06/18/25 10:10 06/18/25 10:15 Temperature Pulse Rate 104 H 77 79 Respiratory Rate 18 19 19 Blood Pressure 89/69 L 88/64 L Pulse Oximetry 96 95 92 Oxygen Delivery 06/18/25 10:16 06/18/25 10:30 06/18/25 10:31 Temperature Pulse Rate 89 85 84 Respiratory Rate 16 21 H 28 H Blood Pressure 96/59 L Pulse Oximetry 95 95 94 Oxygen Delivery 06/18/25 10:49 06/18/25 11:00 06/18/25 11:01 Temperature Pulse Rate 83 83 82 Respiratory Rate 17 16 14 Blood Pressure 88/64 L Pulse Oximetry 92 97 96 Oxygen Delivery 06/18/25 11:26 06/18/25 11:30 06/18/25 11:31 Temperature Pulse Rate 94 82 92 Respiratory Rate 19 19 22 H Blood Pressure 91/65 L Pulse Oximetry 95 94 95 Oxygen Delivery 06/18/25 11:32 06/18/25 11:52 06/18/25 12:00 Temperature Pulse Rate 87 90 78 Respiratory Rate 19 15 18 Blood Pressure 103/69 Pulse Oximetry 95 98 99 Oxygen Delivery 06/18/25 12:01 06/18/25 12:15 06/18/25 12:16 Temperature Pulse Rate 86 78 89 Respiratory Rate 20 22 H 20 Blood Pressure 103/69 Pulse Oximetry 97 98 100 Oxygen Delivery 06/18/25 14:00 06/18/25 14:57 06/18/25 20:00 Temperature 97.2 F L Pulse Rate 105 H Respiratory Rate 18 Blood Pressure 98/63 L Pulse Oximetry 97 Oxygen Delivery Room Air Room Air 06/18/25 21:11 06/19/25 05:29 Temperature 97.9 F 97.9 F Pulse Rate 81 76 Respiratory Rate 20 Blood Pressure 104/67 100/76 Pulse Oximetry 100 98 Oxygen Delivery Intake/Output Intake/Output: Intake & Output 06/16/25 06/17/25 06/18/25 06/19/25 23:59 23:59 23:59 23:59 Intake Total 3240 930 Balance 3240 930 Meds/Results Medications: Active Medications Generic Name Dose Route Start Last Admin Trade Name Freq PRN Reason Stop Dose Admin Acetaminophen 650 mg 06/18/25 12:12 Acetaminophen 325 Mg Tablet PO Q4H PRN Mild Pain (1-3) or Fever Albuterol/Ipratropium 3 ml 06/18/25 15:26 Ipratropium 0.5 Mg/Albuterol Sulfate 2.5 Mg (Base) Ampul.Neb 3 Ml INHALATION Q6HRT PRN Shortness Of Breath Or Wheezing Baclofen 10 mg 06/19/25 14:00 Baclofen 10 Mg Tablet PO Q8HR ADELSO Chlordiazepoxide HCl 25 mg 06/18/25 21:46 Chlordiazepoxide (*Crx) 25 Mg Capsule PO Q6H PRN Withdrawal Dextrose 12.5 gm 06/18/25 12:12 Dextrose 50% 25 Gm/50 Ml Syringe IV PUSH PRN PRN Hypoglycemia Protocol Folic Acid 1 mg 06/19/25 09:00 Folic Acid 1 Mg Tablet PO DAILY ADELSO Glucagon 1 mg 06/18/25 12:12 Glucagon For Inj 1 Mg Vial IM PRN PRN Hypoglycemia Protocol Glucose 15 gm 06/18/25 12:12 Glucose Oral Gel 15 Gm Of Glucse In 37.5 Gm Tube PO PRN PRN Hypoglycemia Protocol Sodium Chloride 1,000 mls @ 125 mls/hr 06/18/25 12:15 06/19/25 00:01 Normal Saline Iv IV CONT 125 mls/hr .Q8H ADELSO Administration Dextrose 1,000 mls @ 100 mls/hr 06/18/25 12:12 Dextrose 5% 1,000 Ml IVPB PRN PRN Hypoglycemia Protocol Insulin Aspart 2 - 5 units 06/18/25 17:00 06/18/25 17:54 Insulin Aspart (*Bkc) 100 Units/Ml SUB-Q 3 units TIDWM ADELSO Administration Protocol Melatonin 5 mg 06/18/25 21:30 06/18/25 21:45 Melatonin 5 Mg Tablet PO 5 mg HS ADELSO Administration Ondansetron HCl 4 mg 06/18/25 12:12 Ondansetron Inj 4 Mg/2 Ml Vial IV PUSH Q4H PRN Nausea Thiamine HCl 100 mg 06/19/25 09:00 Thiamine Hcl 100 Mg Tablet PO DAILY ADELSO Varenicline 1 mg 06/18/25 17:00 06/18/25 17:54 Varenicline 1 Mg Tablet PO 1 mg BID ADELSO Administration Radiology Results: ITS Impressions Abdomen/Pelvis CT 06/18/25 09:35 IMPRESSION: 1. No acute surgical abnormality identified. Fluid-filled loops of borderline distended small bowel with mild wall thickening suggestive of inflammatory or infectious enteritis. 2. Other chronic findings as above. Note possible new lung nodules in the left lung base. Correlate with follow-up nonemergent chest CT. Abdomen Ultrasound 06/18/25 10:41 Impression: 1. Moderate hepatic steatosis versus hepatocellular disease Chest X-Ray 06/18/25 12:32 IMPRESSION: 1. No focal acute process. Advanced emphysematous appearing changes in the upper lungs noted. Labs Labs: Laboratory Results - last 24 hr 06/18/25 06/18/25 06/18/25 09:36 16:33 20:41 WBC RBC Hgb Hct MCV MCH MCHC RDW Plt Count MPV Immature Gran % (Auto) Neut % (Auto) Lymph % (Auto) [place] % (Auto) Eos % (Auto) Baso % (Auto) Lymph # (Auto) [place] # (Auto) Eos # (Auto) Baso # (Auto) Abs Immat Gran (auto) Absolute Neuts (auto) Absolute Nucleated RBC Band Neutrophils % Nucleated RBC % Platelet Estimate % Immature Plt Fraction Hypochromasia Macrocytosis Target Cells Tear Drop Cells Schistocytes VBG pH 7.404 H* VBG pCO2 33.8 L VBG pO2 41.0 VBG HCO3 20.7 L O2 Delivery Device Room air O2 Liters/Min Not Reportable FiO2 21 Sodium Potassium Chloride Carbon Dioxide Anion Gap BUN Creatinine Estim Creat Clear Calc Estimated GFR Glucose POC Capillary Glucose 290 H 172 H Calcium Influenza A (RT-PCR) Negative Influenza B (RT-PCR) Negative RSV (RT-PCR) Negative SARS-CoV-2 RNA (RT-PCR) Negative 06/19/25 06/19/25 05:16 08:12 WBC 6.6 RBC 3.66 L Hgb 12.9 L Hct 40.0 L MCV 109.3 H D MCH 35.2 H MCHC 32.3 RDW 13.7 Plt Count 75 L MPV 10.8 H Immature Gran % (Auto) 0.5 Neut % (Auto) 55.4 Lymph % (Auto) 28.6 [place] % (Auto) 12.6 H Eos % (Auto) 2.7 Baso % (Auto) 0.2 Lymph # (Auto) 1.89 [place] # (Auto) 0.8 H Eos # (Auto) 0.2 Baso # (Auto) 0.0 Abs Immat Gran (auto) 0.03 Absolute Neuts (auto) 3.7 Absolute Nucleated RBC 0.000 Band Neutrophils % Not Reportable Nucleated RBC % 0.0 Platelet Estimate Decreased % Immature Plt Fraction 8.6 Hypochromasia 1+ Macrocytosis 1+ Target Cells Occasional Tear Drop Cells Occasional Schistocytes None seen VBG pH VBG pCO2 VBG pO2 VBG HCO3 O2 Delivery Device O2 Liters/Min FiO2 Sodium 134 L Potassium 4.1 Chloride 102 Carbon Dioxide 24 Anion Gap 8 BUN 22 H D Creatinine 1.10 Estim Creat Clear Calc 58 Estimated GFR > 60 Glucose 198 H POC Capillary Glucose 218 H Calcium 9.0 Influenza A (RT-PCR) Influenza B (RT-PCR) RSV (RT-PCR) SARS-CoV-2 RNA (RT-PCR)
[2025-06-19] MEDS: VARENICLINE 1 MG TABLET PO (09:28)
[2025-06-19] MEDS: THIAMINE HCL 100 MG TABLET PO (09:28)
[2025-06-19] MEDS: FOLIC ACID 1 MG TABLET PO (09:28)
[2025-06-19] MEDS: INSULIN ASPART (*BKC) 100 UNITS/ML SUB-Q ×2 (09:29→12:47)
--- NOTE | 2025-06-19 11:26 | P.DS_ITS ---
DS: Admitting Diagnosis Discharge Date 06/23 Admitting Diagnosis Likely a nausea and vomiting DS: Discharge Diagnosis Discharge Diagnosis (1) Nausea and vomiting: Qualifiers: Vomiting type: unspecified Qualified Code(s): R11.2 - Nausea with vomiting, unspecified Code(s): R11.2 - Nausea with vomiting, unspecified Status: Acute Assessment and Plan: Gastritis, enteritis versus alcohol abuse Nausea vomiting diarrhea over the past month but worsened over the past 4 days to the point that he is unable to keep anything p.o. down. Up to 6 loose bowel movements per day. Abdomen pelvis CT reads fluid-filled loops of borderline distended small bowel with mild wall thickening suggestive of inflammatory or infectious enteritis. -GI consult -recommending p.o. antibiotics and discharge follow-up outpatient. (2) Hypotension: Qualifiers: Hypotension type: hypotension due to hypovolemia Qualified Code(s): E86.1 - Hypovolemia Code(s): I95.9 - Hypotension, unspecified Status: Acute Assessment and Plan: Resolved Borderline blood pressure since admit. Initial BP 105/69. Likely due to hypovolemia with past 4 days of vomiting and frequent loose stool. -2 L NS bolus in ED -NS at 125 continue DC -check orthostatics (3) COPD (chronic obstructive pulmonary disease): Qualifiers: COPD type: unspecified COPD Qualified Code(s): J44.9 - Chronic obstructive pulmonary disease, unspecified Code(s): J44.9 - Chronic obstructive pulmonary disease, unspecified Status: Chronic Assessment and Plan: Chronic no acute issues Chest x-ray shows no acute process but advanced emphysematous appearing changes in the upper lungs. Denies shortness of breath. Uses albuterol inhaler p.r.n. -DuoNeb p.r.n. (4) Alcohol abuse: Code(s): F10.10 - Alcohol abuse, uncomplicated Status: Chronic Assessment and Plan: Meld 14 Patient was admitted in June 2024 for alcohol withdrawal and went to rehabilitation. He continues to drink. Right upper quadrant ultrasound reads hepatic stenosis versus hepatocellular disease. - daily ETOH use: At least 3 beers daily - CIWA protocol in place - Librium prn seizure precautions neurochecks Q4H - IV fluids NS at 125 started on 06/18 - antiemetics PRN -thiamine and folic acid daily Patient states that he wants to quit drinking (5) Type 2 diabetes mellitus: Qualifiers: Diabetes mellitus complication status: without complication [facility]ma kendall [facility] insulin use: without terminal carman use Qualified Code(s): E11.9 - Type 2 diabetes mellitus without complications Code(s): E11.9 - Type 2 diabetes mellitus without complications Status: Chronic Assessment and Plan: - hypoglycemia protocol - POC blood glucose ACHS Holding Metformin, Ozempic - correct regimen ordered: Low-dose sliding scale (6) Schizophrenia, paranoid: Code(s): F20.0 - Paranoid schizophrenia Status: Chronic Assessment and Plan: Denies current symptoms. Not on maintenance drugs. Plan Diet: Consistent carb GI prophylaxis: NA DVT prophylaxis: SCDs lines/drains: PIV Fluids: 1 L NS bolus. NS at 125 started on 06/18 Code status: Full DS: Summary Hospital Course Reason for hospitalization: Gastroenteritis Hospital Course: 65-year-old male with a past medical history of DM 2, tobacco abuse, HTN, paranoid schizophrenia, ETOH abuse presents to the emergency department on 06/18/2025 with complaints of vomiting and diarrhea.Nausea vomiting diarrhea over the past month but worsened over the past 4 days to the point that he is unable to keep anything p.o. down. Up to 6 loose bowel movements per day. CT reads fluid-filled loops of borderline distended small bowel with mild wall thickening suggestive of inflammatory or infectious enteritis, Possible new lung nodules in left lung base. Right upper quadrant ultrasound reads hepatic stenosis versus hepatocellular disease. Patient was seen by GI MELD score is 14 recommending oral antibiotics and follow-up outpatient in 2 weeks. Patient was given fluid bolus in emergency room for dehydration. Today he was able to tolerate food, no signs of alcohol withdrawal. Patient is safe for discharge. Follow-up with PCP and GI. Status at Discharge Functional status at discharge: independent ambulation Overall status at discharge: patient is back to baseline Time Spent with Patient Time attestation: Total time spent providing and/or coordinating discharge services: Time spent: Greater than 30 minutes Exam Narrative: General: well appearing, appears stated age. HEENT: normocephalic, atraumatic. Mucous membranes moist. EOMI, PERRLA, bilateral sclera anicteric, no conjunctival injection. Neck supple without JVD, lymphadenopathy, or bruit. Respiratory: clear bilaterally. No rales/rhonic/wheezes. Cardiovascular: Regular rate and rhythm, normal S1-S2. No murmurs, rubs, or clicks. PMI is nondisplaced, capillary refill less than 3 second. Abdomen: Soft, round, no pulsatile masses, nondistended and nontender. No rebound, no guarding. Bowel sounds present to all four quadrants. No high pitch or tinkling sounds, resonant to percussion. Extremities: No cyanosis, clubbing, or edema present. Pulses are palpable 2/2. Active ROM to all four extremities. Neuro: Alert and orientated x 4. PERRLA. Cranial nerves 2-12 intact without focal deficit. Skin: Warm, dry, and intact, without rash, erythema, or lesion. Psych: pleasant, cooperative, normal speech, normal affect, no hallucinations, no dysarthia DS: Data Data Completed and Pending Labs on day of discharge: Labs from last 24 hours 06/19/25 06/19/25 06/18/25 08:12 05:16 20:41 WBC 6.6 RBC 3.66 L Hgb 12.9 L Hct 40.0 L MCV 109.3 H D MCH 35.2 H MCHC 32.3 RDW 13.7 Plt Count 75 L MPV 10.8 H Immature Gran % (Auto) 0.5 Neut % (Auto) 55.4 Lymph % (Auto) 28.6 Citrus % (Auto) 12.6 H Eos % (Auto) 2.7 Baso % (Auto) 0.2 Lymph # (Auto) 1.89 Citrus # (Auto) 0.8 H Eos # (Auto) 0.2 Baso # (Auto) 0.0 Abs Immat Gran (auto) 0.03 Absolute Neuts (auto) 3.7 Absolute Nucleated RBC 0.000 Band Neutrophils % Not Reportable Nucleated RBC % 0.0 Platelet Estimate Decreased % Immature Plt Fraction 8.6 Hypochromasia 1+ Macrocytosis 1+ Target Cells Occasional Tear Drop Cells Occasional Schistocytes None seen Sodium 134 L Potassium 4.1 Chloride 102 Carbon Dioxide 24 Anion Gap 8 BUN 22 H D Creatinine 1.10 Estim Creat Clear Calc 58 Estimated GFR > 60 Glucose 198 H POC Capillary Glucose 218 H 172 H Calcium 9.0 06/18/25 16:33 WBC RBC Hgb Hct MCV MCH MCHC RDW Plt Count MPV Immature Gran % (Auto) Neut % (Auto) Lymph % (Auto) Citrus % (Auto) Eos % (Auto) Baso % (Auto) Lymph # (Auto) Citrus # (Auto) Eos # (Auto) Baso # (Auto) Abs Immat Gran (auto) Absolute Neuts (auto) Absolute Nucleated RBC Band Neutrophils % Nucleated RBC % Platelet Estimate % Immature Plt Fraction Hypochromasia Macrocytosis Target Cells Tear Drop Cells Schistocytes Sodium Potassium Chloride Carbon Dioxide Anion Gap BUN Creatinine Estim Creat Clear Calc Estimated GFR Glucose POC Capillary Glucose 290 H Calcium Imaging Radiologist's impression: EXAM/PROCEDURE: CT abdomen pelvis w con HISTORY: n/v, abnl lfts COMPARISON: May [id number] TECHNIQUE: Contrast-enhanced CT of the abdomen and pelvis performed FINDINGS: Fibrosing appearing changes in the lung bases similar to the previous exam. 4 mm pleural-based nodule on the left side image 23 series 4. 7 mm groundglass subpleural nodule similar area image 10 series 4, left lung base. These are not clearly present on the previous exam. Heart size normal. In the abdomen and pelvis, several loops of borderline distended small bowel with mild wall thickening present in the left hemiabdomen. Normal size appendix and aorta. The gallbladder is contracted but no gross CT evidence of acute cholecystitis seen. Pancreas liver spleen stomach and adrenals appear stable. Tiny cysts in the kidneys. No hydroureteronephrosis. No obstructing ureteral stones or urinary bladder stones. Urinary bladder is contracted but no obvious abnormality seen. Scattered diverticular disease with no gross acute diverticulitis. No bulky mesenteric or retroperitoneal lymphadenopathy or masses seen. Degenerative changes throughout the lumbar spine and moderate to severe degenerative changes in the hips right worse than left. IMPRESSION: 1. No acute surgical abnormality identified. Fluid-filled loops of borderline distended small bowel with mild wall thickening suggestive of inflammatory or infectious enteritis. 2. Other chronic findings as above. Note possible new lung nodules in the left lung base. Correlate with follow-up nonemergent chest CT. US abdomen limited Indication: abnml lfts, nvd Comparison: None Technique: Lay-scale and color Doppler images were obtained. Findings: LIVER: Moderate increased echogenicity of the liver. . GALLBLADDER/BILIARY: Unremarkable.No cholelithiais, wall thickening or pericholecystic fluid. No biliary dilatation. CBD 2 mm. Florence sign negative. PANCREAS: Pancreas limited by bowel gas. Right Kidney: The right kidney was not imaged. Impression: 1. Moderate hepatic steatosis versus hepatocellular disease EXAMINATION: XR chest 2V DATE: 06/18/2025 12:29 INDICATION: COPD TECHNIQUE: Frontal and lateral views of the chest were obtained. COMPARISON: April 12, 2025 FINDINGS: Emphysematous changes throughout the mid and upper lung salazar. No focal consolidation effusion or definite lymphadenopathy. Heart size normal. No pneumothorax or subphrenic free air seen. IMPRESSION: 1. No focal acute process. Advanced emphysematous appearing changes in the upper lungs noted. Discharge Plan Discharge Discharging Clinician: Tayler Alcala Anticipated Discharge Date/Time: 06/19/25 11:34 Patient Disposition: Home Activity: may shower Diet: regular Discharge Instructions: Discharge instructions: Take medications as prescribed New medications prescribed: You have been prescribed Carafate to help heal the lining of your stomach Baclofen 3 times a day Antibiotics for 5 days levofloxacin You are activity as tolerated Monitor blood pressures Avoid social areas, you wear a mask when in social settings Encouraged to continue with yearly vaccinations Return to the emergency department if he developed sudden shortness of breath, chest pain, nausea, vomiting, upset stomach or intractable diarrhea Return to the emergency department if you develop fever greater than 101.5 Follow-up with: Your primary care physician within 1-2 weeks for post hospitalization check up And GI Thank you for [facility] for your healthcare needs Patient Instructions: Antibiotic Form, Gastritis (ED), Gastroenteritis (DC) Patient Language: Solomon Islander Stand Alone Forms: General Discharge Information Follow-up/Referrals: Dejon Melendrez MD [Physician, Gastroenterology] - 2 Weeks Shannon Montelongo APRN [Primary Care Provider, Family Practice] Discharge Medications: New sucralfate 100 mg/mL Suspension 1,000 mg PO ACHS 7 Days Qty: 280 0RF baclofen 10 mg tablet 10 mg PO TID Qty: 90 0RF levofloxacin 750 mg tablet 750 mg PO DAILY Qty: 5 0RF Continued metformin 500 mg tablet extended release 24 hr 500 mg PO BID Qty: 60 0RF albuterol sulfate [Ventolin HFA] 90 mcg/actuation HFA aerosol inhaler 2 puff INHALATION .Q4 hours PRN (Reason: cough) Qty: 18 0RF varenicline tartrate [Chantix] 1 mg tablet 1 mg PO BID Qty: 60 4RF olmesartan 40 mg tablet 40 mg PO DAILY Qty: 90 3RF omega-3 fatty acids-fish oil [Fish Oil] 360-1,200 mg capsule 1 cap PO DAILY atorvastatin 40 mg tablet 40 mg PO DAILY Ozempic 0.25 mg or 0.5 mg (2 mg/3 mL) pen injector 0.5 mg subcut WEEKLY Rx Instructions: for 4 weeks Date of admission: 06/18/25 12:12 Primary Care Provider: Shannon Montelongo Admitting Provider: Lew Wild Attending physician on admission: Lew Wild Condition: Stable Quality VTE Prophylaxis VTE prophylaxis: mechanical ordered Hospitalist MIPS Heart Failure (Exclusion) Patient has history of Heart Transplant or Left Ventricular Assistive Device?: No IF YES, STOP HERE Heart Failure (Qualifier) Patient has current or prior documentation of LVEF less than or equal to 40%, or mod/servere depressed LVSF?: No IF NO, STOP HERE
[2025-06-19] MEDS: SUCRALFATE SUSP 100 MG/ML 10 ML UDC 1000 MG PO (11:41)
--- NOTE | 2025-06-24 09:25 | PC.NURSE ---
Called pt to find out which medication he was unable to get. He did not receive his Carafate Suspension. I called medication to [facility] for pt. Pt agreeable and thankful.
== END 2025-06-19 13:16 | disposition home or self-care (01) ==
LOC: ANHED 11:49 → ANH3MED 12:26
PROVIDERS: Emergency Medicine; Nurse Practitioner Adult Health; Admitting Provider General Practice; Emergency Provider Physician Assistant; PCP Nurse Practitioner Family; Visit Provider General Practice
DX: R11.2 Nausea with vomiting, unspecified (principal); E86.1 Hypovolemia; K70.10 Alcoholic hepatitis without ascites; F10.10 Alcohol abuse, uncomplicated; I95.9 Hypotension, unspecified; E11.9 Type 2 diabetes mellitus without complications; J44.9 Chronic obstructive pulmonary disease, unspecified; Z79.84 Long term (current) use of oral hypoglycemic drugs; Z79.85 Long-term (current) use of injectable non-insulin antidiabetic drugs; I10 Essential (primary) hypertension; F20.0 Paranoid schizophrenia; F31.9 Bipolar disorder, unspecified; F17.210 Nicotine dependence, cigarettes, uncomplicated; Z20.822 Contact with and (suspected) exposure to COVID-19
CPT/HCPCS: 36415; 71046; 74177; 76705; 80048; 80053; 81001; 82803; 82948; 83690; 85025; 85055; 87045; 87046; 87427; 87637; 96361; 96374; 96375; 99285; A9270; G0378; J1815; J2405; J7030; Q9967

== ENCOUNTER 2025-07-08 14:34 | Outpatient (CLI) | payer MEDICARE, MEDICAID, SELFPAY ==
[2025-07-08 15:05] LABS: Hematocrit 39.8 % (42.0-52.0); Hemoglobin 13.4 g/dL (14.0-18.0); Immature Granulocyte Percent A 0.2 % (0-0.5); Lymphocytes Absolute Auto 1.52 K/mm3 (0.9-3.2); Mean Corpuscular HGB Conc 33.7 g/dl (32-36); Mean Corpuscular Hemoglobin 35.4 pg (26-34); Mean Corpuscular Volume 105.0 fl (80-100); Nucleated Red Blood Cells Absolute Auto 0.000 K/mm3 (0.0-0.012); Nucleated Red Blood Cells Perc 0.0 % (0.0-0.2); Platelet Count Result 159 k/mm3 (150-375); Red Blood Count 3.79 M/mm3 (4.6-6.20); White Blood Count 5.7 K/mm3 (4.5-10.0)
[2025-07-08 15:16] LABS: Iron 110 ug/dL (49-181)
[2025-07-08 15:19] LABS: Alanine Aminotransferase 20 U/L (6-50); Albumin Level 4.0 g/dL (3.5-5.1); Alkaline Phosphatase 63 U/L (38-126); Anion Gap 7 mmol/L (4-12); Aspartate Amino Transferase 37 U/L (17-59); Bilirubin,Total 0.7 mg/dL (0.2-1.3); Blood Urea Nitrogen 10 mg/dL (9-20); Calcium 9.3 mg/dL (8.4-10.2); Carbon Dioxide 23 mmol/L (22-30); Chloride 108 mmol/L (98-107); Estimated Glomerular Filt Rate > 60; Glucose 156 mg/dL (65-110); Potassium 4.1 mmol/L (3.4-5.0); Sodium 138 mmol/L (137-145); Total Protein 7.3 g/dL (6.3-8.2)
[2025-07-08 15:21] LABS: INR 1.0; Prothrombin Time 13.4 Seconds (11.1-14.7)
[2025-07-08 15:59] LABS: Percent Iron Saturation 29 % (20-50)
[2025-07-08 16:07] LABS: Ferritin 304.00 ng/mL (11.1-264)
[2025-07-08 16:48] LABS: Hepatitis B Surface Antigen Negative (Negative)
[2025-07-08 16:54] LABS: HAV RESULT Negative (Negative); Hepatitis B Core IgM Result Negative (Negative)
--- OUTSIDE RECORDS SUMMARY | 2025-07-08 19:21 | XMS_ITS | Data Portability ---
Author Organization [email or web address], [facility] Address [address] [address] Assessment No assessment recorded. Plan of Treatment [...] Updated DateTime 12/21/2021 172.72 cm 29.6 kg/m2 83270.51 g 92 /min 119/71 mm[Hg] Elieser Rainey [facility], [facility] 12/21/2021 10:48:14 Social History None recorded. Functional Status None recorded. Mental Status None recorded. Family History Nothing Reported. Medical History Condition Response Other Cancer N HIV or AIDS N Coronary Artery Disease N Gout N Kidney Stones N Hyperthyroidism N Breast Cancer N Hernia N Head Trauma/Injury N Lung Cancer N Blood Clots N COPD N Depression N Lung Disease N Hypothyroidism N Pacemaker N Parkinson's N Anxiety Disorder N Arthritis Y Alcohol / Substance Abuse N Kidney Cancer N Cancer N Melanoma N Stroke N Leg or Foot Ulcers N Neck Injury N High Cholesterol N Skin Cancer N Liver Disease N Rheumatoid Arthritis N Fibromyalgia N Headaches N Concussion N Kidney Disease N Heart Problems N Chronic use of Pain Medication N Prostate Cancer N Migraines N Thyroid Problems N Alzheimers N Autoimmune Disorder N Anemia N Multiple Sclerosis N Tendon Tear N Ulcers N Heart Attack (NV) N Osteopenia N Diabetes Y Bleeding Disorder [...] Codes Diagnosis Note [id number] Jayesh Epps MD [facility] [address] [place] [address] 12/21/2021 10:30:28 12/21/2021 12:47:17 Health Concerns Section Related Observation LastModified by Organization Detai ls LastModified Time None Recorded Concern Status LastModified by Organization Details LastModified Time None Recorded Advance Directives Directive None Recorded Payers Insurance Date Sequence Insurance Name Policy Number Policy Umanzor Covered Member ID Umanzor Member ID Guarantor Name 12/22/2021 1 [place] Juwan Harris [id number] Juwan Harris
--- OUTSIDE RECORDS SUMMARY | 2025-07-08 19:21 | XMS_ITS | Clinical Summary ---
Author Organization [facility] [employer] Address [address] [place] [address] Care Team Providers Care Student Worker Name Role Phone Unavailable Primary Care Provider Unavailabl e Source Comments [facility],non-owned Affiliates and Associated Physician Practices is amultiple site organization consisting of ambulatory clinics and hospital sitesin [place], [place], [place] and [place]. This disclosure is being madepursuant to the Care Everywhere program and may not contain all information available regarding this patient. Last updated 18.[facility] [employer] Allergies Active Allergy Reactions Criticality Noted Date Comments Lisinopril Unknown 03/10/2022 Medications * Be aware that medications may not be up to date on this document. Alwaysverify current medications with the patient. trihexyphenidyl (Artane) 2 MG tablet Take 2 mg by mouth once daily 1 Active Januvia 100 MG tablet Take 100 mg by mouth once daily 2 Active SITagliptin (Januvia) 100 MG tablet Januvia 100 mg tablet TAKE 1 TABLET BY MOUTH EVERY DAY Active lancets TEST ONCE D DIRECTED Active ARIPiprazole (Abilify) 10 MG tablet aripiprazole 10 mg tablet TAKE 1 TABLET BY MOUTH EVERY DAY Active ARIPiprazole (Abilify) 5 MG tablet TAKE 1 TABLET BY MOUTH EVERY DAY IN THE EVENING FOR 30 DAYS 1 Active Aspirin Low Dose 81 MG tablet Take 81 mg by mouth once daily 1 Active buPROPion XL 24hr (Wellbutrin-XL) 150 MG tablet TAKE 1 TABLET BY MOUTH EVERY DAY IN THE MORNING 2 Active simvastatin (Zocor) 40 MG tablet TAKE 1 TABLET BY MOUTH EVERYDAY AT BEDTIME 2 Active simvastatin (Zocor) 40 MG tablet simvastatin 40 mg tablet 2 Active QUEtiapine (SEROquel) 100 MG tablet quetiapine 100 mg tablet Active perphenazine (Trilafon) 8 MG tablet perphenazine 8 mg tablet Active OXcarbazepine (Trileptal) 300 MG tablet Take 300 mg by mouth 2 times daily 1 Active OXcarbazepine (Trileptal) 150 MG tablet Take 150 mg by mouth 2 times daily 2 Active OXcarbazepine (Trileptal) 150 MG tablet oxcarbazepine 150 mg tablet TAKE 1 TABLET BY MOUTH TWICE A DAY Active omeprazole (PriLOSEC) 20 MG capsule omeprazole 20 mg capsule,delayed release 1 PO DAILY Active olmesartan (Benicar) 40 MG tablet Take 40 mg by mouth once daily 2 Active olmesartan (Benicar) 40 MG tablet olmesartan 40 mg tablet TAKE 1 TABLET BY MOUTH EVERY DAY Active montelukast (Singulair) 10 MG tablet montelukast 10 mg tablet Active metFORMIN (Glucophage) 1000 MG tablet Take 1,000 mg by mouth once daily 2 Active metFORMIN (Glucophage) 1000 MG tablet metformin 1,000 mg tablet Active Cyanocobalamin (B-12) 1000 MCG SUBL Take 1 tablet by mouth every morning 1 Active umeclidinium-vi lanterol (Anoro Ellipta) 62.5-25 MCG/INH inhalerIndicati ons:Chronic Obstructive Pulmonary Disease Inhale 1 (one) puff by mouth once daily Reasons: Chronic Obstructive Lung Disease 180 Each 3 2 Active Butler-3 Fatty Acids (FISH OIL PO) Active nicotine (Nicoderm CQ) 21 MG/24HR patchIndication s:Tobacco abuse Apply 1 (one) patch to skin once daily 30 patch 3 Active nicotine (Nicoderm CQ) 14 MG/24HR patchIndication s:Tobacco abuse Apply 1 (one) patch to skin once daily 30 patch 3 Active nicotine (Nicoderm CQ) 7 MG/24HR patchIndication s:Tobacco abuse Apply 1 (one) patch to skin once daily 30 patch 3 Active Active Problems Problem Noted Date Diagnosed Date Interstitial lung disease 03/10/2022 Immunizations Immunization Administration Dates Next Due INFLUENZA VACCINE, TRIV. (AF LURIA, FLUZONE TRIVALENT; 6MO+) (IIV3) 04/25/2016,04/28/2015,05/20/2012 COVID CYNTHIA PRIMARY 18+YR 10/04/2020 Covid Moderna primary monova lent 12+ yr 0.5mL 06/02/2021 FLU VACCINE QUAD IIV4 SPLIT 0.25 ML IM 04/29/2021,05/18/2020,05/12/2019,2016 FLU VACCINE TRI IIV3 SPLIT P F IM (FLUVIRIN) 04/24/2014 INFLUENZA VACCINE, QUADR. (F LUZONE; FLULAVAL; FLUARIX; AFLURIA QUADRIVALENT; 6MO+), 0.5 ML (IIV4) 04/18/2018 PNEUMOCOCCAL PCV20 CONJ VAC IM 03/10/2022 PNEUMOCOCCAL PPSV23 11/18/2018,05/20/2012 Family History Medical History Relation Name Comments Dementia Father CAD (Coronary Artery Disease) Maternal Grandmother Relation Name Status Comments Father Maternal Grandmother Social History Tobacco Use Types Packs/Day Years Used Date Smoking Tobacco: Never Assessed Sex and Gender Information Value Date Recorded Sex Assigned at Not on file Legal Sex Male 1:29 PM CDT Gender Identity Not on file Sexual Orientation Not on file Last Filed Vital Signs Vital Sign Reading Time Taken Comments Blood Pressure 112/73 12/15/2022 11:03 AM CDT Pulse 75 12/15/2022 11:03 AM CDT Temperature 36.4 C (97.6 F) 03/10/2022 8:43 AM CDT Respiratory Rate 22 12/15/2022 11:03 AM CDT Oxygen Saturation 96% 12/15/2022 11:03 AM CDT Inhaled Oxygen Concentration - - Weight 82.6 kg (182 lb) 12/15/2022 11:03 AM CDT Height 172.7 cm (5' 8) 12/15/2022 11:03 AM CDT Body Mass Index 27.67 12/15/2022 11:03 AM CDT Plan of Treatment Health Maintenance Due Date Last Done Comments COLOGUARD (AGES 45-75) - COLON CA SCREENING 1960 COLON MONITORING 1960 COLONOSCOPY - COLON CA SCREENING 1960 CT COLONOGRAPHY - COLON CA SCREENING 1960 Colorectal Cancer Screening 1960 FIT - COLON CA SCREENING 1960 FLEX SIG - COLON CA SCREENING 1960 MEDICARE AWV 12 MONTHS 1960 HIV SCREENING 1975 HEPATITIS C SCREENING 02/26/1978 DTAP/TDAP/TD VACCINES (1 - Tdap) 1979 Respiratory Syncytial Virus (RSV) Vaccine Pt: or over 60 yrs (1 - Risk 50-74 years 1-dose series) 2010 ZOSTER VACCINE (1 of 2) 2010 SCREENING FOR DIABETES 03/10/2022 DEPRESSION SCREENING 07/30/2024 COVID-19 VACCINE ( season) 2025 04/26/2022, 11/17/2021, 06/02/2021, Additional history exists INFLUENZA VACCINE (#1) 2025 4, 04/26/2022, 04/29/2021, Additional history exists PNEUMOCOCCAL VACCINE 50+ Completed 022, 11/18/2018, 05/20/2012 HEPATITIS B VACCINE Aged Out No longe r eligible based on patient's age to complete this topic HIB VACCINE Aged Out No longer eligi ble based on patient's age to complete this topic HPV VACCINE Aged Out No longer eligi ble based on patient's age to complete this topic MENINGOCOCCAL (Group B) VACCINE SHARED DECISION-MAKING Aged Out No longer eligible based on patient's age to complete this topic MENINGOCOCCAL GROUPS A/C/Y/W VACCINE Aged Out No longer eligible based on patient's age to complete this topic Insurance MEDICARE MEDICAID - [place] MEDICARE MEDICAID [facility]
--- OUTSIDE RECORDS SUMMARY | 2025-07-08 19:22 | XMS_ITS | Clinical Summary ---
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 Gender Identity Not on file Sexual Orientation Not on file Plan of Treatment Upcoming Encounters Date Type Department Care Team (Late st Contact Info) Description 11/23/2025 11:00 AM CDT Office Visit [facility] [address], [address] [place] [address] Bret Sutton MD [address] [place] [address] Health Maintenance Due Date Last Done Comments Colorectal Cancer Screening Colonoscopy (10 Years) 1960 Hepatitis C 1978 DTaP, Tdap and Td Vaccines ( 1 - Tdap) 1979 Pneumococcal Vaccine: 50+ Ye ars (1 of 1 - PCV) 2010 Zoster Vaccines (1 of 2) 2010 COVID-19 Vaccine ( - 2024-2 6 season) 2025 Influenza Adult (#1) 2025 RSV Immunization or 60+ Years (1 - 1-dose 75+ series) 2035 Hepatitis A Vaccines Aged Out No long er eligible based on patient's age to complete this topic Meningococcal B Vaccine Aged Out No l onger eligible based on patient's age to complete this topic Meningococcal Vaccine Aged Out No alicia jeny eligible based on patient's age to complete this topic RSV Immunizations Under 20 Months Aged Out No longer eligible based on patient's age to complete this topic Insurance MEDICARE MEDICAID
--- OUTSIDE RECORDS SUMMARY | 2025-07-08 19:22 | XMS_ITS | Data Portability ---
Author Organization [place] - [facility], Main Office Address [address] [place] [address] Care Team Providers Care Store Hand Name Role Phone STEVEN HIGGINS Primary Care Provider STEVEN HIGGINS Referring Provider [phone] [facility] Meeting Coordinator [phone] ARELIS AYALA Psychiatrist SHAYLA FAUST Rn Medical Inpatient Services BELINDA DE LOS SANTOS Kindergartners Helper GAURI KEANE Primary Care Provider Assessment Encounter Date Assessment Date Assessment LastModified by Organization Details LastModified Time 08/12/2024 08/12/2024 04/09/2023: A1C 6.7 PSA 0.84 MCV 101.5 07/05/2024: Philip ER Gluc 200, AST/ALT 244/77 H/H 12.1/35.0, [...] the patient, labs reviewed, call placed for [facility] and chart updated and multiple BP [...] in 9 months Nicotine cessation counseling provided. [place] for quitting nicotine include getting ready, getting [...] in Quit For Life program Registering at [email or web address] Making a call to 5-842-ZFAI-NOW ( ). A strong, clear, personalized message [...] failure or relapse. Patient can enroll in [facility]'s smoking cessation class through Mary Ann Ballard [...] Dr. Rene Amaro , , FAX at [facility] ([facility]) for follow up regarding pulmonary fibrosis, if [...] started on the Anoro Ellipta prescribed at [facility]. The patient does not know how to [...] further management. Follow-up: 1 year, August 2025 [email or web address] Not available 09/04/2024 14:11:17 Plan of Treatment Reminders Order Date Submit Date Provider Last Modified By Organization Details Last Modified Time Details Appointments None recorded. Lab vitamin B12 + folate, serum or blood 2024 025 [email or web address] 6 [facility] (Lab), [address] [place], [address], 5 14:45:21 lipid panel, serum 2024 025 [email or web address] 6 [facility] (Lab), [address] [place], [address], 5 14:45:20 CBC w/ auto diff 2024 025 [email or web address] 6 [facility] (Lab), [address] [place], [address], 5 14:45:21 TSH, serum or plasma [email or web address] [place] [address] (Lab), [address] [place], [address], 5 14:45:21 CMP, serum or plasma [address] (Lab), [address] [place], [address], 5 14:45:21 vitamin D, 25-hydroxy, total, serum [address] (Lab), [address] [place], [address], 5 08:38:06 glycohemogl obin, total, blood [address] (Lab), [address] [place], [address], 5 14:45:21 microalbumi n, urine [address] (Lab), [address] [place], [address], 5 14:45:21 vitamin B12 + folate, serum or blood [address] (Lab), [address] [place], [address], 5 17:59:32 lipid panel, serum 2024 025 [facility] (Lab), [address] [place], [address], 5 11:35:20 CBC w/ auto diff 2024 025 [facility] (Lab), [address] [place], [address], 5 12:48:44 TSH, serum or plasma 2024 025 [facility] (Lab), [address] [place], [address], 5 11:55:38 CMP, serum or plasma 2024 025 [facility] (Lab), [address] [place], [address], 5 11:35:24 PSA, total, serum or plasma 2024 025 [facility] (Lab), [address] [place], [address], 5 11:55:57 vitamin D, 25-hydroxy, total, serum [email or web address] [place] [address] (Lab), [address] [place], [address], 5 11:30:00 glycohemogl obin, total, blood 2024 025 [facility] (Lab), [address] [place], [address], 5 13:59:16 microalbumi n, urine 2024 025 [facility] (Lab), [address] [place], [address], 5 12:25:03 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 Thank you. 2024 025 [email or web address] Shayla Faust MD, [address] [place], [address], 14:24:35 psychiatris t referral - Please call patient to schedule. Thank you. 2024 025 [email or web address] 6 Susan Evans Pmhnp, [address] [place] [address] [address], [address], 11:56:53 funeral arrangement director referral - Please call patient to schedule. Thank you. 2024 025 [email or web address] Belinda De Los Santos DPM, [address] [place] [address], [facility] [address], [place], [address], 14:29:30 endocrinolo gy referral - Please call patient to schedule an appointment . Thank you. 2024 025 [email or web address] 6 Leroy Sheffield MD, [address], [place], [address], 09:43:12 cardiologis t referral - Please call patient to schedule an appointment . Thank you. 2024 025 [email or web address] 6 [place], [address] [address] , [address], [address], 17:48:[address] referral - Please call patient to schedule. 2024 025 [email or web address] Shayla Faust MD, [address] [place] [address], [address], 17:54:28 psychiatris t referral - Please call patient to schedule. 2024 025 [email or web address] Susan Evans Pmhnp, [address] [place] [address] [address], [place], [address], 17:57:57 funeral arrangement director referral - Please call patient to schedule. 2024 025 [email or web address] Belinda De Los Santos DPM, [address] [place] [address], [address], [place], [address], 5 17:57:09 endocrinolo gy referral 2024 025 Leroy Sheffield MD, [address], [place], [address], 17:57:56 cardiologis t referral 2024 025 [email or web address] [place], [address], [address], [place], [address], 5 17:54:29 Procedures None recorded. Surgeries None recorded. Imaging CT, chest, w/o contrast - Please call patient to schedule. Note from provider: HIGH RESOLUTIOJN FOR ILD/PULM FIBROSIS 2024 026 [email or web address] Not available 5 14:01:01 Medication Orders mupirocin 2 % topical ointment 2024 025 [facility]/Pharmacy #2510, [address] [place], [address], 5 16:39:10 Bactrim DS 800 mg-160 mg tablet 2024 [facility]25 [facility] [address] [place], [address], 5 15:53:20 albuterol sulfate HFA 90 mcg/actuati on aerosol inhaler 2024 025 [facility]/Pharmacy #2510, [address] [place], [address], 5 20:16:13 cholecalcif chhaya (vitamin D3) 1,250 mcg (50,000 unit) capsule [email or web address]/Pharmacy #2510, [address] [place], [address], 5 15:52:32 folic acid 1 mg tablet [address]/Pharmacy #2510, [address] [place], [address], 5 15:52:48 thiamine HCl (vitamin B1) 100 mg tablet [address]/Pharmacy #2510, [address] [place] [address], [address], 5 15:53:26 bupropion HCl XL 150 mg 24 hr tablet, extended release [address]/Pharmacy #2510, [address] [place], [address], 5 15:52:16 bupropion HCl XL 150 mg 24 hr tablet, extended release [address]/Pharmacy #2510, [address] [place] [address], [address], 5 15:52:16 Patient TargetsNo targets recorded. Patient Instructions Encounter Date Encounter Id Patient Instructions Last Modified By Organization Details Last Modified Time 08/12/2024 [id number] diabetic eye exam* [email or web address] Not avail able 02/09/2025 08:12:22 08/26/2024 [id number] diabetic eye exam* [email or web address] Not avai lable 02/23/2025 08:43:43 09/04/2024 [id number] complete PFT w/ post bronchodilator spirometry* [email or web address] Not available 09/04/2024 14:01:01 10/14/2024 [id number] Prescribed Bactr im for antimicrobial coverage. He will have a sinus CT completed. Audiogram and tympanogram to be completed. we will follow up on these results become available. He will see Dr. Camarena due to a nonhealing small left tympanic membrane perforation for a surgical consultation. [email or web address] Not available 10/14/2024 16:03:06 Reason for Referral Kindergartners Helper Referral for Type 2 diabetes mellitus without complication Please call patient to schedule. Referring Physician: Tripp Lutz [facility], Encounter Date: 08/12/2024 Rn Medical Inpatient Services Referral for I nterstitial lung disease Please call patient to schedule. Referring Physician: Tripp Lutz [facility], Encounter Date: 08/12/2024 Meeting Coordinator Referral for Co ronary arteriosclerosis Referring Physician: Tripp Lutz [facility], Encounter Date: 08/12/2024 Endocrinology Referral for T ype 2 diabetes mellitus without complication Referring Physician: Tripp Lutz [facility], Encounter Date: 08/12/2024 Psychiatrist Referral for Sc hizophrenia Please call patient to schedule. Referring Physician: Tripp Lutz [facility], Encounter Date: 08/12/2024 Kindergartners Helper Referral for Type 2 diabetes mellitus without complication Please call patient to schedule. Thank you. Referring Physician: Tripp Lutz [facility], Encounter Date: 08/26/2024 Rn Medical Inpatient Services Referral for I nterstitial lung disease Please call patient to schedule an appointment. Thank you. Referring Physician: Catarino Santos Medicine, Encounter Date: 08/26/2024 Meeting Coordinator Referral for Co ronary arteriosclerosis Please call patient to schedule an appointment. Thank you. Referring Physician: Tripp Lutz [facility], Encounter Date: 08/26/2024 Endocrinology Referral for T ype 2 diabetes mellitus without complication Please call patient to schedule an appointment. Thank you. Referring Physician: Catarino Santos Medicine, Encounter Date: 08/26/2024 Psychiatrist Referral for Sc hizophrenia Please call patient to schedule. Thank you. Referring Physician: Tripp Lutz [facility], Encounter Date: 08/26/2024 Dress Finisher Referral for Perfo ration of left tympanic [...] contr ast No observ ation record ed. [address] [place], [address], 07/21/2024 14:26:52 09/01/19 25 08/29/2024 SPECT , gated blood pool scan, stres s, w/ wall motio n + eject ion fract ion No observ ation record ed. [address] [facility] [address], [place], [address], 09/03/2024 19:26:53 09/05/19 25 09/04/2024 compl ete PFT w/ post [facility] hodil ator [facility] * No observ ation record ed. [facility] ([facility]) [address] [place], [address], 09/05/2024 12:43:56 Result Notes None recorded. Problems Name Problem SNOMED Code Status Onset Date Resolution Date Notes Provider Name and Address Organization Details Recorded Time Pain in lower limb 21107240 Completed Not Available [facility] 3 04:54:45 Tobacco user 218413655 Completed Not Available [facility] 3 04:54:45 Prostatis m 30807690 Completed Not Available [facility] 3 04:54:45 Injury of knee 100649766 Completed Not Available [facility] 3 04:54:46 Submandib ular lymphaden opathy 048075858 Completed Not Available [facility] 3 04:54:46 Knee joint effusion 409290331 Completed Not Available [facility] 3 04:54:46 Ankle pain 495192007 Completed Not Available [facility] 3 04:54:46 Headache 95316664 Completed Not Available [facility] 3 04:54:46 Low back pain 493328670 Completed Not Available [facility] 3 04:54:46 Shoulder joint painful on movement 253004487 Completed Not Available [facility] 3 04:54:46 Disorder of prostate 87777270 Completed Not Available [facility] 3 04:54:47 Transient memory loss Completed Not Available [facility] 3 04:54:47 Prostate mass 022263193 Completed Not Available [facility] 3 04:54:47 Type 2 diabetes mellitus without complicat ion 065785937 Active Not Available [facility] 3 04:54:47 Sprain of shoulder 9513504 Completed Not Available [facility] 3 04:54:47 Dehydrati on 36061756 Completed Not Available [facility] 3 04:54:47 Blood in urine 45189676 Completed Not Available [facility] 3 04:54:48 Acute pharyngit is 398393425 Completed Not Available [facility] 3 04:54:48 Prostate specific antigen above reference range 963815475 Completed Not Available [facility] 3 04:54:48 Dizziness 556518131 Completed Not Available [facility] 3 04:54:48 Nausea 315877085 Completed Not Available [facility] 3 04:54:49 Seasonal allergy 530367214 Active Not Available [facility] 3 04:54:49 Pain of shoulder region 87264574 Completed Not Available [facility] 3 04:54:49 Foot pain 49611902 Completed Not Available [facility] 3 04:54:49 Pain of hip region 41782330 Completed Not Available [facility] 3 04:54:49 Cough 33438976 Completed Not Available [facility] 3 04:54:49 Hyperlipi demia 96178449 Active Not Available [facility] 3 04:54:50 Acid reflux 129137980 Active Not Available [facility] 3 04:54:50 Diabetes mellitus 43702285 Completed Not Available [facility] 3 04:54:50 Pain of elbow region 86335218 Completed Not Available [facility] 3 04:54:51 Posterior rhinorrhe a 59369274 Completed Not Available [facility] 3 04:54:51 Epigastri c pain 68250906 Completed Not Available [facility] 3 04:54:51 Neck pain 27607455 Completed Not Available [facility] 3 04:54:51 Hyperuric emia 31766498 Active 2019 Not Available [facility] 3 04:54:48 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 Not Available [facility] 3 04:54:50 Fibrosis of lung 31859049 Active 2021 Not Available [facility] 3 04:54:50 Osteoarth ritis of hip 406541958 Active 2021 Not Available [facility] 3 04:54:46 Essential hypertens ion 69015716 Active 2022 Karissa Mejia MD [address], [address], [place], [address] , [employer] 3 14:53:00 Nicotine dependenc e 72339981 Active 2022 NABOR Odell [address], [address], [place], [address] , [employer] 3 11:45:12 Bipolar disorder 97981118 Active 2022 NABOR Odell [address], [address], [place], [address] , [employer] 3 11:45:34 Macrocyto sis 342853777 Active 2023 Tripp rich MD [address], [address], [place], [address] , [facility] 4 12:19:13 Coronary arteriosc lerosis 32795907 Active 2023 Tripp rich MD [address], [address], [place], [address] , [facility] 4 12:33:03 Hypothyro idism 70235270 Active 2023 Ruchi Granados RMAmbrose null, [facility] 4 11:29:21 Alcohol dependenc e 94342908 Active 2023 Tripp rich MD [address], [address], [place], [address] , [facility] 4 16:08:35 Vitamin D deficienc y 52024898 Active 2023 Tripp rich MD [address], [address], [place], [address] , [facility] 4 16:30:06 Mild chronic obstructi ve pulmonary disease 434239216 Active 2023 Shayla Faust MD [address], [address], [place], [address] , [facility] 4 15:22:22 Proteinur ia 97537161 Active 2023 Gonzalez Rodriguez LPN null, [facility] 4 09:37:55 Liver enzymes level above reference range 394133504 Active 2023 Gonzalez Rodriguez LPN null, [facility] 4 09:39:03 Pain of bilateral hip joints 48728035363 971001 Active 2024 Tripp rich MD [address], [address], [place], [address] , [place] [facility] 5 17:56:45 Interstit ial lung disease 959928119 Active 2024 Tripp rich MD [address] [facility], [facility] [address], [place], [address] , [place] [facility] 5 17:56:45 Cigarette smoker 93196018 Active 2024 Tripp rich MD [address] [facility], [address] [address], [place], [address] , [facility] 5 17:56:45 Chronic sinusitis 55820605 Active 2024 Linh Edgar RN null, [place] [facility] 5 15:40:28 Sensorine ural hearing loss 18378568 Active 2024 Linh Edgar RN null, [place] [facility] 5 15:40:33 Perforati on of left tympanic membrane 99832903304 49091 Active 2024 Linh Edgar RN null, [place] [facility] 5 15:40:46 Superfici al injury of nose with infection 30759598 Active 2024 SUNIL Davenport [address] [facility], [place] [address], [place], [address] , [facility] 5 15:44:55 Deviated nasal septum 514844077 Active 2024 SUNIL Davenport [address] [facility], [place] [address], [place], [address] , [facility] 5 15:46:24 Acute folliculi tis 508429830 Active [address] MD [address] [facility], [address] [address], [place], [address] , [facility] 5 16:38:51 Notes:Medical History: Chron ic [...] cataract extraction with IOL 2018 Occupational History: [place] [employer] 1997 only for 2 weeks Migration History: Born and lived in [place] 99% of life [place], [place] [address] Problem Notes None recorded. Procedures Surgical History Date Name Laterality Status Provider Name and Address Organization Details Recorded Time 4 Medicare Wellness CPT Code, subsequent cancelled Gonzalez Rodriguez LPN [employer] 01/07/2024 18:21:42 3 Medicare Wellness CPT Code, subsequent completed VALENTIN OdellP-C [address] [facility], [facility] [address], [place], [address], [employer] 11/30/2022 12:15:16 Orthopedic Surgery completed Not Available [facility] 09/27/2022 04:44:18 Prostate completed Not Available [facility] 04:44:18 Imaging Results None recorded. [...] Last Updated DateTime 172.72 cm 25.8 kg/m2 00798.7 g 97.2 [degF] 84 /min 110/62 mm[Hg] RuchiKIRA Childress [facility] [employer] [facility] 17:49:11 Date Recorded Body height Body mass index (BMI) Body weight Heart rate Respiratory rate Oxygen saturation Heart rate Systolic And Diastolic Systolic And Diastolic Provider Name and Address Organization Details Last Updated DateTime 5 172.72 cm 26.5 kg/m2 58386.0 7 g 96 /min 16 /min 96 % 103 /min 106/68 mm[Hg] 106/60 mm[Hg] Bonnie Laron [facility] 5 16:17:03 Date Recorded Heart rate Respiratory rate Provider N norman and Address Organization Details Last Updated DateTime 09/04/2024 83 /min 15 /min Shayla Faust MD [address] [place] [address], [place], [address], [facility] 09/04/2024 14:04:58 Date Recorded Body height Body mass index (BMI) Body weight Body temperature Heart rate Oxygen saturation Systolic And Diastolic Provider Name and Address Organization Details Last Updated DateTime 172.72 cm 26.5 kg/m2 49875.0 7 g 98.4 [degF] 83 /min 96 % 110/64 mm[Hg] Denise Lewis MA [facility] [employer] [facility] 13:35:58 Date Recorded Body height Body mass index (BMI) Body weight Body temperature Provider Name and Address Organization Details Last Updated DateTime 10/14/2024 172.72 cm 27.1 kg/m2 56651.44 g 98.1 [degF] Linh Edgar RN [facility] [email or web address] 10/14/2024 15:23:29 Date Recorded Body height Body mass index (BMI) Body weight Body temperature Provider Name and Address Organization Details Last Updated DateTime 03/26/2025 172.72 cm 25.8 kg/m2 90928.7 g 97.6 [degF] Linh Edgar RN [place] [facility] [place] [email or web address] 03/26/2025 15:49:42 Social History Question Answer Notes LastModified by Organizat ion Details LastModified Time Tobacco Smoking Status Current Every Day Smoker Not Available [facility] 09/27/2022 04:41:46 What Is Your Level Of Caffeine Consumption? Moderate [id number].[id number] Information not available 09/27/2022 How Much Tobacco Do You Chew? None MIGRATION.15268 [id number] Information not available 09/27/2022 In The 14 Days Before Symptom Onset, Have You Had Close Contact With A Laboratory-confi rmed COVID-19 While That Case Was Ill? No MIGRATION.52546 [id number] Information not available 09/27/2022 In The 14 Days Before Symptom Onset, Have You Had Close Contact With A Person Who Is Under Investigation For COVID-19 While That Person Was Ill? No MIGRATION.97144 [id number] Information not available 09/27/2022 What Type Of Diet Are You Following? REGULAR MIGRATION.30855 [id number] Information not available 09/27/2022 Which Illicit Or Recreational Drugs Have You Used? None MIGRATION.60430 44845 Information not available 09/27/2022 What Is The Highest Grade Or Level Of School You Have Completed Or The Highest Degree You Have Received? [id number] Information not available 11/30/2022 Do You Have [...] Been Counseled For Unhealthy Alcohol Use? No MIGRATION.73861 87646 Information not available 09/27/2022 Do You Have Any Pets? Yes Information not available 11/30/2022 What Is Your Relationship Status? MIGRATION.60659 57157 Information not available 09/27/2022 Do You Use Your Seat Belt Or Car Seat Routinely? Yes Information not available 07/17/2024 Do You Have Smoke And Carbon Monoxide Detectors In Your Home? Yes Information not available 11/30/2022 At What Age Did You Start Smoking Tobacco? 13 MIGRATION.79743 13709 Information not available 09/27/2022 Are You Passively Exposed To Smoke? Yes Information not available 11/30/2022 Are There Any Smokers In Your House? No Information not available 11/30/2022 How Much Tobacco Do You Smoke? 1 PPD Information not available 11/30/2022 Do You Use Sunscreen Routinely? No Information not available 11/30/2022 Has Tobacco Cessation Counseling Been Provided? No MIGRATION.84178 07114 Information not available 09/27/2022 Have You Recently Traveled Abroad? No MIGRATION.87109 26380 Information not available 09/27/2022 Do You Have Any Dietary Restrictions? No MIGRATION.19721 94181 Information not available 09/27/2022 Sex: Male Functional Status Question Answer Note LastModified by Organizat ion Details LastModified Time Do you use any illicit or recreational drugs? No MIGRATION.84320 [id number] Information not available 09/27/2022 Do you or have you ever used any other forms of tobacco or nicotine? No MIGRATION.06320 04271 Information not available 09/27/2022 What is your level of alcohol consumption? Heavy 3/4 pint of Captsamra Aquino rum every day--stopp ed 2-3 beers per day [email or web address] Information not available 08/12/2024 Do you or have you ever used smokeless tobacco? Never used smokeless tobacco MIGRATION.96572 34082 Information not available 09/27/2022 Are you currently employed? No RETIRED Information not available 11/30/2022 Have you been exposed to chemicals or toxins? Not that aware of Information not available 07/17/2024 Do you or have you ever used e-cigarettes or vape? Never used electronic cigarettes MIGRATION.43199 62689 Information not available 09/27/2022 What is your exercise level? Occasional MIGRATION.26953 66889 Information not available 09/27/2022 Mental Status Question Answer Note LastModified by Organization D etails LastModified Time Do you feel stressed (tense, restless, nervous, or anxious, or unable to sleep at night)? [id number] Information not available 07/17/2024 Family History Relationship Description Onset Age of this Age Resolved Age Notes LastModified by Organization Details LastModified Time Maternal Grandmother Heart disease [id number] [id number] Not available 09/27/2022 04:44:24 Father Dementia MIGRATION.235 [id number] Not available 09/27/2022 04:44:24 Father Arthritis MIGRATION.422 [id number] Not available 09/27/2022 04:44:24 Mother Family history of malignant neoplasm [email or web address] Not available 2022 10:17:26 Notes:DM NO ENT Medical History Condition Response BLINDNESS N KIDNEY STONES N MRSA N CARPAL TUNNEL SYNDROME N LUNG DISEASE/DISORDER Y HISTORY OF DRUG ABUSE N RADIATION / CHEMOTHERAPY N COPD Y SPORTS INJURY N ANKLE PAIN N BLOOD DISEASES N SCHIZOPHRENIA N SHINGLES N SHOULDER PAIN N DEPRESSION (INCLUDING POST ) N BOWEL PROBLEMS N STROKE/TIA N ULCERS N KNEE PAIN [...] FOOT PROBLEM N HEART VALVE DISORDERS N SOFT TISSUE INJURY N ALLERGIES/HAYFEVER N INFECTIOUS DISEASE N HEART ARRHYTHMIA N INSOMNIA N RHEUMATOID ARTHRITIS N HIGH CHOLESTEROL / HYPERLIPIDEMIA Y EDEMA N CHRONIC PAIN SYNDROME N CAROTID BLOCKAGE N BACK / NECK PROBLEMS N HAVE YOU BEEN HOSPITALIZED OR SEEN IN [facility] IN THE PAST YEAR ? N [...] Tdap 1 completed Ruchi Granados RMA null, [employer] 10/02/2023 11:54:47 RSV, recombinant, protein subunit RSVpreF, adjuvant reconstituted, 0.5 mL, PF 4 completed Ruchi Granados RMA null, [employer] [facility] 10/02/2023 11:55:10 Influenza, MDCK, quadrivalent, PF 4 completed Ruchi Granados RMA donald, [employer] 10/02/2023 11:55:58 COVID-19, mRNA, LNP-S, PF, 100 mcg/0.5mL dose or 50 mcg/0.25mL dose 1 completed Not Available [facility] 09/27/2022 05:07:30 COVID-19 vaccine, vector-nr, rS-Ad26, PF, 0.5 mL 1 completed Not Available [facility] 09/27/2022 05:07:30 Influenza, split virus, trivalent, preservative 5 completed Not Available [facility] 09/27/2022 05:07:30 Influenza, split virus, quadrivalent, preservative 1 completed Not Available [facility] 09/27/2022 05:07:31 Influenza, split virus, quadrivalent, preservative 0 completed Not Available [facility] 09/27/2022 05:07:31 Influenza, split virus, quadrivalent, preservative 9 completed Not Available [facility] 09/27/2022 05:07:31 Influenza, split virus, quadrivalent, preservative 8 completed Not Available [facility] 09/27/2022 05:07:31 Influenza, split virus, quadrivalent, preservative 7 completed Not Available [facility] 09/27/2022 05:07:31 Influenza, split virus, trivalent, preservative 6 completed Not Available [facility] 09/27/2022 05:07:31 Influenza, split virus, trivalent, PF 4 completed Not Available [facility] 09/27/2022 05:07:31 pneumococcal polysaccharide PPV23 2 completed Not Available [facility] 09/27/2022 05:07:31 Influenza, split virus, trivalent, preservative 2 completed Not Available [facility] 09/27/2022 05:07:31 pneumococcal polysaccharide PPV23 9 completed Not Available [facility] 09/27/2022 05:07:31 Influenza, split virus, quadrivalent, PF 8 completed Not Available [facility] 09/27/2022 05:07:31 Past Encounters Encounter ID Performer Location Encounter Start Date Encounter Closed Date Diagnosis/Indication Diagnosis SNOMED-CT Code Diagnosis ICD10 Code Diagnosis IMO Codes Diagnosis Note [id number] S_Histor ic_Gateway [facility] [place] [facility] [place] [address] [address] [place] [address] 09/30/2020 00:00:00 09/30/2020 14:49:15 [id number] S_Histor ic_Gateway [facility] [place] [facility] [place] [address] [address] 10/14/2020 00:00:00 10/14/2020 11:38:44 [id number] S_Histor ic_Gateway [facility] [place] [address] 11/23/2020 00:00:00 11/23/2020 15:04:19 [id number] Robyn Leone MD [facility] [place] [facility] [place] [address] [address] 02/07/2021 00:00:00 02/07/2021 14:57:56 [id number] Robyn Leone MD [employer] [facility] [place] [address] [place] [address] y , [place] [address] 04/06/2021 00:00:00 04/06/2021 10:58:08 [id number] Robyn Leone MD [facility] Family Practice [place] [address] [place] [address] y , [place] [address] 05/04/2021 00:00:00 05/04/2021 12:05:57 [id number] Robyn Leone MD [facility] Family [facility] [place] [address] [place] [address] [place] [address] 05/11/2021 00:00:00 05/11/2021 21:40:31 [id number] Robyn Leone MD [facility] [place] [facility] y , [place] [address] 05/25/2021 00:00:00 05/25/2021 16:33:08 [id number] Robyn Leone MD [facility] [place] [address] [place] [address] [place] [address] 06/27/2021 00:00:00 06/27/2021 16:08:40 [id number] S_Histor ic_Gateway [facility] [address] [place] [address] 06/28/2021 00:00:00 06/28/2021 15:50:58 [id number] Robyn Leone MD [employer] [facility] Family [facility] [place] [address] [place] [address] [place] [address] 11/22/2021 00:00:00 11/23/2021 09:02:02 [id number] Apollo Knutson MD [facility] [facility] Ortho [place] [place] [address] [facility] [address] [place] [address] 01/04/2022 00:00:00 01/15/2022 21:46:26 [id number] Shayla Faust MD [facility] [facility]_[address] [address] 01/24/2022 00:00:00 01/24/2022 11:14:42 [id number] Shayla Faust MD [facility]_[address] [address] 02/13/2022 00:00:00 02/13/2022 10:31:01 [id number] Robyn Leone MD [facility] Family Practice Toni nuvia [address] [facility] [place] [address] 06/07/2022 00:00:00 06/07/2022 10:21:56 [id number] Karissa Mejia MD [employer] [facility] [place] [address] [place] [address] 08/22/2022 00:00:00 08/22/2022 15:16:40 [id number] Karissa Mejia MD Deni_[facility] [place] [address] [place] [address] 10/26/2022 14:26:02 10/26/2022 15:23:14 Uncontrolled type 2 diabetes mellitus [id number] E11.65 A1C of 8.7% down from 9%- continue on metformin ER 500 mg twice daily with meals. Continue on jardiance and ozempic 0.5 mg once weekly. Discussed carb counting and how to read food labels. Recommende d patient to utilize the diabetesfo [employer] from the ADA website to help with food preparatio n as this presents ideal carb content per meal so this will make carb counting much easier for patient. Recommende d he incorporat e natural insulin dental office receptionist s such as pears, apples, cinnamon, troy and sweet potatoes to help mobilize his endogenous insulin. Recommende d up to 150 minutes of moderate level activity/e xercise weekly. Send for new glucose meter as meter is inaccurate and over 2 years old. Dyslipidemia 783208835 E 78.5 Continue on statin therapy as LDL in range. Essential hypertension 62197789 I10 Refill olmesartan as patient blood pressure [...] he chooses to go outside of the [facility] system to obtain labwork he was [...] in his case. He voiced understand ing. [id number] Tripp rich MD S_GMG Internal Med [facility] [address] [facility], [facility] [address] [place] [address] 11/30/2022 11:42:53 11/30/2022 12:11:08 Uncontrolled type 2 diabetes mellitus 632933069 E11.65 Follows endocrinol ogy-Dr. Mejia On Ozempic, metformin, JardianceH e is aware to call office if any signs or symptoms of groin infectionp t is aware of side effects, risks, benefitspt denies any personal or family history of MEN II or MTC, denies and personal history of pancreatit ispt knows to call the office if any severe n/v or abdominal pain Dyslipidemia 394102064 E 78.5 On simvastati n Essential hypertension 99715913 I10 On olmesartan Interstiti al lung disease 950624537 J84.9 follows pulmonolog y at [facility]- Dr. Rene Valiente s upcoming HR-CT chest later this month at [facility] Nicotine dependence 5629 4008 F17.200 3 min spent with patient discussing risks, cessation options. Patient encouraged to quit. Bipolar disorder 8679193 4 F31.9 follows psychiatry - Lisseth at Dr. Ayala's officeOn oxcarbazep ine, Abilify, Wellbutrin Schizophrenia 78032670 F 20.9 As above Adult heal th examination 307485258 Z00.00 Screening for disorder 324474981 Z13.9 Screening for malignant neoplasm of prostate 913329397 Z12.5 Chronic ob structive pulmonary disease 88566906 J44.9 follows pulm as aboveon Anoro and prn albuterol [id number] Karissa Mejia MD [facility] Endo Krista [place] [address] [place] [address] 03/26/2023 08:45:55 03/26/2023 09:50:19 Well controlled type 2 diabetes mellitus 965742808 E11.9 A1c of 6.5% down from 8.5%- will uptitrate ozempic to 1 mg once weekly as patient tolerating well. Continue on metformin for insulin sensitizat ion and continue jardiance as patient tolerating well. Discussed carb counting and how to read food labels. Recommende d patient to utilize the diabetesfo [employer] from the ADA website to help with food preparatio n as this presents ideal carb content per meal so this will make carb counting much easier for patient. Recommende d he incorporat e natural insulin dental office receptionist s such as pears, apples, cinnamon, troy and sweet potatoes to help mobilize his endogenous insulin. Recommende d up to 150 minutes of moderate level activity/e xercise weekly. Dyslipidemia 295356850 E 78.5 Continue on statin therapy as [...] answered and refills necessary at visit today. [id number] Tripp rich MD Deni_G Internal Med [facility] [address] [facility] [place] [address] [place] [address] 04/05/2023 11:47:38 04/05/2023 12:27:05 Dyslipidemia 749852509 E78.5 On simvastati n Essential hypertension 07134881 I10 On olmesartan Interstiti al lung disease 560143867 J84.9 follows pulmonolog y at [facility]- Dr. Rene Valiente s HR-CT chest with them Chronic ob structive pulmonary disease 45906437 J44.9 follows pulm as aboveon Anoro and prn albuterol Nicotine dependence 5629 4008 F17.200 3 min spent with patient discussing risks, cessation options. Patient encouraged to quit. Bipolar disorder 9528714 4 F31.9 follows psychiatry - Lisseth at Dr. Ayala's officeOn oxcarbazep ine, Abilify, Wellbutrin Schizophrenia 41753987 F 20.9 As above Screening for malignant neoplasm of prostate 354114311 Z12.5 Type 2 valdemar betes mellitus without complication 030253054 E11.9 Follows endocrinol ogyOn Ozempic, metformin, JardianceH [...] checks- he declines Swollen ankle region 267 741687 R22.40 reassuranc e exam is WNL todaycall office if recurs [id number] Karissa Mejia MD Deni_[facility] [place] [address] [place] [address] 02/20/2023 09:04:22 02/20/2023 09:26:19 [id number] MD BEHZAD Hernandez_G Ortho [place] [address] [facility], [address] [place] [address] 06/14/2023 09:58:42 06/25/2023 10:55:42 Pain of bilateral hip joints 1179980508 4423812 M25.551 M25.640 [id number] Tripp rich MD [employer] [facility] Internal Med [facility] [address] [facility] [place] [address] [place] [address] 08/06/2023 11:48:58 08/06/2023 12:32:07 Type 2 diabetes mellitus without complication 955908405 E11.9 Follows endocrinol ogy- was referred last [...] for nail trim/foot checks- he declines Dyslipidemia 963107304 E 78.5 On simvastati n Essential hypertension 66479325 I10 On olmesartan Interstiti al lung disease 649534030 J84.9 follows pulmonolog y at [facility]- Dr. Rene Valiente s HR-CT chest with them Chronic ob structive pulmonary disease 20855669 J44.9 follows pulm as aboveon Anoro and prn albuterol Nicotine dependence 5629 4008 F17.200 3 min spent with patient discussing risks, cessation options. Patient encouraged to quit. Bipolar disorder 0543081 4 F31.9 follows psychiatry - Lisseth at Dr. Ayala's officeOn oxcarbazep ine, Abilify, Wellbutrin Schizophrenia 87894808 F 20.9 As above Upper resp iratory infection 32788694 J06.9 Start doxycyclin e and Medrol Dosepak Call office if no improvemen t after meds [id number] Tripp rich MD [employer] [facility] Internal Med [facility] [address] [facility] [place] [address] [place] [address] 10/02/2023 11:39:20 10/02/2023 12:43:43 Screening - NAD 474452471 Z13.9 C-scope: next in 02/2026 Get yearly flu shot, get tdap if not doneCan do shingrix vaccineCan do RSV vaccineCan do COVID 19 vaccine and its boosters RTC in 3 months, do labs, ER if worse, he did verbalize his understand ing of the above Pain of bi lateral hip joints 2538949765 2275503 M25.[address] Knutson 06/14/2023 Type 2 valdemar betes mellitus without complication 584640271 E11.9 On jardiance 25mg dailyOn metformini ER 500mg po bidOn ozempic 0.5mg weeklyNo MEN 2 or MCT or parathyroi d or pancreatic issues Has seen endocrine in the past Hyperlipidemia 74321193 E78.5 On simvastati n 40mg dailyGet labs Essential hypertension 85209012 I10 On olmesartan 40mg dailyDoes well Interstiti al lung disease 775677523 J84.9 Has ILD and COPDOn albuterol Sees Dr Amaro pulmonary Schizophrenia 92218178 F 20.9 On aripiprazo le 10mg dailyOn buporpion XL 250mg dailyOn oxcarbazep ine 150mg daily Not suicidal or homicidalS ees Dr [facility] CMA Lisseth, meds refilled by psychiatry Cigarette smoker 9042595 7 F17.210 Advised to quitUS AAA at age 65 years LDCT 11/30/2021 Sees pulmonary and has had HRCT done Macrocytosis 612535499 D 75.89 Get labs Coronary arteriosclerosis 08553145 I25.10 Seen on the LDCTRefer to Dr Johnson and will see him today at the [facility] off [id number] Tripp rich MD S_GMG Internal Med [place] [address] [facility] [place] [address] [place] [address] 05/15/2024 15:34:08 05/15/2024 16:31:18 Screening - NAD 368738378 Z13.9 C-scope: next in 02/2026 Get yearly flu shot, get tdap if not doneCan do shingrix vaccineCan do RSV vaccineCan do COVID 19 vaccine and its boosters RTC in 1 month, do labs, ER if worse, he and his DENIS Esa did verbalize his understand ing of the above Pain of bi lateral hip joints 1858411642 3755819 M25.[address] Knutson 06/14/2023 Type 2 valdemar betes mellitus without complication 528005967 E11.9 Not on jardiance 25mg dailyOn metformin ER 500mg po bidOn ozempic 0.5mg weeklyNo MEN 2 or MCT or parathyroi d or pancreatic issues Has seen endocrine in the past Hyperlipidemia 20370666 E78.5 On simvastati n 40mg dailyGet labs Essential hypertension 13003850 I10 On olmesartan 40mg dailyDoes well Interstiti al lung disease 761500576 J84.9 Has ILD and COPDOn albuterol Sees Dr Amaro pulmonary, will refer to Dr Faust Schizophrenia 37608100 F 20.9 On aripiprazo le 10mg dailyOn buporpion XL 250mg dailyOn oxcarbazep ine 150mg daily Not suicidal or homicidalS ees Dr [facility] CMA Lisseth, meds refilled by psychiatry , referred today Cigarette smoker 7352428 7 F17.210 Advised to quitUS AAA at age 65 years LDCT 11/30/2021 Sees pulmonary and has had HRCT done Macrocytosis 362073028 D 75.89 Get labs Coronary arteriosclerosis 57442719 I25.10 Seen on the LDCTRefer to Dr Johnson and will see him today at the [facility] off Dr Johnson 10/03/2023 Alcohol dependence 85106 003 F10.20 Admits to consuming ETOHAdvise d to wean off and stopGet labs and get on folic acid and thiamine Screening for malignant neoplasm of prostate 109220951 Z12.5 Vitamin D deficiency 347 00995 E55.9 [id number] MD BEHZAD Mcallister_GMG Pulmonolo gy [place] [address] [place] [address] 07/17/2024 14:59:14 07/17/2024 17:17:52 Mild chronic obstructive pulmonary disease 062244819 J44.9 Fibrosis of lung 5206449 1 J84.10 J84.9 [id number] MD BEHZAD Collazo_GMG Internal Med [facility] [address] [address] 08/12/2024 17:12:16 08/12/2024 18:33:37 Screening - NAD 004149653 Z13.9 C-scope: next in 02/2026 Get yearly flu shot, get tdap if not doneCan do shingrix vaccineCan do RSV vaccineCan do COVID 19 vaccine and its boosters RTC in 1 month, do labs, ER if worse, he and his DENIS Esa did verbalize his understand ing of the above Pain of bi lateral hip joints 4296880766 0749631 M25.[address] Knutson 06/14/2023 Type 2 valdemar betes mellitus without complication 595059582 E11.9 Not on jardiance 25mg dailyOn metformin ER 500mg po bidNot on ozempic 0.5mg weeklyNo MEN 2 or MCT or parathyroi d or pancreatic issues Has seen endocrine in the past Hyperlipidemia 37534885 E78.5 On simvastati n 40mg dailyGet labs Essential hypertension 03219184 I10 Not on olmesartan 40mg dailyDoes well Interstiti al lung disease 647978666 J84.9 Has ILD and COPDOn albuterol Sees Dr Amaro pulmonaryD claude Faust 07/17/2024 , to get PFTs and CT chest Schizophrenia 96910674 F 20.9 Not taking aripiprazo le 10mg dailyNot on buporpion XL 250mg daily, but was changed to 150mg daily, will renew 08/12/2024 as per his requestOn oxcarbazep ine 150mg daily Not suicidal or homicidalS ees Dr [facility] CMA Lisseth, meds refilled by psychiatry , referred today 08/12/2024 , advised him that he MUST keep his apt with psychiatry MAURILIO Cigarette smoker 1987391 7 F17.210 Advised to quitUS AAA at age 65 years LDCT 11/30/2021 Sees pulmonary and has had HRCT done Macrocytosis 882240446 D 75.89 Get labs Coronary arteriosclerosis 02737079 I25.10 Seen on the LDCTRefer to Dr Johnson and will see him today at the [facility] off Dr Johnson 10/03/2023 Alcohol dependence 64157 003 F10.20 On folic acid and thiamine Screening for malignant neoplasm of prostate 820228127 Z12.5 Vitamin D deficiency 347 18085 E55.9 [id number] Tripp rich MD S_G Internal Med [facility] [address] [facility], [facility] [address] [place] [address] 08/26/2024 13:57:16 08/26/2024 15:43:59 Screening - NAD 109848269 Z13.9 C-scope: next in 02/2026 Get yearly flu shot, get tdap if not doneCan do shingrix vaccineCan do RSV vaccineCan do COVID 19 vaccine and its boosters RTC in 1 month, do labs, ER if worse, he and his DENIS Esa did verbalize his understand ing of the above Pain of bi lateral hip joints 1190631684 4566115 M25.[address] Knutson 06/14/2023 Type 2 valdemar betes mellitus without complication 909626896 E11.9 Not on jardiance 25mg dailyOn metformin ER 500mg po bidNot on ozempic 0.5mg weeklyNo MEN 2 or MCT or parathyroi d or pancreatic issues Has seen endocrine in the past Hyperlipidemia 91050624 E78.5 On simvastati n 40mg dailyGet labs Essential hypertension 56667030 I10 On olmesartan 40mg daily, can d/c thisKeep BP logs, needs to see cardiology Does well Interstiti al lung disease 496820190 J84.9 Has ILD and COPDOn albuterol Sees Dr Amaro pulmonaryD claude Faust 07/17/2024 , to get PFTs and CT chest Schizophrenia 16416586 F 20.9 Not taking aripiprazo le 10mg dailyNot on buporpion XL 250mg daily, but was changed to 150mg daily, will renew 08/12/2024 as per his requestOn oxcarbazep ine 150mg daily Not suicidal or homicidalS ees Dr [facility] CMA Lisseth, meds refilled by psychiatry , referred today 08/12/2024 , advised him that he MUST keep his apt with psychiatry MAURILIO, explained this to him again today 08/26/2024 Cigarette smoker 2199265 7 F17.210 Advised to quitUS AAA at age 65 years LDCT 11/30/2021 Sees pulmonary and has had HRCT done Macrocytosis 513497650 D 75.89 Get labs Coronary arteriosclerosis 71210459 I25.10 Seen on the LDCTRefer to Dr Johnson and will see him today at the E off Dr Johnson 10/03/[address] Jah WARREN, he will see her today 08/26/2024 Addendum: 08/28/2024 : Dr Jah CUTLER 08/26/2024 now to get stress test and f/u Dr johnson Alcohol dependence 97737 003 F10.20 On folic acid and thiamine Vitamin D deficiency 347 19167 E55.9 Get on vit d weekly with OTC calcium and repeat the vit d level [id number] Shayla Faust MD S_GMG Pulmonolo gy [address] [address] 09/04/2024 13:24:14 09/09/2024 12:28:02 Mild chronic obstructive pulmonary disease 526286683 J44.9 Fibrosis of lung 9382155 [id number] MD S_G ENT [place] [address] [place] [address] 10/14/2024 15:12:47 10/14/2024 16:03:42 Perforation of left tympanic membrane 3037672589 311941 H72.92 Sensorineu ral hearing loss 47780263 H90.5 Chronic sinusitis 031303 00 J32.9 Superficia l injury of nose with infection 21421275 L08.9 Deviated nasal septum [id number] MD S_[facility] E[facility] [place] [address] [place] [address] 03/26/2025 15:41:40 03/27/2025 09:29:37 Acute folliculitis 053150644 L73.9 [id number] Health Concerns Section Related Observation LastModified by Organization Detai ls LastModified Time None Recorded Concern Status LastModified by Organization Details LastModified Time None Recorded Advance Directives Directive None Recorded Payers Insurance Date Sequence Insurance Name Policy Number Policy Umanzor Covered Member ID Umanzor Member ID Guarantor Name 03/23/2025 1 [place] Juwan Harris [id number] Juwan Harris 03/25/2025 2 [place] WHEN MEDICARE OR MEDICARE REPLACEMENT PRIMARY) Juwan Harris [id number] Juwan Harris Notes Date Note Type Note [...] f/u apt, was admitted and d/c from [facility] for alcohol withdrawal and for rehab, he is here as he would like to get on his medications that he has run out of Tripp rich MD [address] [place] [address], [address], [address] , [facility] [employer] 08/27/2024 18:20:50 025 text/ht ml OV 10/02/2023: [...] f/u apt, was admitted and d/c from [facility] for alcohol withdrawal and for rehab, he is here as he would like to get on his medications that he has run out of OV 08/26/2024: Here for his BP check, he is doing well today, he has not yet seen the psychiatrist, he did do the labs and is here to review these Tripp rich MD [address], [place], [address] , [place] [facility] 08/28/2024 09:17:11 025 text/ht [...] doing yard workAlleviating factors: restModified [employer] [place] (mMRC) Dyspnea Scale - Grade 1Grade 0 [...] slight chance of dozing. Shayla Faust MD [address] [place] [address], [facility] [address], [place], [address] , [place] [facility] 09/04/2024 14:11:24 025 text/ht ml this patient [...] underneath the injury. Denies use of any dftr-wco-ovrvcjw medications to aid in symptom relief. SUNIL Davenport [address], [facility] [address], [place], [address] , [employer] [facility] [employer] [facility] 10/14/2024 16:03:11 025 text/ht ml this patient reports he still has a nasal soreness after a cat scratch injury. He tried Bactrim which was unhelpful. Kendell Way MD [address], [facility] [address], [place], [address] , [employer] 03/26/2025 16:39:29
== END 2025-07-08 14:35 | disposition home or self-care (01) ==
PROVIDERS: PCP Nurse Practitioner Family; Visit Provider Internal Medicine Gastroenterology
DX: K70.10 Alcoholic hepatitis without ascites (principal); E11.9 Type 2 diabetes mellitus without complications; J44.9 Chronic obstructive pulmonary disease, unspecified; R11.2 Nausea with vomiting, unspecified
CPT/HCPCS: 36415; 80053; 80074; 82728; 83540; 83550; 85025; 85610

== ENCOUNTER 2025-07-13 16:17 | Outpatient (CLI) | payer MEDICARE, MEDICAID, SELFPAY ==
[2025-07-13 17:17] LABS: CRP < 0.5 mg/dL (<1.0); Creatine Kinase 74 U/L (55-170)
--- OUTSIDE RECORDS SUMMARY | 2025-07-13 18:13 | XMS_ITS | Clinical Summary ---
Author Organization [facility] [employer] Address [address] [place] [address] Care Team Providers Care Landscape Photographer Name Role Phone Unavailable Primary Care Provider Unavailabl e Source Comments [facility],non-owned Affiliates and Associated Physician Practices is amultiple site organization consisting of ambulatory clinics and hospital sitesin [place], [place], [place] and [place]. This disclosure is being madepursuant to the Care Everywhere program and may not contain all information available regarding this patient. Last updated 18.[facility] [employer] Allergies Active Allergy Reactions Criticality Noted Date [...] Lung Disease 180 Each 3 2 Active [facility]-3 Fatty Acids (FISH OIL PO) Active nicotine [...] Insurance MEDICARE MEDICAID [place] MEDICARE MEDICAID [facility]
--- OUTSIDE RECORDS SUMMARY | 2025-07-13 18:13 | XMS_ITS | Data Portability ---
Author Organization [employer], [facility] Address [address] [address] Assessment No assessment recorded. Plan of Treatment [...] Updated DateTime 12/21/2021 172.72 cm 29.6 kg/m2 71984.51 g 92 /min 119/71 mm[Hg] Elieser Rainey [facility], [facility] 12/21/2021 10:48:14 Social History None recorded. Functional Status None recorded. Mental Status None recorded. Family History Nothing Reported. Medical History Condition Response Other Cancer N HIV or AIDS N Coronary Artery Disease N Gout N Kidney Stones N Hyperthyroidism N Breast Cancer N Head Trauma/Injury N Hernia N Lung Cancer N Blood Clots N COPD N Depression N Hypothyroidism N Lung Disease N Pacemaker N Parkinson's N Anxiety Disorder [...] Tendon Tear N Ulcers N Heart Attack (OR) N Osteopenia N Diabetes Y Bleeding Disorder [...] Codes Diagnosis Note [id number] Jayesh Epps MD [facility] [address] [place] [address] 12/21/2021 10:30:28 12/21/2021 12:47:17 Health Concerns Section Related Observation LastModified by Organization Detai ls LastModified Time None Recorded Concern Status LastModified by Organization Details LastModified Time None Recorded Advance Directives Directive None Recorded Payers Insurance Date Sequence Insurance Name Policy Number Policy Umanzor Covered Member ID Umanzor Member ID Guarantor Name 12/22/2021 1 [place] Juwan Harris [id number] Juwan Harris
[2025-07-14 10:08] LABS: Anti-CCP Ab, IgG/IgA 8 units (0-19)
[2025-07-14 15:09] LABS: Immunoglobulin A, Qn 394 mg/dL (61-437); Immunoglobulin G, Qn 1094 mg/dL (603-1613); Immunoglobulin M, Qn 71 mg/dL (20-172)
[2025-07-15 15:09] LABS: ANA by IFA Rfx Titer/Pattern Negative (.)
[2025-07-17 16:08] LABS: Vit. B1, Whole Blood 114.1 nmol/L (66.5-200.0)
== END 2025-07-13 16:18 | disposition home or self-care (01) ==
PROVIDERS: PCP Nurse Practitioner Family; Visit Provider Psychiatry & Neurology Neurology
DX: G62.9 Polyneuropathy, unspecified (principal); G50.0 Trigeminal neuralgia; F10.10 Alcohol abuse, uncomplicated; E11.9 Type 2 diabetes mellitus without complications
CPT/HCPCS: 36415; 82550; 82784; 83090; 83921; 84207; 84425; 86038; 86140; 86200; 86334; 86431

== ENCOUNTER 2025-07-27 08:42 | Outpatient (CLI) | payer MEDICARE, MEDICAID, SELFPAY ==
--- OUTSIDE RECORDS SUMMARY | 2025-07-27 08:46 | XMS_ITS | Clinical Summary ---
Author Organization [facility] [employer] Address [address] [place] [address] Care Team Providers Care Joint Cleaning Machine Operator Name Role Phone Unavailable Primary Care Provider Unavailabl e Source Comments [facility],non-owned Affiliates and Associated Physician Practices is amultiple site organization consisting of ambulatory clinics and hospital sitesin [place], [place], [place] and [place]. This disclosure is being madepursuant to the Care Everywhere program and may not contain all information available regarding this patient. Last updated 18.[facility] [employer] Allergies Active Allergy Reactions Criticality Noted Date [...] Lung Disease 180 Each 3 2 Active [place]-3 Fatty Acids (FISH OIL PO) Active nicotine [...] Insurance MEDICARE MEDICAID - [place] MEDICARE MEDICAID [facility]
--- OUTSIDE RECORDS SUMMARY | 2025-07-27 08:46 | XMS_ITS | Clinical Summary ---
Author Organization [facility] Address [address] [place] [address] Care Team Providers Care Sales And Service Specialist Name Role Phone Unavailable Primary Care Provider Unavailabl e Social History Tobacco Use Types Packs/Day Years Used Date Smoking Tobacco: Never Assessed Sex and Gender Information Value Date Recorded Sex Assigned at Not on file Legal Sex Male 11:23 AM HR ASSISTANT Gender Identity Not on file Sexual Orientation Not on file Plan of Treatment Upcoming Encounters Date Type Department Care Team (Late st Contact Info) Description 11/23/2025 11:00 AM CDT Office Visit [facility] Multispecialty Care - [facility] [address], [address] [place] [address] Bret Sutton MD [address] [place] [address] Health Maintenance Due Date Last Done Comments [...]
--- OUTSIDE RECORDS SUMMARY | 2025-07-27 08:46 | XMS_ITS | Clinical Summary ---
Author Organization [facility] Facility Address [address] [place] [id number] Care Team Providers Care Information Systems Security Officer Name Role Phone Tripp Lutz MD Primary Care Provider [phone] Social History Tobacco Use Types Packs/Day Years [...] topic Insurance Medicare Medicaid [place] Care Teams Information Systems Security Officer Relationship Specialty Start Date End Date Tripp Lutz MD [address], [address] [place] [address] PCP - General Internal Medicine 08/01/24
== END 2025-07-27 08:43 | disposition home or self-care (01) ==
LOC: ANHAUDIO 08:43
PROVIDERS: PCP Nurse Practitioner Family; Visit Provider Otolaryngology
DX: H90.3 Sensorineural hearing loss, bilateral (principal)
CPT/HCPCS: 92557; 92567